=== PATIENT | male | born 1970 | race Caucasian/White ===

== ENCOUNTER 2017-08-09 02:16 | Emergency (ER) | payer OTHER, SELFPAY ==
[2017-08-09 02:18] VITALS: BP 162/112; PULSE 101; RESP 15; TEMP 36.7; O2SAT 98; BMI 26.2
--- NOTE | 2017-08-09 03:06 | CT_ITS ---
STUDY: CT ABDOMEN AND PELVIS WITH CONTRAST REASON FOR EXAM: Male, 47 years old. Lower abdominal pain RADIATION DOSAGE (If Supplied By Facility): CTDIvol = ( 12.83 ) mGy, DLP = ( 914.56 ) mGycm TECHNIQUE: Transaxial images were obtained from the dome of the diaphragm to the symphysis pubis without oral contrast. 100ML ml of Isovue 300 contrast was administered. Sagittal and coronal images were reconstructed. Individualized dose optimization techniques were used for this CT. COMPARISON: None. FINDINGS: The visualized lung bases are unremarkable. The visualized portions of the heart are within normal limits. Normal liver. Normal gallbladder and extrahepatic biliary system. Normal spleen. Normal pancreas. Normal bilateral adrenal glands. There is mild right hydronephrosis due to 8 mm stone in the proximal part of the right ureter. Normal left kidney. Normal visualized stomach. Normal small intestine. Normal colon. The appendix is visualized and appears normal. Normal abdominal aorta. Normal inferior vena cava. Normal retroperitoneum. Normal urinary bladder. Normal abdominal wall. Normal osseous structures. CT/Abdomen/Pelvis W IV Cont ONLY IMPRESSION: There is mild right hydronephrosis due to 8 mm stone in the proximal part of the right ureter. Electronically Signed: Lynsey Macias MD at 4:24 EDT Tel , Service support ,
[2017-08-09] MEDS: Ondansetron 4 MG/2 ML Vial IV (03:19)
[2017-08-09] MEDS: 0.9% Normal Saline 1,000 ML 1000 ML IV (03:20)
[2017-08-09 03:25] LABS: Absolute Lymphocyte Count 2.05 X10^3/ul (0.83-4.51); Absolute Neutrophil Count 4.1 X10^3/uL (2.0-7.7); Basophil# 0.01 X10^3/uL; Basophil% 0.1 % (0-1); Eosinophil# 0.05 X10^3/uL; Eosinophils% 0.7 % (0-5); Hematocrit 47.6 % (40-54); Hemoglobin 16.3 g/dl (13.0-16.5); Lymphocyte # 2.05 X10^3/ul (4.0); Lymphocyte % 29.3 % (19-41); Mean Corp Hgb Conc 34.2 g/gl (32-36); Mean Corpuscular Hgb 30.7 pg (27.0-32.0); Mean Corpuscular Volume 89.6 fL (80-94); Mean Platelet Vol. 9.8 fl (6.2-12.0); Monocyte# 0.78 X10^3/uL; Monocyte% 11.2 % (0-10); Neutrophil # 4.09 X10^3/uL (2.7-7.7); Neutrophil % 58.6 % (47-70); Platelet Count 209 K/mm3 (150-450); RBC Distribution Width CV 12.4 % (11.6-14.6); RBC Distribution Width SD 40.5 fl (35.1-43.9); Red Blood Count 5.31 M/mm3 (4.6-6.2)
[2017-08-09 03:27] LABS: POSITIVE COUNT NO; POSITIVE DIFFERENTIAL NO; POSITIVE MORPHOLOGY NO
[2017-08-09 03:48] LABS: Anion Gap 8 (5-15); BUN 14 mg/dL (7-18); BUN/Creat Ratio 11.9 RATIO (10-20); Calcium,Total 8.5 mg/dL (8.5-10.1); Chloride 104 mmol/L (98-107); Creatinine, Serum 1.18 mg/dL (0.70-1.30); EST Glomerular Filtration Rate 70 mL/min (>60); Est Glom Filt Rate - Afr Amer 84 mL/min (>60); Estimated Creatinine Clearance 78.19 ml/min; Glucose 100 mg/dL (74-106); Potassium 3.9 mmol/L (3.5-5.1); Sodium Level 140 mmol/L (136-145)
[2017-08-09 04:19] VITALS: BP 175/108; PULSE 89; RESP 18; O2SAT 96
--- NOTE | 2017-08-09 05:35 | ED.DCSUM_ITS ---
- ER Visit Summary Date of Service: 08/09/17 Chief Complaint: Lower abdominal pain History of Present Illness: The patient is a 47 M who presents for 1 day of lower abdominal pain. Pain began as very sharp in the left and right lower quadrants. During the day patient had improvement in the pain, however it returned again this past evening worse than before. It is relieved and worsened by nothing. Pain is very sharp. Patient denies fever, nausea, vomiting, diarrhea or urinary symptoms. Last bowel movement was 1 day ago. Patient has history of hypertension and MS. Denies any other medical history. Surgical history remarkable for hernia repairs. Physical Examination: Vital signs: afebrile, hypertensive at 162/112, mild tachycardia at 101, no hypoxia on room air General: well nourished, well developed, in no distress Skin: warm, dry, no rash, no pallor HEENT: normocephalic and atraumatic; PERRL, EOMI, moist mucous membranes Cardiovascular: Tachycardic rate and rhythm without murmurs, no peripheral edema , 2+ pulses all distal extremities Respiratory: No increased work of breathing, lungs are clear to auscultation bilaterally, no rales, rhonchi or wheezing Abdominal: Abdomen is soft, tender in the lower quadrants, with normoactive bowel sounds, no guarding or rebound, no masses MSK: Moves all extremities, no deformities, normal strength Neuro: Awake and alert, oriented ?4. No facial droop, sensation and motor function intact and symmetric Test Results: Abnormal Lab Results 08/09/17 08/09/17 03:15 03:15 WBC 7.0 RBC 5.31 Hgb 16.3 Hct 47.6 MCV 89.6 MCH 30.7 MCHC 34.2 RDW 12.4 RDW Differential 40.5 Plt Count 209 MPV 9.8 Immature Gran % (Auto) 0.100 Neut % (Auto) 58.6 Lymph % (Auto) 29.3 [place] % (Auto) 11.2 H Eos % (Auto) 0.7 Baso % (Auto) 0.1 Absolute Neuts (auto) 4.1 Absolute Lymphs (auto) 2.05 Total Counted Not Reportable Sodium 140 Potassium 3.9 Chloride 104 Carbon Dioxide 28.0 Anion Gap 8 BUN 14 Creatinine 1.18 Estim Creat Clear Calc 78.19 Est GFR (MDRD) Af Amer 84 Est GFR (MDRD) Non-Af 70 BUN/Creatinine Ratio 11.9 Glucose 100 Calcium 8.5 Emergency Department Course and Treatment: Patient was given morphine and Zofran for symptomatic relief. He was also given IV fluids. Given his age, history of hernia repairs, and the lower abdominal pain, CT scan of the abdomen and pelvis was performed to look for acute pathology. Patient had a right 8 mm proximal ureteral stone with mild hydronephrosis. No other pathology noted, including diverticulitis, hernias, masses or obstructive bowel pattern. Urinalysis performed. Patient had no leukocytosis and no renal dysfunction on CBC and BMP. Hematuria on analysis but no infection. He had additional pain and required further morphine good control. She was given a dose of Toradol as well. Given the 8 mm size and the proximal location, patient was discussed with Dr. Arthur, who advised outpatient management would be appropriate given that there is no infection. No Flomax was prescribed given the size of the stone. Patient was given a prescription for Zofran, Percocet and naproxen for symptomatic control. Return precautions given. Patient is to call Dr. Arthur' s office today to set up a follow-up appointment. Treatment Plan: [] Disposition: [] Impression: Right urolithiasis with ureteral colic This note was generated with [employer] dictation software. It may contain incorrect words, spelling, and punctuation that were not noted in review of the chart prior to signing ED Disposition - Plan for ED Patient: Disposition: Home or Assisted Living Chief Complaint: Abd Pain Instructions: ED Stone Renal W Colic Prescriptions: Oxycodone HCl/Acetaminophen [Percocet 5/325] 1 tab PO Q6H PRN PRN 5 Days #15 tab PRN Reason: Pain Ondansetron [Zofran Odt] 4 mg PO Q8H PRN PRN #20 tab PRN Reason: Nausea Naproxen [Naprosyn] 500 mg PO BID PRN PRN #20 tab PRN Reason: Pain Referrals: Ishan Arthur MD [STAFF PHYSICIAN] - As soon as possible NOT,DEFINED [Primary Care Provider] - Additional Instructions: You have a kidney stone on the right side. Please take the pain medication as needed. Please call the urology office today to set up a follow-up appointment. If at any time your pain is not controlled with the medications you were given, you have uncontrolled vomiting, fever, or any other concerns, please come back to the emergency department for another evaluation.
[2017-08-09 05:45] LABS: Mucous, Urine 0 SEEN /hpf (<or=2+); White Blood Cells 0 SEEN /hpf (0-5)
[2017-08-09 06:04] VITALS: BP 149/105; PULSE 85; RESP 94; TEMP 37.1; O2SAT 95
[2017-08-09 06:08] LABS: Color, Urine Yellow (Yellow); Glucose, Dipstick Normal (Normal); Ketone-Dipstick Negative (Negative); Leukocyte Esterase-Dipstick Negative /ul (Negative); Nitrite-Dipstick Negative (Negative); Occult Blood-Urine 250 /ul (Negative); Protein-Dipstick 15 mg/dl (Negative); Specific Gravity, Urine 1.015 (1.002-1.030); Urine Bilirubin Dipstick Negative (Negative); Urine Clarity Clear (Clear); Urine Urobilinogen Normal (Normal)
[2017-08-09 06:13] LABS: Red Blood Cells-Urine 5-10 SEEN /hpf (0-5); Squamous Epithelial Cells - UA 0-5 SEEN /hpf (0-5)
[2017-08-09 06:14] LABS: Bacteria RARE /hpf (None Seen)
--- NOTE | 2017-08-09 06:27 | ED.DEP ---
ED Disposition - Plan for ED Patient: Disposition: Home or Assisted Living Chief Complaint: Abd Pain Instructions: ED Stone Renal W Colic Prescriptions: Oxycodone HCl/Acetaminophen [Percocet 5/325] 1 tab PO Q6H PRN PRN 5 Days #15 tab PRN Reason: Pain Ondansetron [Zofran Odt] 4 mg PO Q8H PRN PRN #20 tab PRN Reason: Nausea Naproxen [Naprosyn] 500 mg PO BID PRN PRN #20 tab PRN Reason: Pain Referrals: NOT,DEFINED [Primary Care Provider] - Ishan Arthur MD [STAFF PHYSICIAN] - As soon as possible Additional Instructions: You have a kidney stone on the right side. Please take the pain medication as needed. Please call the urology office today to set up a follow-up appointment. If at any time your pain is not controlled with the medications you were given, you have uncontrolled vomiting, fever, or any other concerns, please come back to the emergency department for another evaluation.
[2017-08-09] MEDS: Ketorolac 30 MG/ML Syringe IV (06:47)
[2017-08-09 06:53] VITALS: BP 117/86; PULSE 78; RESP 16; O2SAT 98
== END 2017-08-09 06:53 | disposition home or self-care (01) ==
PROVIDERS: Emergency Provider Emergency Medicine
DX: N13.2 Hydronephrosis with renal and ureteral calculous obstruction (principal); I10 Essential (primary) hypertension; G35 Multiple sclerosis
CPT/HCPCS: 74177; 80048; 81001; 85025; 96361; 96374; 96375; 96376; 99283; Q9967; A4216; J2405

== ENCOUNTER 2017-08-18 07:56 | Day surgery (SDC) | payer OTHER, SELFPAY ==
--- NOTE | 2017-08-18 08:08 | RAD_ITS ---
STUDY: X-RAY - ABDOMEN/PELVIS REASON FOR EXAM: Male, 47 years old. Pre ESWL TECHNIQUE: Two AP supine views of the abdomen and pelvis. COMPARISON: None. FINDINGS: There is an unremarkable bowel gas pattern. There is no demonstrated free abdominal air. There is a calcific density in the region of the right renal shadow measuring 8.8 mm. Normal soft tissue structures. Normal visualized osseous structures. RAD/Abdomen Single View IMPRESSION: Right-sided stone as above Electronically Signed: Ravindra Aguirre DO at 8:54 EDT Tel , Service support ,
[2017-08-18 08:31] VITALS: BP 154/111; PULSE 101; RESP 16; TEMP 36.6; O2SAT 98; BMI 26.2
--- NOTE | 2017-08-18 10:45 | PCM.DC.URO ---
Discharge Diet: Light diet - advance as tolerated Discharge Activity: Return to Normal Activity Call your doctor if your incision/area has: Continuous Slow Oozing, Sudden Increased Bleeding, Increased Pain/ Swelling, Increased Redness, Foul Smelling Discharge, Swelling at the incision site Allergies/Adverse Reactions: Allergies Penicillins [PCN] Allergy (Verified 08/16/17 08:59) Rash Medications to take at Discharge Losartan Potassium [Cozaar] 50 mg PO DAILY 07/09/14 Hydrocodone/Acetaminophen [[place] 5-325 Tablet] 1 ea PO Q4H PRN PRN 5 Days #20 tab 08/18/17 The following prescriptions were given: Hydrocodone/Acetaminophen [[place] 5-325 Tablet] 1 ea PO Q4H PRN PRN 5 Days #20 tab PRN Reason: Pain Primary Care Physician: Delma Story [Primary Care Provider] - Please Follow Up With: Ishan Arthur MD When: MondaySeptember 05 at 10:30am, get KUB before appt.
[2017-08-18] MEDS: Cefazolin 2 GM in 0.9% Normal Saline 100 ML IV (10:46)
--- NOTE | 2017-08-18 11:36 | PCM.OPRPT ---
Problem List (1) Right kidney stone Status: Acute Report of Operation Date of Procedure: 08/18/17 Pre-Operative Diagnosis: Right renal calculi Post-Operative Diagnosis: Same Surgery/Procedure Performed:: Right extracorporeal shockwave lithotripsy Description of Surgical Findings:: 47-year-old male taken back to the operating room at the smooth induction of general anesthesia he is placed supine on the lithotripter table we then identified the stone in the proximal right ureter. The lithotripter machine was then brought up underneath the stone and we focus a stone in the F2 focal point and we delivered a total of 3500 shockwaves to the stone at a rate of 90 shocks per minute power up to 7.5. At the end of the treatment cycle the stone had broken up the little tiny pieces though some small fragments could be seen in the proximal ureter but decided not to leave a stent and will see him back in a few weeks with a KUB possibly and more likely will pass a stone on its own, will get the patient appointment to follow-up in a few weeks with a KUB. Type of Anesthesia:: General Drains: none - Admit VTE Documentation VTE Present on Admission: No VTE Mechan Device Prophylaxis: SCD's VTE Pharm Prophylaxis ordered?: No
--- NOTE | 2017-08-18 11:42 | OP.PCM_ITS ---
Problem List (1) Right kidney stone Status: Acute Report of Operation Date of Procedure: 08/18/17 Pre-Operative Diagnosis: Right renal calculi Post-Operative Diagnosis: Same Surgery/Procedure Performed:: Right extracorporeal shockwave lithotripsy Description of Surgical Findings:: 47-year-old male taken back to the operating room at the smooth induction of general anesthesia he is placed supine on the lithotripter table we then identified the stone in the proximal right ureter. The lithotripter machine was then brought up underneath the stone and we focus a stone in the F2 focal point and we delivered a total of 3500 shockwaves to the stone at a rate of 90 shocks per minute power up to 7.5. At the end of the treatment cycle the stone had broken up the little tiny pieces though some small fragments could be seen in the proximal ureter but decided not to leave a stent and will see him back in a few weeks with a KUB possibly and more likely will pass a stone on its own , will get the patient appointment to follow-up in a few weeks with a KUB. Type of Anesthesia:: General Drains: none - Admit VTE Documentation VTE Present on Admission: No VTE Mechan Device Prophylaxis: SCD's VTE Pharm Prophylaxis ordered?: No
[2017-08-18 11:56] VITALS: BP 118/86; BP 154/111; PULSE 87; RESP 18; TEMP 36.3; O2SAT 94
[2017-08-18 12:00] VITALS: BP 125/68; BP 154/111; PULSE 97; RESP 18; O2SAT 100
[2017-08-18 12:15] VITALS: BP 125/99; BP 154/111; PULSE 84; RESP 18; O2SAT 100
[2017-08-18 12:27] VITALS: BP 129/96; BP 154/111; PULSE 79; RESP 18; TEMP 36; O2SAT 99
[2017-08-18 12:45] VITALS: BP 154/111
== END 2017-08-18 12:55 | disposition home or self-care (01) ==
LOC: SDC 07:58 → AC 07:58
PROVIDERS: Family Provider Nurse Practitioner; PCP Nurse Practitioner; Visit Provider Urology
PROC: (CPT 50590; principal; 2017-08-18 10:10)
DX: N20.1 Calculus of ureter (principal); I10 Essential (primary) hypertension
CPT/HCPCS: 00873; 50590; 74018; J7120; J2405

== ENCOUNTER 2019-01-12 15:52 | Emergency (ER) | payer OTHER, SELFPAY ==
[2019-01-12 15:53] VITALS: BP 156/116; PULSE 108; RESP 17; TEMP 36.7; O2SAT 99; BMI 23.7
--- NOTE | 2019-01-12 16:22 | ED.VIS.GEN ---
History of Present Illness Chief Complaint: Flank Pain Informant: Patient Onset: Today Narrative: Patient presents to the ED with left flank pain that began over an hour prior to arrival. He is concerned he may have a kidney stone. He is a history of kidney stones with his last being in May of this year. The stone did require lithotripsy. He states that he feels it is difficult to urinate. He denies any other associated urinary symptoms, fever, chills, nausea, vomiting, or changes in bowel movements. Past Medical History - Allergies and Home Meds Allergies/Adverse Reactions: Allergies Penicillins [PCN] Allergy (Verified 01/12/19 15:53) Rash Primary Care Physician: Delma Story NP-C [Primary Care Provider] - Smoking Status: Light Smoker (<10/day) Review of Systems General: Denies: Chills, Fever, Sweats Eyes: Denies: Visual changes - bilaterally, Diplopia ENT: Denies: Rhinorrhea, Sore throat Cardiovascular: Denies: Chest pain, Palpitations Respiratory: Denies: Dyspnea, Cough, Dyspnea on exertion Gastrointestinal: Reports: - - L flank pain. Denies: Abdominal pain, Nausea, Vomiting, Diarrhea, Melena, Hematochezia Genitourinary: Reports: - - Difficulty urinating. Denies: Dysuria, Hematuria, Frequency Musculoskeletal: Denies: Back pain, Extremity Pain Skin: Denies: Rash, Wounds Neurological: Denies: Headache, Weakness, Numbness Physical Exam Vital Signs/Narrative: Vital Signs Temp Pulse Resp BP Pulse Ox 01/12/19 15:53 98.1 F 108 H 17 156/116 H 99 Inital Vital Signs reviewed: Yes General: Well nourished, Well developed, - - Appears uncomfortable Head: Normocephalic, Atraumatic Eyes: Perrl, EOMI ENT: Moist mucous membranes, No rhinorrhea Neck: Supple, Nontender Cardiovascular: Regular rate, Regular rhythm, No murmurs Respiratory: No distress, CTA bilaterally, Chest nontender Abdomen: Soft, Nontender, Nondistended, Normal bowel sounds Back: Nontender, Normal Inspection. Negative for: CVA tenderness Extremities: Nontender, No edema Skin: Normal color, No rash Neurological: Alert, Oriented x3, Cranial nerves II-XII grossly intact, Normal Strength, Normal Sensation Psychological: Normal affect, Normal Mood Diagnostic/Tx/Re-eval CBC unremarkable. BMP indicates a mildly elevated creatinine of 1.48. CT abdomen/pelvis without contrast indicates 3 mm distal ureteral stone with hydronephrosis. - Medical Decision Making Patient presents to the ED with concern for renal calculus. He has a history of renal stones with his last being in May of this year. Patient does appear uncomfortable. He was given IV fluids, morphine, Toradol, and Zofran for symptomatic relief. CT abdomen/pelvis does indicate 3 mm distal ureteral stone with some hydronephrosis. Patient's symptoms are improved with treatment here. I was awaiting urinalysis results. Urinalysis results will be followed by Dr. Larios and disposition will be made for patient by Dr. Larios. Patient will most likely be discharged home with analgesics, antiemetics, and Flomax. Depending on urinalysis results, patient will be started on an oral antibiotic if he does have an infected stone. Patient was advised to follow-up with his urologist. He was educated on signs/symptoms to return to the ED. He is provided discharge instructions. He is agreeable to plan Impression: Left distal ureteral stone with mild hydronephrosis Disposition: Home stable ED Disposition - Plan for ED Patient: Referrals: Delma Story, [employer] [Primary Care Provider] -
[2019-01-12] MEDS: Ketorolac 15 MG/ML Vial IV (16:35)
[2019-01-12] MEDS: Morphine 4 MG/ML Syringe IV (16:35)
[2019-01-12] MEDS: Ondansetron 4 MG/2 ML Vial IV (16:35)
[2019-01-12] MEDS: 0.9% Normal Saline 1,000 ML 999 ML IV (16:35)
--- NOTE | 2019-01-12 16:40 | CT_ITS ---
STUDY: CT ABDOMEN AND PELVIS WITHOUT CONTRAST REASON FOR EXAM: Male, 48 years old. Left flank pain. RADIATION DOSAGE (If Supplied By Facility): CTDIvol = ( 7.18 ) mGy, DLP = ( 385.73 ) mGycm TECHNIQUE: Transaxial images were obtained from the dome of the diaphragm to the symphysis pubis without oral contrast, and without intravenous contrast. Sagittal and coronal images were reconstructed. Individualized dose optimization techniques were used for this CT. COMPARISON: August 09, 2017 FINDINGS: The visualized lung bases are unremarkable. The visualized portions of the heart are within normal limits. The lack of intravenous contrast limits evaluation of solid visceral organs. Normal liver. Normal gallbladder and extrahepatic biliary system. Normal spleen. Normal pancreas. Normal bilateral adrenal glands. There is a nonobstructing 1.8 mm calculus within the right kidney. There is mild left hydroureteronephrosis secondary to a 3 mm calculus within the distal ureter. Normal visualized stomach. Normal small intestine. There are scattered diverticula throughout the colon. The appendix is visualized and appears normal. Normal abdominal aorta. Normal inferior vena cava. Normal retroperitoneum. Normal urinary bladder. Normal abdominal wall. Normal osseous structures. CT/Abdomen/Pelvis without Cont IMPRESSION: Left hydroureteronephrosis secondary to a 3.0 mm calculus within the distal ureter. Nonobstructing 1.8 mm right renal calculus. Colonic diverticulosis. Electronically Signed: Beatrice Cao MD at 17:00 EDT Tel , Service support ,
[2019-01-12 16:47] LABS: Absolute Lymphocyte Count 1.59 X10^3/uL (0.83-4.51); Absolute Neutrophil Count 5.2 X10^3/uL (2.0-7.7); Basophil# 0.02 X10^3/uL; Basophil% 0.3 % (0-1); Eosinophil# 0.01 X10^3/uL; Eosinophils% 0.1 % (0-5); Hematocrit 50.5 % (40-54); Hemoglobin 17.4 g/dL (13.0-16.5); Lymphocyte # 1.59 X10^3/ul (4.0); Lymphocyte % 19.9 % (19-41); Mean Corp Hgb Conc 34.5 g/dL (32-36); Mean Corpuscular Hgb 31.2 pg (27.0-32.0); Mean Corpuscular Volume 90.7 fL (80-94); Mean Platelet Vol. 9.6 fl (6.2-12.0); Monocyte# 1.18 X10^3/uL; Monocyte% 14.8 % (0-10); NRBC Flagged by Analyzer 0 % (0-5); Neutrophil # 5.16 X10^3/uL (2.7-7.7); Neutrophil % 64.5 % (47-70); Platelet Count 223 K/mm3 (150-450); RBC Distribution Width CV 12.4 % (11.6-14.6); RBC Distribution Width SD 40.9 fl (35.1-43.9); Red Blood Count 5.57 M/mm3 (4.6-6.2)
[2019-01-12 16:56] LABS: Anion Gap 5 (5-15); BUN 14 mg/dL (7-18); BUN/Creat Ratio 9.5 RATIO (10-20); Chloride 103 mmol/L (98-107); Creatinine, Serum 1.48 mg/dL (0.70-1.30); EST Glomerular Filtration Rate 53 mL/min (>60); Est Glom Filt Rate - Afr Amer 65 mL/min (>60); Estimated Creatinine Clearance 61.66 ml/min; Glucose 138 mg/dL (74-106); Potassium 3.6 mmol/L (3.5-5.1); Sodium Level 138 mmol/L (136-145)
--- NOTE | 2019-01-12 18:17 | ED.RN ---
PT UNABLE TO GIVE UA AT THIS TIME, MD AWARE. NO NEW ORDERS GIVEN.
[2019-01-12] MEDS: morphine 8 MG/ML Syringe 6 MG IV (18:29)
--- NOTE | 2019-01-12 18:33 | ED.DEP ---
ED Disposition - Plan for ED Patient: Disposition: Home or Assisted Living Instructions: KIDNEY STONE w/ Colic Prescriptions: Tamsulosin HCl [Flomax] 0.4 mg PO DAILY #4 cap Prescription Printed Hydrocodone/Acetaminophen [[place] 5-325 Tablet] 1 ea PO Q4H PRN PRN 7 Days #20 tab PRN Reason: Pain Prescription Printed Referrals: Ishan Arthur MD [STAFF PHYSICIAN] - 3-5 Days if not improving Additional Instructions: Plenty of fluids and rest. [place] and Motrin for pain. Flomax daily until the stone passes. Strain your urine for the passed stone. Follow-up with not improving return if feeling worse.
[2019-01-12 18:34] VITALS: BP 149/99; PULSE 91; RESP 14; O2SAT 97
== END 2019-01-12 18:46 | disposition home or self-care (01) ==
PROVIDERS: Emergency Provider Physician Assistant; Family Provider Nurse Practitioner; PCP Nurse Practitioner
DX: N13.2 Hydronephrosis with renal and ureteral calculous obstruction (principal); Z87.442 Personal history of urinary calculi; F17.200 Nicotine dependence, unspecified, uncomplicated
CPT/HCPCS: 74176; 80048; 85025; 99283; J7030; A4216; J2405

== ENCOUNTER → 2019-06-03 12:44 | Outpatient (CLI) | payer OTHER, SELFPAY ==
[2019-06-03 13:06] LABS: Hematocrit 54.5 % (40-54); Mean Corp Hgb Conc 33.8 g/dL (32-36); Mean Corpuscular Hgb 30.6 pg (27.0-32.0); Mean Corpuscular Volume 90.7 fL (80-94); Mean Platelet Vol. 9.9 fl (6.2-12.0); Platelet Count 248 K/mm3 (150-450); RBC Distribution Width CV 12.1 % (11.6-14.6); RBC Distribution Width SD 40.2 fl (35.1-43.9); Red Blood Count 6.01 M/mm3 (4.6-6.2); White Blood Count 6.8 K/mm3 (4.4-11.0)
[2019-06-03 13:09] LABS: Erythrocyte Sedimentation Rate 3 mm/hr (0-20)
[2019-06-03 13:19] LABS: Hemoglobin 18.4 g/dL (13.0-16.5)
[2019-06-03 13:27] LABS: Hemoglobin A1c 5.5 % (4.2-6.3)
[2019-06-03 13:30] LABS: AST(SGOT) 16 U/L (15-37); Alanine Aminotransfer ALT/SGPT 27 U/L (16-61); Albumin, Serum 4.4 g/dL (3.2-5.0); Alkaline Phosphatase 89 U/L (45-117); Anion Gap 5 (5-15); BUN 13 mg/dL (7-18); BUN/Creat Ratio 10.4 RATIO (10-20); CPK Total, Creatine Kinase 178 U/L (39-308); CRP < 2.90 mg/L (0.0-3.0); Calcium,Total 8.9 mg/dL (8.5-10.1); Chloride 102 mmol/L (98-107); Creatinine, Serum 1.25 mg/dL (0.70-1.30); EST Glomerular Filtration Rate 65 mL/min (>60); Est Glom Filt Rate - Afr Amer 78 mL/min (>60); Globulin 4.2 g/dL (2.2-4.2); Glucose 96 mg/dL (74-106); Potassium 4.2 mmol/L (3.5-5.1); Protein, Total 8.6 g/dL (6.4-8.2); Sodium Level 136 mmol/L (136-145); Thyroid Stim Hormone (TSH) 1.45 uIU/mL (0.358-3.74)
[2019-06-03 14:40] LABS: HIV - WCH Non-Reactive (Nonreactive); Hepatitis C Antibody Non-Reactive (Nonreactive)
[2019-06-03 15:08] LABS: Pathologist Review Reviewed
[2019-06-04 16:08] LABS: ANTINUCLEAR ANTIBODIES DIRECT Negative (Negative); Creatine Kinase BB 0 % (0); Creatine Kinase MB 0 % (0-3); Creatine Kinase MM 100 % (97-100); Creatine Kinase,Total,Serum 174 U/L (24-204); Macro I 0 % (Not Observed); Macro II 0 % (Not Observed)
[2019-06-04 18:34] LABS: Vitamin B12 298 pg/mL (232-1245)
[2019-06-07 03:06] LABS: PROEL- Albumin 4.3 g/dL (2.9-4.4); PROEL- Alpha-1 Globulin 0.3 g/dL (0.0-0.4); PROEL- Beta Globulin 1.5 g/dL (0.7-1.3); PROEL- Gamma Globulin 1.7 g/dL (0.4-1.8); PROEL- Globulin, Total 4.4 g/dL (2.2-3.9); PROEL- TOTAL PROTEIN 8.7 g/dL (6.0-8.5)
[2019-06-07 15:07] LABS: Arsenic 7245 6 ug/L (2-23)
== END ==
PROVIDERS: Family Provider Nurse Practitioner; PCP Nurse Practitioner; Referring Provider Nurse Practitioner Gerontology; Visit Provider Nurse Practitioner Gerontology
DX: R20.2 Paresthesia of skin (principal); R07.89 Other chest pain
CPT/HCPCS: 80053; 82175; 82550; 82552; 82607; 83036; 83655; 83825; 84165; 84443; 84484; 85027; 85652; 86038; 86140; 86703; 86803

== ENCOUNTER 2020-01-31 17:27 | Emergency (ER) | payer OTHER, SELFPAY ==
[2020-01-31 17:28] VITALS: BP 153/125; PULSE 107; RESP 17; TEMP 36.7; O2SAT 97; BMI 26.3
--- NOTE | 2020-01-31 17:48 | EKG12_ITS ---
Test Reason : PALP Blood Pressure : / mmHG Vent. Rate : 103 BPM Atrial Rate : 103 BPM P-R Int : 146 ms QRS Dur : 090 ms QT Int : 322 ms P-R-T Axes : 025 -29 042 degrees QTc Int : 421 ms Sinus tachycardia Leftward [place] Low voltage QRS (Limb Leads) Poor R-wave progression Inferior infarct , age undetermined , cannot be excluded Abnormal ECG Confirmed by ANGEL COLLINS, EDMAR ([id number]), editorial clerk APARNA FERNÁNDEZ ([id number]) on 02/05/2020 10:10:16 AM Referred By: Confirmed By:EDMAR ORTIZ MD
--- NOTE | 2020-01-31 17:49 | ED.VIS.GEN ---
History of Present Illness Chief Complaint: Hypertension Detail of Chief Complaint: Palpitations Informant: Patient Narrative: Patient presents secondary to palpitations and high blood pressure. Patient was diagnosed with MS 9 years ago. With the recent Covid pandemic he lost his job and was unable to pay for his MS medications. He is currently going through work-up to be started on a new experimental medication through [facility] in [place]. He states when he was at the office yesterday they noted his blood pressure to be high, 169/115. His family checked his blood pressure at home tonight and noted it to be elevated so he came in for evaluation. He does report feel like his heart rate is faster than normal. He states he had some chest pressure earlier but that is resolved currently. He does admit to increased stress and anxiety recently. - Past Medical History (1) Multiple sclerosis Status: Chronic (2) Hypertension Status: Chronic Past Medical History - Allergies and Home Meds Allergies/Adverse Reactions: Allergies Penicillins [PCN] Allergy (Verified 01/31/20 17:27) Rash Primary Care Physician: Delma Story [employer], [employer] [Primary Care Provider] - Prior records reviewed: Yes Smoking Status: Former smoker Review of Systems General: Denies: Chills, Fever Eyes: Denies: Visual changes - bilaterally ENT: Denies: Bilateral ear pain Cardiovascular: Reports: Chest pain, Heart racing Respiratory: Denies: Dyspnea, Cough Gastrointestinal: Denies: Abdominal pain, Nausea, Vomiting, Diarrhea Musculoskeletal: Denies: Swelling, Extremity Pain Skin: Denies: Rash Neurological: Denies: Headache Hematologic: Denies: Easy bruising, Easy bleeding Allergy: Denies: Uticaria Physical Exam Vital Signs/Narrative: Vital Signs Temp Pulse Resp BP Pulse Ox 01/31/20 17:28 98.0 F 107 H 17 153/125 H 97 Inital Vital Signs reviewed: Yes General: Well nourished, Well developed Head: Normocephalic ENT: Moist mucous membranes Neck: Supple Cardiovascular: Tachycardia Respiratory: No distress, CTA bilaterally Abdomen: Soft, Nontender Rectal: Deferred Back: Nontender Extremities: Nontender Skin: Normal color, No rash Neurological: Alert, Oriented x3, Normal Strength, Normal Sensation Psychological: Normal affect Diagnostic/Tx/Re-eval Impressions Chest X-Ray 01/31/20 18:00 IMPRESSION: Normal x-ray examination of the chest. Electronically Signed: Marcos Nayak MD at 18:25 EDT Tel , Service support , 01/31/20 18:00 Chest 1 View (Portable) [RAD] Stat Laboratory Results 01/31/20 01/31/20 17:40 17:40 WBC 8.4 RBC 5.34 Hgb 16.7 H Hct 48.9 MCV 91.6 MCH 31.3 MCHC 34.2 RDW Std Deviation 42.3 RDW Coeff of Ericka 12.6 Plt Count 291 MPV 9.7 Immature Gran % (Auto) 0.400 Neut % (Auto) 61.2 Lymph % (Auto) 26.5 [place] % (Auto) 11.1 H Eos % (Auto) 0.6 Baso % (Auto) 0.2 Absolute Neuts (auto) 5.1 Absolute Lymphs (auto) 2.22 Nucleated RBC % 0 Sodium 137 Potassium 4.0 Chloride 102 Carbon Dioxide 31.0 Anion Gap 4 L BUN 16 Creatinine 1.36 H Estim Creat Clear Calc 66.35 Est GFR (MDRD) Af Amer 71 Est GFR (MDRD) Non-Af 59 L BUN/Creatinine Ratio 11.8 Glucose 109 H Calcium 8.7 Troponin I < 0.015 TSH 1.76 - EKG Initial EKG Interpretation: Sinus Tachycardia - Sinus tach at 103. No acute ischemia. - Medical Decision Making Patient was given 10 mg of IV labetalol. Blood pressure went from 153/125 down to 134/102. On repeat evaluation he is resting comfortably. I did discuss with him that his test results are unremarkable at this time. He may have anxiety contributing to his blood pressure as well. I attempted to contact his PCP but have not received a return phone call. Patient does have access to a blood pressure cuff and will keep a journal of his blood pressures. I will write him for low-dose metoprolol. If the patient systolic blood pressures over 150 he will take a dose. He is to follow-up with Delma Story in 1 week. ED Disposition - Plan for ED Patient: Disposition: Home or Assisted Living Diagnosis: Hypertension Instructions: ED Hypertension Established Prescriptions: Metoprolol Succinate 1 tab PO DAILY #30 tab.er.24h Referrals: Delma Story NP, [employer] [Primary Care Provider] - Additional Instructions: As discussed, check your blood pressure daily. If your systolic blood pressure (top number) is over 150, take a dose of Metoprolol. Keep a journal and take this to your next doctor's appointment.
[2020-01-31] MEDS: Labetalol (Prefilled) 20 MG/4 ML 10 MG IV (17:58)
--- NOTE | 2020-01-31 18:00 | RAD_ITS ---
STUDY: X-RAY CHEST REASON FOR EXAM: Male, 49 years old. chest pain, HTN, palpitations TECHNIQUE: Single frontal view of the chest. COMPARISON: None. FINDINGS: The lungs are clear and expanded. There is no demonstrated pleural abnormality. Normal size heart. Normal mediastinum and tyler. Normal visualized pulmonary arteries. Normal visualized aortic arch and descending thoracic aorta. Normal visualized thoracic spine. Normal visualized ribs, clavicles, and shoulders. There is no demonstrated abnormality of the visualized soft tissue structures of the upper abdomen. RAD/Chest 1 View (Portable) IMPRESSION: Normal x-ray examination of the chest. Electronically Signed: Marcos Nayak MD at 18:25 EDT Tel , Service support ,
[2020-01-31 18:01] LABS: Absolute Lymphocyte Count 2.22 X10^3/uL (0.83-4.51); Absolute Neutrophil Count 5.1 X10^3/uL (2.0-7.7); Basophil# 0.02 X10^3/uL; Basophil% 0.2 % (0-1); Eosinophil# 0.05 X10^3/uL; Eosinophils% 0.6 % (0-5); Hematocrit 48.9 % (40-54); Hemoglobin 16.7 g/dL (13.0-16.5); Lymphocyte # 2.22 X10^3/ul (4.0); Lymphocyte % 26.5 % (19-41); Mean Corp Hgb Conc 34.2 g/dL (32-36); Mean Corpuscular Hgb 31.3 pg (27.0-32.0); Mean Corpuscular Volume 91.6 fL (80-94); Mean Platelet Vol. 9.7 fl (6.2-12.0); Monocyte# 0.93 X10^3/uL; Monocyte% 11.1 % (0-10); NRBC Flagged by Analyzer 0 % (0-5); Neutrophil # 5.14 X10^3/uL (2.7-7.7); Neutrophil % 61.2 % (47-70); Platelet Count 291 K/mm3 (150-450); RBC Distribution Width CV 12.6 % (11.6-14.6); RBC Distribution Width SD 42.3 fl (35.1-43.9); Red Blood Count 5.34 M/mm3 (4.6-6.2); White Blood Count 8.4 K/mm3 (4.4-11.0)
[2020-01-31 18:30] LABS: Anion Gap 4 (5-15); BUN 16 mg/dL (7-18); BUN/Creat Ratio 11.8 RATIO (10-20); Calcium,Total 8.7 mg/dL (8.5-10.1); Chloride 102 mmol/L (98-107); Creatinine, Serum 1.36 mg/dL (0.70-1.30); EST Glomerular Filtration Rate 59 mL/min (>60); Est Glom Filt Rate - Afr Amer 71 mL/min (>60); Estimated Creatinine Clearance 66.35 ml/min; Glucose 109 mg/dL (74-106); Sodium Level 137 mmol/L (136-145); Thyroid Stim Hormone (TSH) 1.76 uIU/mL (0.358-3.74)
[2020-01-31 19:01] VITALS: BP 136/100; PULSE 93; RESP 18; O2SAT 94
[2020-01-31 19:35] VITALS: BP 146/100; PULSE 86; RESP 21; O2SAT 95
== END 2020-01-31 19:36 | disposition home or self-care (01) ==
PROVIDERS: Emergency Provider Emergency Medicine; PCP Nurse Practitioner
DX: I10 Essential (primary) hypertension (principal); G35 Multiple sclerosis; Z87.891 Personal history of nicotine dependence
CPT/HCPCS: 71045; 80048; 84443; 84484; 85025; 93005; 96374; 99284; A4216

== ENCOUNTER 2021-05-19 16:40 | Emergency (ER) | payer OTHER, SELFPAY ==
[2021-05-19 16:41] VITALS: BP 141/90; PULSE 106; RESP 15; TEMP 36.3; O2SAT 99; BMI 27.8
--- NOTE | 2021-05-19 16:56 | CT_ITS ---
EXAM: CT ABDOMEN AND PELVIS WITHOUT INTRAVENOUS CONTRAST : 1970 CLINICAL INDICATION: Kidney Stone TECHNIQUE: Helically acquired images were obtained of the abdomen and pelvis without intravenous contrast. This CT exam was performed using one or more of the following dose reduction techniques: automated exposure control, adjustment of the mA and/or kV according to patient size, and/or use of iterative reconstruction technique. This report was created using [employer] report generation technology. COMPARISON: 01/12/2019 FINDINGS: LOWER THORAX: Unremarkable. Lung bases are clear. No cardiomegaly. No significant pericardial effusion. ABDOMEN: LIVER: Unremarkable. Homogeneous. GALLBLADDER AND BILE DUCTS: Unremarkable. No calcified gallstones. No gallbladder distention or wall edema. No intra- or extrahepatic biliary ductal dilation. PANCREAS: Unremarkable. No focal cystic mass. SPLEEN: Unremarkable. Normal size without focal cystic or solid mass. ADRENALS: Unremarkable. No nodules. KIDNEYS AND URETERS: There is a 6 mm stone within the bladder at the level of the right ureteral orifice. There is no evidence of hydronephrosis. Normal renal size and position. STOMACH AND BOWEL: Unremarkable. No stomach or bowel distention. No focal inflammatory change. PELVIS: APPENDIX: No evidence of acute appendicitis. BLADDER: Unremarkable. REPRODUCTIVE: Unremarkable as visualized. No mass. ABDOMEN and PELVIS: INTRAPERITONEAL SPACE: Unremarkable. No ascites or other fluid collection. No free air. BONES/JOINTS: Unremarkable. No suspicious lytic or blastic abnormality. SOFT TISSUES: Unremarkable. No discrete abdominal or pelvic wall hernia. VASCULATURE: Unremarkable. Abdominal aorta is non-dilated. LYMPH NODES: Unremarkable. No enlarged lymph nodes. CT/Abdomen/Pelvis without Cont IMPRESSION: 6 mm calcification within the bladder at the level of the right ureteral orifice. No hydronephrosis is identified. Individualized dose optimization techniques were used for this CT. at 1744 Reported and signed by: Michael Mathias MD Electronically Signed: Michael Mathias MD at 17:43 EST Tel , Service support ,
--- NOTE | 2021-05-19 17:00 | EDS_ITS ---
HPI History of Present Illness Chief Complaint: Flank Pain Informant: patient Onset/Context/Timing Onset: Today Context: Sudden Onset Timing: Continuous Quality: Sharp Location: Right flank Worsened by: Nothing Relieved by: Nothing Narrative Narrative: Patient presents with right flank pain that became worse today. Patient states he has been having some dull pain over the last couple days but today it became severe. Patient states pain is sharp. Patient states pain is localized to the right flank area. Patient states nothing makes it better nothing makes it worse. Patient states this feels similar to prior kidney stones. Patient denies any nausea or vomiting. Patient denies any dysuria or hematuria. Patient denies any fevers or chills. [facility] Medical History (Updated 05/19/21 @ 18:[address] Edilson Bailey DO) Essential (primary) hypertension Multiple sclerosis Obstructive sleep apnea Polycythemia Right kidney stone Sciatic nerve pain Home Medications multivitamin 1 tab PO DAILY 02/24/20 [History Last Taken Unknown] amlodipine 10 mg tablet 10 mg PO DAILY #90 tab 07/13/20 [Rx Last Taken Unknown] hydrochlorothiazide 25 mg tablet 25 mg PO DAILY #90 tab 07/13/20 [Rx Last Taken Unknown] losartan 100 mg tablet 100 mg PO DAILY #90 tab 07/13/20 [Rx Last Taken Unknown] gabapentin 05/19/21 [History Last Taken Unknown] hydrocodone-acetaminophen 1 tab PO Q6H PRN PRN 3 Days #10 tablet 05/19/21 [Rx Last Taken Unknown] Allergy/AdvReac Type Severity Reaction Status Date / Time Penicillins [PCN] Allergy Rash Verified 05/19/21 16:41 Family History Father Myocardial infarction, Onset Age: 60 Heart disease CAD (coronary artery disease) coronary stents Mother Breast cancer Hyperlipidemia Surgical History History of left inguinal hernia repair (2014) History of lithotripsy (2017) Social History Smoking Status: Current some day smoker tobacco type: cigarettes alcohol intake: current alcohol intake frequency: holidays/special occasions only caffeine: Yes ROS ROS ED Constitutional Constitutional ED: Denies chills or fever(s) Eyes Eyes: Denies blurry vision or change in vision ENT ENT ED: Denies rhinorrhea or sore throat Cardiovascular Cardiovascular: Denies chest pain or palpitations Respiratory/Chest Respiratory/Chest: Denies cough or dyspnea Gastrointestinal Gastrointestinal: Denies nausea or vomiting Genitourinary Genitourinary ED: Denies dysuria or hematuria Musculoskeletal Musculoskeletal: Denies back pain or neck pain Integumentary Denies abscess or rash Neurologic Neurologic: Denies headache(s) or weakness Allergic/Immunologic Allergic/Immunologic ED: Denies mouth swelling or urticaria EXAM Physical Exam Const Vital Signs: 05/19/21 16:41 Temperature 97.3 F L Temperature Source Temporal Pulse Rate 106 H Respiratory Rate 15 Blood Pressure 141/90 H Blood Pressure Mean 107 Pulse Ox 99 Oxygen Delivery Method Room Air Positive well nourished and well developed General Appearance ED: well developed HEENT Reports moist mucous membranes Neck supple and no JVD Resp normal respiratory effort and clear to auscultation bilaterally Cardio regular rate, regular rhythm and no murmurs GI normal to inspection, nondistended, normoactive bowel sounds Palpation: soft and tender RLQ and RUQ; Negative for guarding or rebound tenderness present Back/Spine General Back: CVA tenderness right Extremity normal to inspection General Extremety ED: Negative for edema or tenderness General Extremity: Negative for edema Neuro oriented x3, CN's II-XII intact bilaterally and no sensory deficits noted Sensorium / Orientation: alert Motor Exam: strength 5/5 throughout Psych mental status grossly normal Skin no rashes or lesions noted MDM MDM MDM Narrative Medical decision making narrative: Patient was given IV fluids, Zofran, morphine, and Toradol. CBC was within normal limits. Basic metabolic profile was essentially within normal limits. Urinalysis does not show any evidence of hematuria or urinary tract infection. CT scan of the abdomen pelvis was obtained. There is a 6 mm stone in the bladder at the level of the right ureteral orifice. This was interpreted by the radiologist and reviewed by myself. On reevaluation, patient stated that his pain got much better just prior to receiving the morphine. Currently, patient denies any pain. Patient was advised of his findings. Patient was given a prescription for a short course of [place]. Patient was instructed to use his urine strainers to try and catch the stone. Patient was instructed to follow-up with his primary care physician in 5 to 7 days. Patient understood and was agreeable with the plan. All questions were answered. Lab Data Attestation: I reviewed the patient's lab results. Labs: Laboratory Results - last 24 hr 05/19/21 05/19/21 05/19/21 16:50 17:10 17:10 WBC 6.9 RBC 4.95 Hgb 15.3 Hct 43.2 MCV 87.3 MCH 30.9 MCHC 35.4 RDW Std Deviation 40.0 RDW Coeff of Ericka 12.6 Plt Count 259 MPV 9.7 Immature Gran % (Auto) 0.300 Neut % (Auto) 68.2 Lymph % (Auto) 19.3 [place] % (Auto) 11.2 H Eos % (Auto) 0.6 Baso % (Auto) 0.4 Absolute Neuts (auto) 4.7 Absolute Lymphs (auto) 1.34 Nucleated RBC % 0 Sodium 136 Potassium 3.4 L Chloride 101 Carbon Dioxide 28.0 Anion Gap 7 BUN 21 H Creatinine 1.22 Estim Creat Clear Calc 72.30 Est GFR (MDRD) Af Amer 80 Est GFR (MDRD) Non-Af 66 BUN/Creatinine Ratio 17.2 Glucose 146 H Calcium 8.6 Urine Color Yellow Urine Clarity Clear Urine pH 6.0 Ur Specific [place] 1.020 Urine Protein Negative Urine Glucose (UA) Normal Urine Ketones Negative Urine Occult Blood 10 H Urine Nitrite Negative Urine Bilirubin Negative Urine Urobilinogen Normal Ur Leukocyte Esterase Negative Urine RBC 0 SEEN Urine WBC 0 SEEN Ur Squamous Epith Cells 0 SEEN Urine Bacteria 0 SEEN Urine Mucus 0 SEEN Radiography Diagnostic Testing: Clinical Impression(s) from Imaging Studies Abdomen/Pelvis CT 05/19/21 16:56 IMPRESSION: 6 mm calcification within the bladder at the level of the right ureteral orifice. No hydronephrosis is identified. Individualized dose optimization techniques were used for this CT. at 1744 Reported and signed by: Michael Mathias MD Electronically Signed: Michael Mathias MD at 17:43 EST Tel , Service support , Discharge Plan Triage Chief Complaint: Flank Pain ED Provider: Edilson Bailey Dx/Rx/DC Orders Clinical Impression: Calculus of distal right ureter Instructions: ED Kidney Stone, Passed Prescriptions: New hydrocodone-acetaminophen [hydrocodone-acetaminophen] 1 TABLET tablet 1 tab PO Q6H PRN PRN (Reason: Pain) 3 Days Qty: 10 RF: 0 No Action multivitamin Tablet 1 tab PO DAILY RF: 0 gabapentin 300 mg capsule RF: 0 amlodipine 10 mg tablet 10 mg PO DAILY Qty: 90 RF: 3 hydrochlorothiazide 25 mg tablet 25 mg PO DAILY Qty: 90 RF: 3 losartan 100 mg tablet 100 mg PO DAILY Qty: 90 RF: 3 Primary Care Provider: Delma Story NP Referrals: Ishan Arthur MD [STAFF PHYSICIAN] - 5-7 Days Delma Story NP, [facility] [Primary Care Provider] - 5-7 Days Disposition Disposition: Home, Self Care
[2021-05-19] MEDS: Morphine 4 MG/ML Syringe IV (17:08)
[2021-05-19] MEDS: Ketorolac 15 MG/ML Vial IV (17:08)
[2021-05-19] MEDS: Ondansetron 4 MG/2 ML Vial IV (17:08)
[2021-05-19] MEDS: 0.9% Normal Saline 1,000 ML 250 ML IV (17:09)
[2021-05-19 17:19] LABS: Bacteria 0 SEEN /hpf (None Seen); Mucous, Urine 0 SEEN /hpf (<or=2+); Red Blood Cells-Urine 0 SEEN /hpf (0-5); Squamous Epithelial Cells - UA 0 SEEN /hpf (0-5); White Blood Cells 0 SEEN /hpf (0-5)
[2021-05-19 17:23] LABS: Absolute Lymphocyte Count 1.34 X10^3/uL (0.83-4.51); Absolute Neutrophil Count 4.7 X10^3/uL (2.0-7.7); Basophil# 0.03 X10^3/uL; Basophil% 0.4 % (0-1); Eosinophil# 0.04 X10^3/uL; Eosinophils% 0.6 % (0-5); Hematocrit 43.2 % (40-54); Hemoglobin 15.3 g/dL (13.0-16.5); Lymphocyte # 1.34 X10^3/ul (0.83-4.51); Lymphocyte % 19.3 % (19-41); Mean Corp Hgb Conc 35.4 g/dL (32-36); Mean Corpuscular Hgb 30.9 pg (27.0-32.0); Mean Corpuscular Volume 87.3 fL (80-94); Mean Platelet Vol. 9.7 fl (6.2-12.0); Monocyte# 0.78 X10^3/uL; Monocyte% 11.2 % (0-10); NRBC Flagged by Analyzer 0 % (0-5); Neutrophil # 4.73 X10^3/uL (2.7-7.7); Neutrophil % 68.2 % (47-70); Platelet Count 259 K/mm3 (150-450); RBC Distribution Width CV 12.6 % (11.6-14.6); Red Blood Count 4.95 M/mm3 (4.6-6.2); White Blood Count 6.9 K/mm3 (4.4-11.0)
[2021-05-19 17:27] LABS: Glucose, Dipstick Normal (Normal); Ketone-Dipstick Negative (Negative); Leukocyte Esterase-Dipstick Negative /ul (Negative); Nitrite-Dipstick Negative (Negative); Occult Blood-Urine 10 /ul (Negative); Protein-Dipstick Negative (Negative); Urine Bilirubin Dipstick Negative (Negative); Urine Urobilinogen Normal (Normal)
[2021-05-19 17:29] LABS: Color, Urine Yellow (Yellow); Urine Clarity Clear (Clear)
[2021-05-19 17:39] LABS: Anion Gap 7 (5-15); BUN 21 mg/dL (7-18); BUN/Creat Ratio 17.2 RATIO (10-20); Calcium,Total 8.6 mg/dL (8.5-10.1); Chloride 101 mmol/L (98-107); Creatinine, Serum 1.22 mg/dL (0.70-1.30); EST Glomerular Filtration Rate 66 mL/min (>60); Est Glom Filt Rate - Afr Amer 80 mL/min (>60); Glucose 146 mg/dL (74-106); Potassium 3.4 mmol/L (3.5-5.1); Sodium Level 136 mmol/L (136-145)
[2021-05-19 18:18] VITALS: BP 108/76; PULSE 94
== END 2021-05-19 18:23 | disposition home or self-care (01) ==
PROVIDERS: Emergency Provider Emergency Medicine; PCP Nurse Practitioner
DX: N20.1 Calculus of ureter (principal); I10 Essential (primary) hypertension; G35 Multiple sclerosis; F17.210 Nicotine dependence, cigarettes, uncomplicated; Z79.899 Other long term (current) drug therapy; Z87.442 Personal history of urinary calculi
CPT/HCPCS: 74176; 80048; 81001; 85025; 96361; 96374; 96375; 99283; J7030; A4216; J2405

== ENCOUNTER → 2022-10-19 | Outpatient (CLI) | payer OTHER, SELFPAY ==
--- NOTE | 2022-10-19 06:40 | MRI_ITS ---
INDICATION: MS STAGING, NEW MED CHANGE EXAMINATION: MRI - MR Spine Cervical WO/W Contrast TECHNIQUE: Multiplanar and multisequence MR images of the cervical spine were performed. IV Contrast Dosage and Agent: None. COMPARISON: None. FINDINGS: VERTEBRAE: Normal vertebral bodies and posterior elements. VERTEBRAL ALIGNMENT: Normal, including the craniocervical junction and cervicothoracic junction. No spondylolisthesis. There is preservation of the normal cervical lordosis. CERVICAL SPINAL CORD: There is a mild increased T2 signal with focal atrophy suggesting a demyelinating lesion in the posterolateral aspect of the cervical spinal cord on the left at C4-5 extending over approximately 19 mm in cc dimension. C2/C3: Normal disc height and morphology. Normal spinal canal and neuroforamina. C3/C4: There is a small right paracentral disc herniation impinging on the right C4 nerve root. C4/C5: There is a small broad-based disc bulge. Normal spinal canal and neuroforamina. C5/C6: Central and paracentral disc bulge. Degenerative changes of the bilateral facet joints and uncovertebral joints. Mild narrowing of the central canal and the bilateral intervertebral neural foramina. C6/C7: Normal disc height and morphology. Normal spinal canal and neuroforamina. C7/T1: Normal disc height and morphology. Normal spinal canal and neuroforamina. NECK SOFT TISSUES: No prevertebral soft tissue swelling. There is no cervical adenopathy. MRI/Spine Cervical W/WO Contrast IMPRESSION: Small right paracentral disc herniation at C3-4. Mild degenerative changes at C4-5 and C5-6 as described above. There is a demyelinating lesion in the posterolateral aspect of the cervical spinal cord on the left at C4-5 extending over approximately 19 mm in cc dimension. Electronically Signed: Lynsey Macias MD at 5:02 EDT ,
--- NOTE | 2022-10-19 06:40 | MRI_ITS ---
INDICATION: MS STAGING, NEW MED CHANGE EXAMINATION: MRI - MR Brain WO/W Contrast TECHNIQUE: Multiplanar and multisequence MR images of the brain were obtained without and with gadolinium. IV Contrast Dosage and Agent: 13 cc Clariscan COMPARISON: Report from 05/19/2011 brain MRI FINDINGS: BRAIN PARENCHYMA: Small area of FLAIR hyperintensity in the white matter adjacent to the right thalamus. A few white matter FLAIR hyperintensities radiate outward from the right lateral ventricle. There are a few white matter FLAIR hyperintensities along the left lateral ventricle. No MRI evidence of hemorrhage. No evidence of acute infarct. No intracranial mass or mass effect. There is preservation of the colon/white matter interface. Normal sella turcica, pituitary gland, infundibular stalk, optic chiasm and hypothalamus. Posterior fossa structures are unremarkable. INTERNAL AUDITORY CANALS: Appearing normal. CSF SPACES: Appropriate for age. No hydrocephalus. Basal cisterns are patent. VASCULAR SYSTEM: Normal flow voids in the major intracranial circulation. CALVARIUM, SKULL BASE, PARANASAL SINUSES AND MASTOID AIR CELLS: Clear. No expansile changes. ORBITS: Both globes, extraocular muscles, optic nerves and retrobulbar fat appear unremarkable. MRI/Brain W/WO Contrast IMPRESSION: Predominantly periventricular white matter FLAIR hyperintense lesions are compatible with clinical diagnosis of multiple sclerosis. FLAIR sequences complicated by motion. There is no enhancement to suggest acute demyelination. Electronically Signed: Abisai Horan MD at 21:23 EDT ,
[2022-10-20 06:33] LABS: EGFR FINGERSTICK > 60 mL/min (>60)
== END | disposition home or self-care (01) ==
DX: G35 Multiple sclerosis (principal)
CPT/HCPCS: 70553; 72156; A9575

== ENCOUNTER → 2023-02-28 | Outpatient (CLI) | payer OTHER, SELFPAY ==
[2023-02-28 17:48] LABS: Absolute Lymphocyte Count 1.38 X10^3/uL (0.83-4.51); Absolute Neutrophil Count 4.6 X10^3/uL (2.0-7.7); Basophil# 0.02 X10^3/uL; Basophil% 0.3 % (0-1); Eosinophil# 0.05 X10^3/uL; Eosinophils% 0.7 % (0-5); Hematocrit 47.2 % (40-54); Lymphocyte # 1.38 X10^3/ul (0.83-4.51); Lymphocyte % 19.4 % (19-41); Mean Corp Hgb Conc 33.9 g/dL (32-36); Mean Corpuscular Hgb 30.2 pg (27.0-32.0); Mean Corpuscular Volume 89.1 fL (80-94); Mean Platelet Vol. 9.6 fl (6.2-12.0); Monocyte# 1.04 X10^3/uL; Monocyte% 14.6 % (0-10); NRBC Flagged by Analyzer 0 % (0-5); Neutrophil # 4.62 X10^3/uL (2.7-7.7); Neutrophil % 64.9 % (47-70); Platelet Count 316 K/mm3 (150-450); RBC Distribution Width CV 12.4 % (11.6-14.6); RBC Distribution Width SD 40.3 fl (35.1-43.9); White Blood Count 7.1 K/mm3 (4.4-11.0)
[2023-02-28 18:19] LABS: ALB/GLOB Ratio 1.1 RATIO (0.9-2.4); AST(SGOT) 18 U/L (15-37); Alanine Aminotransfer ALT/SGPT 29 U/L (16-61); Albumin, Serum 4.2 g/dL (3.2-5.0); Alkaline Phosphatase 100 U/L (45-117); Anion Gap 6 (5-15); BUN 11 mg/dL (7-18); BUN/Creat Ratio 8.6 RATIO (10-20); Calcium,Total 8.6 mg/dL (8.5-10.1); Chloride 104 mmol/L (98-107); Creatinine, Serum 1.28 mg/dL (0.70-1.30); EST Glomerular Filtration Rate 62 mL/min (>60); Est Glom Filt Rate - Afr Amer 75 mL/min (>60); Globulin 3.8 g/dL (2.2-4.2); Glucose 100 mg/dL (74-106); Potassium 3.5 mmol/L (3.5-5.1); Sodium Level 136 mmol/L (136-145)
[2023-03-04 01:06] LABS: Immunoglobulin A 164 mg/dL (90-386); Immunoglobulin E 31 IU/mL (6-495); Immunoglobulin G 1338 mg/dL (603-1613); Immunoglobulin M 118 mg/dL (20-172)
== END | disposition home or self-care (01) ==
LOC: MTLAB 16:01
DX: Z79.899 Other long term (current) drug therapy (principal)
CPT/HCPCS: 36415; 80053; 82784; 82785; 85025

== ENCOUNTER → 2023-08-31 | Outpatient (CLI) | payer OTHER, SELFPAY | END | disposition home or self-care (01) | PROVIDERS: Referring Provider Internal Medicine; Visit Provider Internal Medicine | DX: G47.30 Sleep apnea, unspecified (principal) | CPT/HCPCS: 95811 ==

== ENCOUNTER → 2023-09-11 | Outpatient (CLI) | payer OTHER, SELFPAY | END | disposition home or self-care (01) | LOC: SL 14:16 | DX: Z46.89 Encounter for fitting and adjustment of other specified devices (principal) ==

== ENCOUNTER → 2023-11-15 | Outpatient (CLI) | payer OTHER, SELFPAY ==
[2023-11-15 08:54] LABS: Absolute Neutrophil Count 4.6 X10^3/uL (2.0-7.7); Basophil# 0.02 X10^3/uL; Basophil% 0.3 % (0-1); Eosinophil# 0.02 X10^3/uL; Eosinophils% 0.3 % (0-5); Hematocrit 48.5 % (40-54); Hemoglobin 16.2 g/dL (13.0-16.5); Lymphocyte % 18.1 % (19-41); Mean Corp Hgb Conc 33.4 g/dL (32-36); Mean Corpuscular Hgb 30.1 pg (27.0-32.0); Mean Corpuscular Volume 90.1 fL (80-94); Mean Platelet Vol. 9.4 fl (6.2-12.0); Monocyte# 0.78 X10^3/uL; Monocyte% 11.7 % (0-10); NRBC Flagged by Analyzer 0 % (0-5); Neutrophil # 4.61 X10^3/uL (2.7-7.7); Neutrophil % 69.4 % (47-70); Platelet Count 260 K/mm3 (150-450); RBC Distribution Width CV 12.5 % (11.6-14.6); RBC Distribution Width SD 41.1 fl (35.1-43.9); Red Blood Count 5.38 M/mm3 (4.6-6.2); White Blood Count 6.6 K/mm3 (4.4-11.0)
[2023-11-15 09:37] LABS: ALB/GLOB Ratio 1.1 RATIO (0.9-2.4); AST(SGOT) 21 U/L (15-37); Alanine Aminotransfer ALT/SGPT 35 U/L (16-61); Albumin, Serum 4.2 g/dL (3.2-5.0); Alkaline Phosphatase 115 U/L (45-117); Anion Gap 3 (5-15); BUN 13 mg/dL (7-18); BUN/Creat Ratio 11.1 RATIO (10-20); Calcium,Total 9.2 mg/dL (8.5-10.1); Chloride 106 mmol/L (98-107); Creatinine, Serum 1.17 mg/dL (0.70-1.30); EST Glomerular Filtration Rate 69 mL/min (>60); Est Glom Filt Rate - Afr Amer 83 mL/min (>60); Globulin 3.8 g/dL (2.2-4.2); Glucose 98 mg/dL (74-106); Potassium 3.9 mmol/L (3.5-5.1); Sodium Level 135 mmol/L (136-145)
[2023-11-18 17:07] LABS: Immunoglobulin A 149 mg/dL (90-386); Immunoglobulin E 32 IU/mL (6-495); Immunoglobulin G 1240 mg/dL (603-1613); Immunoglobulin M 100 mg/dL (20-172)
== END | disposition home or self-care (01) ==
LOC: LAB 08:18
DX: Z79.899 Other long term (current) drug therapy (principal)
CPT/HCPCS: 36415; 80053; 82784; 82785; 85025

== ENCOUNTER → 2024-02-28 | Outpatient (CLI) | payer OTHER, SELFPAY ==
[2024-02-28 16:23] LABS: Absolute Lymphocyte Count 1.76 X10^3/uL (0.83-4.51); Absolute Neutrophil Count 4.9 X10^3/uL (2.0-7.7); Basophil# 0.03 X10^3/uL; Basophil% 0.4 % (0-1); Eosinophil# 0.05 X10^3/uL; Eosinophils% 0.6 % (0-5); Hematocrit 49.2 % (40-54); Hemoglobin 16.4 g/dL (13.0-16.5); Lymphocyte # 1.76 X10^3/ul (0.83-4.51); Lymphocyte % 22.7 % (19-41); Mean Corp Hgb Conc 33.3 g/dL (32-36); Mean Corpuscular Hgb 29.5 pg (27.0-32.0); Mean Corpuscular Volume 88.5 fL (80-94); Mean Platelet Vol. 9.6 fl (6.2-12.0); Monocyte# 0.99 X10^3/uL; Monocyte% 12.7 % (0-10); NRBC Flagged by Analyzer 0 % (0-5); Neutrophil # 4.91 X10^3/uL (2.7-7.7); Neutrophil % 63.2 % (47-70); Platelet Count 302 K/mm3 (150-450); RBC Distribution Width CV 13.1 % (11.6-14.6); RBC Distribution Width SD 42.9 fl (35.1-43.9); Red Blood Count 5.56 M/mm3 (4.6-6.2); White Blood Count 7.8 K/mm3 (4.4-11.0)
[2024-02-28 16:47] LABS: ALB/GLOB Ratio 1.1 RATIO (0.9-2.4); AST(SGOT) 24 U/L (15-37); Alanine Aminotransfer ALT/SGPT 39 U/L (16-61); Albumin, Serum 4.4 g/dL (3.2-5.0); Alkaline Phosphatase 125 U/L (45-117); Anion Gap 6 (5-15); BUN 10 mg/dL (7-18); BUN/Creat Ratio 8.2 RATIO (10-20); Calcium,Total 9.5 mg/dL (8.5-10.1); Chloride 101 mmol/L (98-107); Creatinine, Serum 1.22 mg/dL (0.70-1.30); EST Glomerular Filtration Rate 65 mL/min (>60); Est Glom Filt Rate - Afr Amer 79 mL/min (>60); Globulin 4.1 g/dL (2.2-4.2); Glucose 105 mg/dL (74-106); Potassium 3.8 mmol/L (3.5-5.1); Protein, Total 8.5 g/dL (6.4-8.2); Sodium Level 135 mmol/L (136-145)
[2024-03-01 04:08] LABS: Immunoglobulin G 1277 mg/dL (603-1613)
== END | disposition home or self-care (01) ==
LOC: LAB 15:46
PROVIDERS: Referring Provider Nurse Practitioner Gerontology; Visit Provider Nurse Practitioner Gerontology
DX: Z79.899 Other long term (current) drug therapy (principal)
CPT/HCPCS: 36415; 80053; 82784; 85025

== ENCOUNTER → 2024-08-22 | Outpatient (CLI) | payer OTHER, SELFPAY ==
--- NOTE | 2024-08-22 15:39 | MRI_ITS ---
PROCEDURE: MRI of the brain without and with intravenous contrast. 08/22/2024 REASON FOR EXAM: Multiple sclerosis TECHNIQUE: Multi planar, multisequence MRI images of the brain were obtained without and with intravenous contrast. 19 cc Clariscan IV contrast was administered. COMPARISON: 10/19/2022 FINDINGS: Bones of the calvarium are intact. Included upper cervical spinal cord shows no specific abnormality. 8 mm faint area of increased T2/FLAIR signal at the cervical medullary junction near the inferior margin of the cerebellum image 14 of the sagittal FLAIR sequence is probably not significantly changed. The orbits, sella, and parasellar structures are unremarkable. Paranasal sinuses and mastoid air cells are clear. Major basilar intracranial flow voids are present. Extracranial soft tissues show no specific abnormality. No extra-axial fluid collection or midline shift. No areas of restricted diffusion. Patchy areas of abnormal increased T2/FLAIR signal involving the deep and periventricular white matter structures of the cerebral hemispheres are not significantly changed. A 1 cm ovoid area of abnormal increased T2/FLAIR signal involving the left cerebellar peduncle image 8 of the axial FLAIR sequence is similar. A few patchy areas of abnormal increased T2/FLAIR signal involving the lateral left cerebellar hemisphere, measuring up to 12 mm, also similar to the previous study. On postcontrast images, no areas of abnormal brain parenchymal enhancement. The major dural venous sinuses appear patent. MRI/Brain W/WO Contrast IMPRESSION: No acute intracranial abnormality. . Areas of abnormal increased T2/FLAIR signal involving the deep/periventricular white matter structures of the cerebral hemispheres, left cerebellar peduncle, and lateral left cerebellar hemisphere, similar to the 10/19/2022 study. The findings may relate to stated history of multiple sclerosis. No areas of abnormal brain parenchymal enhancement to suggest active MS plaques . Reading Location: [facility]
--- NOTE | 2024-08-22 15:39 | MRI_ITS ---
PROCEDURE: MRI of the cervical spine without and with intravenous contrast. 08/22/2024 REASON FOR EXAM: Multiple sclerosis TECHNIQUE: Multiplanar, multisequence MRI images of the cervical spine were obtained without and with intravenous contrast. 19 cc of Clariscan IV contrast was administered. COMPARISON: 10/19/2022 FINDINGS: Included portions of the skull base and craniocervical junction are intact. There is slight reversal of the normal cervical lordosis. The cervical vertebral bodies are otherwise normal in height, alignment, and marrow signal. No evidence of acute cervical vertebral body fracture or focal subluxation. The included upper thoracic vertebral bodies and intervertebral disc spaces are unremarkable. A few mild patchy areas of increased T2 signal involving the mid to lower right side of the cervical spinal cord, not significantly changed compared to the 2022 study. On postcontrast images, no areas of abnormal intrathecal or paraspinal enhancement. The included cervical soft tissues are unremarkable. C2-3: No focal disc herniation, significant central spinal canal, or neural foraminal narrowing. C3-4: Mild asymmetric right disc bulge or posterior disc osteophyte complex, causing mild right central spinal canal narrowing. No focal disc herniation. Mild left and severe right neural foraminal narrowing. C4-5: Mild diffuse disc bulge slightly indents the ventral thecal sac. No focal disc herniation or significant central spinal canal/neural foraminal narrowing. C5-6: Mild posterior disc osteophyte complex, slightly asymmetric to the left. This causes mild indentation of the ventral thecal sac, without focal disc herniation or significant central spinal canal narrowing. Mild bilateral neural foraminal narrowing, greatest on the left. C6-7: Minimal asymmetric right disc bulge without focal disc herniation or significant central spinal canal narrowing. Mild left neural foraminal narrowing. No significant right neural foraminal narrowing. C7-T1: No focal disc herniation, significant central spinal canal, or right neural foraminal narrowing. Mild left neural foraminal narrowing. MRI/Spine Cervical W/WO Contrast IMPRESSION: No acute bony abnormality of the cervical spine. A few minimal patchy areas of increased T2 signal involving the right side of t he mid to inferior cervical spinal cord, not significantly changed from 10/19/2022. No areas of abnormal cervical spinal co rd enhancement on postcontrast images. Multilevel degenerative disc and facet disease in the cervical spine as describ ed level by level above. Mild right central spinal canal narrowing at C3-4. No large focal disc herniation or significant central spinal canal narrowing. Multilevel neural foraminal narrowing as described level by level above, to a s evere degree on the right at C3-4. Reading Location: [facility]
== END | disposition home or self-care (01) ==
LOC: MRI 15:16
PROVIDERS: Referring Provider Nurse Practitioner Gerontology; Visit Provider Nurse Practitioner Gerontology
DX: G35 Multiple sclerosis (principal)
CPT/HCPCS: 70553; 72156; A9575

== ENCOUNTER → 2024-08-27 | Outpatient (CLI) | payer OTHER, SELFPAY ==
[2024-08-27 17:04] LABS: Absolute Lymphocyte Count 1.28 X10^3/uL (0.83-4.51); Absolute Neutrophil Count 4.7 X10^3/uL (2.0-7.7); Basophil# 0.03 X10^3/uL; Basophil% 0.4 % (0-1); Eosinophil# 0.05 X10^3/uL; Eosinophils% 0.7 % (0-5); Hematocrit 45.4 % (40-54); Hemoglobin 15.5 g/dL (13.0-16.5); Lymphocyte # 1.28 X10^3/ul (0.83-4.51); Lymphocyte % 18.2 % (19-41); Mean Corp Hgb Conc 34.1 g/dL (32-36); Mean Corpuscular Hgb 30.3 pg (27.0-32.0); Mean Corpuscular Volume 88.7 fL (80-94); Mean Platelet Vol. 10.1 fl (6.2-12.0); Monocyte# 0.93 X10^3/uL; Monocyte% 13.2 % (0-10); NRBC Flagged by Analyzer 0 % (0-5); Neutrophil # 4.71 X10^3/uL (2.7-7.7); Neutrophil % 67.1 % (47-70); Platelet Count 291 K/mm3 (150-450); RBC Distribution Width CV 12.6 % (11.6-14.6); RBC Distribution Width SD 41.2 fl (35.1-43.9); Red Blood Count 5.12 M/mm3 (4.6-6.2)
[2024-08-27 17:56] LABS: ALB/GLOB Ratio 1.5 RATIO (0.9-2.4); AST(SGOT) 22 U/L (<=37); Alanine Aminotransfer ALT/SGPT 19 U/L (<=46); Albumin, Serum 4.7 g/dL (3.5-5.0); Alkaline Phosphatase 113 U/L (40-129); Anion Gap 13 (5-15); BUN 12 mg/dL (4-19); BUN/Creat Ratio 11.5 RATIO (10-20); Calcium,Total 9.4 mg/dL (7.6-11.0); Carbon Dioxide 24.8 mmol/L (21.0-32.0); Chloride 102 mmol/L (98-108); Creatinine, Serum 1.08 mg/dL (0.70-1.20); EST Glomerular Filtration Rate 81 (>60); Globulin 3.1 g/dL (2.2-4.2); Glucose 88 mg/dL (70-99); Potassium 3.8 mmol/L (3.3-5.1); Protein, Total 7.8 g/dL (5.9-8.4); Sodium Level 139 mmol/L (133-145); Total Bilirubin 0.37 mg/dL (0.00-1.30)
[2024-08-29 05:07] LABS: Immunoglobulin G 1226 mg/dL (603-1613)
== END | disposition home or self-care (01) ==
LOC: LAB 15:50
PROVIDERS: Referring Provider Nurse Practitioner Gerontology; Visit Provider Nurse Practitioner Gerontology
DX: G35 Multiple sclerosis (principal); Z79.899 Other long term (current) drug therapy
CPT/HCPCS: 36415; 80053; 82784; 85025

== ENCOUNTER 2024-12-24 22:12 | Emergency (ER) | payer OTHER, SELFPAY ==
[2024-12-24 22:16] VITALS: BP 117/84; PULSE 110; RESP 18; TEMP 36.4; O2SAT 98; BMI 26.3
--- NOTE | 2024-12-24 23:12 | ED.VIS.GI ---
HPI HPI - GI History of Present Illness Chief Complaint: Constipation Informant: patient Narrative Narrative: 54-year-old male with multiple sclerosis has not had a bowel movement in 3 to 4 days which is very unusual for him. He is having some lower abdominal discomfort today and cramping. No nausea or vomiting. He had a remote right inguinal herniorrhaphy but no other abdominal surgeries. Never had a bowel obstruction before. His neurologist told him that MS can do this although its never happened to him before. He drank magnesium citrate about 5 hours ago, but out of concern he presents here for evaluation, he has not had a bowel movement yet since he did the magnesium citrate and he has not had a lot of fluid to drink. He denies any other acute issues. [facility] Medical History Muscle spasticity Difficulty walking Polycythemia Obstructive sleep apnea Sciatic nerve pain Essential (primary) hypertension Multiple sclerosis Right kidney stone Home Medications ?Medication ?Instructions ?Recorded ?Last Taken ?Type baclofen 10 mg tablet 30 mg PO TID 10/09/24 12/24/24 History gabapentin 300 mg capsule 600 mg PO BID 10/09/24 12/24/24 History amlodipine 10 mg tablet 10 mg PO DAILY #90 tabs 11/04/24 12/24/24 Rx losartan 100 mg tablet 100 mg PO DAILY #90 tabs 11/04/24 12/24/24 Rx ciprofloxacin HCl 500 mg tablet 500 mg PO BID #20 TABLETS 12/25/24 Unknown Rx metronidazole 500 mg tablet 500 mg PO BID #20 tabs 12/25/24 Unknown Rx Allergy/AdvReac Type Severity Reaction Status Date / Time Penicillins (PCN) Allergy Rash Verified 12/24/24 22:14 Family History Father Myocardial infarction, Onset Age: 60 Heart disease CAD (coronary artery disease) coronary stents Mother Breast cancer Hyperlipidemia Grandmother CVA (cerebral vascular accident) Grandfather Myocardial infarction Surgical History History of lithotripsy (2018) History of left inguinal hernia repair (2014) Social History Smoking Status: Current some day smoker tobacco type: cigars alcohol intake: current alcohol intake frequency: holidays/special occasions only substance use type: does not use caffeine: Yes ROS ROS ED Constitutional Constitutional ED: Denies chills or fever(s) Eyes Eyes: Denies change in vision or diplopia ENT ENT ED: Denies rhinorrhea or sore throat Cardiovascular Cardiovascular: Denies chest pain or palpitations Respiratory/Chest Respiratory/Chest: Denies cough or dyspnea Gastrointestinal Gastrointestinal: Reports abdominal pain and constipation; Denies diarrhea, hematochezia, melena, nausea or vomiting Genitourinary Genitourinary ED: Denies dysuria or hematuria Musculoskeletal Musculoskeletal: Denies back pain or neck pain Integumentary Denies abscess or rash Neurologic Neurologic: Denies headache(s) Psychiatric Psychiatric: Denies anxiety or suicidal thoughts EXAM Physical Exam Const Vital Signs: 12/24/24 22:16 12/25/24 00:13 12/25/24 01:48 Temperature 97.5 F L 97.5 F L Temperature Source Temporal Oral Pulse Rate 110 H 110 H Respiratory Rate 18 16 Blood Pressure 117/84 H 111/71 111/71 Blood Pressure Mean 95 84 84 Pulse Ox 98 98 Oxygen Delivery Method Room Air Room Air 12/25/24 02:00 Temperature Temperature Source Pulse Rate 84 Respiratory Rate 16 Blood Pressure 116/80 Blood Pressure Mean 92 Pulse Ox 98 Oxygen Delivery Method Room Air Positive well nourished and well developed General Appearance ED: well developed and NAD HEENT Reports moist mucous membranes normocephalic and atraumatic Eyes PERRL and EOMs intact bilaterally Neck full ROM and supple Resp normal respiratory effort and clear to auscultation bilaterally Cardio regular rate, regular rhythm and no murmurs GI non-tender and non-distended GI Narrative: On rectal there is no tenderness, no hemorrhoids, no mass, and no palpable hard stool. Trace amount of stool in the rectal vault is without blood and not melanotic. Auscultation: hyperactive bowel sounds Palpation: soft Back/Spine no CVA tenderness General Back: other FROM Extremity normal to inspection General Extremety ED: Negative for edema, pulses abnormal or tenderness General Extremity: Negative for edema or pulses abnormal Neuro oriented x3, CN's II-XII intact bilaterally and no sensory deficits noted Sensorium / Orientation: awake and alert Motor Exam: strength 5/5 throughout Skin no rashes or lesions noted and no wounds MDM MDM MDM Narrative Medical decision making narrative: Initially did rectal and asked patient to try to see if we could disimpact him but there is no palpable hard stool so we then did a soapsuds enema which he was amenable to, however it really made his pain severely worse so he was not able to hold the fluid in and it did not result in any provision of significant stool. For this reason, we then obtained labs, CT scan and gave him some pain medication. Will get a bit of a leukocytosis of 14.1, his labs are unremarkable. No bandemia. He did well with pain medications and is comfortable, normal vital signs. I reviewed the CT images and the report which I agree with, it shows that he has sigmoid diverticulitis without abscess/perforation and no other acute abnormalities or bowel obstruction. This explains his discomfort. He is comfortable treating as an outpatient. His pain is well-controlled. He declines a prescription for analgesics. He is allergic to penicillin so we started him on Cipro and Flagyl here and wrote him prescriptions for 10-day supply and advised outpatient follow-up after he is better return if worse he is comfortable with that plan. Lab Data Attestation: I reviewed the patient's lab results. Labs: Laboratory Results - last 24 hr 12/25/24 01:10 WBC 14.1 H RBC 5.00 Hgb 15.3 Hct 44.4 MCV 88.8 MCH 30.6 MCHC 34.5 RDW Std Deviation 41.8 RDW Coeff of Ericka 12.8 Plt Count 231 MPV 9.1 Immature Gran % (Auto) 0.500 Neut % (Auto) 77.6 H Lymph % (Auto) 8.9 L [place] % (Auto) 12.5 H Eos % (Auto) 0.3 Baso % (Auto) 0.2 Absolute Neuts (auto) 10.9 H Absolute Lymphs (auto) 1.26 Nucleated RBC % 0 Differential Comment SCANNED Platelet Estimate ADEQUATE RBC Morphology NORM C+C Sodium 137 Potassium 4.1 Chloride 102 Carbon Dioxide 22.7 Anion Gap 12 BUN 12 Creatinine 1.07 Estim Creat Clear Calc 79.60 Est GFR (MDRD) Non-Af 81 BUN/Creatinine Ratio 11.4 Glucose 115 H Calcium 8.9 Radiography Diagnostic Testing: Clinical Impression(s) from Imaging Studies Abdomen/Pelvis CT 12/25/24 00:57 IMPRESSION: Sigmoid diverticulitis without abscess. Reading Location: [place] [address] Discharge Plan Triage Chief Complaint: Constipation ED Provider: Burke Ferraro Dx/Rx/DC Orders Clinical Impression: Sigmoid diverticulitis Instructions: Diverticulitis Dc Prescriptions: New metronidazole 500 mg tablet 500 mg PO BID Qty: 20 0RF ciprofloxacin HCl 500 mg tablet 500 mg PO BID Qty: 20 0RF Continued baclofen 10 mg tablet 30 mg PO TID gabapentin 300 mg capsule 600 mg PO BID losartan 100 mg tablet 100 mg PO DAILY Qty: 90 3RF amlodipine 10 mg tablet 10 mg PO DAILY Qty: 90 3RF Primary Care Provider: Care Physician,No Primary Referrals: Doctor,Your [Non-Staff] - 1-2 Weeks Print Language: Swazi Disposition Disposition: Home, Self Care
--- OUTSIDE RECORDS SUMMARY | 2024-12-24 23:14 | XMS RPT_ITS | CCD ---
Author Organization [facility] ion [facility] Care Team Providers Care Steelscope Operator Name Role Phone Delma Story Unavailable Evelyn Lomax Unavailable Slademar Priti Unavailable Unavailable Unavailable Unavailable Janae Garza Unavailable Unavailable Wayne Cormier Unavailable Unavailable Cooper Jj Unavailable Aston Anderson Unavailable Mark Perez Unavailable Wayne Cormier Unavailable Unavailable Wayne Don Unavailable Unavailable Delma Story CNP Unavailable Evelyn Lomax MD Unavailable Cooper Jj MD Unavailable Aston Anderson Unavailable Mark Perez Unavailable Wayne Don LPN Unavailable Unavailable Priti Ramirez LPN Unavailable Unavailable Unavailable Unavailable Unavailable Primary Care Provider Unavailabl e Care Physician, No Primary Primary Care Provider Unavailable KENY GARRISON Attending Provider [facility] [employer] COORD[employer]AT[employer]ENY Paulino Referring Provider Care Physician, No Primary Referring Provider Un available Bill COLLINS, Dr. Cee Attending Provider KENY DOMINGUEZ Attending Unavailable KENY DOMINGUEZ Referring Unavailable Care Physician, No Primary Primary Care Unava ilable Milka Kang Attending Unavaila ble Care Physician, No Primary Primary Care Unava ilable KENY DOMINGUEZ Attending Unavailable KENY DOMINGUEZ Referring Unavailable Care Physician, No Primary Primary Care Unava ilable Coleman Khan Attending Unavailable Care Physician, No Primary Primary Care Unava ilable Care Physician, No Primary Referring Unava ilable KENY DOMINGUEZ Attending Unavailable KENY DOMINGUEZ Referring Unavailable Care Physician, No Primary Primary Care Unava ilable Allergies Allergy Classification Reported Allergen(s) Allergy Type Date of Onset Reaction(s) Facility (20 sources) Penicillins; Translations: [Penicillins] allergy to substance [facility] Work Phone: (16 sources) Penicillins; Translations: [Allergy to Penicillins (Renamed from Penicillins)] allergy to substance [facility] Work Phone: Medications Current Medications Medication Drug Class(es) Dates Sig (Normalized) Sig (Original) baclofen 10 mg oral tablet (1 source) gamma-Aminobutyri c Acid-ergic Agonist Start: 10-09-2024 take 3 tablets by mouth three times daily Baclofen 10 mg tablet Active 30 mg PO THREE TIMES A DAY October 09, 2024 12:00am gabapentin 300 mg oral capsule (20 sources) Anti-epileptic Agent Start: 10-09-2024 take 2 capsules by mouth twice daily Gabapentin 300 mg capsule Active 600 mg PO TWICE A DAY October 09, 2024 9:31am Start: 05-19-2021 End: 10-09-2024 Gabapentin 300 mg capsule Discontinued May 19, 2021 1:00am October 09, 2024 9:40am Start: 05-19-2021 Gabapentin Act rashad May 19, 2021 1:00am Start: 02-24-2020 End: 02-24-2020 Gabapentin 300 mg capsule Discontinued NMA PO February 24, 2020 12:00am February 24, 2020 8:22am Start: 11-20-2019 End: 02-26-2020 take 1 capsule by mouth twice daily Gabapentin 300 mg capsule Discontinued 300 mg PO TWICE A DAY February 24, 2020 8:22am February 26, 2020 9:21am Comment on above: #[id number] 9.2 nerve pain Multivitamin preparation (3 sources) Start: 02-24-20 take 1 tablet by mouth once daily Multivitamin Active 1 TABLET PO DAILY February 24, 2020 12:00am 10 ml ocrelizumab 30 mg/ml injection (1 source) Start: 10-10-19 25 Ocrelizumab (Ocrevus) 30 mg/mL solution Active mg .Route every 6 months October 09, 2024 12:00am solution as directed Completed/Discontinued Medications Medication Drug Class(es) Dates Sig (Normalized) Sig (Original) acetaminophen 325 mg / HYDROcodone bitartrate 5 mg oral tablet (12 sources) Opioid Agonist Start: 05-19-2021 End: 10-16-2024 Hydrocodone-Acetami nophen 1 TABLET tablet Discontinued 1 {tbl} PO EVERY 6 HOURS NEEDED as needed for Pain 10 May 19, 2021 October 16, 2024 3:14pm Start: 05-19-2021 take 1 tablet by maria guadalupe th every six hours as needed Hydrocodone-Acetaminophen Active 1 TABLE T PO EVERY 6 HOURS NEEDED 10 May 19, 2021 Start: 01-12-2019 End: 01-19-2019 Hydrocodone-Acetaminophen 1 EACH tablet Discontinued 1 NMA PO EVERY 4 HOURS NEEDED as needed for Pain 15 12January 12, 2019 January 18, 2019 12:00am January 19, 2019 12:08am Start: 01-12-2019 End: 01-19-2019 Hydrocodone-Acetaminophen Di scontinued 1 EACH PO EVERY 4 HOURS NEEDED 15 12January 12, 2019 January 19, 2019 12:08am [id number] 200 actuat albuterol 0.09 mg/actuat metered dose inhaler (16 sources) beta2-Adrenergic Agonist Start: 08-24-2010 End: 08-29-2010 PROVENTIL HFA, 108 (90 Base)MCG/ACT (Inhalation Aerosol Solution) 2 (two) Aerosol Soln 2puffs tid for 5 days Quantity: 1 {Aerosol_Soln} Refills: 0 Ordered: 24-Aug-2010 Delma Story CNP, CNP, Mary E Start : 24-Aug-2010 End : 29-Aug-2010 Inactive Start: 08-24-2010 End: 08-29-2010 PROVENTIL HFA, 108 (90 Base) MCG/ACT (Inhalation Aerosol Solution) 2 (two) Aerosol Soln 2puffs tid for 5 days Quantity: 1 {Aerosol_Soln} Refills: 0 Ordered: 24-Aug-2010 Delma Story CNP, CNP Delma Richter Start : 24-Aug-2010 End : 29-Aug-2010 Inactive amLODIPine 10 mg oral tablet (20 sources) Dihydropyridine Calcium Channel Aditya Start: 02-26-2020 End: 08-28-2024 take 1 tablet by mouth once daily Amlodipine 10 mg tablet Discontinued 10 mg PO DAILY 90 August 15, 2023 5:41pm August 28, 2024 4:22pm ascorbic acid 60 mg / beta carotene 5000 unt / copper sulfate 40 mg / dl-alpha tocopheryl acetate 30 unt / sodium selenite 0.04 mg / zinc oxide 40 mg oral tablet (10 sources) Vitamin C Multivitamin Adults Oral Tablet Active azithromycin 250 mg oral tablet (16 sources) Macrolide Antimicrobial Start: 07-25-2008 End: 08-24-2010 ZITHROMAX Z-EVELIA, 250MG (Oral Tablet) 1 Tablet uad for 0 days Refills: 0 Ordered: 24-Aug-2010 Amee Schwartz LPN Start : 25-Jul-2008 End : 24-Aug-2010 Inactive celecoxib 100 mg oral capsule (12 sources) Nonsteroidal Anti-inflammatory Drug Start: 11-20-2019 take 1 capsule by mouth twice daily at mealtime CeleBREX 100 MG Oral Capsule 1 (one) Capsule bid for 0 days Quantity: 60 {Capsule} Refills: 0 Ordered: 20-Nov-2019 Pamelashahnaznikki TAN Sammie Cishahnaznikki TAN Delma Richter Start : 20-Nov-2019 Active Comments: with food Comment on above: with food cephalexin 250 mg oral tablet (16 sources) Cephalosporin Antibacterial Start: 07-09-2007 End: 07-24-2008 take 1 tablet by mouth three times daily CEPHALEXIN, 250MG (Oral Tablet) 1 (one) Tablet tid for 14 days Quantity: 42 {Tablet} Refills: 0 Ordered: 09-Jul-2007 Porsha DOMINICK Sammie Porsha DOMINICKDelma Start : 09-Jul-2007 End : 24-Jul-2008 Inactive ciprofloxacin 2 mg/ml / hydrocortisone 10 mg/ml otic suspension (16 sources) Corticosteroid, Quinolone Antimicrobial Start: 07-15-2010 End: 08-24-2010 CIPRO HC, 0.2-1% (Otic Suspension) 1 (one) Suspension bid for 0 days Quantity: 1 {Suspension} Refills: 0 Ordered: 24-Aug-2010 Amee Schwartz LPN Start : 15-Jul-2010 End : 24-Aug-2010 Inactive Comments: dispense one bottle Comment on above: dispense one bottle 24 hr clarithromycin 500 mg extended release oral tablet (16 sources) Macrolide Antimicrobial Start: 08-24-2010 End: 09-03-2010 take 2 tablets by mouth once daily BIAXIN XL PAC, 500MG (Oral Tablet Extended Release 24 Hour) 2 (two) Tablet ER 24HR daily for 10 days Quantity: 20 {Tablet_ER_24HR} Refills: 0 Ordered: 24-Aug-2010 Delma Story CNP, CNP, Mary E Start : 24-Aug-2010 End : 03-Sep-2010 Inactive Start: 08-24-2010 End: 09-03-2010 take 2 tablets by mouth once daily BIAXIN XL PAC, 500MG (Oral Tablet Extended Release 24 Hour) 2 (two) Tablet ER 24HR daily for 10 days Quantity: 20 {Tablet_ER_24HR} Refills: 0 Ordered: 24-Aug-2010 Porsha TAN Delma Richey CNP Start : 24-Aug-2010 End : 03-Sep-2010 Inactive clotrimazole 10 mg oral lozenge (16 sources) Azole Antifungal Start: 06-13-2012 End: 06-23-2012 CLOTRIMAZOLE, 10MG (Mouth/Throat Dianne) 1 Dianne 5 x daily for 10 days Quantity: 50 {Dianne} Refills: 0 Ordered: 13-Jun-2012 Delma Story CNP, CNP, Mary E Start : 13-Jun-2012 End : 23-Jun-2012 Inactive codeine phosphate 2 mg/ml / guaiFENesin 20 mg/ml oral solution (20 sources) Opioid Agonist Start: 08-24-2010 End: 05-17-2011 CHERATUSSIN AC, 100-10MG/5ML (Oral Syrup) 1 Teaspoon(s) qhs prn cough for 0 days Quantity: 6 {Ounce(s)} Refills: 0 Ordered: 17-May-2011 RASHID Simmons LPN Start : 24-Aug-2010 End : 17-May-2011 Inactive Comments: six Start: 06-08-2009 End: 08-24-2010 GUAIATUSSIN AC, 100-10MG/5ML (Oral Syrup) 1 Syrup 1tsp at hs or bid prn for 0 days Quantity: 6 {Ounce(s)} Refills: 0 Ordered: 24-Aug-2010 Amee Schwartz LPN Start : 08-Jun-2009 End : 24-Aug-2010 Discontinued Comments: This order discontinued per [facility]. Comment on above: This order discontin ued per [facility]. six 12 hr fexofenadine hydrochloride 60 mg / pseudoephedrine hydrochloride 120 mg extended release oral tablet (16 sources) alpha-Adrenergic Agonist, Histamine-1 Receptor Antagonist Start : 08-24 End: 05-17 take 60-120 mg by mouth every twelve hours GRAYSON-D 12 HOUR, 60-120MG (Oral Tablet Extended Release 12 Hour) 1 Tablet ER 12HR q12 hrs for 0 days Quantity: 20 {Tablet_ER_12HR} Refills: 0 Ordered: 24-Aug-2010 RASHID Simmons LPN Start : 24-Aug-2010 End : 17-May-2011 Discontinued Comments: This order discontinued per [facility]. Comment on above: This order discontin ued per [facility]. fingolimod 0.5 mg oral capsule (16 sources) Sphingosine 1-phosphate Receptor Modulator Start : 11-21 End: 12-31 take 1 capsule by mouth once daily GILENYA, 0.5MG (Oral Capsule) 1 Capsule qd for 0 days Quantity: 30 {Capsule} Refills: 0 Ordered: 31-Dec-2012 Migdalia Sinha RN Start : 22-Nov-2011 End : 31-Dec-2012 Inactive Comments: Dr. Perez Comment on above: Dr. Perez fluticasone propionate 0.05 mg/actuat metered dose nasal spray (16 sources) Corticosteroid Start : 08-24 End: 05-17 FLONASE, 50MCG/ACT (Nasal Suspension) 2 (two) Puff(s) once daily for 0 days Quantity: 1 {Suspension} Refills: 0 Ordered: 17-May-2011 RASHID Simmons LPN Start : 24-Aug-2010 End : 17-May-2011 Inactive hydroCHLOROthiazide 25 mg oral tablet (12 sources) Thiazide Diuretic Start : 02-25 End: 10-16 take 1 tablet by mouth once daily Hydrochlorothiazide 25 mg tablet Discontinued 25 mg PO DAILY July 13, 2020 3:14pm October 16, 2024 3:14pm hydroCHLOROthiazide 25 mg / losartan potassium 100 mg oral tablet (16 sources) Thiazide Diuretic, Angiotensin 2 Receptor Aditya Start : 02-07 End: 04-30 take 1 tablet by mouth once daily LOSARTAN POTASSIUM-HCTZ, 100-25MG (Oral Tablet) 1 Tablet daily for 0 days Quantity: 90 {Tablet} Refills: 3 Ordered: 30-Apr-2013 Amee Schwartz LPN Start : 07-Feb-2013 End : 30-Apr-2013 Inactive losartan potassium 100 mg oral tablet (20 sources) Angiotensin 2 Receptor Aditya Start : 05-14 take 1 tablet by mouth once daily Losartan Potassium 50 MG Oral Tablet 1 Tablet daily for 0 days Quantity: 90 {Tablet} Refills: 0 Ordered: 14-May-2020 Delma Story CNP, CNP, Delma Richter Start : 14-May-2020 Active Start: 02-26-2020 End: 08-28-2024 take 1 tablet by mouth once daily Losartan 100 mg tablet Discontinued 100 mg PO DAILY August 15, 2023 5:41pm August 28, 2024 4:22pm Start: 07-09-2014 End: 02-26-2020 take 1 tablet by mouth once daily Losartan 50 MG tablet Discontinued 50 mg PO DAILY July 09, 2014 1:00am February 26, 2020 9:54am meloxicam 15 mg oral tablet (12 sources) Nonsteroidal Anti-inflammatory Drug Start: 12-13-2019 take 1 tablet by mouth once daily at mealtime for pain Meloxicam 15 MG Oral Tablet 1 (one) Tablet daily as directed for pain for 0 days Quantity: 30 {Tablet} Refills: 0 Ordered: 13-Dec-2019 Wayne Don LPN Start : 13-Dec-2019 Active Comments: with food Comment on above: with food 24 hr metoprolol succinate 25 mg extended release oral tablet (12 sources) beta-Adrenergic Aditya Start: 02-24-2020 End: 02-26-2020 take 1 tablet by mouth once daily Metoprolol Succinate 25 mg tablet extended release 24 hr Discontinued 25 mg PO DAILY February 24, 2020 12:00am February 26, 2020 9:52am Start: 01-31-2020 End: 02-24-2020 Metoprolol Succinate 25 MG Tab.Er.24h Discontinued 1 {tbl} PO DAILY January 31, 2020 12:00am February 24, 2020 8:21am Start: 01-31-2020 End: 02-24-2020 take 1 tablet by mouth once daily Metoprolol Succinate Discontinued 1 TABLET PO DAILY January 31, 2020 12:00am February 24, 2020 8:21am Multivitamin Adults Oral Tab let (6 sources) Multivitamin Avelino lts Oral Tablet Active Multivitamin tablet (3 sources) Start: 02-24-2020 End: 10-16-2024 Multivitamin tablet Discontinued 1 {tbl} PO DAILY February 24, 2020 12:00am October 16, 2024 3:14pm Start: 02-24-2020 Multivitamin t ablet Active 1 {tbl} PO DAILY February 24, 2020 12:00am predniSONE 10 mg oral tablet (12 sources) Start: 06-19-2019 End: 06-28-2019 predniSONE 10 MG Oral Tablet 1 (one) Tablet 3 daily x 3days, 2 daily x 3 days 1 dailyx 3 days for 0 days Quantity: 18 {Tablet} Refills: 0 Ordered: 28-Jun-2019 Wayne Don LPN Start : 19-Jun-2019 End : 28-Jun-2019 Inactive Comments: with food Comment on above: with food sulfacetamide sodium 100 mg/ml ophthalmic solution (16 sources) Sulfonamide Antibacterial Start: 06-13-2012 End: 06-20-2012 BLEPH-10, 10% (Ophthalmic Solution) 1 Solution 1-2 drops q2-3 hrs for 7 days Quantity: 1 {Solution} Refills: 0 Ordered: 13-Jun-2012 Delma Story CNP, CNP, Mary E Start : 13-Jun-2012 End : 20-Jun-2012 Inactive vitamin b12 2.5 mg oral tablet (20 sources) Vitamin B12 Start: 02-24-2020 End: 02-26-2020 take 1 tablet by mouth once daily Cyanocobalamin (Vitamin B-12) 2,500 mcg tablet Discontinued 2500 ug PO DAILY February 24, 2020 8:22am February 26, 2020 9:21am Start: 02-24-2020 End: 02-24-2020 Cyanocobalamin (Vitamin B-12 ) 2,500 mcg tablet Discontinued ug PO February 24, 2020 12:00am February 24, 2020 8:22am Start: 02-24-2020 End: 02-24-2020 Cyanocobalamin (Vitamin B-12 ) Discontinued MCG PO February 24, 2020 12:00am February 24, 2020 8:22am Start: 06-19-2019 take 1 tablet under the tongue once daily Cyanocobalamin 2500 MCG Sublingual Tablet Sublingual 1 (one) Tablet daily for 0 days Quantity: 90 {Tablet} Refills: 3 Ordered: 19-Jun-2019 Arian HALEYWayne Start : 19-Jun-2019 Active Problems Active Problems Problem Classification Problem Date Documented Date Episodic/Chronic Calculus of urinary tract (20 sources) Kidney stone; Translations: [Kidney stones] 01-14-2019 Episodic Cardiac dysrhythmias (7 sources) Tachycardia; Translations: [Tachycardia, unspecified] Onset: 5 02-24-2020 Episodic Chronic obstructive pulmonary disease and bronchiectasis (14 sources) Chronic obstructive pulmonary disease and bronchiectasis Conditions associated with dizziness or vertigo (16 sources) Dizziness; Translations: [Dizzy] 06-09-2017 Episodic Comment on above: new issue sporatic. ekg good neruo exam good otrtho done. hand on vertigo exrecises given and told must increase water intake. if not better in 2 weekor owrsen or any other signs and symptoms to follow up Coronary atherosclerosis and other heart disease (20 sources) Coronary atherosclerosis and other heart disease Deficiency and other anemia (2 sources) Increased hemoglobin; Translations: [Elevated hemoglobin] 08-09-2019 Chronic Disorders of lipid metabolism (16 sources) Hypertriglyceridemia; Translations: [Hyperglyceridemia] 06-09-2017 Chronic Essential hypertension (20 sources) Hypertensive disorder; Translations: [Hypertension] 06-09-2017 Chronic Comment on above: improved improved on losartan Headache; including migraine (20 sources) Headache; Translations: [Headache] Resolved: 0 07-25-2014 Episodic Comment on above: better Inflammation; infection of eye (except that caused by tuberculosis or sexually transmitteddisease) (20 sources) Conjunctivitis; Translations: [Conjunctivitis] Resolved: 3 02-07-2013 Episodic Multiple sclerosis (20 sources) Multiple sclerosis; Translations: [H/O: 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 Perez, will do [place] research program but liver went up. right now no signs and symptoms. meds made it worse. last MRI 1-13 was in clinical study. Is on vitamins from sister to make him better.was diagnosed with numbness in face awhile ago Dr. Perez, will do [place] research program but liver went up. right now no signs and symptoms. meds made it worse. last MRI 1-13 was in clinical study. Is on vitamins from sister to make him better. Takes isogenics. Got off of it. Had old lesions in that study 2013 neuro care in [place].was diagnosed with numbness in face awhile ago doubt symptoms are f lare think sciatica and treating as if but pt would like new neurologist Nonspecific chest pain (20 sources) Tight chest; Translations: [Chest tightness] Resolved: 0 07-16-2019 Episodic Nutritional deficiencies (20 sources) Vitamin B12 deficiency (non anemic); Translations: [Cobalamin deficiency] 08-09-2019 Episodic Comment on above: weekly B12 last one is Jul 12 with blood draw after that take oral under the tongue Other circulatory disease (20 sources) Elevated blood pressure; Translations: [Elevated blood pressure reading] Resolved: 8 08-06-2018 Episodic Comment on above: Started Losarten 05/30 Other connective tissue disease (12 sources) Neuralgia; Translations: [Nerve pain] 11-20-2019 Episodic Comment on above: giving gabapentin se e how this works Other connective tissue disease (1 source) Spasticity; Translations: [Other muscle spasm] 10-09-2024 Episodic Other hematologic conditions (12 sources) Erythrocytosis; Translations: [Polycythemia] 08-09-2019 Episodic Comment on above: hemoglobin 18.4/54.5 has not been drinking, dehydration but has elevated protein of 8.6 and increased beta globulin, Will get 24hr urine electrophoresis , with serum immunoglobulin, has elevated total protien, elevated globulin elevated beta globulin and total globulin, upep neg. Will repeat SPep in 2 weeks and CBC. Sed rate neg, MARCELINO neg, Rheum, Crp, ESR neg? dehydration, mugus, xplemyloma Other hematologic conditions (10 sources) Increased hemoglobin; Translations: [Elevated hemoglobin] 08-09-2019 Episodic Other lower respiratory disease (20 sources) Wheezing; Translations: [Wheezing] Resolved: 3 06-04-2012 Episodic Other lower respiratory disease (20 sources) Cough; Translations: [Cough] Resolved: 3 06-04-2012 Episodic Other lower respiratory disease (12 sources) Apnea; Translations: [Witnessed episode of apnea] 08-09-2019 Episodic Comment on above: Seeing Justin in , was to call insurance to see if it is covered Other nervous system disorders (1 source) Difficulty walking; Translations: [Difficulty in walking, not elsewhere classified] 10-09-2024 Chronic Other nervous system disorders (20 sources) Paresthesia; Translations: [Bilateral numbness and tingling of arms and legs] 08-09-2019 Episodic Comment on above: left leg, positive l eft leg raise, has been overworking and dehydrated, gabapentin helping Other nervous system disorders (10 sources) H/O: SEARCH ADVERTISING STRATEGIST disorder; Translations: [History of multiple sclerosis] 08-09-2019 Episodic Comment on above: doubt symptoms are f lare think sciatica and treating as if but pt would like new neurologist Other non-traumatic joint disorders (20 sources) Joint pain; Translations: [Joint pain] Resolved: 5 05-08-2015 Episodic Comment on above: ? related to hctz, D C hctz, slight improvement off hctz, just in shoulders Other nutritional; endocrine; and metabolic disorders (20 sources) Body mass index 25-29 - overweight; Translations: [BMI 26.0-26.9,adult] Resolved: 8 06-09-2017 Chronic Other nutritional; endocrine; and metabolic disorders (14 sources) Body mass index 25-29 - overweight; Translations: [BMI 25.0-25.9,adult] Resolved: 8 08-09-2019 Episodic Other screening for suspected conditions (not mental disorders or infectious disease) (20 sources) Blood chemistry abnormal; Translations: [Computed tomography of brain abnormal] Resolved: 8 08-06-2018 Episodic Comment on above: for med on and resea [facility] problem. once off med not sure if b jeromy. use etoh over weekends only MRI abnormal with pe riventricular white matter changes. ? MS no other neuro signs and symptoms will see artificial plastic eye maker tomorrow. called to talk to Dr. kuhn and in surgery will talk to im later. send to neuro. Other upper respiratory disease (16 sources) Allergic rhinitis; Translations: [Allergic rhinitis due to other allergen] 06-09-2017 Chronic Other upper respiratory disease (20 sources) Allergic rhinitis due to other allergen Chronic Other upper respiratory infections (20 sources) Streptococcal pharyngitis; Translations: [Acute pharyngitis] Resolved: 3 07-09-2015 Episodic Comment on above: told try claritin no t better follow up had uri first Residual codes; unclassified (20 sources) Obstructive sleep apnea syndrome; Translations: [Obstructive sleep apnea] 08-09-2019 Chronic Comment on above: per Gurvinderilia on exam recommended sleep study, to call insurance Residual codes; unclassified (1 source) Sleep apnea; Translations: [Sleep apnea, unspecified] 08-19-2022 Chronic Residual codes; unclassified (2 sources) Non-smoker; Translations: [Nonsmoker] 08-09-2019 Episodic Spondylosis; intervertebral disc disorders; other back problems (20 sources) Stiff neck; Translations: [Sciatica] Resolved: 0 07-16-2019 Episodic Comment on above: per over work,liftin g and strain has improved with pr ednisone and different bed, but still present Unclassified (16 sources) Well Male Exam (V70.0) Unclassified (20 sources) Unclassified (20 sources) Screening status; Translations: [Encounter for screening for malignant neoplasm of prostate (Renamed from Screening for prostate cancer)] Resolved: 5 06-09-2017 Unclassified (20 sources) Non-smoker; Translations: [Nonsmoker] 06-09-2017 Unclassified (20 sources) Hypertriglycerides (272.1) Unclassified (20 sources) Abnormal CT of Brain(794.09) Unclassified (20 sources) SCLEROSIS, MULTIPLE (340.) Unclassified (20 sources) Elevated LFT (794.8) Unclassified (20 sources) Snores (786.09) Unclassified (20 sources) BMI 26.0-26.9,adult Unclassified (16 sources) Hyperglyceridemia Unclassified (20 sources) Dizzy Unclassified (20 sources) Abdominal Pain,Unspecified Site (789.00) Unclassified (20 sources) Sciatica, left side Unclassified (20 sources) BMI 25.0-25.9,adult Unclassified (20 sources) Polycythemia Unclassified (12 sources) Neck stiffness Unclassified (12 sources) History of multiple sclerosis Unclassified (2 sources) BRONCHITIS, NOT SPECIFIED ACUTE OR CHRONIC (490.) Past or Other Problems Problem Classification Problem Date Documented Date Episodic/Chronic Abdominal pain (16 sources) Abdominal pain, unspecified site; Translations: [Abdominal pain] Resolved: 06-09-2017 08-06-2018 Episodic Comment on above: rt lower quad now re solved ? hernia vs othercomes and goes for a month Bacterial infection; unspecified site (13 sources) Streptococcal sore throat with scarlatina; Translations: [Strep throat/scarlet fever] Resolved: 11-04-2008 07-09-2015 Episodic Chronic obstructive pulmonary disease and bronchiectasis (16 sources) Bronchitis; Translations: [Bronchitis] Resolved: 06-04-2012 03-03-2015 Episodic Headache; including migraine (14 sources) Headache; including migraine Mycoses (16 sources) Candidiasis of mouth; Translations: [Carol infection of mouth] Resolved: 12-31-2012 12-31-2012 Episodic Other aftercare (1 source) Other oil heaterman (current) drug therapy; Translations: [Other mcfp (current) drug therapy] Onset: 03-20-2024 Episodic Other ear and sense organ disorders (16 sources) Disorder of external ear; Translations: [Irritation of external ear canal] Resolved: 06-04-2012 05-08-2015 Episodic Other eye disorders (16 sources) Eye / vision finding; Translations: [Visual changes] Resolved: 06-04-2012 04-20-2015 Episodic Comment on above: has needed glasses s william , talk to Dr. long. thinks could be needs glasses. they want to see back. at time of visit no change in eye from trauma. Other injuries and conditions due to external causes (16 sources) Foreign body in ear; Translations: [FOREIGN BODY, EAR (931.)] Resolved: 06-04-2012 06-04-2012 Episodic Other lower respiratory disease (16 sources) Other respiratory abnormalities; Translations: [Snores] Resolved: 07-25-2014 07-25-2014 Episodic Unclassified (16 sources) Strep throat (034.0) Unclassified (16 sources) FOREIGN BODY, EAR (931.) Unclassified (16 sources) External Ear Irritation (698.9) Unclassified (16 sources) Allergy to Penicillins (Renamed from Penicillins); Translations: [Allergy to Penicillins (Renamed from Penicillins)] Resolved: 06-04-2012 06-04-2012 Unclassified (14 sources) Patient encounter status; Translations: [Encounter for routine history and physical exam for male] Resolved: 07-25-2014 03-03-2015 Unclassified (16 sources) Carol infection of mouth (112.0) Unclassified (20 sources) Elevated blood pressure reading Unclassified (15 sources) Kidney stones Unclassified (20 sources) Elevated hemoglobin Unclassified (20 sources) Unspecified Diagnosis 08-09-2019 Unclassified (20 sources) Nerve pain Unclassified (20 sources) Witnessed episode of apnea Unclassified (12 sources) Bilateral numbness and tingling of arms and legs Unclassified (2 sources) Visual Change (443.9) Results Test Name Value Interpretation Reference Range Facility 12 Lead EKG performed by [facility] on 10-16-2024 12 Lead EKG performed by [facility] [address] [place] [address] 12 Lead EKG performed by [facility] 10/16/24 1703 MR#: [id number] Acct: [id number] Name: CLARK QUICK Rep #: [id number] : 1970 54 From: Coleman Khan MD Attending Dr: Dr. Coleman Khan MD Status: DE P AMB Ordering Dr: Coleman Khan MD Date: 10/16/24 Location: [facility] Sex: M C Admitted: [facility]/12 Lead EKG performed by [facility] ECG Report Interpretation -Sinus Rhythm Low voltage in limb leads. BORDERLINEElectronically signed on 10/16/2024 at 16:[address] Coleman Farfanwood Software Version [id number] 10/16/24 1613 Date Coleman Khan MD CC: No Primary Care Physician Date Dictated: 10/16/241702 Date Transcribed: 10/16/241702 Assistant Floor Covering Printer: Signed Normal [facility] Cardiology Visit Reporton Cardiology Visit Report [facility] [address] [place] [address] OFFICE VISIT Date of Service: 10/16/24 MR#: [id number] Acct: [id number] Name: CLARK QUICK Rep #: [id number] : 1970 Provider: Dr. Coleman christie MD Age/Sex: 54/M Location: [facility] Status: Signed with Addenda ADDENDUM by Dr. Coleman Khan MD on 10/16/24 at 1550 HPI History of Present Illness Details: ECG in the office today was done with the patient sitting in the chair. He has a normal sinus rhythm at 78 bpm there is low voltage in the limb leads otherwise is unremarkable and borderline. Assessment and Plan Assessment and Plan (1) Hypertension: Status: Chronic Qualifiers: Hypertension type: primary hypertension Qualified Code(s): I10 - Essential (primary) hypertension (2) Multiple sclerosis: Status: Acute (3) Obstructive sleep apnea: Status: Suspected Orders: Orders 12 Lead EKG performed by [facility] Today R00.0 - Tachycardia, unspecified Plan Details Follow Up: 3 Years (With Dr. Khan and as needed) 10/16/24 1550 Date Coleman Khan MD cc: * Signed HPI HPI History of Present Illness Details: Patient is a 54-year-old white male that comes in today for monitoring of his cardiovascular issues which is hypertension. The patient is here to reestablish. He carries a history of obstructive sleep apnea treated with CPAP which he wears religiously and said it is made him feel much better. He also has a 15-year history of multiple sclerosis managed through the [facility] in [place]. He sees Dr. Lorenzo Schilling. He is treated with infusions twice a year. The patient denies any palpitations he denies any syncope or near syncope he reports he is doing fairly well he has developed a limp with his left lower extremity being more involved with EMS than his right. He is getting around walking without assistance. He is no longer cutting his grass or working in his yard due to his MS restrictions. Patient's blood pressure in office today is 116/79 with a heart rate of 84. He is on combination of amlodipine and losartan. He had failed hydrochlorothiazide in the past from an unknown reason. Intake Vital Signs 05/19/21 16:41 10/16/24 15:16 10/16/24 15:19 Height 5 ft 10 in 5 ft 11 in 5 ft 10 in Weight: 179 lb BMI 25.0 BP 116/79 Blood Pressure Location Lt brachial Position Sitting Respiration 18 Pulse 84 Pulse Source Monitor Pulse Oximetry (%) 95 Oxygen Delivery Method room air Intake Visit Reasons: Re-est (Self) Assistant Manager Trainee Required: No Accompanied by: Self Is patient in pain?: No Allergies Penicillins (PCN) Allergy (Verified 10/16/24 15:12) Rash Medications ???Medication ???Instructions ???Recorded ???Confirmed ???Type amlodipine 10 mg tablet 10 mg PO DAILY #90 tabs 08/28/24 0 10/16/24 Rx losartan 100 mg tablet 100 mg PO DAILY #90 tabs 08/28/24 10/16/24 Rx baclofen 10 mg tablet 30 mg PO TID 10/09/24 10/16/24 His tory gabapentin 300 mg capsule 600 mg PO BID 10/09/24 10/16/24 Hi story ocrelizumab 30 mg/mL intravenous mg .Route [id number] 10/09/24 History solution (Ocrevus) Have you fallen in the past year?: Yes [facility] Medical History Muscle spasticity Difficulty walking Polycythemia Obstructive sleep apnea Sciatic nerve pain Essential (primary) hypertension Multiple sclerosis Right kidney stone Surgical History History of lithotripsy (2018) History of left inguinal hernia repair (2014) Family History Father Myocardial infarction, Onset Age: 60 Heart disease CAD (coronary artery disease) coronary stents Mother Breast cancer Hyperlipidemia Grandmother CVA (cerebral vascular accident) Grandfather Myocardial infarction Social History Smoking Status: Current some day smoker tobacco type: cigars alcohol intake: current alcohol intake frequency: holidays/special occasions only substance use type: does not use caffeine: Yes ROS Const Const: Positive for fatigue and weakness ENT ENT: Negative for dizziness or balance problems Cardio Chest Pain: No Palpitations: No Edema: Left Muscle aches with walking: None Resp Respiratory: Negative for SOB with activity, SOB at rest or SOB orthopnea SOB lying down GI GI: Negative nausea, vomiting or heartburn Musc Musc: Negative for muscle weakness or balance problems Neuro Neuro: Positive for weakness; Negative for dizziness, lightheadedness, near syncope or syncope Endo Endo: Positive for fatigu (more content not included)... Normal [facility] Immunoglobulin Mikel 5 IMMUNOGLOB G QN 1226 mg/dL Normal 603-1613 [facility] Comment on above: Result Comment: Perf ormed at: CB - [facility] [place] [id number] Legal Services Professional: Berny Greenwood PhD, Phone: [phone] Performed By: #### L 100.1864, L596.9039, L3674.6117 #### [facility] [address] [place], [address] Absolute lymphocyte countOrd ered By: KENY DOMINGUEZ on 08-27-2024 Lymphocytes Auto (Unsp spec) [#/Vol] 1.28 10*3/uL 0.83-4.51 [facility] Absolute neutrophil countOrd ered By: KENY DOMINGUEZ on 08-27-2024 Neutrophils (Bld) [#/Vol] 4.7 10*3/uL 2.0-7.7 [facility] Anion gap in Serum or Plasma Ordered By: KENY DOMINGUEZ on 08-27-2024 Anion gap [Moles/Vol] 13 mmol/L 5-15 [facility] Automated lymphocyte count a s percentage of total leukocytesOrdered By: KENY DOMINGUEZ on 08-27-2024 Lymphocytes/100 WBC Auto (Unsp spec) 18.2 % Low 19-41 [facility] BUN/creatinine ratioOrdered By: KENY DOMINGUEZ on 08-27-2024 Urea nitrogen/Creatinine [Mass ratio] 11.5 mg/mg 10-20 [facility] Basophil percentageOrdered B y: KENY DOMINGUEZ on 08-27-2024 Basophils/100 WBC (Bld) 0.4 % 0-1 [facility] Bilirubin, totalOrdered By: KENY DOMINGUEZ on 08-27-2024 Bilirubin [Mass/Vol] 0.37 mg/dL 0.00-1.30 [facility] CBC W/Diff, Automatedon 04-0 -2024 Absolute Lymph 1.28 X10 3/uL Normal 0.83-4.51 [facility] Comment on above: Performed By: #### L 100.0100, L500.4050, L3200.1300 #### [facility] [address] [place], [address] Absolute Neut 4.7 X10 3/uL Normal 2.0-7.7 [facility] Comment on above: Performed By: #### L 100.0100, L500.4050, L3200.1300 #### [facility] [address] [place], [address] Basophils/100 WBC (Bld) 0.4 % Normal 0-1 [facility] Comment on above: Performed By: #### L 100.0100, L500.4050, L3200.1300 #### [facility] [address] [place], [address] Eosinophils/100 WBC (Bld) 0.7 % Normal 0-5 [facility] Comment on above: Performed By: #### L 100.0100, L500.4050, L3200.1300 #### [facility] [address] [place], [address] Erythrocyte distribution width (RBC) [Ratio] 12.6 % Normal 11.6-14.6 [facility] Comment on above: Performed By: #### L 100.0100, L500.4050, L3200.1300 #### [facility] [address] [place], [address] Hematocrit (Bld) [Volume fraction] 45.4 % Normal 40-54 [facility] Comment on above: Performed By: #### L 100.0100, L500.4050, L3200.1300 #### [facility] [address] [place], [address] Hemoglobin (Bld) [Mass/Vol] 15.5 g/dL Normal 13.0-16.5 [facility] Comment on above: Performed By: #### L 100.0100, L500.4050, L3200.1300 #### [facility] [address] [place], [address] IG% 0.400 Normal 0.0-0.9 [facility] Comment on above: Result Comment: IG% - Immature Granulocytes (promyelocytes, myelocytes and metamyelocytes) > 1% indicates that a LEFT SHIFT is Present. Performed By: #### L 100.0100, L500.4050, L3200.1300 #### [facility] [address] [place], [address] Lymphocytes/100 WBC (Bld) 18.2 % Low 19-41 [facility] Comment on above: Performed By: #### L 100.0100, L500.4050, L3200.1300 #### [facility] [address] [place], [address] MCH (RBC) [Entitic mass] 30.3 pg Normal 27.0-32.0 [facility] Comment on above: Performed By: #### L 100.0100, L500.4050, L3200.1300 #### [facility] [address] [place], [address] MCHC (RBC) [Mass/Vol] 34.1 g/dL Normal 32-36 [facility] Comment on above: Performed By: #### L 100.0100, L500.4050, L3200.1300 #### [facility] [address] [place], [address] MCV (RBC) [Entitic vol] 88.7 fL Normal 80-94 [facility] Comment on above: Performed By: #### L 100.0100, L500.4050, L3200.1300 #### [facility] [address] [place], [address] Monocytes/100 WBC (Bld) 13.2 % High 0-10 [facility] Comment on above: Performed By: #### L 100.0100, L500.4050, L3200.1300 #### [facility] [address] [place], [address] Neutrophils/100 WBC (Bld) 67.1 % Normal 47-70 [facility] Comment on above: Performed By: #### L 100.0100, L500.4050, L3200.1300 #### [facility] [address] [place], [address] Nucleated RBC (Bld) [#/Vol] 0 10*3/uL Normal 0-5 [facility] Comment on above: Performed By: #### L 100.0100, L500.4050, L3200.1300 #### [facility] [address] [place], [address] Platelet mean volume (Bld) [Entitic vol] 10.1 fL Normal 6.2-12.0 [facility] Comment on above: Performed By: #### L 100.0100, L500.4050, L3200.1300 #### [facility] [address] [place], [address] Platelets (Bld) [#/Vol] 291 10*3/uL Normal 150-450 [facility] Comment on above: Performed By: #### L 100.0100, L500.4050, L3200.1300 #### [facility] [address] [place], [address] RBC (Bld) [#/Vol] 5.12 10*6/uL Normal 4.6-6.2 [facility] Comment on above: Performed By: #### L 100.0100, L500.4050, L3200.1300 #### [facility] [address] [place], [address] RDW SD 41.2 fl Normal 35.1-43.9 [facility] Comment on above: Performed By: #### L 100.0100, L500.4050, L3200.1300 #### [facility] [address] [place], [address] WBC (Bld) [#/Vol] 7.0 10*3/uL Normal 4.4-11.0 [facility] Comment on above: Performed By: #### L 100.0100, L500.4050, L3200.1300 #### [facility] [address] [place], [address] Carbon dioxide, total [Moles /volume] in Central venous bloodOrdered By: KENY DOMINGUEZ on 08-27-2024 CO2 [Moles/Vol] 24.8 mmol/L 21.0-32.0 [facility] Chloride assayOrdered By: CADE DOMINGUEZ on 08-27-2024 Chloride [Moles/Vol] 102 mmol/L 98-108 [facility] Comprehensive Metabolic Prof ilon 08-27-2024 Albumin [Mass/Vol] 4.7 g/dL Normal 3.5-5.0 [facility] Comment on above: Performed By: #### L 100.0100, L500.4050, L3200.1300 #### [facility] [address] [place], [address] Albumin/Globulin [Mass ratio] 1.5 {ratio} Normal 0.9-2.4 [facility] Comment on above: Performed By: #### L 100.0100, L500.4050, L3200.1300 #### [facility] [address] [place], [address] ALK PHOS 113 U/L Normal 40-129 [facility] Comment on above: Performed By: #### L 100.0100, L500.4050, L3200.1300 #### [facility] [address] [place], [address] ALT [Catalytic activity/Vol] 19 U/L Normal <=46 [facility] Comment on above: Performed By: #### L 100.0100, L500.4050, L3200.1300 #### [facility] [address] [place], [address] AST [Catalytic activity/Vol] 22 U/L Normal <=37 [facility] Comment on above: Performed By: #### L 100.0100, L500.4050, L3200.1300 #### [facility] [address] [place], [address] Bilirubin [Mass/Vol] 0.37 mg/dL Normal 0.00-1.30 [facility] Comment on above: Performed By: #### L 100.0100, L500.4050, L3200.1300 #### [facility] [address] [place], [address] BUN/CRE 11.5 RATIO Normal 10-20 [facility] Comment on above: Performed By: #### L 100.0100, L500.4050, L3200.1300 #### [facility] [address] [place], [address] Calcium [Mass/Vol] 9.4 mg/dL Normal 7.6-11.0 [facility] Comment on above: Performed By: #### L 100.0100, L500.4050, L3200.1300 #### [facility] [address] [place], [address] Chloride [Moles/Vol] 102 mmol/L Normal 98-108 [facility] Comment on above: Performed By: #### L 100.0100, L500.4050, L3200.1300 #### [facility] [address] [place], [address] CO2 [Moles/Vol] 24.8 mmol/L Normal 21.0-32.0 [facility] Comment on above: Performed By: #### L 100.0100, L500.4050, L3200.1300 #### [facility] [address] [place], [address] Creatinine [Mass/Vol] 1.08 mg/dL Normal 0.70-1.20 [facility] Comment on above: Performed By: #### L 100.0100, L500.4050, L3200.1300 #### [facility] [address] [place], [address] GAP 13 Normal 5-15 [facility] Comment on above: Performed By: #### L 100.0100, L500.4050, L3200.1300 #### [facility] [address] [place], [address] GFR/1.73 sq M.predicted among non-blacks MDRD (S/P/Bld) [Vol rate/Area] 81 mL/min/{1.73_m2} Normal >60 [facility] Comment on above: Result Comment: mL/m in/1.73m2 CKD-EPI Creatinine Equation (2020) Performed By: #### L 100.0100, L500.4050, L3200.1300 #### [facility] [address] [place], [address] Globulin (S) [Mass/Vol] 3.1 g/dL Normal 2.2-4.2 [facility] Comment on above: Performed By: #### L 100.0100, L500.4050, L3200.1300 #### [facility] [address] [place], [address] Glucose [Mass/Vol] 88 mg/dL Normal 70-99 [facility] Comment on above: Performed By: #### L 100.0100, L500.4050, L3200.1300 #### [facility] [address] [place], [address] Potassium [Moles/Vol] 3.8 mmol/L Normal 3.3-5.1 [facility] Comment on above: Performed By: #### L 100.0100, L500.4050, L3200.1300 #### [facility] [address] [place], [address] Sodium [Moles/Vol] 139 mmol/L Normal 133-145 [facility] Comment on above: Performed By: #### L 100.0100, L500.4050, L3200.1300 #### [facility] [address] [place], [address] T PROT 7.8 g/dL Normal 5.9-8.4 [facility] Comment on above: Performed By: #### L 100.0100, L500.4050, L3200.1300 #### [facility] [address] [place], [address] Urea nitrogen [Mass/Vol] 12 mg/dL Normal 4-19 [facility] Comment on above: Performed By: #### L 100.0100, L500.4050, L3200.1300 #### [facility] [address] [place], [address] Eosinophil percentageOrdered By: KENY DOMINGUEZ on 08-27-2024 Eosinophils/100 WBC (Bld) 0.7 % 0-5 [facility] Erythrocyte distribution wid th (RBC) [Ratio]Ordered By: KENY DOMINGUEZ on 08-27-2024 Erythrocyte distribution width (RBC) [Entitic vol] 41.2 fL 35.1-43.9 [facility] Erythrocyte distribution wid th ratioOrdered By: KENY DOMINGUEZ on 08-27-2024 Erythrocyte distribution width (RBC) [Ratio] 12.6 % 11.6-14.6 [facility] Erythrocyte distribution wid th standard deviationOrdered By: KENY DOMINGUEZ on 08-27-2024 Erythrocyte distribution width (RBC) [Ratio] 41.2 fl 35.1-43.9 [facility] GFR/1.73 sq M.predicted harriet g non-blacks MDRD (S/P/Bld) [Vol rate/Area]Ordered By: KENY DOMINGUEZ on 08-27-2024 Estimated GFR (MDRD) Non-Af Amer 81 >60 [facility] Comment on above: mL/min/1.73m2 CKD-EP I Creatinine Equation (2020) Glomerular filtration rate ( GFR) estimation/1.73 sq m using serum, plasma, or whole bOrdered By: KENY DOMINGUEZ on 08-27-2024 GFR/1.73 sq M.predicted among non-blacks MDRD (S/P/Bld) [Vol rate/Area] 81 mL/min/{1.73_m2} >60 [facility] Comment on above: mL/min/1.73m2 CKD-EP I Creatinine Equation (2020) Hematocrit Auto (Bld) [Volum e fraction]Ordered By: KENY DOMINGUEZ on 08-27-2024 Hematocrit (Bld) [Volume fraction] 45.4 % 40-54 [facility] Hemoglobin measurementOrdere d By: KENY DOMINGUEZ on 08-27-2024 Hemoglobin (Bld) [Mass/Vol] 15.5 g/dL 13.0-16.5 [facility] IgG [Mass/Vol]Ordered By: CADE DOMINGUEZ on 08-27-2024 Immunoglobulin G 1226 mg/dL 603-1613 [facility] Comment on above: Performed at: [address] [id number] Director: Berny Greenwood PhD, Phone: [phone] Immature granulocytes/100 WB C Auto (Bld)Ordered By: KENY DOMINGUEZ on 08-27-2024 Immature granulocytes/100 WBC (Bld) 0.400 % 0.0-0.9 [facility] Comment on above: IG% - Immature Granu locytes (promyelocytes, myelocytes and metamyelocytes) > 1% indicates that a LEFT SHIFT is Present. Laboratory - Chemistry and C hemistry - challengeOrdered By: KENY DOMINGUEZ on 08-27-2024 AST [Catalytic activity/Vol] 22 U/L <38 [facility] Lymphocytes Auto (Unsp spec) [#/Vol]Ordered By: KENY DOMINGUEZ on 08-27-2024 Lymphocytes (Bld) [#/Vol] 1.28 10*3/uL 0.83-4.51 [facility] Lymphocytes/100 WBC Auto (Un sp spec)Ordered By: KENY DOMINGUEZ on 08-27-2024 Lymphocytes/100 WBC (Bld) 18.2 % Low 19-41 [facility] MCV (mean corpuscular volume ) determinationOrdered By: KENY DOMINGUEZ on 08-27-2024 MCV (RBC) [Entitic vol] 88.7 fL 80-94 [facility] Mean corpuscular hemoglobin (MCH) determinationOrdered By: KENY DOMINGUEZ on 08-27-2024 MCH (RBC) [Entitic mass] 30.3 pg 27.0-32.0 [facility] Mean corpuscular hemoglobin concentration (MCHC) determinationOrdered By: KENY DOMINGUEZ on 08-27-2024 MCHC (RBC) [Mass/Vol] 34.1 g/dL 32-36 [facility] Mean platelet volume determi nationOrdered By: KENY DOMINGUEZ on 08-27-2024 Platelet mean volume (Bld) [Entitic vol] 10.1 fL 6.2-12.0 [facility] Monocyte percentageOrdered B y: KENY DOMINGUEZ on 08-27-2024 Monocytes/100 WBC (Bld) 13.2 % High 0-10 [facility] Neutrophil percentageOrdered By: KENY DOMINGUEZ on 08-27-2024 Neutrophils/100 WBC (Bld) 67.1 % 47-70 [facility] Nucleated red blood cell per centageOrdered By: KENY DOMINGUEZ on 08-27-2024 Nucleated RBC/100 WBC (Bld) [Ratio] 0 % 0-5 [facility] Platelet countOrdered By: CADE DOMINGUEZ on 08-27-2024 Platelets (Bld) [#/Vol] 291 10*3/uL 150-450 [facility] Potassium (Unsp spec) [Mass/ Vol]Ordered By: KENY DOMINGUEZ on 08-27-2024 Potassium [Moles/Vol] 3.8 mmol/L 3.3-5.1 [facility] Potassium measurement (mass/ volume)Ordered By: KENY DOMINGUEZ on 08-27-2024 Potassium (Unsp spec) [Mass/Vol] 3.8 mmol/L 3.3-5.1 [facility] RBC Auto (Bld) [#/Vol]Ordere d By: KENY DOMINGUEZ on 08-27-2024 RBC (Bld) [#/Vol] 5.12 10*6/uL 4.6-6.2 [facility] Serum creatinine measurement (mass/volume)Ordered By: KENY DOMINGUEZ on 08-27-2024 Creatinine [Mass/Vol] 1.08 mg/dL 0.70-1.20 [facility] Serum globulin measurementOr dered By: KENY DOMINGUEZ on 08-27-2024 Globulin (S) [Mass/Vol] 3.1 g/dL 2.2-4.2 [facility] Serum glucose measurement (m ass/volume)Ordered By: KENY DOMINGUEZ on 08-27-2024 Glucose [Mass/Vol] 88 mg/dL 70-99 [facility] Serum or plasma IgG measurem ent (mass/volume)Ordered By: KENY DOMINGUEZ on 08-27-2024 IgG [Mass/Vol] 1226 mg/dL 603-1613 [facility] Comment on above: Performed at: [address] [id number] Director: Berny Greenwood PhD, Phone: [phone] Serum or plasma alanine saxena otransferase (ALT) measurementOrdered By: KENY DOMINGUEZ on 08-27-2024 ALT [Catalytic activity/Vol] 19 U/L <47 [facility] Serum or plasma albumin mary beth urement (mass/volume)Ordered By: KENY DOMINGUEZ on 08-27-2024 Albumin [Mass/Vol] 4.7 g/dL 3.5-5.0 [facility] Serum or plasma albumin/glob ulin mass ratioOrdered By: KENY DOMINGUEZ on 08-27-2024 Albumin/Globulin [Mass ratio] 1.5 {ratio} 0.9-2.4 [facility] Serum or plasma alkaline fior sphatase measurementOrdered By: KENY DOMINGUEZ on 08-27-2024 ALP [Catalytic activity/Vol] 113 U/L 40-129 [facility] Serum or plasma calcium mary beth urement (mass/volume)Ordered By: KENY DOMINGUEZ on 08-27-2024 Calcium [Mass/Vol] 9.4 mg/dL 7.6-11.0 [facility] Serum or plasma urea nitroge n measurement (mass/volume)Ordered By: KENY DOMINGUEZ on 08-27-2024 Urea nitrogen [Mass/Vol] 12 mg/dL 4-19 [facility] Sodium levelOrdered By: EZEKIEL DOMINGUEZ on 08-27-2024 Sodium [Moles/Vol] 139 mmol/L 133-145 [facility] Total proteinOrdered By: EVANGELISTA DOMINGUEZ on 08-27-2024 Protein [Mass/Vol] 7.8 g/dL 5.9-8.4 [facility] White blood cell (WBC) count Ordered By: KENY DOMINGUEZ on 08-27-2024 WBC (Bld) [#/Vol] 7.0 10*3/uL 4.4-11.0 [facility] Brain W/WO Contraston 2024 Brain W/WO Contrast [facility] Services [address] [place], [place] [id number] Brain W/WO Contrast MR#: [id number] Acct: [id number] Name: CLARK QUICK Rep #: [id number] : 1970 M 54 From: Devendra Dash i, DO PCP: Care Physician,No Primary Status: REG CLI Study: Brain W/WO Contrast Date of Exam: 08/22/24 Exam# [id number] Ordering Dr: KENY DOMINGUEZ PROCEDURE: MRI of the brain without and with intravenous contrast. 08/22/2024 REASON FOR EXAM: Multiple sclerosis TECHNIQUE: Multi planar, multisequence MRI images of the brain were obtained without and with intravenous contrast. 19 cc Clariscan IV contrast was administered. COMPARISON: 10/19/2022 FINDINGS: Bones of the calvarium are intact. Included upper cervical spinal cord shows no specific abnormality. 8 mm faint area of increased T2/FLAIR signal at the cervical medullary junction near the inferior margin of the cerebellum image 14 of the sagittal FLAIR sequence is probably not significantly changed. The orbits, sella, and parasellar structures are unremarkable. Paranasal sinuses and mastoid air cells are clear. Major basilar intracranial flow voids are present. Extracranial soft tissues show no specific abnormality. No extra-axial fluid collection or midline shift. No areas of restricted diffusion. Patchy areas of abnormal increased T2/FLAIR signal involving the deep and periventricular white matter structures of the cerebral hemispheres are not significantly changed. A 1 cm ovoid area of abnormal increased T2/FLAIR signal involving the left cerebellar peduncle image 8 of the axial FLAIR sequence is similar. A few patchy areas of abnormal increased T2/FLAIR signal involving the lateral left cerebellar hemisphere, measuring up to 12 mm, also similar to the previous study. On postcontrast images, no areas of abnormal brain parenchymal enhancement. The major dural venous sinuses appear patent. MRI/Brain W/WO Contrast IMPRESSION: No acute intracranial abnormality. . Areas of abnormal increased T2/FLAIR signal involving the deep/periventricular white matter structures of the cerebral hemispheres, left cerebellar peduncle, and lateral left cerebellar hemisphere, similar to the 10/19/2022 study. The findings may relate to stated history of multiple sclerosis. No areas of abnormal brain parenchymal enhancement to suggest active MS plaques. Reading Location: [facility] CC: KENY DOMINGUEZ; No Primary Care Physician Assistant Floor Covering Printer: Signed Normal [facility] Magnetic resonance imaging r eportOrdered By: Devendra Sanders on 08-22-2024 Study report [facility] Imaging Services [address] [place], [place] [address] Spine Cervical W/WO Contrast MR#: [id number] Acct: [id number] Name: CLARK QUICK Rep #: [id number] : 1970 M 54 From: And mildred Sanders DO PCP: Care Physician,No Primary Status: REG CLI Study:Spine Cervical W/WO Contrast Date of E xam: 08/22/24 Exam# [id number] Ordering Dr: EVANGELISTA DOMINGUEZ MEDICAID SERVICE COORDINATOR-C PROCEDURE: MRI of the cervical spine without and with intravenous contrast. 08/22/2024 REASON FOR EXAM: Multiple sclerosis TECHNIQUE: Multiplanar, multisequence MRI images of the cervical spine were obtained without and with intravenous contrast. 19 cc of Clariscan IV contrast was administered. COMPARISON: 10/19/2022 FINDINGS: Included portions of the skull base and craniocervical junction are intact. There is slight reversal of the normal cervical lordosis. The cervical vertebral bodies are otherwise normal in height, alignment, and marrow signal. No evidence of acute cervical vertebral body fracture or focal subluxation. The included upper thoracic vertebral bodies and intervertebral disc spaces are unremarkable. A few mild patchy areas of increased T2 signal involving the mid to lower right side of the cervical spinal cord, not significantly changed compared to the 2022 study. On postcontrast images, no areas of abnormal intrathecal or paraspinal enhancement. The included cervical soft tissues are unremarkable. C2-3: No focal disc herniation, significant central spinal canal, or neural foraminal narrowing. C3-4: Mild asymmetric right disc bulge or posterior disc osteophyte complex, causing mild right central spinal canal narrowing. No focal disc herniation. Mild left and severe right neural foraminal narrowing. C4-5: Mild diffuse disc bulge slightly indents the ventral thecal sac. No focaldisc herniation or significant central spinal canal/neural foraminal narrowing. C5-6: Mild posterior disc osteophyte complex, slightly asymmetric to the left. This causes mild indentation of the ventral thecal sac, without focal disc herniation or significant central spinal canal narrowing. Mild bilateral neural foraminal narrowing, greatest on the left. C6-7: Minimal asymmetric right disc bulge without focal disc herniation or significant central spinal canal narrowing. Mild left neural foraminal narrowing. No significant right neural foraminal narrowing. C7-T1: No focal disc herniation, significant central spinal canal, or right neural foraminal narrowing. Mild left neural foraminal narrowing. MRI/Spine Cervical W/WO Contrast IMPRESSION: No acute bony abnormality of the cervical spine. A few minimal patchy areas of increased T2 signal involving the right side of the mid to inferior cervical spinal cord, not significantly changed from 10/19/2022. No areas of abnormal cervical spinal cord enhancement on postcontrast images. Multilevel degenerative disc and facet disease in the cervical spine as described level by level above. Mild right central spinal canal narrowing at C3-4. No large focal disc herniation or significant central spinal canal narrowing. Multilevel neural foraminal narrowing as described level by level above, to a severe degree on the right at C3-4. Reading Location: [facility] CC: KENY DOMINGUEZ; No Primary Care Physician ~ Assistant Floor Covering Printer: Signed [facility] Study report [facility] Imaging Services [address] [place] [address] Brain W/WO Contrast MR#: [id number] Acct: [id number] Name: CLARK QUICK Rep #: [id number] : 1970 M 54 From: And mildred Sanders DO PCP: Care Physician,No Primary Status: REG CLI Study:Brain W/WO Contrast Date of Exam: 08/22/24 Exam# [id number] Ordering Dr: EVANGELISTA DOMINGUEZ PROCEDURE: MRI of the brain without and with intravenous contrast. 08/22/2024 REASON FOR EXAM: Multiple sclerosis TECHNIQUE: Multi planar, multisequence MRI images of the brain were obtained without and with intravenous contrast. 19 cc Clariscan IV contrast was administered. COMPARISON: 10/19/2022 FINDINGS: Bones of the calvarium are intact. Included upper cervical spinal cord shows nospecific abnormality. 8 mm faint area of increased T2/FLAIR signal at the cervical medullary junction near the inferior margin of the cerebellum image 14 of the sagittal FLAIR sequence is probably not significantly changed. The orbits, sella, and parasellar structures are unremarkable. Paranasal sinuses and mastoid air cells are clear. Major basilar intracranial flow voids are present. Extracranial soft tissues show no specific abnormality. No extra-axial fluid collection or midline shift. No areas of restricted diffusion. Patchy areas of abnormal increased T2/FLAIR signal involving the deep and periventricular white matter structures of the cerebral hemispheres are not significantly changed. A 1 cm ovoid area of abnormal increased T2/FLAIR signal involving the left cerebellar peduncle image 8 of the axial FLAIR sequence is similar. A few patchy areas of abnormal increased T2/FLAIR signal involving the lateral left cerebellar hemisphere, measuring up to 12 mm, also similar to the previous study. On postcontrast images, no areas of abnormal brain parenchymal enhancement. Themajor dural venous sinuses appear patent. MRI/Brain W/WO Contrast IMPRESSION: No acute intracranial abnormality. . Areas of abnormal increased T2/FLAIR signal involving the deep/periventricular white matter structures of the cerebral hemispheres, left cerebellar peduncle, and lateral left cerebellar hemisphere, similar to the 10/19/2022 study. The findings may relate to stated history of multiple sclerosis. No areas of abnormal brain parenchymal enhancement to suggest active MS plaques. Reading Location: [facility] CC: KENY DOMINGUEZ; No Primary Care Physician ~ Assistant Floor Covering Printer: Signed [facility] Spine Cervical W/WO Contrast on 08-22-2024 Spine Cervical W/WO Contrast [facility] Imaging Services [address] [place] [address] Spine Cervical W/WO Contrast MR#: [id number] Acct: [id number] Name: CLARK QUICK Rep #: [id number] : 1970 M 54 From: Devendra Dash i DO PCP: Care Physician,No Primary Status: REG CLI Study: Spine Cervical W/WO Contrast Date of Exam: Exam# [id number] Ordering Dr: KENY DOMINGUEZ PROCEDURE: MRI of the cervical spine without and with intravenous contrast. 08/22/2024 REASON FOR EXAM: Multiple sclerosis TECHNIQUE: Multiplanar, multisequence MRI images of the cervical spine were obtained without and with intravenous contrast. 19 cc of Clariscan IV contrast was administered. COMPARISON: 10/19/2022 FINDINGS: Included portions of the skull base and craniocervical junction are intact. There is slight reversal of the normal cervical lordosis. The cervical vertebral bodies are otherwise normal in height, alignment, and marrow signal. No evidence of acute cervical vertebral body fracture or focal subluxation. The included upper thoracic vertebral bodies and intervertebral disc spaces are unremarkable. A few mild patchy areas of increased T2 signal involving the mid to lower right side of the cervical spinal cord, not significantly changed compared to the 2022 study. On postcontrast images, no areas of abnormal intrathecal or paraspinal enhancement. The included cervical soft tissues are unremarkable. C2-3: No focal disc herniation, significant central spinal canal, or neural foraminal narrowing. C3-4: Mild asymmetric right disc bulge or posterior disc osteophyte complex, causing mild right central spinal canal narrowing. No focal disc herniation. Mild left and severe right neural foraminal narrowing. C4-5: Mild diffuse disc bulge slightly indents the ventral thecal sac. No focal disc herniation or significant central spinal canal/neural foraminal narrowing. C5-6: Mild posterior disc osteophyte complex, slightly asymmetric to the left. This causes mild indentation of the ventral thecal sac, without focal disc herniation or significant central spinal canal narrowing. Mild bilateral neural foraminal narrowing, greatest on the left. C6-7: Minimal asymmetric right disc bulge without focal disc herniation or significant central spinal canal narrowing. Mild left neural foraminal narrowing. No significant right neural foraminal narrowing. C7-T1: No focal disc herniation, significant central spinal canal, or right neural foraminal narrowing. Mild left neural foraminal narrowing. MRI/Spine Cervical W/WO Contrast IMPRESSION: No acute bony abnormality of the cervical spine. A few minimal patchy areas of increased T2 signal involving the right side of the mid to inferior cervical spinal cord, not significantly changed from 10/19/2022. No areas of abnormal cervical spinal cord enhancement on postcontrast images. Multilevel degenerative disc and facet disease in the cervical spine as described level by level above. Mild right central spinal canal narrowing at C3-4. No large focal disc herniation or significant central spinal canal narrowing. Multilevel neural foraminal narrowing as described level by level above, to a severe degree on the right at C3-4. Reading Location: [facility] CC: KENY DOMINGUEZ; No Primary Care Physician Assistant Floor Covering Printer: Signed [facility] Immunoglobulin Mikel 4 IMMUNOGLOB G QN 1277 mg/dL Normal 603-1613 [facility] Comment on above: Result Comment: Perf ormed at: [facility] [address] [phone] Legal Services Professional: Berny Greenwood PhD, Phone: [phone] Performed By: #### L 3200.1300, L100.0100, L500.4050 #### [facility] [address] [place], [address] CBC W/Diff, Automatedon 10 Absolute Lymph 1.76 X10 3/uL Normal 0.83-4.51 [facility] Comment on above: Performed By: #### L 3200.1300, L100.0100, L500.4050 #### [facility] [address] [place], [address] Absolute Neut 4.9 X10 3/uL Normal 2.0-7.7 [facility] Comment on above: Performed By: #### L 3200.1300, L100.0100, L500.4050 #### [facility] [address] [place], [address] Basophils/100 WBC (Bld) 0.4 % Normal 0-1 [facility] Comment on above: Performed By: #### L 3200.1300, L100.0100, L500.4050 #### [facility] [address] [place], [address] Eosinophils/100 WBC (Bld) 0.6 % Normal 0-5 [facility] Comment on above: Performed By: #### L 3200.1300, L100.0100, L500.4050 #### [facility] [address] [place], [address] Erythrocyte distribution width (RBC) [Ratio] 13.1 % Normal 11.6-14.6 [facility] Comment on above: Performed By: #### L 3200.1300, L100.0100, L500.4050 #### [facility] [address] [place], [address] Hematocrit (Bld) [Volume fraction] 49.2 % Normal 40-54 [facility] Comment on above: Performed By: #### L 3200.1300, L100.0100, L500.4050 #### [facility] [address] [place], [address] Hemoglobin (Bld) [Mass/Vol] 16.4 g/dL Normal 13.0-16.5 [facility] Comment on above: Performed By: #### L 3200.1300, L100.0100, L500.4050 #### [facility] [address] [place], [address] IG% 0.400 Normal 0.0-0.9 [facility] Comment on above: Result Comment: IG% - Immature Granulocytes (promyelocytes, myelocytes and metamyelocytes) > 1% indicates that a LEFT SHIFT is Present. Performed By: #### L 3200.1300, L100.0100, L500.4050 #### [facility] [address] [place], [address] Lymphocytes/100 WBC (Bld) 22.7 % Normal 19-41 [facility] Comment on above: Performed By: #### L 3200.1300, L100.0100, L500.4050 #### [facility] [address] [place], [address] MCH (RBC) [Entitic mass] 29.5 pg Normal 27.0-32.0 [facility] Comment on above: Performed By: #### L 3200.1300, L100.0100, L500.4050 #### [facility] [address] [place], [address] MCHC (RBC) [Mass/Vol] 33.3 g/dL Normal 32-36 [facility] Comment on above: Performed By: #### L 3200.1300, L100.0100, L500.4050 #### [facility] [address] [place], [address] MCV (RBC) [Entitic vol] 88.5 fL Normal 80-94 [facility] Comment on above: Performed By: #### L 3200.1300, L100.0100, L500.4050 #### [facility] [address] [place], [address] Monocytes/100 WBC (Bld) 12.7 % High 0-10 [facility] Comment on above: Performed By: #### L 3200.1300, L100.0100, L500.4050 #### [facility] [address] [place], [address] Neutrophils/100 WBC (Bld) 63.2 % Normal 47-70 [facility] Comment on above: Performed By: #### L 3200.1300, L100.0100, L500.4050 #### [facility] [address] [place], [address] Nucleated RBC (Bld) [#/Vol] 0 10*3/uL Normal 0-5 [facility] Comment on above: Performed By: #### L 3200.1300, L100.0100, L500.4050 #### [facility] [address] [place], [address] Platelet mean volume (Bld) [Entitic vol] 9.6 fL Normal 6.2-12.0 [facility] Comment on above: Performed By: #### L 3200.1300, L100.0100, L500.4050 #### [facility] [address] [place], [address] Platelets (Bld) [#/Vol] 302 10*3/uL Normal 150-450 [facility] Comment on above: Performed By: #### L 3200.1300, L100.0100, L500.4050 #### [facility] [address] [place], [address] RBC (Bld) [#/Vol] 5.56 10*6/uL Normal 4.6-6.2 [facility] Comment on above: Performed By: #### L 3200.1300, L100.0100, L500.4050 #### [facility] [address] [place], [address] RDW SD 42.9 fl Normal 35.1-43.9 [facility] Comment on above: Performed By: #### L 3200.1300, L100.0100, L500.4050 #### [facility] [address] [place], [address] WBC (Bld) [#/Vol] 7.8 10*3/uL Normal 4.4-11.0 [facility] Comment on above: Performed By: #### L 3200.1300, L100.0100, L500.4050 #### [facility] [address] [place], [address] Comprehensive Metabolic Prof [facility] 02-28-2024 Albumin [Mass/Vol] 4.4 g/dL Normal 3.2-5.0 [facility] Comment on above: Performed By: #### L 3200.1300, L100.0100, L500.4050 #### [facility] [address] [place], [address] Albumin/Globulin [Mass ratio] 1.1 {ratio} Normal 0.9-2.4 [facility] Comment on above: Performed By: #### L 3200.1300, L100.0100, L500.4050 #### [facility] [address] [place], [address] ALK P 125 U/L High 45-117 [facility] Comment on above: Performed By: #### L 3200.1300, L100.0100, L500.4050 #### [facility] [address] [place], [address] ALT [Catalytic activity/Vol] 39 U/L Normal 16-61 [facility] Comment on above: Performed By: #### L 3200.1300, L100.0100, L500.4050 #### [facility] [address] [place], [address] AST [Catalytic activity/Vol] 24 U/L Normal 15-37 [facility] Comment on above: Performed By: #### L 3200.1300, L100.0100, L500.4050 #### [facility] [address] [place], [address] Bilirubin [Mass/Vol] 0.80 mg/dL Normal 0.20-1.00 [facility] Comment on above: Result Comment: For patients on eltrombopag therapy, use of Dimension [place] TBIL is not recommended. Performed By: #### L 3200.1300, L100.0100, L500.4050 #### [facility] [address] [place], [address] BUN/CRE 8.2 RATIO Low 10-20 [facility] Comment on above: Performed By: #### L 3200.1300, L100.0100, L500.4050 #### [facility] [address] [place], [address] CA,Total 9.5 mg/dL Normal 8.5-10.1 [facility] Comment on above: Performed By: #### L 3200.1300, L100.0100, L500.4050 #### [facility] [address] [place], [address] Chloride [Moles/Vol] 101 mmol/L Normal 98-107 [facility] Comment on above: Performed By: #### L 3200.1300, L100.0100, L500.4050 #### [facility] [address] [place], [address] CO2 [Moles/Vol] 27.0 mmol/L Normal 21.0-32.0 [facility] Comment on above: Performed By: #### L 3200.1300, L100.0100, L500.4050 #### [facility] [address] [place], [address] Creatinine [Mass/Vol] 1.22 mg/dL Normal 0.70-1.30 [facility] Comment on above: Result Comment: The validity of the calculated GFR GFRAA in patients over 70 years has not been determined. Clinical correlation is essential. Performed By: #### L 3200.1300, L100.0100, L500.4050 #### [facility] [address] [place], [address] EST GFR - AA 79 mL/min Normal >60 [facility] Comment on above: Result Comment: Afri can [place] GFR Calc Performed By: #### L 3200.1300, L100.0100, L500.4050 #### [facility] [address] [place], [address] GAP 6 Normal 5-15 [facility] Comment on above: Performed By: #### L 3200.1300, L100.0100, L500.4050 #### [facility] [address] [place], [address] GFR/1.73 sq M.predicted among non-blacks MDRD (S/P/Bld) [Vol rate/Area] 65 mL/min/{1.73_m2} Normal >60 [facility] Comment on above: Result Comment: Non- GFR Calc Performed By: #### L 3200.1300, L100.0100, L500.4050 #### [facility] [address] [place], [address] Globulin (S) [Mass/Vol] 4.1 g/dL Normal 2.2-4.2 [facility] Comment on above: Performed By: #### L 3200.1300, L100.0100, L500.4050 #### [facility] [address] [place], [address] Glucose [Mass/Vol] 105 mg/dL Normal 74-106 [facility] Comment on above: Result Comment: Fast ing Glucose result from 100 to 125 mg/dL suggests IMPAIRED HOMEOSTASIS per A.D.A. criteria. Performed By: #### L 3200.1300, L100.0100, L500.4050 #### [facility] [address] [place], [address] Potassium [Moles/Vol] 3.8 mmol/L Normal 3.5-5.1 [facility] Comment on above: Performed By: #### L 3200.1300, L100.0100, L500.4050 #### [facility] [address] [place], [address] Sodium [Moles/Vol] 135 mmol/L Low 136-145 [facility] Comment on above: Performed By: #### L 3200.1300, L100.0100, L500.4050 #### [facility] [address] [place], [address] T PROT 8.5 g/dL High 6.4-8.2 [facility] Comment on above: Performed By: #### L 3200.1300, L100.0100, L500.4050 #### [facility] [address] [place], [address] Urea nitrogen [Mass/Vol] 10 mg/dL Normal 7-18 [facility] Comment on above: Performed By: #### L 3200.1300, L100.0100, L500.4050 #### [facility] [address] [place], [address] Immunoglobulins G/A/M/Josh IMMUNOGLOB A QN 149 mg/dL Normal 90-386 [facility] Comment on above: Order Comment: Y Performed By: #### L 3200.1300, L100.0100, L500.4050 #### [facility] [address] [place], [address] IMMUNOGLOB E QN 32 IU/mL Normal 6-495 [facility] Comment on above: Order Comment: Y Result Comment: Perf ormed at: [facility] [address] [id number] Legal Services Professional: Berny Greenwood PhD, Phone: [phone] Performed at: [facility] [id number] Legal Services Professional: Donovan Galindo MD, Phone: [phone] Performed By: #### L 3200.1300, L100.0100, L500.4050 #### [facility] [address] [place], [address] IMMUNOGLOB G QN 1240 mg/dL Normal 603-1613 [facility] Comment on above: Order Comment: Y Performed By: #### L 3200.1300, L100.0100, L500.4050 #### [facility] [address] [place], [address] IMMUNOGLOB M QN 100 mg/dL Normal 20-172 [facility] Comment on above: Order Comment: Y Performed By: #### L 3200.1300, L100.0100, L500.4050 #### [facility] [address] [place], [address] CBC W/Diff, Automatedon 06- Absolute Lymph 1.20 X10 3/uL Normal 0.83-4.51 [facility] Comment on above: Performed By: #### L 3200.1300, L100.0100, L500.4050 #### [facility] [address] [place], [address] Absolute Neut 4.6 X10 3/uL Normal 2.0-7.7 [facility] Comment on above: Performed By: #### L 3200.1300, L100.0100, L500.4050 #### [facility] [address] [place], [address] Basophils/100 WBC (Bld) 0.3 % Normal 0-1 [facility] Comment on above: Performed By: #### L 3200.1300, L100.0100, L500.4050 #### [facility] [address] [place], [address] Eosinophils/100 WBC (Bld) 0.3 % Normal 0-5 [facility] Comment on above: Performed By: #### L 3200.1300, L100.0100, L500.4050 #### [facility] [address] [place], [address] Erythrocyte distribution width (RBC) [Ratio] 12.5 % Normal 11.6-14.6 [facility] Comment on above: Performed By: #### L 3200.1300, L100.0100, L500.4050 #### [facility] [address] [place], [address] Hematocrit (Bld) [Volume fraction] 48.5 % Normal 40-54 [facility] Comment on above: Performed By: #### L 3200.1300, L100.0100, L500.4050 #### [facility] [address] [place], [address] Hemoglobin (Bld) [Mass/Vol] 16.2 g/dL Normal 13.0-16.5 [facility] Comment on above: Performed By: #### L 3200.1300, L100.0100, L500.4050 #### [facility] [address] [place], [address] IG% 0.200 Normal 0.0-0.9 [facility] Comment on above: Result Comment: IG% - Immature Granulocytes (promyelocytes, myelocytes and metamyelocytes) > 1% indicates that a LEFT SHIFT is Present. Performed By: #### L 3200.1300, L100.0100, L500.4050 #### [facility] [address] [place], [address] Lymphocytes/100 WBC (Bld) 18.1 % Low 19-41 [facility] Comment on above: Performed By: #### L 3200.1300, L100.0100, L500.4050 #### [facility] [address] [place], [address] MCH (RBC) [Entitic mass] 30.1 pg Normal 27.0-32.0 [facility] Comment on above: Performed By: #### L 3200.1300, L100.0100, L500.4050 #### [facility] [address] [place], [address] MCHC (RBC) [Mass/Vol] 33.4 g/dL Normal 32-36 [facility] Comment on above: Performed By: #### L 3200.1300, L100.0100, L500.4050 #### [facility] [address] [place], [address] MCV (RBC) [Entitic vol] 90.1 fL Normal 80-94 [facility] Comment on above: Performed By: #### L 3200.1300, L100.0100, L500.4050 #### [facility] [address] [place], [address] Monocytes/100 WBC (Bld) 11.7 % High 0-10 [facility] Comment on above: Performed By: #### L 3200.1300, L100.0100, L500.4050 #### [facility] [address] [place], [address] Neutrophils/100 WBC (Bld) 69.4 % Normal 47-70 [facility] Comment on above: Performed By: #### L 3200.1300, L100.0100, L500.4050 #### [facility] [address] [place], [address] Nucleated RBC (Bld) [#/Vol] 0 10*3/uL Normal 0-5 [facility] Comment on above: Performed By: #### L 3200.1300, L100.0100, L500.4050 #### [facility] [address] [place], [address] Platelet mean volume (Bld) [Entitic vol] 9.4 fL Normal 6.2-12.0 [facility] Comment on above: Performed By: #### L 3200.1300, L100.0100, L500.4050 #### [facility] [address] [place], [address] Platelets (Bld) [#/Vol] 260 10*3/uL Normal 150-450 [facility] Comment on above: Performed By: #### L 3200.1300, L100.0100, L500.4050 #### [facility] [address] [place], [address] RBC (Bld) [#/Vol] 5.38 10*6/uL Normal 4.6-6.2 [facility] Comment on above: Performed By: #### L 3200.1300, L100.0100, L500.4050 #### [facility] [address] [place], [address] RDW SD 41.1 fl Normal 35.1-43.9 [facility] Comment on above: Performed By: #### L 3200.1300, L100.0100, L500.4050 #### [facility] [address] [place], [address] WBC (Bld) [#/Vol] 6.6 10*3/uL Normal 4.4-11.0 [facility] Comment on above: Performed By: #### L 3200.1300, L100.0100, L500.4050 #### [facility] [address] [place], [address] Comprehensive Met[facility] Prof nvon 11-15-2023 Albumin [Mass/Vol] 4.2 g/dL Normal 3.2-5.0 [facility] Comment on above: Performed By: #### L 3200.1300, L100.0100, L500.4050 #### [facility] [address] [place], [address] Albumin/Globulin [Mass ratio] 1.1 {ratio} Normal 0.9-2.4 [facility] Comment on above: Performed By: #### L 3200.1300, L100.0100, L500.4050 #### [facility] [address] [place], [address] ALK P 115 U/L Normal 45-117 [facility] Comment on above: Performed By: #### L 3200.1300, L100.0100, L500.4050 #### [facility] [address] [place], [address] ALT [Catalytic activity/Vol] 35 U/L Normal 16-61 [facility] Comment on above: Performed By: #### L 3200.1300, L100.0100, L500.4050 #### [facility] [address] [place], [address] AST [Catalytic activity/Vol] 21 U/L Normal 15-37 [facility] Comment on above: Performed By: #### L 3200.1300, L100.0100, L500.4050 #### [facility] [address] [place], [address] Bilirubin [Mass/Vol] 0.60 mg/dL Normal 0.20-1.00 [facility] Comment on above: Result Comment: For patients on eltrombopag therapy, use of Dimension [place] TBIL is not recommended. Performed By: #### L 3200.1300, L100.0100, L500.4050 #### [facility] [address] [place], [address] BUN/CRE 11.1 RATIO Normal 10-20 [facility] Comment on above: Performed By: #### L 3200.1300, L100.0100, L500.4050 #### [facility] [address] [place], [address] CA,Total 9.2 mg/dL Normal 8.5-10.1 [facility] Comment on above: Performed By: #### L 3200.1300, L100.0100, L500.4050 #### [facility] [address] [place], [address] Chloride [Moles/Vol] 106 mmol/L Normal 98-107 [facility] Comment on above: Performed By: #### L 3200.1300, L100.0100, L500.4050 #### [facility] [address] [place], [address] CO2 [Moles/Vol] 26.0 mmol/L Normal 21.0-32.0 [facility] Comment on above: Performed By: #### L 3200.1300, L100.0100, L500.4050 #### [facility] [address] [place], [address] Creatinine [Mass/Vol] 1.17 mg/dL Normal 0.70-1.30 [facility] Comment on above: Result Comment: The validity of the calculated GFR GFRAA in patients over 70 years has not been determined. Clinical correlation is essential. Performed By: #### L 3200.1300, L100.0100, L500.4050 #### [facility] [address] [place], [address] EST GFR - AA 83 mL/min Normal >60 [facility] Comment on above: Result Comment: Afri can [place]rit[place]an GFR Calc Performed By: #### L 3200.1300, L100.0100, L500.4050 #### [facility] [address] [place], [address] GAP 3 Low 5-15 [facility] Comment on above: Performed By: #### L 3200.1300, L100.0100, L500.4050 #### [facility] [address] [place], [address] GFR/1.73 sq M.predicted among non-blacks MDRD (S/P/Bld) [Vol rate/Area] 69 mL/min/{1.73_m2} Normal >60 [facility] Comment on above: Result Comment: Non- GFR Calc Performed By: #### L 3200.1300, L100.0100, L500.4050 #### [facility] [address] [place], [address] Globulin (S) [Mass/Vol] 3.8 g/dL Normal 2.2-4.2 [facility] Comment on above: Performed By: #### L 3200.1300, L100.0100, L500.4050 #### [facility] [address] [place], [address] Glucose [Mass/Vol] 98 mg/dL Normal 74-106 [facility] Comment on above: Performed By: #### L 3200.1300, L100.0100, L500.4050 #### [facility] [address] [place], [address] Potassium [Moles/Vol] 3.9 mmol/L Normal 3.5-5.1 [facility] Comment on above: Performed By: #### L 3200.1300, L100.0100, L500.4050 #### [facility] [address] [place], [address] Sodium [Moles/Vol] 135 mmol/L Low 136-145 [facility] Comment on above: Performed By: #### L 3200.1300, L100.0100, L500.4050 #### [facility] [address] [place], [address] T PROT 8.0 g/dL Normal 6.4-8.2 [facility] Comment on above: Performed By: #### L 3200.1300, L100.0100, L500.4050 #### [facility] [address] [place], [address] Urea nitrogen [Mass/Vol] 13 mg/dL Normal 7-18 [facility] Comment on above: Performed By: #### L 3200.1300, L100.0100, L500.4050 #### [facility] [address] [place], [address] Basophil percentageon 2022 Creatinine [Mass/Vol] 1.20 mg/dL 0.70-1.30 [facility] No Panel Informationon 10-19 Bedside Estimated GFR (eGFR) > 60 mL/min >60 [facility] CBC, PLATELETS & MANUAL DIFF (08660)Ordered By: Well Puller Head on 05-19-2020 Basophils (Bld) [#/Vol] 0.0 {x10E3/uL} Normal 0.0-0.2 [facility]; [facility] Work Phone: Comment on above: Send copy of results to Dr. Roman; PATIENT NOT FASTINGPERFORMED BY: CB [facility] Oosuiv2202 [address] [facility] [place] [id number] Basophils (Bld) [#/Vol] 0.0 10*3/uL Normal 0.0-0.2 [facility]; [facility] Work Phone: Comment on above: Send copy of results to Dr. Roman; PATIENT NOT FASTINGPERFORMED BY: CB [facility] Bvvtym9447 [address] [facility] [id number] Basophils/100 WBC (Bld) 1 % Normal [facility]; [facility] Work Phone: Comment on above: Send copy of results to Dr. Roman; PATIENT NOT FASTINGPERFORMED BY: CB [facility] Yawlcn2953 [facility] [id number] Eosinophils (Bld) [#/Vol] 0.1 {x10E3/uL} Normal 0.0-0.4 [facility]; [facility] Work Phone: Comment on above: Send copy of results to Dr. Roman; PATIENT NOT FASTINGPERFORMED BY: CB [facility] Qxkydl7860 [facility] [id number] Eosinophils (Bld) [#/Vol] 0.1 10*3/uL Normal 0.0-0.4 [facility]; [facility] Work Phone: Comment on above: Send copy of results to Dr. Roman; PATIENT NOT FASTINGPERFORMED BY: CB [facility] Oinbqs2957 [facility] [id number] Eosinophils/100 WBC (Bld) 2 % Normal [facility]; [facility] Work Phone: Comment on above: Send copy of results to Dr. Roman; PATIENT NOT FASTINGPERFORMED BY: CB [facility] Smblyt8843 [facility] [id number] Erythrocyte distribution width (RBC) [Ratio] 13.0 % Normal 11.6-15.4 [facility]; [facility] Work Phone: Comment on above: Send copy of results to Dr. Roman; PATIENT NOT FASTINGPERFORMED BY: CB [facility] Ivtxuq6595 [address] [facility] [place] [id number] Hematocrit (Bld) [Volume fraction] 45.1 % Normal 37.5-51.0 [facility]; [facility] Work Phone: Comment on above: Send copy of results to Dr. Roman; PATIENT NOT FASTINGPERFORMED BY: CB [facility] Cleagp0820 [facility] [id number] Hemoglobin (Bld) [Mass/Vol] 15.8 g/dL Normal 13.0-17.7 [facility]; [facility] Work Phone: Comment on above: Send copy of results to Dr. Roman; PATIENT NOT FASTINGPERFORMED BY: CB [facility] Uvxztc2482 [address] [facility] [id number] Immature granulocytes (Bld) [#/Vol] 0.0 {x10E3/uL} Normal 0.0-0.1 [facility]; [facility] Work Phone: Comment on above: Send copy of results to Dr. Roman; PATIENT NOT FASTINGPERFORMED BY: CB [facility] Pidbrx3598 [address] [facility] [place] [id number] Immature granulocytes (Bld) [#/Vol] 0.0 10*3/uL Normal 0.0-0.1 [facility]; [facility] Work Phone: Comment on above: Send copy of results to Dr. Roman; PATIENT NOT FASTINGPERFORMED BY: CB [facility] Qtpiwh8165 [facility] [place] [id number] Immature granulocytes/100 WBC (Bld) 0 % Normal [facility]; [facility] Work Phone: Comment on above: Send copy of results to Dr. Roman; PATIENT NOT FASTINGPERFORMED BY: CB [facility] Vxchlo9165 [address] [facility] [place] [id number] Lymphocytes (Bld) [#/Vol] 1.9 {x10E3/uL} Normal 0.7-3.1 [facility]; [facility] Work Phone: Comment on above: Send copy of results to Dr. Roman; PATIENT NOT FASTINGPERFORMED BY: CB [facility] Jwybtk9178 [facility]in [place] [id number] Lymphocytes (Bld) [#/Vol] 1.9 10*3/uL Normal 0.7-3.1 [facility]; [facility] Work Phone: Comment on above: Send copy of results to Dr. Roman; PATIENT NOT FASTINGPERFORMED BY: CB [facility] Ycapoc5413 [address] [facility] [id number] Lymphocytes/100 WBC (Bld) 26 % Normal [facility]; [facility] Work Phone: Comment on above: Send copy of results to Dr. Roman; PATIENT NOT FASTINGPERFORMED BY: CB [facility] Todwfg7356 [facility] [id number] MCH (RBC) [Entitic mass] 31.4 pg Normal 26.6-33.0 [facility]; [facility] Work Phone: Comment on above: Send copy of results to Dr. Roman; PATIENT NOT FASTINGPERFORMED BY: CB [facility] Iudqpa6633 [facility]in [place] [id number] MCHC (RBC) [Mass/Vol] 35.0 g/dL Normal 31.5-35.7 [facility] prehensive Internal Medicine; [facility] Work Phone: Comment on above: Send copy of results to Dr. Roman; PATIENT NOT FASTINGPERFORMED BY: CB [facility] Iyegbl2951 [facility] [place] [id number] MCV (RBC) [Entitic vol] 90 fL Normal 79-97 [facility]; [facility] Work Phone: Comment on above: Send copy of results to Dr. Roman; PATIENT NOT FASTINGPERFORMED BY: CB [facility] Quyayp5920 [address] [facility] [place] [id number] Monocytes (Bld) [#/Vol] 0.9 {x10E3/uL} Normal 0.1-0.9 [facility]; [facility] Work Phone: Comment on above: Send copy of results to Dr. Roman; PATIENT NOT FASTINGPERFORMED BY: CB [facility] Zvdekc0000 [address] RoadDublin [place] [id number] Monocytes (Bld) [#/Vol] 0.9 10*3/uL Normal 0.1-0.9 [facility]; [facility] Work Phone: Comment on above: Send copy of results to Dr. Roman; PATIENT NOT FASTINGPERFORMED BY: CB [facility] Esdkje9243 [address] RoadDublin [place] [id number] Monocytes/100 WBC (Bld) 12 % Normal [facility]; [facility] Work Phone: Comment on above: Send copy of results to Dr. Roman; PATIENT NOT FASTINGPERFORMED BY: CB [facility] Agmxcz9316 [address] RoadDublin [place] [id number] Neutrophils (Bld) [#/Vol] 4.2 {x10E3/uL} Normal 1.4-7.0 [facility]; [facility] Work Phone: Comment on above: Send copy of results to Dr. Roman; PATIENT NOT FASTINGPERFORMED BY: CB [facility] Phdywg5851 [address] RoadDublin [place] [id number] Neutrophils (Bld) [#/Vol] 4.2 10*3/uL Normal 1.4-7.0 [facility]; [facility] Work Phone: Comment on above: Send copy of results to Dr. Roman; PATIENT NOT FASTINGPERFORMED BY: CB [facility] Wzikay7521 [address] RoadDublin [place] [id number] Neutrophils/100 WBC (Bld) 59 % Normal [facility]; [facility] Work Phone: Comment on above: Send copy of results to Dr. Roman; PATIENT NOT FASTINGPERFORMED BY: CB [facility] Nleopn3242 [address] RoadDublin [place] [id number] Platelets (Bld) [#/Vol] 283 {x10E3/uL} Normal 150-450 [facility]; [facility] Work Phone: Comment on above: Send copy of results to Dr. Roman; PATIENT NOT FASTINGPERFORMED BY: CB [facility] Bmopsx8659 [address] RoadDublin [place] [id number] Platelets (Bld) [#/Vol] 283 10*3/uL Normal 150-450 [facility]; [facility] Work Phone: Comment on above: Send copy of results to Dr. Roman; PATIENT NOT FASTINGPERFORMED BY: CB [facility] Xgijye7991 [address] RoadDublin [place] [id number] RBC (Bld) [#/Vol] 5.03 {x10E6/uL} Normal 4.14-5.80 [facility]; [facility] Work Phone: Comment on above: Send copy of results to Dr. Roman; PATIENT NOT FASTINGPERFORMED BY: CB [facility] Qxdycl3785 [address] RoadDublin [place] [id number] RBC (Bld) [#/Vol] 5.03 10*6/uL Normal 4.14-5.80 [facility]; [facility] Work Phone: Comment on above: Send copy of results to Dr. Roman; PATIENT NOT FASTINGPERFORMED BY: CB [facility] Lezajr4909 [address] RoadDublin [place] [id number] WBC (Bld) [#/Vol] 7.2 {x10E3/uL} Normal 3.4-10.8 [facility]; [facility] Work Phone: Comment on above: Send copy of results to Dr. Roman; PATIENT NOT FASTINGPERFORMED BY: CB [facility] Uiyche4322 [address] RoadDublin [place] [id number] WBC (Bld) [#/Vol] 7.2 10*3/uL Normal 3.4-10.8 [facility]; [facility] Work Phone: Comment on above: Send copy of results to Dr. Roman; PATIENT NOT FASTINGPERFORMED BY: CB [facility] Diqvgd7968 [address] RoadDublin [place] [id number] METABOLIC PANEL, COMPREHENSI VE (48913)Ordered By: Well Puller Head on 05-19-2020 Albumin [Mass/Vol] 5.0 g/dL Abnormal 3.8-4.9 [facility]; [facility] Work Phone: Comment on above: Send copy of results to Dr. Roman; PATIENT NOT FASTINGPERFORMED BY: CB [facility] Ckevpl1870 [address] RoadDublin [place] [id number] Albumin/Globulin [Mass ratio] 2.0 {ratio} Normal 1.2-2.2 [facility]; [facility] Work Phone: Comment on above: Send copy of results to Dr. Roman; PATIENT NOT FASTINGPERFORMED BY: CB [facility] Papqgr0977 [address] RoadDublin [place] [id number] ALP [Catalytic activity/Vol] 62 [iU]/L Normal 39-117 [facility]; [facility] Work Phone: Comment on above: Send copy of results to Dr. Roman; PATIENT NOT FASTINGPERFORMED BY: CB [facility] Trzhrr8049 [address] RoadDublin [place] [id number] ALP [Catalytic activity/Vol] 62 U/L Normal 39-117 [facility]; [facility] Work Phone: Comment on above: Send copy of results to Dr. Roman; PATIENT NOT FASTINGPERFORMED BY: CB [facility] Rbbbjf0102 [address] RoadDublin [place] [id number] ALT [Catalytic activity/Vol] 25 [iU]/L Normal 0-44 [facility]; [facility] Work Phone: Comment on above: Send copy of results to Dr. Roman; PATIENT NOT FASTINGPERFORMED BY: CB [facility] Eljrzy7025 [address] RoadDublin [place] [id number] ALT [Catalytic activity/Vol] 25 U/L Normal 0-44 [facility]; [facility] Work Phone: Comment on above: Send copy of results to Dr. Roman; PATIENT NOT FASTINGPERFORMED BY: CB [facility] Xtuqfw7979 [address] RoadDublin [place] [id number] AST [Catalytic activity/Vol] 19 [iU]/L Normal 0-40 [facility]; [facility] Work Phone: Comment on above: Send copy of results to Dr. Roman; PATIENT NOT FASTINGPERFORMED BY: CB [facility] Ocntwr2605 [address] RoadDublin [place] [id number] AST [Catalytic activity/Vol] 19 U/L Normal 0-40 [facility]; [facility] Work Phone: Comment on above: Send copy of results to Dr. Roman; PATIENT NOT FASTINGPERFORMED BY: CB [facility] Klegrh2354 [address] RoadDublin [place] [id number] Bilirubin [Mass/Vol] 0.4 mg/dL Normal 0.0-1.2 [facility]; [facility] Work Phone: Comment on above: Send copy of results to Dr. Roman; PATIENT NOT FASTINGPERFORMED BY: CB [facility] Oqyere5709 [address] RoadDublin [place] [id number] Calcium [Mass/Vol] 9.8 mg/dL Normal 8.7-10.2 [facility]; [facility] Work Phone: Comment on above: Send copy of results to Dr. Roman; PATIENT NOT FASTINGPERFORMED BY: CB [facility] Lmdwdr4036 [address] RoadDublin [place] [id number] Chloride [Moles/Vol] 97 mmol/L Normal 96-106 [facility]; [facility] Work Phone: Comment on above: Send copy of results to Dr. Roman; PATIENT NOT FASTINGPERFORMED BY: CB [facility] Zgujct6371 [address] RoadDublin [place] [id number] CO2 [Moles/Vol] 26 mmol/L Normal 20-29 [facility]; [facility] Work Phone: Comment on above: Send copy of results to Dr. Roman; PATIENT NOT FASTINGPERFORMED BY: CB [facility] Ucfxfw4415 [address] RoadDublin [place] [id number] Creatinine [Mass/Vol] 1.26 mg/dL Normal 0.76-1.27 [facility]; [facility] Work Phone: Comment on above: Send copy of results to Dr. Roman; PATIENT NOT FASTINGPERFORMED BY: CB [facility] Trivhx9433 [address] RoadDublin [place] [id number] GFR/1.73 sq M predicted among blacks CKD-EPI (S/P/Bld) [Vol rate/Area] 75 mL/min/1.73 Normal [facility]; [facility] Work Phone: Comment on above: Send copy of results to Dr. Roman; PATIENT NOT FASTINGPERFORMED BY: CB [facility] Dbiybk0534 [address] RoadDuin [place] [id number] GFR/1.73 sq M predicted among non-blacks CKD-EPI (S/P/Bld) [Vol rate/Area] 65 mL/min/1.73 Normal [facility]; [facility] Work Phone: Comment on above: Send copy of results to Dr. Roman; PATIENT NOT FASTINGPERFORMED BY: CB [facility] Ndpjyv8062 [address] [facility] [id number] Globulin (S) [Mass/Vol] 2.5 g/dL Normal 1.5-4.5 [facility]; [facility] Work Phone: Comment on above: Send copy of results to Dr. Roman; PATIENT NOT FASTINGPERFORMED BY: CB [facility] Qgwsop3961 [address] RoadDuin [place] [id number] Glucose [Mass/Vol] 107 mg/dL Abnormal 65-99 [facility]; [facility] Work Phone: Comment on above: Send copy of results to Dr. Roman; PATIENT NOT FASTINGPERFORMED BY: CB [facility] Gksltu9673 [address] [facility] [place] [id number] Potassium [Moles/Vol] 4.1 mmol/L Normal 3.5-5.2 [facility]; [facility] Work Phone: Comment on above: Send copy of results to Dr. Rmoan; PATIENT NOT FASTINGPERFORMED BY: CB [facility] Memwzj2658 [facility] [id number] Protein [Mass/Vol] 7.5 g/dL Normal 6.0-8.5 [facility]; [facility] Work Phone: Comment on above: Send copy of results to Dr. Roman; PATIENT NOT FASTINGPERFORMED BY: CB [facility] Jhoohh5064 [facility] [id number] Sodium [Moles/Vol] 138 mmol/L Normal 134-144 [facility]; [facility] Work Phone: Comment on above: Send copy of results to Dr. Roman; PATIENT NOT FASTINGPERFORMED BY: CB [facility] Grnbcg5658 [facility] [id number] Urea nitrogen [Mass/Vol] 15 mg/dL Normal 6-24 [facility]; [facility] Work Phone: Comment on above: Send copy of results to Dr. Roman; PATIENT NOT FASTINGPERFORMED BY: CB [facility] Giwlyq5298 [facility] [id number] Urea nitrogen/Creatinine [Mass ratio] 12 mg/mg Normal 9-20 [facility]; [facility] Work Phone: Comment on above: Send copy of results to Dr. Roman; PATIENT NOT FASTINGPERFORMED BY: [facility] Sgdygl6156 [facility] [id number] CBC, Platelets & Auto Diff ( [id number])Ordered By: Well Puller Head on 07-16-2019 Basophils (Bld) [#/Vol] 0.0 {x10E3/uL} Normal 0.0-0.2 [facility] Work Phone: Comment on above: PATIENT NOT FASTINGP ERFORMED BY: CB [facility] Wwmgwa4574 [facility] [id number] Basophils (Bld) [#/Vol] 0.0 10*3/uL Normal 0.0-0.2 [facility]; [facility] Work Phone: Comment on above: PATIENT NOT FASTINGP ERFORMED BY: CB [facility] Lhdviu5811 [facility] [id number] Basophils/100 WBC (Bld) 0 % Normal [facility] Work Phone: Comment on above: PATIENT NOT FASTINGP ERFORMED BY: CB [facility] Ruqgsl7793 [address]Dublin [place] [id number] Eosinophils (Bld) [#/Vol] 0.1 {x10E3/uL} Normal 0.0-0.4 [facility] Work Phone: Comment on above: PATIENT NOT FASTINGP ERFORMED BY: CB [facility] Eexdop5530 [address]Dublin [place] [id number] Eosinophils (Bld) [#/Vol] 0.1 10*3/uL Normal 0.0-0.4 [facility]; [facility] Work Phone: Comment on above: PATIENT NOT FASTINGP ERFORMED BY: [facility] Crthld0288 [address] RoadHigh[facility] Hospitalin [place] [id number] Eosinophils/100 WBC (Bld) 2 % Normal [facility] Work Phone: Comment on above: PATIENT NOT FASTINGP ERFORMED BY: [facility] Unusdt7737 [address] RoadHighsmith-Rainey [facility] Hospitalin [place] [id number] Erythrocyte distribution width (RBC) [Ratio] 13.2 % Normal 11.6-15.4 [facility] Work Phone: Comment on above: PATIENT NOT FASTINGP ERFORMED BY: CB [facility] Iyfgfc2638 [address] RoadHighsmith-Rain[facility] Hospitalin [place] [id number] Hematocrit (Bld) [Volume fraction] 50.5 % Normal 37.5-51.0 [facility] Work Phone: Comment on above: PATIENT NOT FASTINGP ERFORMED BY: CB [facility] Ctnblm4238 [address] RoadDublin [place] [id number] Hemoglobin (Bld) [Mass/Vol] 16.6 g/dL Normal 13.0-17.7 [facility] Work Phone: Comment on above: PATIENT NOT FASTINGP ERFORMED BY: CB [facility] Ydslbe1532 [address] RoadDublin [place] [id number] Immature granulocytes (Bld) [#/Vol] 0.0 {x10E3/uL} Normal 0.0-0.1 [facility] Work Phone: Comment on above: PATIENT NOT FASTINGP ERFORMED BY: ZOE [facility] Iqalcm3280 [address] RoadDublin [place] [id number] Immature granulocytes (Bld) [#/Vol] 0.0 10*3/uL Normal 0.0-0.1 [facility]; [facility] Work Phone: Comment on above: PATIENT NOT FASTINGP ERFORMED BY: ZOE [facility] Ecdkos2979 [address] RoadDublin [place] [id number] Immature granulocytes/100 WBC (Bld) 1 % Normal [facility] Work Phone: Comment on above: PATIENT NOT FASTINGP ERFORMED BY: ZOE LabCopreston ThakurPxuovi8636 [address] RoadDublin [place] [id number] Lymphocytes (Bld) [#/Vol] 1.7 {x10E3/uL} Normal 0.7-3.1 [facility] Work Phone: Comment on above: PATIENT NOT FASTINGP ERFORMED BY: ZOE LabCopreston ThakurYxdirt8354 [address] RoadDublin [place] [id number] Lymphocytes (Bld) [#/Vol] 1.7 10*3/uL Normal 0.7-3.1 [facility]; [facility] Work Phone: Comment on above: PATIENT NOT FASTINGP ERFORMED BY: ZOE [facility] Vcnwak2284 [address] RoadDublin [place] [id number] Lymphocytes/100 WBC (Bld) 26 % Normal [facility] Work Phone: Comment on above: PATIENT NOT FASTINGP ERFORMED BY: ZOE [facility] Cawsiv0012 [address] RoadDublin [place] [id number] MCH (RBC) [Entitic mass] 30.2 pg Normal 26.6-33.0 [facility] Work Phone: Comment on above: PATIENT NOT FASTINGP ERFORMED BY: ZOE [facility] Nmyaqp7806 [address] RoadDublin [place] [id number] MCHC (RBC) [Mass/Vol] 32.9 g/dL Normal 31.5-35.7 [facility] prehensive Internal Medicine Work Phone: Comment on above: PATIENT NOT FASTINGP ERFORMED BY: ZOE Wendi Hernandez6370 [address] Roadblin [place] [id number] MCV (RBC) [Entitic vol] 92 fL Normal 79-97 [facility] Work Phone: Comment on above: PATIENT NOT FASTINGP ERFORMED BY: ZOE AdelaCopreston HernandezVgzaim9874 [address] Roadblin [place] [id number] Monocytes (Bld) [#/Vol] 0.7 {x10E3/uL} Normal 0.1-0.9 [facility] Work Phone: Comment on above: PATIENT NOT FASTINGP ERFORMED BY: ZOE Rakeshpreston ThakurPkcllw6245 Eck[address] RoadM[facility] [id number] Monocytes (Bld) [#/Vol] 0.7 10*3/uL Normal 0.1-0.9 [facility]; [facility] Work Phone: Comment on above: PATIENT NOT FASTINGP ERFORMED BY: ZOE Rakeshpreston Hctitp7215 [address] Roadblin [place] [id number] Monocytes/100 WBC (Bld) 11 % Normal [facility] Work Phone: Comment on above: PATIENT NOT FASTINGP ERFORMED BY: ZOE AdelaCoprestno ThakurMmlifn4424 [address] Roadblin [place] [id number] Neutrophils (Bld) [#/Vol] 4.0 {x10E3/uL} Normal 1.4-7.0 [facility] Work Phone: Comment on above: PATIENT NOT FASTINGP ERFORMED BY: CB [facility] Tsrxdg4813 [address] RoadDublin [place] [id number] Neutrophils (Bld) [#/Vol] 4.0 10*3/uL Normal 1.4-7.0 [facility]; [facility] Work Phone: Comment on above: PATIENT NOT FASTINGP ERFORMED BY: ZOE Hernandez6370 [address] RoadDublin [place] [id number] Neutrophils/100 WBC (Bld) 60 % Normal [facility] Work Phone: Comment on above: PATIENT NOT FASTINGP ERFORMED BY: ZOE Hernandez6370 [address]Dublin [place] [id number] Platelets (Bld) [#/Vol] 226 {x10E3/uL} Normal 150-450 [facility] Work Phone: Comment on above: PATIENT NOT FASTINGP ERFORMED BY: ZOE Hernandez6370 [address] RoadDublin [place] [id number] Platelets (Bld) [#/Vol] 226 10*3/uL Normal 150-450 [facility]; [facility] Work Phone: Comment on above: PATIENT NOT FASTINGP ERFORMED BY: ZOE Hernandez6370 [address] RoadHumarock [place] [id number] RBC (Bld) [#/Vol] 5.50 {x10E6/uL} Normal 4.14-5.80 [facility] Internal Medicine Work Phone: Comment on above: PATIENT NOT FASTINGP ERFORMED BY: ZOE Hernandez6370 [address]Dublin [place] [id number] RBC (Bld) [#/Vol] 5.50 10*6/uL Normal 4.14-5.80 [facility]; [facility] Work Phone: Comment on above: PATIENT NOT FASTINGP ERFORMED BY: ZOE Hernandez6370 [address]Dublin [place] [id number] WBC (Bld) [#/Vol] 6.6 {x10E3/uL} Normal 3.4-10.8 [facility] Internal Medicine Work Phone: Comment on above: PATIENT NOT FASTINGP ERFORMED BY: ZOE Hernandez6370 [address]Dublin [place] [id number] WBC (Bld) [#/Vol] 6.6 10*3/uL Normal 3.4-10.8 [facility] Internal Medicine; [facility] Work Phone: Comment on above: PATIENT NOT FASTINGP ERFORMED BY: CB [facility] Odphcc1608 [address] RoadDublin [place] [id number] SPEP ([id number])Ordered By: Syst em Building Attendant on 07-16-2019 Albumin [Mass/Vol] 3.7 g/dL Normal 2.9-4.4 [facility] Internal Medicine Work Phone: Comment on above: PATIENT NOT FASTINGP ERFORMED BY: CB [facility] Bfydfo9593 [address] RoadDublin [place] [id number] Albumin/Globulin [Mass ratio] 1.2 {ratio} Normal 0.7-1.7 [facility] Work Phone: Comment on above: PATIENT NOT FASTINGP ERFORMED BY: CB [facility] Fndfkm6381 [address] RoadHumarock [place] [id number] Alpha 1 globulin Elph [Mass/Vol] 0.2 g/dL Normal 0.0-0.4 [facility] Work Phone: Comment on above: PATIENT NOT FASTINGP ERFORMED BY: CB [facility] Norxat7728 [address] RoadDuin [place] [id number] Alpha 2 globulin Elph [Mass/Vol] 1.0 g/dL Normal 0.4-1.0 [facility] Work Phone: Comment on above: PATIENT NOT FASTINGP ERFORMED BY: CB [facility] Qbultv6182 [address] RoadDuin [place] [id number] Beta globulin Elph [Mass/Vol] 0.9 g/dL Normal 0.7-1.3 [facility] Work Phone: Comment on above: PATIENT NOT FASTINGP ERFORMED BY: CB [facility] Fzrzoj1201 [address] RoadDublin [place] [id number] Gamma globulin Elph [Mass/Vol] 1.1 g/dL Normal 0.4-1.8 [facility] Work Phone: Comment on above: PATIENT NOT FASTINGP ERFORMED BY: CB [facility] Trlcar1990 [address] RoadDublin [place] [id number] Globulin (S) [Mass/Vol] 3.2 g/dL Normal 2.2-3.9 [facility] Work Phone: Comment on above: PATIENT NOT FASTINGP ERFORMED BY: CB [facility] Pxswzy4459 [address] RoadDublin [place] [id number] Laboratory comment Christ (Report) SPRCS Normal [facility] Work Phone: Comment on above: Protein electrophore sis scan will follow via computer, mail, orcourier delivery. PATIENT NOT FASTINGP ERFORMED BY: CB [facility] Xuujcx8505 [address] RoadDublin [place] [id number] Laboratory report . Normal Compreh ensive Internal Medicine Work Phone: Comment on above: PATIENT NOT FASTINGP ERFORMED BY: CB [facility] Egseao9142 [address] RoadDublin [place] [id number] Protein [Mass/Vol] 6.9 g/dL Normal 6.0-8.5 Compre hensive Internal Medicine Work Phone: Comment on above: PATIENT NOT FASTINGP ERFORMED BY: CB [facility] Uyhzwh6860 [address] RoadDublin [place] [id number] Protein.monoclonal Elph [Mass/Vol] Not Observed Normal [facility] Work Phone: Comment on above: PATIENT NOT FASTINGP ERFORMED BY: CB [facility] Epwrwr9223 [address] RoadDublin [place] [id number] HEMOGLOB ELECTROPHORESIS (83 020)Ordered By: Well Puller Head on 06-12-2019 Hemoglobin A (Bld) [Mass fraction] 97.9 % Normal 96.4-98.8 [facility] Work Phone: Comment on above: PATIENT NOT FASTINGP ERFORMED BY: CB [facility] Tviqtn2753 [address] RoadDublin [place] [id number] Hemoglobin A2 Chromatography column (Bld) [Mass fraction] 2.1 % Normal 1.8-3.2 Comprehens [facility] Internal Medicine Work Phone: Comment on above: PATIENT NOT FASTINGP ERFORMED BY: CB [facility] Rpsxbt3243 [address] RoadDublin [place] [id number] Hemoglobin C (Bld) [Mass fraction] 0.0 % Normal [facility] Work Phone: Comment on above: PATIENT NOT FASTINGP ERFORMED BY: ZOE Hernandez[address] [facility]bl[facility] [place] [id number] Hemoglobin F (Bld) [Mass fraction] 0.0 % Normal 0.0-2.0 [facility] Work Phone: Comment on above: PATIENT NOT FASTINGP ERFORMED BY: ZOE Thakurlin[address] [facility] Hospitalblin [place] [id number] Hemoglobin pattern (Bld) [Interp] HGAA Normal [facility] Work Phone: Comment on above: Normal adult hemoglo bin present. PATIENT NOT FASTINGP ERFORMED BY: ZOE Thakurlin[address] [facility] Hospitalblin [place] [id number] Hemoglobin S (Bld) [Mass fraction] 0.0 % Normal [facility] Work Phone: Comment on above: PATIENT NOT FASTINGP ERFORMED BY: ZOE Thakurlin[address] [facility] [place] [id number] Hemoglobin S Ql (Bld) Negative Normal Com prehensive Internal Medicine Work Phone: Comment on above: PATIENT NOT FASTINGP ERFORMED BY: ZOE Thakurlin[address] [facility] Hospitalbl[facility] [place] [id number] Hemoglobin S Ql (Bld) Negative Normal Com prehensive Internal Medicine; [facility] Work Phone: Comment on above: PATIENT NOT FASTINGP ERFORMED BY: ZOE Thakurlin[address] [facility]in [place] [id number] IMMUNOFIXATION ELECTROPHORES IS ([id number])Ordered By: Well Puller Head on 06-12-2019 IgA [Mass/Vol] 159 mg/dL Normal 90-386 Comprehens [facility] Work Phone: Comment on above: PATIENT NOT FASTINGP ERFORMED BY: ZOE Adame Esasss[address] [facility] Hospitalblin [place] [id number] IgG [Mass/Vol] 1244 mg/dL Normal 700-1600 Comprehens [facility] Work Phone: Comment on above: PATIENT NOT FASTINGP ERFORMED BY: CB [facility] Ebeyek1668 [address] RoadDublin [place] [id number] IgM [Mass/Vol] 153 mg/dL Normal 20-172 Comprehens rashad [facility] Work Phone: Comment on above: PATIENT NOT FASTINGP ERFORMED BY: CB [facility] Axpmtl4965 [address] RoadDublin [place] [id number] Protein Fractions [Interp] UPEIP Normal [facility] Work Phone: Comment on above: No monoclonality det ected. PATIENT NOT FASTINGP ERFORMED BY: CB [facility] Ohyhvj0503 [address] RoadDublin [place] [id number] CBC with auto diff ([id number])Or dered By: Well Puller Head on 05-30-2019 Basophils (Bld) [#/Vol] 0.0 {x10E3/uL} Normal 0.0-0.2 [facility] Work Phone: Comment on above: PATIENT NOT FASTINGP ERFORMED BY: [facility] Wnkkft6081 [address] RoadDublin [place] [id number] Basophils (Bld) [#/Vol] 0.0 10*3/uL Normal 0.0-0.2 [facility]; [facility] Work Phone: Comment on above: PATIENT NOT FASTINGP ERFORMED BY: [facility] Aoqdjt4471 [address] RoadDublin [place] [id number] Basophils/100 WBC (Bld) 0 % Normal [facility] Work Phone: Comment on above: PATIENT NOT FASTINGP ERFORMED BY: CB [facility] Lctgvf4988 [address] RoadDublin [place] [id number] Eosinophils (Bld) [#/Vol] 0.0 {x10E3/uL} Normal 0.0-0.4 [facility] Work Phone: Comment on above: PATIENT NOT FASTINGP ERFORMED BY: CB [facility] Wwduso8092 [address] RoadDublin [place] [id number] Eosinophils (Bld) [#/Vol] 0.0 10*3/uL Normal 0.0-0.4 [facility]; [facility] Work Phone: Comment on above: PATIENT NOT FASTINGP ERFORMED BY: ZOE Hernandez6370 [facility] [id number] Eosinophils/100 WBC (Bld) 1 % Normal [facility] Work Phone: Comment on above: PATIENT NOT FASTINGP ERFORMED BY: ZOE Cameron Vxhcha8768 [facility] [id number] Erythrocyte distribution width (RBC) [Ratio] 13.4 % Normal 12.3-15.4 [facility] Work Phone: Comment on above: Effective June 03, 2019, the RD pediatric reference interval will be removed and the adult reference interval will be changing to: Female 11.7 - 15.4 Male 11.6 - 15.4 PATIENT NOT FASTINGP ERFORMED BY: ZOE Cameron Kbcvgs7640 [facility] [id number] Hematocrit (Bld) [Volume fraction] 51.4 % Abnormal 37.5-51.0 [facility] Work Phone: Comment on above: PATIENT NOT FASTINGP ERFORMED BY: ZOE Cameron Ldtbjo2810 [facility] [id number] Hemoglobin (Bld) [Mass/Vol] 17.5 g/dL Normal 13.0-17.7 [facility] Work Phone: Comment on above: PATIENT NOT FASTINGP ERFORMED BY: ZOE LabCharanjit Dlmhdz7983 [facility] [id number] Immature granulocytes (Bld) [#/Vol] 0.0 {x10E3/uL} Normal 0.0-0.1 [facility] Work Phone: Comment on above: PATIENT NOT FASTINGP ERFORMED BY: ZOE LabUniversity [facility]6370 [facility] [id number] Immature granulocytes (Bld) [#/Vol] 0.0 10*3/uL Normal 0.0-0.1 [facility]; [facility] Work Phone: Comment on above: PATIENT NOT FASTINGP ERFORMED BY: ZOE LabCo Awffmi[address] [facility]in [place] [id number] Immature granulocytes/100 WBC (Bld) 0 % Normal [facility] Work Phone: Comment on above: PATIENT NOT FASTINGP ERFORMED BY: LabCo Lzosrj[address] [facility]in [place] [id number] Lymphocytes (Bld) [#/Vol] 1.9 {x10E3/uL} Normal 0.7-3.1 [facility] Work Phone: Comment on above: PATIENT NOT FASTINGP ERFORMED BY: LabCo Hqjnxi[address] [facility]in [place] [id number] Lymphocytes (Bld) [#/Vol] 1.9 10*3/uL Normal 0.7-3.1 [facility]; [facility] Work Phone: Comment on above: PATIENT NOT FASTINGP ERFORMED BY: [facility] Cfqqcf42[address] [facility] [id number] Lymphocytes/100 WBC (Bld) 31 % Normal [facility] Work Phone: Comment on above: PATIENT NOT FASTINGP ERFORMED BY: LabCharanjit Avpkqn7001 [facility] [id number] MCH (RBC) [Entitic mass] 30.9 pg Normal 26.6-33.0 [facility] Internal Medicine Work Phone: Comment on above: PATIENT NOT FASTINGP ERFORMED BY: LabUniversity [facility] [facility] [id number] MCHC (RBC) [Mass/Vol] 34.0 g/dL Normal 31.5-35.7 [facility] Internal Medicine Work Phone: Comment on above: PATIENT NOT FASTINGP ERFORMED BY: LabUniversity [facility] [facility]in [place] [id number] MCV (RBC) [Entitic vol] 91 fL Normal 79-97 [facility] Work Phone: Comment on above: PATIENT NOT FASTINGP ERFORMED BY: ZOE [facility] Qgklmc4917 [address] RoadDublin [place] [id number] Monocytes (Bld) [#/Vol] 0.7 {x10E3/uL} Normal 0.1-0.9 [facility] Work Phone: Comment on above: PATIENT NOT FASTINGP ERFORMED BY: CB [facility] Lkjmmw9926 [address] RoadDublin [place] [id number] Monocytes (Bld) [#/Vol] 0.7 10*3/uL Normal 0.1-0.9 [facility]; [facility] Work Phone: Comment on above: PATIENT NOT FASTINGP ERFORMED BY: ZOE LabCopreston ThakurQbbxjv1880 [address] RoadDublin [place] [id number] Monocytes/100 WBC (Bld) 11 % Normal [facility] Work Phone: Comment on above: PATIENT NOT FASTINGP ERFORMED BY: ZOE LabPhilomena ThakurKchjrv6246 [address] RoadDublin [place] [id number] Neutrophils (Bld) [#/Vol] 3.6 {x10E3/uL} Normal 1.4-7.0 [facility] Work Phone: Comment on above: PATIENT NOT FASTINGP ERFORMED BY: ZOE LabPhilomena ThakurKgssos1272 [address] RoadDublin [place] [id number] Neutrophils (Bld) [#/Vol] 3.6 10*3/uL Normal 1.4-7.0 [facility]; [facility] Work Phone: Comment on above: PATIENT NOT FASTINGP ERFORMED BY: CB [facility] Ugzshr0555 [address] RoadDublin [place] [id number] Neutrophils/100 WBC (Bld) 57 % Normal [facility] Work Phone: Comment on above: PATIENT NOT FASTINGP ERFORMED BY: CB [facility] Xnparn1820 [address] RoadDublin [place] [id number] Platelets (Bld) [#/Vol] 227 {x10E3/uL} Normal 150-450 [facility] Work Phone: Comment on above: PATIENT NOT FASTINGP ERFORMED BY: ZOE [facility] Molkmi0409 [address] RoadDublin [place] [id number] Platelets (Bld) [#/Vol] 227 10*3/uL Normal 150-450 [facility] Internal Medicine; [facility] Work Phone: Comment on above: PATIENT NOT FASTINGP ERFORMED BY: CB [facility] Mpvyzw0783 [address] RoadDublin [place] [id number] RBC (Bld) [#/Vol] 5.67 {x10E6/uL} Normal 4.14-5.80 [facility] Internal Medicine Work Phone: Comment on above: PATIENT NOT FASTINGP ERFORMED BY: CB [facility] Nvimbi7641 [address] RoadDublin [place] [id number] RBC (Bld) [#/Vol] 5.67 10*6/uL Normal 4.14-5.80 [facility] Internal Medicine; [facility] Work Phone: Comment on above: PATIENT NOT FASTINGP ERFORMED BY: CB [facility] Tzymgr9629 [address] RoadDublin [place] [id number] WBC (Bld) [#/Vol] 6.2 {x10E3/uL} Normal 3.4-10.8 [facility] Internal Medicine Work Phone: Comment on above: PATIENT NOT FASTINGP ERFORMED BY: CB [facility] Gxpawk4993 [address] RoadDublin [place] [id number] WBC (Bld) [#/Vol] 6.2 10*3/uL Normal 3.4-10.8 [facility] Internal Medicine; [facility] Work Phone: Comment on above: PATIENT NOT FASTINGP ERFORMED BY: CB [facility] Hdwzcf8181 [address] RoadDublin [place] [id number] METABOLIC PANEL, COMPREHENSI VE ([id number])Ordered By: Well Puller Head on 05-30-2019 Albumin [Mass/Vol] 4.9 g/dL Normal 3.5-5.5 [facility] Internal Medicine Work Phone: Comment on above: PATIENT NOT FASTINGP ERFORMED BY: CB [facility] Pjpwak4410 [address] RoadDublin [place] [id number] Albumin/Globulin [Mass ratio] 1.9 {ratio} Normal 1.2-2.2 [facility] Work Phone: Comment on above: PATIENT NOT FASTINGP ERFORMED BY: CB [facility] Jogsob7400 [address] RoadDublin [place] [id number] ALP [Catalytic activity/Vol] 87 [iU]/L Normal 39-117 [facility] Work Phone: Comment on above: PATIENT NOT FASTINGP ERFORMED BY: CB [facility] Kzegky6173 [address] RoadDublin [place] [id number] ALP [Catalytic activity/Vol] 87 U/L Normal 39-117 [facility]; [facility] Work Phone: Comment on above: PATIENT NOT FASTINGP ERFORMED BY: ZOE [facility] Afvdpu9030 [address] RoadDublin [place] [id number] ALT [Catalytic activity/Vol] 20 [iU]/L Normal 0-44 [facility] Work Phone: Comment on above: PATIENT NOT FASTINGP ERFORMED BY: CB [facility] Habovf9650 [address] RoadDublin [place] [id number] ALT [Catalytic activity/Vol] 20 U/L Normal 0-44 [facility]; [facility] Work Phone: Comment on above: PATIENT NOT FASTINGP ERFORMED BY: [facility] Hqitfs0670 [address] RoadDublin [place] [id number] AST [Catalytic activity/Vol] 18 [iU]/L Normal 0-40 [facility] Work Phone: Comment on above: PATIENT NOT FASTINGP ERFORMED BY: CB [facility] Ypbwnw3978 [address] RoadDublin [place] [id number] AST [Catalytic activity/Vol] 18 U/L Normal 0-40 [facility]; [facility] Work Phone: Comment on above: PATIENT NOT FASTINGP ERFORMED BY: CB [facility] Dpvwpj1388 [address] RoadDublin [place] [id number] Bilirubin [Mass/Vol] 0.4 mg/dL Normal 0.0-1.2 Comp rehensive Internal Medicine Work Phone: Comment on above: PATIENT NOT FASTINGP ERFORMED BY: CB [facility] Sadhlk5112 [address] RoadDublin [place] [id number] Calcium [Mass/Vol] 9.4 mg/dL Normal 8.7-10.2 [facility] Internal Medicine Work Phone: Comment on above: PATIENT NOT FASTINGP ERFORMED BY: CB [facility] Csljrd8021 [address] RoadDublin [place] [id number] Chloride [Moles/Vol] 101 mmol/L Normal 96-[address] [facility] [address] Jose[facility] Internal [facility] Work Phone: Comment on above: PATIENT NOT FASTINGP ERFORMED BY: CB [facility] Vbnnyk7134 [address] RoadDublin [place] [id number] CO2 [Moles/Vol] 24 mmol/L Normal 20-29 [facility] Internal Medicine Work Phone: Comment on above: PATIENT NOT FASTINGP ERFORMED BY: CB [facility] Vcwwxe8370 [address] RoadDublin [place] [id number] Creatinine [Mass/Vol] 1.30 mg/dL Abnormal 0.76-1.27 [facility] Internal Medicine Work Phone: Comment on above: PATIENT NOT FASTINGP ERFORMED BY: CB [facility] Rllsjb5512 [address] RoadDublin [place] [id number] GFR/1.73 sq M predicted among blacks CKD-EPI (S/P/Bld) [Vol rate/Area] 73 mL/min/1.73 Normal [facility] Work Phone: Comment on above: PATIENT NOT FASTINGP ERFORMED BY: CB [facility] Plxiqq6544 [address] RoadDublin [place] [id number] GFR/1.73 sq M predicted among non-blacks CKD-EPI (S/P/Bld) [Vol rate/Area] 63 mL/min/1.73 Normal [facility] Work Phone: Comment on above: PATIENT NOT FASTINGP ERFORMED BY: CB [facility] Gzsbdj4340 [address] RoadDublin [place] [id number] Globulin (S) [Mass/Vol] 2.6 g/dL Normal 1.5-4.5 [facility] Internal Medicine Work Phone: Comment on above: PATIENT NOT FASTINGP ERFORMED BY: CB [facility] Clpekn5272 [address] RoadDublin [place] [id number] Glucose [Mass/Vol] 87 mg/dL Normal 65-99 [facility] Internal Medicine Work Phone: Comment on above: PATIENT NOT FASTINGP ERFORMED BY: CB [facility] Rlaqev6967 [address] RoadDublin [place] [id number] Potassium [Moles/Vol] 4.5 mmol/L Normal 3.5-5.2 [facility] Internal Medicine Work Phone: Comment on above: PATIENT NOT FASTINGP ERFORMED BY: CB [facility] Ckjtbg0101 [address] RoadDublin [place] [id number] Protein [Mass/Vol] 7.5 g/dL Normal 6.0-8.5 [facility] Internal Medicine Work Phone: Comment on above: PATIENT NOT FASTINGP ERFORMED BY: CB [facility] Vylcof9002 [address] RoadDublin [place] [id number] Sodium [Moles/Vol] 141 mmol/L Normal 134-144 [facility] Internal Medicine Work Phone: Comment on above: PATIENT NOT FASTINGP ERFORMED BY: CB [facility] Cwfnni0024 [address] RoadDublin [place] [id number] Urea nitrogen [Mass/Vol] 15 mg/dL Normal 6-24 [facility] Internal Medicine Work Phone: Comment on above: PATIENT NOT FASTINGP ERFORMED BY: CB [facility] Mppwnr9606 [address] RoadDublin [place] [id number] Urea nitrogen/Creatinine [Mass ratio] 12 mg/mg Normal 9-20 [facility] Internal Medicine Work Phone: Comment on above: PATIENT NOT FASTINGP ERFORMED BY: CB [facility] Kjuuzi2144 [address] RoadDublin [place] [id number] HerniaOrdered By: System Man ager on 07-16-2014 Hernia See Note Normal [facility] Work Phone: Comment on above: Patient: SHERI QUICK : 1970 (44/M) Acct Num: [id number] Phys: Mandie COLLINS,Félix Unit Num: [id number] [place] [facility] [place]: [id number] Received: 07/17/14725 Spec Type: Hernia TISSUES TISSUES: GROSS DESCRIPTION Received in a container labeled with the patient name and designated hernia sacand cord lipoma is a piece of fibromembranous tissue measuring 8 x 4 x 0.2 cm. Also received is a piece of yellow adipose tissue measuring 7 x 3.5 x 1.5 cm. Sections reveal yellow adipose cut surface without area of hemorrhage, necrosis,or cystic degeneration. Facility Maintenance Supervisor sections are submitted in three cassettes as follows: 1 - fibromembranous tissue, 2 - yellow adipose tissue. / SJ:javier 07/18/14 TC:5 CPT:43063, 16076 HEADER OPERATION: Hernia, inguinal, mesh, left PRE-OPERATIVE DIAGNOSIS: Left inguinal hernia TISSUE SUBMITTED: Hernia sac and cord lipoma MICROSCOPIC DIAGNOSIS Hernia sac and cord lipoma: Mesothelial-lined fibroadipose and fibroconnective tissue consistent with hernia sac and with reactive changes. Mature adipose tissue, consistent with lipoma. SJ:javier 07/18/14 Signed Chandrakant Oreilly 07/18/14 Test performed at:[facility] [address] [place], [place] [id number] Basic Metabolic Profile (BMP )Ordered By: Well Puller Head on 07-10-2014 Calcium mass conc 9.1 mg/dL Normal 8.5-10.1 Compreh ensive Internal Medicine Work Phone: Comment on above: Test performed at:[facility] Drprucxevo[address] [place] [address] Chloride molar conc 103 mmol/L Normal 98-107 Compr ehensive Internal Medicine Work Phone: Comment on above: Test performed at:[facility] [address] [place] [address] CO2 molar conc 27.0 mmol/L Normal 21.0-32.0 Comprehen sive Internal Medicine Work Phone: Comment on above: Test performed at:[facility] [address] [place] [address] Creatinine mass conc 1.2 mg/dL Normal 0.8-1.3 Comp rehensive Internal Medicine Work Phone: Comment on above: Test performed at:[facility] [address] [place] [address] GFR/1.73 sq M predicted among non-blacks MDRD vol rate/area (S/P/Bld) 69 mL/min/{1.73_m2} Normal Comprehe nsive Internal Medicine Work Phone: Comment on above: Test performed at:[facility] [address] [place] [address] Glucose mass conc 93 mg/dL Normal 70-110 Compreh ensive Internal Medicine Work Phone: Comment on above: Test performed at:[facility] [address] [place] [address] Potassium molar conc 3.9 mmol/L Normal 3.5-5.1 Comp rehensive Internal Medicine Work Phone: Comment on above: Test performed at:[facility] [address] [place] [address] Sodium molar conc 137 mmol/L Normal 136-145 Compreh ensive Internal Medicine Work Phone: Comment on above: Test performed at:[facility] [address] [place] [address] Urea nitrogen mass conc 11 mg/dL Normal 7-18 [facility] Work Phone: Comment on above: Test performed at:[facility] [address] [place] [address] Basic Metabolic Profile (BMP) 84 mL/min Normal [facility] Work Phone: Comment on above: Test performed at:[facility] [address] [place] [address] Basic Metabolic Profile (BMP) 9.2 {RATIO} Abnormal 10-20 [facility] Work Phone: Comment on above: Test performed at:[facility] [address] [place] [address] Basic Metabolic Profile (BMP) 7 1 Normal 5-15 [facility] Work Phone: Comment on above: Test performed at:[facility] [address] [place] [address] CBC W/Diff, AutomatedOrdered By: Well Puller Head on 07-10-2014 Absolute Neut 4.1 {X10_3/uL} Normal 2.0-7.7 Compreh ensive Internal Medicine Work Phone: Comment on above: Test performed at:[facility] [address] [place] [address] Basophils/100 WBC (Bld) 0.1 % Normal 0-1 [facility] Work Phone: Comment on above: Test performed at:[facility] [address] [place] [address] Eosinophils/100 WBC (Bld) 0.6 % Normal 0-5 [facility] Work Phone: Comment on above: Test performed at:[facility] [address] [place] [address] Erythrocyte distribution width Ratio (RBC) 12.8 % Normal 11.6-14.6 [facility] Work Phone: Comment on above: Test performed at:[facility] [address] [place] [address] Hematocrit Volume Fraction (Bld) 46.6 % Normal 40-54 [facility] Work Phone: Comment on above: Test performed at:[facility] [address] [place] [address] Hemoglobin mass conc (Bld) 16.1 g/dL Normal 13.0-16.5 [facility] Work Phone: Comment on above: Test performed at:[facility] [address] [place] [address] IM GRAN % 0.300 % Normal 0.0-0.9 [facility] Work Phone: Comment on above: IG% - Immature Granu locytes (promyelocytes, myelocytes andmetamyelocytes) > 1% indicates that a LEFT SHIFT is Present. Test performed at:[facility] [address] [place] [address] Lymphocytes #/vol (Bld) 2.46 {X10_3/ul} Normal 0.83-4.51 [facility] Work Phone: Comment on above: Test performed at:[facility] [address] [place] [address] Lymphocytes/100 WBC (Bld) 33.8 % Normal 19-41 [facility] Work Phone: Comment on above: Test performed at:[facility] [address] [place] [address] MCH Entitic mass (RBC) 30.8 pg Normal 27.0-32.0 [facility] Work Phone: Comment on above: Test performed at:[facility] [address] [place] [address] MCHC mass conc (RBC) 34.5 {g/gl} Normal 32-36 [facility] prehensive Internal Medicine Work Phone: Comment on above: Test performed at:[facility] [address] [place] [address] MCV Entitic volume (RBC) 89.1 fL Normal 80-94 [facility] Work Phone: Comment on above: Test performed at:[facility] [address] [place] [address] Monocytes/100 WBC (Bld) 9.2 % Normal 0-10 [facility] Work Phone: Comment on above: Test performed at:[facility] [address] [place] [address] Neutrophils/100 WBC (Bld) 56.0 % Normal 47-70 [facility] Work Phone: Comment on above: Test performed at:[facility] [address] [place] [address] Platelet mean volume Entitic volume (Bld) 10.2 fL Normal 6.2-12.0 Comprehensi ve Internal Medicine Work Phone: Comment on above: Test performed at:[facility] [address] [place] [address] Platelets #/vol (Bld) 266 10*3/uL Normal 150-450 Co mprehensive Internal Medicine Work Phone: Comment on above: Test performed at:[facility] [address] [place] [address] RBC #/vol (Bld) 5.23 {M/mm3} Normal 4.6-6.2 Compreh ensive Internal Medicine Work Phone: Comment on above: Test performed at:[facility] [address] [place] [address] RDW SD 41.3 fL Normal 35.1-43.9 [facility] Work Phone: Comment on above: Test performed at:[facility] [address] [place] [address] WBC #/vol (Bld) 7.3 10*3/uL Normal 4.4-11.0 Comprehe nsive Internal Medicine Work Phone: Comment on above: Test performed at:[facility] [address] [place] [address] CBC W/AUTO DIFF WBC ([id number])O rdered By: Well Puller Head on 04-04-2014 Basophils #/vol (Bld) 0.0 {x10E3/uL} Normal 0.0-0.2 [facility] Work Phone: Comment on above: PATIENT WAS FASTINGP ERFORMED BY: [address] [id number] Information: [id number] Basophils (Bld) [#/Vol] 0.0 10*3/uL Normal 0.0-0.2 [facility]; [facility] Work Phone: Comment on above: PATIENT WAS FASTINGP ERFORMED BY: [address] [id number] Information: [id number] Basophils/100 WBC (Bld) 0 % Normal [facility] Work Phone: Comment on above: PATIENT WAS FASTINGP ERFORMED BY: Lab[address] [id number] Information: [id number] Eosinophils #/vol (Bld) 0.1 {x10E3/uL} Normal 0.0-0.4 [facility] Work Phone: Comment on above: PATIENT WAS FASTINGP ERFORMED BY: [facility] [place] [address] [id number] Information: [id number] Eosinophils (Bld) [#/Vol] 0.1 10*3/uL Normal 0.0-0.4 [facility]; [facility] Work Phone: Comment on above: PATIENT WAS FASTINGP ERFORMED BY: [address] [id number] Information: [id number] Eosinophils/100 WBC (Bld) 1 % Normal [facility] Work Phone: Comment on above: PATIENT WAS FASTINGP ERFORMED BY: [address] [id number] Information: [id number] Erythrocyte distribution width Ratio (RBC) 13.8 % Normal 12.3-15.4 [facility] Work Phone: Comment on above: PATIENT WAS FASTINGP ERFORMED BY: [address] [id number] Information: [id number] Hematocrit Volume Fraction (Bld) 48.0 % Normal 37.5-51.0 [facility] Work Phone: Comment on above: PATIENT WAS FASTINGP ERFORMED BY: [address] [id number] Information: [id number] Hemoglobin mass conc (Bld) 16.3 g/dL Normal 12.6-17.7 [facility] Work Phone: Comment on above: PATIENT WAS FASTINGP ERFORMED BY: [address] [id number] Information: [id number] Immature granulocytes #/vol (Bld) 0.0 {x10E3/uL} Normal 0.0-0.1 [facility] Work Phone: Comment on above: PATIENT WAS FASTINGP ERFORMED BY: [address] [id number] Information: [id number] Immature granulocytes (Bld) [#/Vol] 0.0 10*3/uL Normal 0.0-0.1 [facility]; [facility] Work Phone: Comment on above: PATIENT WAS FASTINGP ERFORMED BY: [address] [id number] Information: [id number] Immature granulocytes/100 WBC (Bld) 0 % Normal [facility] Work Phone: Comment on above: PATIENT WAS FASTINGP ERFORMED BY: [place] [address]99[address] [facility] [id number] Information: [id number] Lymphocytes #/vol (Bld) 1.9 {x10E3/uL} Normal 0.7-3.1 [facility] Work Phone: Comment on above: PATIENT WAS FASTINGP ERFORMED BY: [address] [id number] Information: [id number] Lymphocytes (Bld) [#/Vol] 1.9 10*3/uL Normal 0.7-3.1 [facility]; [facility] Work Phone: Comment on above: PATIENT WAS FASTINGP ERFORMED BY: [address] [id number] Information: [id number] Lymphocytes/100 WBC (Bld) 28 % Normal [facility] Work Phone: Comment on above: PATIENT WAS FASTINGP ERFORMED BY: [address] [id number] Information: [id number] MCH Entitic mass (RBC) 30.3 pg Normal 26.6-33.0 [facility] Work Phone: Comment on above: PATIENT WAS FASTINGP ERFORMED BY: [address] [id number] Information: [id number] MCHC mass conc (RBC) 34.0 g/dL Normal 31.5-35.7 [facility] Internal Medicine Work Phone: Comment on above: PATIENT WAS FASTINGP ERFORMED BY: [address] [id number] Information: [id number] MCV Entitic volume (RBC) 89 fL Normal 79-97 [facility] Work Phone: Comment on above: PATIENT WAS FASTINGP ERFORMED BY: [facility] Rnsdtw2515 [facility] [id number] Information: [id number] Monocytes #/vol (Bld) 0.7 {x10E3/uL} Normal 0.1-0.9 [facility] Work Phone: Comment on above: PATIENT WAS FASTINGP ERFORMED BY: [place] [address]9970 [facility] [id number] Information: [id number] Monocytes (Bld) [#/Vol] 0.7 10*3/uL Normal 0.1-0.9 [facility]; [facility] Work Phone: Comment on above: PATIENT WAS FASTINGP ERFORMED BY: [address] [id number] Information: [id number] Monocytes/100 WBC (Bld) 10 % Normal [facility] Work Phone: Comment on above: PATIENT WAS FASTINGP ERFORMED BY: [place] [address]9970 [facility] [id number] Information: [id number] Neutrophils #/vol (Bld) 4.1 {x10E3/uL} Normal 1.4-7.0 [facility] Work Phone: Comment on above: PATIENT WAS FASTINGP ERFORMED BY: [place] [address]99[address] [facility] [id number] Information: [id number] Neutrophils (Bld) [#/Vol] 4.1 10*3/uL Normal 1.4-7.0 [facility]; [facility] Work Phone: Comment on above: PATIENT WAS FASTINGP ERFORMED BY: [facility]6370 [facility] [id number] Information: [id number] Neutrophils/100 WBC (Bld) 61 % Normal [facility] Work Phone: Comment on above: PATIENT WAS FASTINGP ERFORMED BY: ZOE Cameron Rxgsmp6599 [facility] [id number] Information: [id number] Platelets #/vol (Bld) 245 {x10E3/uL} Normal 150-379 [facility] Internal Medicine Work Phone: Comment on above: PATIENT WAS FASTINGP ERFORMED BY: [facility] Vjrtrw3660 [facility] [id number] Information: [id number] Platelets (Bld) [#/Vol] 245 10*3/uL Normal 150-379 [facility] Internal Medicine; [facility] Internal Medicine Work Phone: Comment on above: PATIENT WAS FASTINGP ERFORMED BY: [facility] Ffijxm6205 [facility] [id number] Information: [id number] RBC #/vol (Bld) 5.38 {x10E6/uL} Normal 4.14-5.80 [facility] Internal Medicine Work Phone: Comment on above: PATIENT WAS FASTINGP ERFORMED BY: [facility] Qirtya8311 [facility] [id number] Information: [id number] RBC (Bld) [#/Vol] 5.38 10*6/uL Normal 4.14-5.80 [facility] Internal Medicine; [facility] Internal Medicine Work Phone: Comment on above: PATIENT WAS FASTINGP ERFORMED BY: [facility]6370 [facility] [id number] Information: [id number] WBC #/vol (Bld) 6.8 {x10E3/uL} Normal 3.4-10.8 [facility] Internal Medicine Work Phone: Comment on above: PATIENT WAS FASTINGP ERFORMED BY: [facility] Uazhlu3519 [facility] [id number] Information: [id number] WBC (Bld) [#/Vol] 6.8 10*3/uL Normal 3.4-10.8 [facility] Internal Medicine; [facility] Work Phone: Comment on above: PATIENT WAS FASTINGP ERFORMED BY: ZOE Hernandez6370 [facility] [id number] Information: [id number] LIPID PANEL ([id number])Ordered B y: Well Puller Head on 04-04-2014 Cholesterol in HDL mass conc 33 mg/dL Abnormal [facility] Work Phone: Comment on above: According to ATP-III Guidelines, HDL-C >59 mg/dL is considered anegative risk factor for CHD. PATIENT WAS FASTINGP ERFORMED BY: ZOE Hernandez6370 [facility] [id number] Cholesterol in LDL mass conc 109 mg/dL Abnormal 0-99 [facility] Work Phone: Comment on above: PATIENT WAS FASTINGP ERFORMED BY: ZOE Hernandez6370 [facility] [id number] Cholesterol in LDL/Cholesterol in HDL mass ratio 3.3 {ratio_units} Normal 0.0-3.6 [facility] Work Phone: Comment on above: LDL/HDL Ratio Men Wo men 1/2 Avg.Risk 1.0 1.5 Avg.Risk 3.6 3.2 2X Avg.Risk 6.2 5.0 3X Avg.Risk 8.0 6.1 PATIENT WAS FASTINGP ERFORMED BY: ZOE Hernandez6370 [facility] [id number] Cholesterol in VLDL mass conc 78 mg/dL Abnormal 5-40 [facility] Work Phone: Comment on above: PATIENT WAS FASTINGP ERFORMED BY: ZOE Hernandez6370 [facility] [id number] Cholesterol mass conc 220 mg/dL Abnormal 100-199 Com prehensive Internal Medicine Work Phone: Comment on above: PATIENT WAS FASTINGP ERFORMED BY: ZOE Hernandez6370 [facility] [id number] Triglyceride mass conc 391 mg/dL Abnormal 0-149 [facility] Work Phone: Comment on above: PATIENT WAS FASTINGP ERFORMED BY: ZOE [facility] Ztoufx4536 [address] RoadDublin [place] [id number] METABOLIC PANEL, COMPREHENSI VE ([id number])Ordered By: Well Puller Head on 04-04-2014 Albumin mass conc 4.7 g/dL Normal 3.5-5.5 Compreh [facility] Internal Medicine Work Phone: Comment on above: PATIENT WAS FASTINGP ERFORMED BY: CB [facility] Iclqcu6641 [address]Dublin [place] [id number] Albumin/Globulin mass ratio 1.5 {ratio} Normal 1.1-2.5 [facility] Work Phone: Comment on above: PATIENT WAS FASTINGP ERFORMED BY: OZE [facility] Yjxoux9587 [address] RoadDublin [place] [id number] ALP [Catalytic activity/Vol] 89 U/L Normal 39-117 [facility]; [facility] Internal Medicine Work Phone: Comment on above: PATIENT WAS FASTINGP ERFORMED BY: CB [facility] Jcpzrn4540 [address]Dublin [place] [id number] ALP enzyme act/vol 89 [iU]/L Normal 39-117 [facility] Internal Medicine Work Phone: Comment on above: PATIENT WAS FASTINGP ERFORMED BY: CB [facility] Lclwuq3871 [address] RoadDublin [place] [id number] ALT [Catalytic activity/Vol] 25 U/L Normal 0-44 [facility]; [facility] Internal Medicine Work Phone: Comment on above: PATIENT WAS FASTINGP ERFORMED BY: CB [facility] Nztmtw0898 [address] RoadDublin [place] [id number] ALT enzyme act/vol 25 [iU]/L Normal 0-44 [facility] Internal Medicine Work Phone: Comment on above: PATIENT WAS FASTINGP ERFORMED BY: CB [facility] Hzfqel9273 [address]Dublin [place] [id number] AST [Catalytic activity/Vol] 19 U/L Normal 0-40 [facility]; [facility] Work Phone: Comment on above: PATIENT WAS FASTINGP ERFORMED BY: ZOE LabPhilomena Hernandez[address] [facility] [id number] AST enzyme act/vol 19 [iU]/L Normal 0-40 Compre hensive Internal Medicine Work Phone: Comment on above: PATIENT WAS FASTINGP ERFORMED BY: ZOE Wendi Hernandez6370 [facility] [id number] Bilirubin mass conc 0.3 mg/dL Normal 0.0-1.2 Compr ehensive Internal Medicine Work Phone: Comment on above: PATIENT WAS FASTINGP ERFORMED BY: ZOE Wendi Hernandez6370 [facility] [id number] Calcium mass conc 9.5 mg/dL Normal 8.7-10.2 Compreh ensive Internal Medicine Work Phone: Comment on above: PATIENT WAS FASTINGP ERFORMED BY: ZOE Rakeshpreston ThakurVbbqji2043 [facility] [id number] Chloride molar conc 100 mmol/L Normal 97-108 Compr ensive Internal Medicine Work Phone: Comment on above: PATIENT WAS FASTINGP ERFORMED BY: ZOE Wendi Hernandez6370 [facility] [id number] CO2 molar conc 22 mmol/L Normal 18-29 Comprehens rashad Internal Medicine Work Phone: Comment on above: PATIENT WAS FASTINGP ERFORMED BY: ZOE Wendi Thakurlin6370 [facility] [id number] Creatinine mass conc 1.05 mg/dL Normal 0.76-1.[address] [facility] Internal [facility] Work Phone: Comment on above: PATIENT WAS FASTINGP ERFORMED BY: ZOE Rakeshpreston Llfshu7197 [facility] [id number] GFR/1.73 sq M predicted among blacks CKD-EPI vol rate/area (S/P/Bld) 98 mL/min/1.73 Normal Comprehensiv e Internal Medicine Work Phone: Comment on above: PATIENT WAS FASTINGP ERFORMED BY: ZOE Wendi Thakurlin6370 [facility] [id number] GFR/1.73 sq M predicted among non-blacks CKD-EPI vol rate/area (S/P/Bld) 85 mL/min/1.73 Normal [facility] Work Phone: Comment on above: PATIENT WAS FASTINGP ERFORMED BY: ZOE Wendi Thakurlin6370 [facility] [id number] Globulin mass conc (S) 3.1 g/dL Normal 1.5-4.5 [facility] Work Phone: Comment on above: PATIENT WAS FASTINGP ERFORMED BY: ZOE Rakeshpreston Ctzarc7404 [facility] [id number] Glucose mass conc 94 mg/dL Normal 65-99 Compreh ensive Internal Medicine Work Phone: Comment on above: PATIENT WAS FASTINGP ERFORMED BY: ZOE Rakeshpreston ThakurCvckih5143 [facility] [id number] Potassium molar conc 4.2 mmol/L Normal 3.5-5.2 Comp rehensive Internal Medicine Work Phone: Comment on above: PATIENT WAS FASTINGP ERFORMED BY: ZOE Wendi Thakurlin6370 [facility] [id number] Protein mass conc 7.8 g/dL Normal 6.0-8.5 Compreh ensive Internal Medicine Work Phone: Comment on above: PATIENT WAS FASTINGP ERFORMED BY: ZOE Rakesh Pbqshd5846 [facility] [id number] Sodium molar conc 138 mmol/L Normal 134-144 Compreh ensive Internal Medicine Work Phone: Comment on above: PATIENT WAS FASTINGP ERFORMED BY: ZOE Rakeshpreston Ivqxli3977 [facility] [id number] Urea nitrogen mass conc 14 mg/dL Normal 6-24 [facility] Work Phone: Comment on above: PATIENT WAS FASTINGP ERFORMED BY: ZOE [facility]Ex[facility] Yhkoko0769 [facility] [id number] Urea nitrogen/Creatinine mass ratio 13 mg/mg Normal 9-20 [facility] Work Phone: Comment on above: PATIENT WAS FASTINGP ERFORMED BY: ZOE Cameron Kfvbsp9778 [facility] [id number] MICROALBUMINOrdered By: Syst em Building Attendant on 04-04-2014 Albumin DL <= 20 mg/L mass conc (U) 7.0 ug/mL Normal 0.0-17.0 [facility] Work Phone: Comment on above: PATIENT WAS FASTINGP ERFORMED BY: [facility] EnergyUniversity Of Michigan Health6370 [facility] [id number] Albumin/Creatinine mass ratio (U) 3.6 {mg/g_creat} Normal 0.0-30.0 [facility] Work Phone: Comment on above: PATIENT WAS FASTINGP ERFORMED BY: [facility]elaEx[facility] Gytjgq4123 [facility] [id number] Creatinine mass conc (U) 194.9 mg/dL Normal 22.0-328.0 [facility] Work Phone: Comment on above: PATIENT WAS FASTINGP ERFORMED BY: [facility] EnergyExcels[facility] Center Zjcdqg1499 [facility] [id number] PSA (PROSTATE SPECIFIC ANTIG EN) (V76.44)Ordered By: Well Puller Head on 04-04-2014 Prostate specific Ag mass conc 0.4 ng/mL Normal 0.0-4.0 [facility] Work Phone: Comment on above: [employer] ECLIA methodol ogy. .According to the [place] [employer], Serum PSA shoulddecrease and remain at undetectable levels after radicalprostatectomy. The AUA defines biochemical recurrence as an initialPSA value 0.2 ng/mL or greater followed by a subsequent confirmatoryPSA value 0.2 ng/mL or greater.Values obtained with different assay methods or kits cannot be usedinterchangeably. Results cannot be interpreted as absolute evidenceof the presence or absence of malignant disease. PATIENT WAS FASTINGP ERFORMED BY: [facility]ibr[facility] EnergyUniversity Of Michigan Health6370 [facility] [id number] TSH ([id number])Ordered By: Syste m Building Attendant on 04-04-2014 Thyrotropin Qn 1.320 {uIU/mL} Normal 0.450-4.50 0 [facility] Work Phone: Comment on above: PATIENT WAS FASTINGP ERFORMED BY: [address] [id number] CBC, Platelets & Auto Diff ( [id number])Ordered By: Well Puller Head on 04-23-2013 Basophils #/vol (Bld) 0.0 {x10E3/uL} Normal 0.0-0.2 [facility] Work Phone: Comment on above: PATIENT NOT FASTINGP ERFORMED BY: [address] [id number] Information: [id number] Basophils (Bld) [#/Vol] 0.0 10*3/uL Normal 0.0-0.2 [facility]; [facility] Work Phone: Comment on above: PATIENT NOT FASTINGP ERFORMED BY: [address] [id number] Information: [id number] Basophils/100 WBC (Bld) 0 % Normal 0-3 [facility] Work Phone: Comment on above: PATIENT NOT FASTINGP ERFORMED BY: [facility] [place] [address] [id number] Information: [id number] Eosinophils #/vol (Bld) 0.0 {x10E3/uL} Normal 0.0-0.4 [facility] Work Phone: Comment on above: PATIENT NOT FASTINGP ERFORMED BY: [place] 9959970 [facility] [id number] Information: [id number] Eosinophils (Bld) [#/Vol] 0.0 10*3/uL Normal 0.0-0.4 [facility]; [facility] Work Phone: Comment on above: PATIENT NOT FASTINGP ERFORMED BY: ZOE LabCoCap[facility])Whyzhn8256 [facility] [id number] Information: [id number] Eosinophils/100 WBC (Bld) 1 % Normal 0-5 [facility] Work Phone: Comment on above: PATIENT NOT FASTINGP ERFORMED BY: [facility] ShawCoJonathan Ville 1804370 [facility] [id number] Information: [id number] Erythrocyte distribution width Ratio (RBC) 14.0 % Normal 12.3-15.4 [facility] Work Phone: Comment on above: PATIENT NOT FASTINGP ERFORMED BY: ZOE LabMegan Ville 2377670 [facility] [id number] Information: [id number] Hematocrit Volume Fraction (Bld) 48.6 % Normal 37.5-51.0 [facility] Work Phone: Comment on above: PATIENT NOT FASTINGP ERFORMED BY: [address] [id number] Information: [id number] Hemoglobin mass conc (Bld) 16.4 g/dL Normal 12.6-17.7 [facility] Work Phone: Comment on above: PATIENT NOT FASTINGP ERFORMED BY: Lab[address] [id number] Information: [id number] Immature granulocytes #/vol (Bld) 0.0 {x10E3/uL} Normal 0.0-0.1 [facility] Work Phone: Comment on above: PATIENT NOT FASTINGP ERFORMED BY: ZOE LabCoJonathan Ville 1804370 [facility] [id number] Information: [id number] Immature granulocytes (Bld) [#/Vol] 0.0 10*3/uL Normal 0.0-0.1 [facility]; [facility] Work Phone: Comment on above: PATIENT NOT FASTINGP ERFORMED BY: ZOE Thakurlin6370 [facility] [id number] Information: [id number] Immature granulocytes/100 WBC (Bld) 0 % Normal 0-2 [facility] Work Phone: Comment on above: PATIENT NOT FASTINGP ERFORMED BY: ZOE Cameron Jvpuj[address] [id number] Information: [id number] Lymphocytes #/vol (Bld) 1.9 {x10E3/uL} Normal 0.7-3.1 [facility] Work Phone: Comment on above: PATIENT NOT FASTINGP ERFORMED BY: ZOE Thakur[address] [id number] Information: [id number] Lymphocytes (Bld) [#/Vol] 1.9 10*3/uL Normal 0.7-3.1 [facility]; [facility] Work Phone: Comment on above: PATIENT NOT FASTINGP ERFORMED BY: ZOE Cameron Ktyqjn119[address] [id number] Information: [id number] Lymphocytes/100 WBC (Bld) 28 % Normal 14-46 [facility] Work Phone: Comment on above: PATIENT NOT FASTINGP ERFORMED BY: ZOE Cameron Zicfxq7[address] [id number] Information: [id number] MCH Entitic mass (RBC) 30.7 pg Normal 26.6-33.0 [facility] Work Phone: Comment on above: PATIENT NOT FASTINGP ERFORMED BY: ZOE [facility]Ex[facility] Fwthyp4683 [facility] [id number] Information: 594352,[id number] MCHC mass conc (RBC) 33.7 g/dL Normal 31.5-35.7 [facility] Internal Medicine Work Phone: Comment on above: PATIENT NOT FASTINGP ERFORMED BY: ZOE [facility]Co[facility]Lfipqp5935 [facility] [id number] Information: [id number] MCV Entitic volume (RBC) 91 fL Normal 79-97 [facility] Work Phone: Comment on above: PATIENT NOT FASTINGP ERFORMED BY: LabCoCap[facility])Pvlvdo0459 [facility] [id number] Information: [id number] Monocytes #/vol (Bld) 0.7 {x10E3/uL} Normal 0.1-0.9 [facility] Work Phone: Comment on above: PATIENT NOT FASTINGP ERFORMED BY: [facility]6370 [facility] [id number] Information: [id number] Monocytes (Bld) [#/Vol] 0.7 10*3/uL Normal 0.1-0.9 [facility]; [facility] Work Phone: Comment on above: PATIENT NOT FASTINGP ERFORMED BY: AdelaUniversity Of [facility] Health6370 [facility] [id number] Information: [id number] Monocytes/100 WBC (Bld) 10 % Normal 4-12 [facility] Work Phone: Comment on above: PATIENT NOT FASTINGP ERFORMED BY: [place] 9959970 [facility] [id number] Information: [id number] Neutrophils #/vol (Bld) 4.2 {x10E3/uL} Normal 1.4-7.0 [facility] Work Phone: Comment on above: PATIENT NOT FASTINGP ERFORMED BY: LabUniversity [facility]6370 [facility] [id number] Information: [id number] Neutrophils (Bld) [#/Vol] 4.2 10*3/uL Normal 1.4-7.0 [facility]; [facility] Work Phone: Comment on above: PATIENT NOT FASTINGP ERFORMED BY: ZOE Hernandez6370 [facility] [id number] Information: [id number] Neutrophils/100 WBC (Bld) 61 % Normal 40-74 [facility] Work Phone: Comment on above: PATIENT NOT FASTINGP ERFORMED BY: ZEO Hernandez6370 [facility] [id number] Information: [id number] Platelets #/vol (Bld) 249 {x10E3/uL} Normal 155-379 [facility] Work Phone: Comment on above: PATIENT NOT FASTINGP ERFORMED BY: ZOE Hernandez6370 [facility] [id number] Information: [id number] Platelets (Bld) [#/Vol] 249 10*3/uL Normal 155-379 [facility]; [facility] Work Phone: Comment on above: PATIENT NOT FASTINGP ERFORMED BY: ZOE Hernandez6370 [facility] [id number] Information: [id number] RBC #/vol (Bld) 5.35 {x10E6/uL} Normal 4.14-5.[address] [facility] Work Phone: Comment on above: PATIENT NOT FASTINGP ERFORMED BY: ZOE Thakurlin6370 [facility] [id number] Information: [id number] RBC (Bld) [#/Vol] 5.35 10*6/uL Normal 4.14-5.80 Compr ensive Internal Medicine; [facility] Work Phone: Comment on above: PATIENT NOT FASTINGP ERFORMED BY: ZOE Thakurlin6370 [facility] [id number] Information: [id number] WBC #/vol (Bld) 6.9 {x10E3/uL} Normal 3.4-10.8 Compr ensive Internal Medicine Work Phone: Comment on above: PATIENT NOT FASTINGP ERFORMED BY: ZOE Hernandez[address] [facility] [id number] Information: [id number] WBC (Bld) [#/Vol] 6.9 10*3/uL Normal 3.4-10.8 Compre [facility] Internal Medicine; [facility] Work Phone: Comment on above: PATIENT NOT FASTINGP ERFORMED BY: ZOE Hernandez6370 [facility] [id number] Information: [id number] Metabolic Panel, Comprehensi ve (09251)Ordered By: Well Puller Head on 04-23-2013 Albumin mass conc 4.8 g/dL Normal 3.5-5.5 Compreh [facility] Internal Medicine Work Phone: Comment on above: PATIENT NOT FASTINGP ERFORMED BY: ZOE Hernandez6370 [facility] [id number] Albumin/Globulin mass ratio 1.5 {ratio} Normal 1.1-2.5 [facility] Work Phone: Comment on above: PATIENT NOT FASTINGP ERFORMED BY: ZOE Hernandez6370 [facility] [id number] ALP [Catalytic activity/Vol] 71 U/L Normal 39-117 [facility]; [facility] Work Phone: Comment on above: PATIENT NOT FASTINGP ERFORMED BY: ZOE Hernandez6370 [facility] [id number] ALP enzyme act/vol 71 [iU]/L Normal 39-117 Compre [facility] Internal Medicine Work Phone: Comment on above: PATIENT NOT FASTINGP ERFORMED BY: ZOE LabPhilomena Hernandez6370 [facility] [id number] ALT [Catalytic activity/Vol] 29 U/L Normal 0-44 [facility]; [facility] Work Phone: Comment on above: PATIENT NOT FASTINGP ERFORMED BY: ZOE [facility] Zhtkjf6397 [address] RoadDublin [place] [id number] ALT enzyme act/vol 29 [iU]/L Normal 0-44 [facility] Work Phone: Comment on above: PATIENT NOT FASTINGP ERFORMED BY: CB [facility] Xoynme0957 [address] RoadDublin [place] [id number] AST [Catalytic activity/Vol] 23 U/L Normal 0-40 [facility]; [facility] Work Phone: Comment on above: PATIENT NOT FASTINGP ERFORMED BY: CB [facility] Rataxn3566 [address] RoadDublin [place] [id number] AST enzyme act/vol 23 [iU]/L Normal 0-40 [facility] Internal Medicine Work Phone: Comment on above: PATIENT NOT FASTINGP ERFORMED BY: CB [facility] Tvsouy2761 [address] RoadDublin [place] [id number] Bilirubin mass conc 0.4 mg/dL Normal 0.0-1.2 Compr ensive Internal Medicine Work Phone: Comment on above: PATIENT NOT FASTINGP ERFORMED BY: CB [facility] Lyhswi9406 [address] RoadDublin [place] [id number] Calcium mass conc 9.7 mg/dL Normal 8.7-10.2 Compreh [facility] Work Phone: Comment on above: PATIENT NOT FASTINGP ERFORMED BY: CB [facility] Bsxadq7966 [address] RoadDublin [place] [id number] Chloride molar conc 100 mmol/L Normal 97-108 Compr ensive Internal Medicine Work Phone: Comment on above: PATIENT NOT FASTINGP ERFORMED BY: CB [facility] Pqijem9930 [address] RoadDublin [place] [id number] CO2 molar conc 23 mmol/L Normal 19-28 Comprehens rashad Internal Medicine Work Phone: Comment on above: PATIENT NOT FASTINGP ERFORMED BY: CB [facility] Hnsytk1325 [address] RoadDublin [place] [id number] Creatinine mass conc 1.06 mg/dL Normal 0.76-1.27 Comp rehensive Internal Medicine Work Phone: Comment on above: PATIENT NOT FASTINGP ERFORMED BY: CB [facility] Kspmdu3118 [address] RoadDublin [place] [id number] GFR/1.73 sq M predicted among blacks CKD-EPI vol rate/area (S/P/Bld) 97 mL/min/1.73 Normal Comprehensiv e Internal Medicine Work Phone: Comment on above: PATIENT NOT FASTINGP ERFORMED BY: CB [facility] Puzrtx9068 [address] RoadDublin [place] [id number] GFR/1.73 sq M predicted among non-blacks CKD-EPI vol rate/area (S/P/Bld) 84 mL/min/1.73 Normal [facility] Work Phone: Comment on above: PATIENT NOT FASTINGP ERFORMED BY: CB [facility] Khihai[address] [facility] [place] [id number] Globulin mass conc (S) 3.1 g/dL Normal 1.5-4.5 [facility] Work Phone: Comment on above: PATIENT NOT FASTINGP ERFORMED BY: CB [facility] Duarqb[address] [facility] [place] [id number] Glucose mass conc 83 mg/dL Normal 65-99 Compreh ensive Internal Medicine Work Phone: Comment on above: PATIENT NOT FASTINGP ERFORMED BY: CB [facility] Yncltb[address] [facility] [place] [id number] Potassium molar conc 4.0 mmol/L Normal 3.5-5.2 Comp rehensive Internal Medicine Work Phone: Comment on above: PATIENT NOT FASTINGP ERFORMED BY: CB [facility] Jonikv[address] [facility]blin [place] [id number] Protein mass conc 7.9 g/dL Normal 6.0-8.5 Compreh ensive Internal Medicine Work Phone: Comment on above: PATIENT NOT FASTINGP ERFORMED BY: CB [facility] Ybxfpp[address] [facility] [place] [id number] Sodium molar conc 138 mmol/L Normal 134-144 Compreh ensive Internal Medicine Work Phone: Comment on above: PATIENT NOT FASTINGP ERFORMED BY: eWise Ijqfbo9584 [facility] [id number] Urea nitrogen mass conc 13 mg/dL Normal 6-24 [facility] Work Phone: Comment on above: PATIENT NOT FASTINGP ERFORMED BY: eWise Lyuwgg6478 [facility] [id number] Urea nitrogen/Creatinine mass ratio 12 mg/mg Normal 9-20 [facility] Work Phone: Comment on above: PATIENT NOT FASTINGP ERFORMED BY: eWise Qjlsya5172 [facility] [id number] PSA (PROSTATE SPECIFIC ANTIG EN) (72478)Ordered By: Well Puller Head on 04-23-2013 Prostate specific Ag mass conc 0.4 ng/mL Normal 0.0-4.0 [facility] Work Phone: Comment on above: [employer] ECLIA methodol ogy. .According to the [place] [employer], Serum PSA shoulddecrease and remain at undetectable levels after radicalprostatectomy. The AUA defines biochemical recurrence as an initialPSA value 0.2 ng/mL or greater followed by a subsequent confirmatoryPSA value 0.2 ng/mL or greater.Values obtained with different assay methods or kits cannot be usedinterchangeably. Results cannot be interpreted as absolute evidenceof the presence or absence of malignant disease. PATIENT NOT FASTINGP ERFORMED BY: eWiseCapital Health System [facility])Mjpbpv8811 [facility] [id number] Urinalysis, Office (94803)Or dered By: Eleonora Vernon on 04-23-2013 Bilirubin Ql (U) Negative Normal Comprehe nsive Internal Medicine Work Phone: Glucose Test strip mass conc (U) Negative Normal [facility] Work Phone: Hemoglobin Ql (U) Negative Normal Compreh ensive Internal Medicine Work Phone: Ketones Ql (U) Negative Normal Comprehens rashad [facility] Work Phone: Leukocyte esterase Test strip Ql (U) Negative Normal [facility] Work Phone: Nitrite Ql (U) Negative Normal Comprehens rashad [facility] Work Phone: pH (U) 7.0 [pH] Normal [facility] Work Phone: Protein Ql (U) Negative Normal Comprehens rashad [facility] Work Phone: Specific gravity Relative Density (U) 1.025 1 Normal Comprehensi ve Internal Medicine Work Phone: Urobilinogen mass/time (24H U) Normal Normal [facility] Work Phone: Urinalysis, Office ([phone])on 04-23-2013 Bilirubin Ql (U) Negative Normal Comprehe nsive Internal Medicine; [facility] Work Phone: Glucose Test strip (U) [Mass/Vol] Negative Normal [facility]; [facility] Work Phone: Hemoglobin Ql (U) Negative Normal Compreh ensive [facility] Medicine; [facility] Work Phone: Ketones Ql (U) Negative Normal Comprehens rashad [facility]; [facility] Work Phone: Leukocyte esterase Test strip Ql (U) Negative Normal [facility]; [facility] Work Phone: Nitrite Ql (U) Negative Normal Comprehens rashad [facility]; [facility] Work Phone: Protein Ql (U) Negative Normal Comprehens rashad [facility]; [facility] Work Phone: Lipid Panel (57659)Ordered B y: Well Puller Head on 01-17-2013 Cholesterol in HDL mass conc 42 mg/dL Normal [facility] Work Phone: Comment on above: According to ATP-III Guidelines, HDL-C >59 mg/dL is considered anegative risk factor for CHD. PATIENT WAS FASTINGP ERFORMED BY: ZOE [place] [facility] [id number] Cholesterol in LDL mass conc 123 mg/dL Abnormal 0-99 [facility] Work Phone: Comment on above: PATIENT WAS FASTINGP ERFORMED BY: ZOE DealflicksDublin [place] [id number] Cholesterol in LDL/Cholesterol in HDL mass ratio 2.9 {ratio_units} Normal 0.0-3.6 [facility] Work Phone: Comment on above: PATIENT WAS FASTINGP ERFORMED BY: ZOE [facility] Judmni[address] [facility] [place] [id number] Cholesterol in VLDL mass conc 65 mg/dL Abnormal 5-40 [facility] Work Phone: Comment on above: PATIENT WAS FASTINGP ERFORMED BY: ZOE LabCo Rgdwbn8080 [facility] [id number] Cholesterol mass conc 230 mg/dL Abnormal 100-199 [facility] prehensive Internal Medicine Work Phone: Comment on above: PATIENT WAS FASTINGP ERFORMED BY: ZOE LabCopreston ThakurBkeael3282 [facility] [id number] Triglyceride mass conc 327 mg/dL Abnormal 0-149 [facility] Work Phone: Comment on above: PATIENT WAS FASTINGP ERFORMED BY: ZOE LabCo Rtgfrz6640 [facility] [id number] Metabolic Panel, Comprehensi ve (98973)Ordered By: Well Puller Head on 01-17-2013 Albumin mass conc 4.5 g/dL Normal 3.5-5.5 Compreh ensive Internal Medicine Work Phone: Comment on above: PATIENT WAS FASTINGP ERFORMED BY: ZOE LabCo Xuuenk6355 [facility] [id number] Information: [id number] Albumin/Globulin mass ratio 1.6 {ratio} Normal 1.1-2.5 [facility] Work Phone: Comment on above: PATIENT WAS FASTINGP ERFORMED BY: ZOE LabCo Gnbthi5952 [facility] [id number] Information: [id number] ALP [Catalytic activity/Vol] 63 U/L Normal 44-102 [facility]; [facility] Work Phone: Comment on above: PATIENT WAS FASTINGP ERFORMED BY: CB [facility] Ohqjie5134 [address] RoadDublin [place] [id number] Information: [id number] ALP enzyme act/vol 63 [iU]/L Normal 44-102 [facility] Internal Medicine Work Phone: Comment on above: PATIENT WAS FASTINGP ERFORMED BY: [facility] Hcwjhy9104 [address] RoadDublin [place] [id number] Information: [id number] ALT [Catalytic activity/Vol] 25 U/L Normal 0-44 [facility] Internal Medicine; [facility] Internal Medicine Work Phone: Comment on above: PATIENT WAS FASTINGP ERFORMED BY: LabCo Bqlhnf2344 [address] RoadDublin [place] [id number] Information: [id number] ALT enzyme act/vol 25 [iU]/L Normal 0-44 [facility] Internal Medicine Work Phone: Comment on above: PATIENT WAS FASTINGP ERFORMED BY: LabCo Oltlrc8293 [address] Roadblin [place] [id number] Information: [id number] AST [Catalytic activity/Vol] 18 U/L Normal 0-40 [facility] Internal Medicine; [facility] Internal Medicine Work Phone: Comment on above: PATIENT WAS FASTINGP ERFORMED BY: [facility] Aksnnb3958 [address] RoadHighsmith-Rainey Specialty Hospitalin [place] [id number] Information: [id number] AST enzyme act/vol 18 [iU]/L Normal 0-40 [facility] Internal Medicine Work Phone: Comment on above: PATIENT WAS FASTINGP ERFORMED BY: [facility] Yuwkfv9573 [address] RoadDublin [place] [id number] Information: [id number] Bilirubin mass conc 0.4 mg/dL Normal 0.0-1.2 [facility] Internal Medicine Work Phone: Comment on above: PATIENT WAS FASTINGP ERFORMED BY: [facility] Rmlvuh8694 [address] RoadDublin [place] [id number] Information: [id number] Calcium mass conc 9.2 mg/dL Normal 8.7-10.2 Compreh ensive Internal Medicine Work Phone: Comment on above: PATIENT WAS FASTINGP ERFORMED BY: ZOE LabCopreston ThakurQrtrfp7394 [address] Roadblin [place] [id number] Information: 373921,G64870 Chloride molar conc 101 mmol/L Normal 97-108 Compr ehensive Internal Medicine Work Phone: Comment on above: PATIENT WAS FASTINGP ERFORMED BY: ZOE [facility] Zlymog7695 [address] Roadblin [place] [id number] Information: [id number] CO2 molar conc 21 mmol/L Normal 19-28 Comprehens rashad Internal Medicine Work Phone: Comment on above: PATIENT WAS FASTINGP ERFORMED BY: ZOE LabCo Nbtpzy2954 [address] RoadHighsmith-Rainey Specialty Hospitalin [place] [id number] Information: [id number],[id number] Creatinine mass conc 1.09 mg/dL Normal 0.76-1.27 Comp rehensive Internal Medicine Work Phone: Comment on above: PATIENT WAS FASTINGP ERFORMED BY: ZOE LabCo Oakhry[address] RoadHighsmith-Rainey Specialty Hospitalin [place] [id number] Information: 458054,[id number] GFR/1.73 sq M predicted among blacks CKD-EPI vol rate/area (S/P/Bld) 95 mL/min/1.73 Normal Comprehensiv e Internal Medicine Work Phone: Comment on above: PATIENT WAS FASTINGP ERFORMED BY: ZOE [facility] Nevnnl6439 [address] RoadHighsmith-Rainey Specialty Hospitalin [place] [id number] Information: 737328,A48887 GFR/1.73 sq M predicted among non-blacks CKD-EPI vol rate/area (S/P/Bld) 82 mL/min/1.73 Normal [facility] Work Phone: Comment on above: PATIENT WAS FASTINGP ERFORMED BY: ZOE [facility] Plusze4405 [address] RoadAffinity Health Partners [id number] Information: [id number],[id number] Globulin mass conc (S) 2.8 g/dL Normal 1.5-4.5 [facility] Work Phone: Comment on above: PATIENT WAS FASTINGP ERFORMED BY: [facility]6370 [facility] [id number] Information: [id number] Glucose mass conc 94 mg/dL Normal 65-99 Compreh ensive Internal Medicine Work Phone: Comment on above: PATIENT WAS FASTINGP ERFORMED BY: [address] [id number] Information: 807914,[id number] Potassium molar conc 4.1 mmol/L Normal 3.5-5.2 Comp rehensive Internal Medicine Work Phone: Comment on above: PATIENT WAS FASTINGP ERFORMED BY: [address] [id number] Information: [id number],Q87012 Protein mass conc 7.3 g/dL Normal 6.0-8.5 Compreh ensive Internal Medicine Work Phone: Comment on above: PATIENT WAS FASTINGP ERFORMED BY: [place] 9959970 [facility] [id number] Information: [id number] Sodium molar conc 139 mmol/L Normal 134-144 Compreh ensive Internal Medicine Work Phone: Comment on above: PATIENT WAS FASTINGP ERFORMED BY: [place] 9959970 [facility] [id number] Information: 040101,[id number] Urea nitrogen mass conc 14 mg/dL Normal 6-24 [facility] Work Phone: Comment on above: PATIENT WAS FASTINGP ERFORMED BY: [place] 9959970 [facility] [id number] Information: [id number] Urea nitrogen/Creatinine mass ratio 13 mg/mg Normal 9-20 [facility] Work Phone: Comment on above: PATIENT WAS FASTINGP ERFORMED BY: CB [facility] Mfcwnm[address] [facility] [id number] Information: [id number] HILARY CULTURE-OTHER (65091)Ord ered By: Well Puller Head on 06-04-2012 Bacteria identified Respiratory culture Nom (Unsp spec) Final report Normal [facility] Work Phone: Comment on above: PATIENT NOT FASTINGP ERFORMED BY: CB [facility] Fferqd[address] [facility] [place] [id number] Information: SRC:THRT [id number] Bacteria identified Respiratory culture Nom (Unsp spec) RRF Normal [facility] Work Phone: Comment on above: Routine respiratory stacey PATIENT NOT FASTINGP ERFORMED BY: ZOE [facility] Syrxtg7777 [facility] [id number] Information: SRC:THRT [id number] Rapid Strep Test, Office ([phone])on 06-04-2012 S. pyogenes Ag EIA Ql (Throat) Negative Normal [facility]; [facility] Work Phone: Rapid Strep Test, Office ([phone])Ordered By: Miya Hampton on 06-04-2012 S. pyogenes Ag IA Ql (Unsp spec) Negative Normal [facility] Work Phone: BRAIN W/WO CONTRASTOrdered B y: Well Puller Head on 05-19-2011 BRAIN W/WO CONTRAST See Note Normal Compr ehensive Internal Medicine Work Phone: Comment on above: PROCEDURE: MRI BRAIN WITH AND WITHOUT CONTRAST REASON FOR EXAM: Male, 41 years old, headaches, visual changes, lefteye. TECHNIQUE: Standardized multiplanar fat and water weighted pulsesequences were obtained. 10 ml of Gadavist contrast material wasadministered intravenously for the contrast portion of the examination. COMPARISON: None. FINDINGS:Normal size of the ventricles and extra-axial spaces for the patient'miranda.There are multiple round to ovoid white matter lesions in the subcortical,periventricular and deep white matter lesion. There are greater than 9lesions some are at the juxtacortical distribution. At least 3 lesionsareat the level of the splenium and body of the corpus callosum. Postcontrast images demonstrates a 6-mm enhancing lesion adjacent to thefrontal horn of left lateral ventricle. The size and distribution oflesions are consistent with a demyelinating process, such as multiplesclerosis There is no extra-axial fluid accumulation. Normal flow voids within the major intracranial circulation suggestingpatency by spin echo criteria. Normal venous enhancement. There is noenhancing intra-axial or extra-axial abnormality. Normal sella turcica, pituitary gland, infundibular stalk, optic chiasmandhypothalamus. Normal tectal plate and pineal gland. Normal midbrain, maria del rosario and medulla. Normal cerebellum. Normal basalcisterns. Normal bilateral temporal bones. Normal bilateral internal auditorycanals. Normal bilateral orbital contents. Normal visualized paranasal sinuses.Normal calvarium and skull base. Normal visualized soft tissuestructures.Normal visualized upper cervical spine. IMPRESSION:Multiple white matter lesions scattered through there are periventricular,subcortical, and deep white matter distribution some of which are at thelevel of the splenium of body of the corpus callosum there is a a 6-mmenhancing lesion adjacent to the frontal horn of left lateral ventricle.The size and distribution of lesions are consistent with a demyelinatingprocess, such as multiple sclerosis To consult with a radiologist regarding this report, please call our [id number] line @ Dictated on 05/19/11 1028 by IVY NIELSEN MDTranscribed on 05/19/112112 by ITS IMPORTSign by IVY NIELSEN MD on 05/19/112113 Sign by: IVY NIELSEN MD CBC WITH MANUAL DIFF ([id number]) Ordered By: Well Puller Head on 05-17-2011 Basophils #/vol (Bld) 0.0 {x10E3/uL} Normal 0.0-0.2 [facility] Work Phone: Comment on above: PATIENT WAS FASTINGP ERFORMED BY: [facility]Mubqjp6695 [facility] [id number] Information: [id number] Basophils (Bld) [#/Vol] 0.0 10*3/uL Normal 0.0-0.2 [facility]; [facility] Work Phone: Comment on above: PATIENT WAS FASTINGP ERFORMED BY: ZOE CameronJonathan V[place] [id number] [facility] [id number] Information: [id number] Basophils/100 WBC (Bld) 0 % Normal 0-3 [facility] Work Phone: Comment on above: PATIENT WAS FASTINGP ERFORMED BY: [address] [id number] Information: [id number] Eosinophils #/vol (Bld) 0.0 {x10E3/uL} Normal 0.0-0.4 [facility] Work Phone: Comment on above: PATIENT WAS FASTINGP ERFORMED BY: [address] [id number] Information: [id number] Eosinophils (Bld) [#/Vol] 0.0 10*3/uL Normal 0.0-0.4 [facility]; [facility] Work Phone: Comment on above: PATIENT WAS FASTINGP ERFORMED BY: [address] [id number] Information: [id number] Eosinophils/100 WBC (Bld) 1 % Normal 0-7 [facility] Work Phone: Comment on above: PATIENT WAS FASTINGP ERFORMED BY: [address] [id number] Information: [id number] Erythrocyte distribution width Ratio (RBC) 14.0 % Normal 11.7-15.0 [facility] Work Phone: Comment on above: PATIENT WAS FASTINGP ERFORMED BY: [address] [id number] Information: [id number] Hematocrit Volume Fraction (Bld) 50.7 % Abnormal 36.0-50.0 [facility] Work Phone: Comment on above: PATIENT WAS FASTINGP ERFORMED BY: AdelaMegan [place] [id number] [facility] [id number] Information: [id number] Hemoglobin mass conc (Bld) 17.0 g/dL Normal 12.5-17.0 [facility] Work Phone: Comment on above: PATIENT WAS FASTINGP ERFORMED BY: [address] [id number] Information: [id number] Immature granulocytes #/vol (Bld) 0.0 {x10E3/uL} Normal 0.0-0.1 [facility] Work Phone: Comment on above: PATIENT WAS FASTINGP ERFORMED BY: [address] [id number] Information: [id number] Immature granulocytes (Bld) [#/Vol] 0.0 10*3/uL Normal 0.0-0.1 [facility]; [facility] Work Phone: Comment on above: PATIENT WAS FASTINGP ERFORMED BY: [place] [id number] [facility] [id number] Information: [id number] Immature granulocytes/100 WBC (Bld) 0 % Normal 0-2 [facility] Work Phone: Comment on above: PATIENT WAS FASTINGP ERFORMED BY: [place] [id number] [facility] [id number] Information: [id number] Lymphocytes #/vol (Bld) 2.2 {x10E3/uL} Normal 0.7-4.5 [facility] Work Phone: Comment on above: PATIENT WAS FASTINGP ERFORMED BY: [place] [id number] [facility] [id number] Information: [id number] Lymphocytes (Bld) [#/Vol] 2.2 10*3/uL Normal 0.7-4.5 [facility]; [facility] Work Phone: Comment on above: PATIENT WAS FASTINGP ERFORMED BY: [place] [id number] [facility] [id number] Information: [id number] Lymphocytes/100 WBC (Bld) 30 % Normal 14-46 [facility] Work Phone: Comment on above: PATIENT WAS FASTINGP ERFORMED BY: [address] [id number] Information: [id number] MCH Entitic mass (RBC) 30.7 pg Normal 27.0-34.0 [facility] Internal Medicine Work Phone: Comment on above: PATIENT WAS FASTINGP ERFORMED BY: [address] [id number] Information: [id number] MCHC mass conc (RBC) 33.5 g/dL Normal 32.0-36.0 [facility] Internal Medicine Work Phone: Comment on above: PATIENT WAS FASTINGP ERFORMED BY: [address] [id number] Information: [id number] MCV Entitic volume (RBC) 92 fL Normal 80-98 [facility] Work Phone: Comment on above: PATIENT WAS FASTINGP ERFORMED BY: [address] [id number] Information: [id number] Monocytes #/vol (Bld) 0.9 {x10E3/uL} Normal 0.1-1.0 [facility] Work Phone: Comment on above: PATIENT WAS FASTINGP ERFORMED BY: [address] [id number] Information: [id number] Monocytes (Bld) [#/Vol] 0.9 10*3/uL Normal 0.1-1.0 [facility]; [facility] Work Phone: Comment on above: PATIENT WAS FASTINGP ERFORMED BY: [facility]OE [facility] [id number] Information: [id number] Monocytes/100 WBC (Bld) 13 % Normal 4-13 [facility] Work Phone: Comment on above: PATIENT WAS FASTINGP ERFORMED BY: ZOE Rosado [facility] [id number] Information: [id number] Neutrophils #/vol (Bld) 4.2 {x10E3/uL} Normal 1.8-7.8 [facility] Work Phone: Comment on above: PATIENT WAS FASTINGP ERFORMED BY: ZOE Hernandez6370 [facility] [id number] Information: [id number] Neutrophils (Bld) [#/Vol] 4.2 10*3/uL Normal 1.8-7.8 [facility]; [facility] Work Phone: Comment on above: PATIENT WAS FASTINGP ERFORMED BY: ZOE Rosado [facility] [id number] Information: [id number] Neutrophils/100 WBC (Bld) 56 % Normal 40-74 [facility] Work Phone: Comment on above: PATIENT WAS FASTINGP ERFORMED BY: ZOE Thakurlin6370 [facility] [id number] Information: [id number] Platelets #/vol (Bld) 270 {x10E3/uL} Normal 140-415 [facility] Work Phone: Comment on above: PATIENT WAS FASTINGP ERFORMED BY: ZOE Thakurlin6370 [facility] [id number] Information: [id number] Platelets (Bld) [#/Vol] 270 10*3/uL Normal 140-415 [facility]; [facility] Work Phone: Comment on above: PATIENT WAS FASTINGP ERFORMED BY: ZOE [facility]Ex[facility] Tmdfop4247 [facility] [id number] Information: [id number] RBC #/vol (Bld) 5.53 {x10E6/uL} Normal 4.10-5.60 [facility] Internal Medicine Work Phone: Comment on above: PATIENT WAS FASTINGP ERFORMED BY: LabMegan Ville [id number] [facility] [id number] Information: [id number] RBC (Bld) [#/Vol] 5.53 10*6/uL Normal 4.10-5.60 [facility] Internal Medicine; [facility] Internal Medicine Work Phone: Comment on above: PATIENT WAS FASTINGP ERFORMED BY: [place] 9959970 [facility] [id number] Information: [id number] WBC #/vol (Bld) 7.4 {x10E3/uL} Normal 4.0-10.5 [facility] Internal Medicine Work Phone: Comment on above: PATIENT WAS FASTINGP ERFORMED BY: Rakesh Tpmcsy2701 [facility] [id number] Information: [id number] WBC (Bld) [#/Vol] 7.4 10*3/uL Normal 4.0-10.5 [facility]; [facility] Medicine Work Phone: Comment on above: PATIENT WAS FASTINGP ERFORMED BY: [facility]6370 [facility] [id number] Information: [id number] LIPID PANEL ([id number])Ordered B y: Well Puller Head on 05-17-2011 Cholesterol in HDL mass conc 41 mg/dL Normal [facility] Internal Medicine Work Phone: Comment on above: According to ATP-III Guidelines, HDL-C >59 mg/dL is considered anegative risk factor for CHD. PATIENT WAS FASTINGP ERFORMED BY: ZOE [facility] Snxxgz3567 [address] RoadDublin [place] [id number] Cholesterol in LDL mass conc 132 mg/dL Abnormal 0-99 [facility] Work Phone: Comment on above: PATIENT WAS FASTINGP ERFORMED BY: ZOE LabCopreston ThakurGkvpwu8387 Eck[address] RoadDublin [place] [id number] Cholesterol in LDL/Cholesterol in HDL mass ratio 3.2 {ratio_units} Normal 0.0-3.6 [facility] Work Phone: Comment on above: PATIENT WAS FASTINGP ERFORMED BY: ZOE [facility] Gzzycv6453 Eckert RoadDuin [place] [id number] Cholesterol in VLDL mass conc 75 mg/dL Abnormal 5-40 [facility] Work Phone: Comment on above: PATIENT WAS FASTINGP ERFORMED BY: ZOE LabCopreston ThakurDapbqp7780 [address] RoadDuin [place] [id number] Cholesterol mass conc 248 mg/dL Abnormal 100-199 [facility] prehensive Internal Medicine Work Phone: Comment on above: PATIENT WAS FASTINGP ERFORMED BY: ZOE LabCopreston ThakurBzonjm5328 Eckert RoadHighsmith-Rainey Specialty Hospitalin [place] [id number] Triglyceride mass conc 376 mg/dL Abnormal 0-149 [facility] Work Phone: Comment on above: PATIENT WAS FASTINGP ERFORMED BY: ZOE LabCopreston ThakurMjftyw[address] [facility] [place] [id number] METABOLIC PANEL, COMPREHENSI VE ([id number])Ordered By: Well Puller Head on 05-17-2011 Albumin mass conc 4.9 g/dL Normal 3.5-5.5 Compreh ensive Internal Medicine Work Phone: Comment on above: PATIENT WAS FASTINGP ERFORMED BY: ZOE [facility] Aamjwl[address] [facility] [place] [id number] Albumin/Globulin mass ratio 1.5 {ratio} Normal 1.1-2.5 [facility] Work Phone: Comment on above: PATIENT WAS FASTINGP ERFORMED BY: ZOE [facility] Vdnhdl[address] [facility] [id number] ALP [Catalytic activity/Vol] 81 U/L Normal 25-150 [facility]; [facility] Internal Medicine Work Phone: Comment on above: PATIENT WAS FASTINGP ERFORMED BY: ZOE [facility] Licyyi6425 [address] RoadDublin [place] [id number] ALP enzyme act/vol 81 [iU]/L Normal 25-150 [facility] Internal Medicine Work Phone: Comment on above: PATIENT WAS FASTINGP ERFORMED BY: [facility] Mjwwva2918 [address] RoadDublin [place] [id number] ALT [Catalytic activity/Vol] 37 U/L Normal 0-55 [facility] Internal Medicine; [facility] Internal Medicine Work Phone: Comment on above: PATIENT WAS FASTINGP ERFORMED BY: ZOE [facility] Erhtuj5589 [address] RoadDublin [place] [id number] ALT enzyme act/vol 37 [iU]/L Normal 0-55 [facility] Internal Medicine Work Phone: Comment on above: PATIENT WAS FASTINGP ERFORMED BY: [facility] Wfckkl7059 [address] RoadDublin [place] [id number] AST [Catalytic activity/Vol] 25 U/L Normal 0-40 [facility] Internal Medicine; [facility] Internal Medicine Work Phone: Comment on above: PATIENT WAS FASTINGP ERFORMED BY: [facility] Fdhjku5907 [address] RoadDublin [place] [id number] AST enzyme act/vol 25 [iU]/L Normal 0-40 [facility] Internal Medicine Work Phone: Comment on above: PATIENT WAS FASTINGP ERFORMED BY: [facility] Pggfny1419 [address] RoadDublin [place] [id number] Bilirubin mass conc 0.4 mg/dL Normal 0.0-1.2 [facility] Internal Medicine Work Phone: Comment on above: PATIENT WAS FASTINGP ERFORMED BY: [facility] Nlmuoe8322 [address] RoadDublin [place] [id number] Calcium mass conc 9.6 mg/dL Normal 8.7-10.2 Compreh ensive Internal Medicine Work Phone: Comment on above: PATIENT WAS FASTINGP ERFORMED BY: CB [facility] Lusxhu[address] [facility] [place] [id number] Chloride molar conc 101 mmol/L Normal 97-108 Compr ehensive Internal Medicine Work Phone: Comment on above: PATIENT WAS FASTINGP ERFORMED BY: CB [facility] Fkgzxq5785 [address] Roadblin [place] [id number] CO2 molar conc 24 mmol/L Normal 20-32 Comprehens rashad Internal Medicine Work Phone: Comment on above: PATIENT WAS FASTINGP ERFORMED BY: CB [facility] Vtnyrt[address] [facility] [id number] Creatinine mass conc 1.18 mg/dL Normal 0.76-1.[address] [facility] campusensive Internal [facility] Work Phone: Comment on above: PATIENT WAS FASTINGP ERFORMED BY: CB [facility] Mrgaeg[address] [facility] [id number] GFR/1.73 sq M predicted among blacks MDRD vol rate/area (S/P/Bld) 87 mL/min/{1.73_m2} Normal Comprehe nsive Internal Medicine Work Phone: Comment on above: Note: A persistent e GFR <60 mL/min/1.73 m2 (3 months or more) mayindicate chronic kidney disease. An eGFR >59 mL/min/1.73 m2 with anelevated urine protein also may indicate chronic kidney disease.Calculated using CKD-EPI formula. PATIENT WAS FASTINGP ERFORMED BY: CB [facility] Yuipng[address] [facility] [id number] GFR/1.73 sq M predicted among non-blacks CKD-EPI vol rate/area (S/P/Bld) 75 mL/min/1.73 Normal [facility] Work Phone: Comment on above: PATIENT WAS FASTINGP ERFORMED BY: CB [facility] Xifyhx[address] [facility] [id number] Globulin mass conc (S) 3.2 g/dL Normal 1.5-4.5 [facility] Work Phone: Comment on above: PATIENT WAS FASTINGP ERFORMED BY: ZOE [facility] Zslmoo3557 [facility] [id number] Glucose mass conc 99 mg/dL Normal 65-99 Compreh ensive Internal Medicine Work Phone: Comment on above: PATIENT WAS FASTINGP ERFORMED BY: ZOE [facility] Ptipwm7197 [facility] [id number] Potassium molar conc 4.3 mmol/L Normal 3.5-5.2 Comp rehensive Internal Medicine Work Phone: Comment on above: PATIENT WAS FASTINGP ERFORMED BY: ZOE [facility] Hmrnlv6476 [facility] [id number] Protein mass conc 8.1 g/dL Normal 6.0-8.5 Compreh ensive Internal Medicine Work Phone: Comment on above: PATIENT WAS FASTINGP ERFORMED BY: ZOE [facility] Qxxlpe7609 [facility] [id number] Sodium molar conc 139 mmol/L Normal 134-144 Compreh ensive [facility] Medicine Work Phone: Comment on above: Please note refere nce interval change PATIENT WAS FASTINGP ERFORMED BY: ZOE [facility] Nmnlhm8304 [facility] [id number] Urea nitrogen mass conc 13 mg/dL Normal 6-24 [facility] Work Phone: Comment on above: PATIENT WAS FASTINGP ERFORMED BY: ZOE [facility] Jlvgzl2900 [facility] [id number] Urea nitrogen/Creatinine mass ratio 11 mg/mg Normal 9-20 [facility] Work Phone: Comment on above: PATIENT WAS FASTINGP ERFORMED BY: ZOE [facility] Fsxsmq7453 [facility] [id number] Rapid Strep Test, Office ([phone])on 07-25-2008 S. pyogenes Ag EIA Ql (Throat) Negative Normal [facility]; [facility] Work Phone: Rapid Strep Test, Office ([phone])Ordered By: Salena Orr on 07-25-2008 S. pyogenes Ag IA Ql (Unsp spec) Negative Normal [facility] Work Phone: Rapid Strep Test, Office ([phone])on 07-09-2007 S. pyogenes Ag EIA Ql (Throat) Positive Normal [facility]; [facility] Work Phone: Comment on above: aw Positive Rapid Strep Test, Office ([phone])Ordered By: Melodie Holden on 07-09-2007 S. pyogenes Ag IA Ql (Unsp spec) Positive Normal [facility] Work Phone: Comment on above: aw Positive Vital Signs Date Time Vital Sign Value Performing Clinician Facility 10-16-2024 15:19-0400 Body height 177.8 cm No Primary Care Physician [facility] 10-16-2024 15:16-0400 Body mass index (BMI) [Ratio] 25 kg/m2 No Primary Care Physician [facility] 10-16-2024 15:16-0400 Body weight 81.19 kg No Primary Care Physician [facility] 10-16-2024 15:16-0400 Diastolic blood pressure 79 mm[Hg] No Primary Care Physician [facility] 10-16-2024 15:16-0400 Heart rate 84 /min No Primary Care Physician [facility] 10-16-2024 15:16-0400 Respiratory rate 18 /min No Primary Care Physician [facility] 10-16-2024 15:16-0400 SaO2% (BldA) [Mass fraction] 95 % No Primary Care Physician [facility] 10-16-2024 15:16-0400 Systolic blood pressure 116 mm[Hg] No Primary Care Physician [facility] 08-09-2019 07:13-0400 BMI (Body Mass Index) 26.54 kg/m2 Wayne Don LPN [facility] Internal Medicine Work Phone: 08-09-2019 07:13-0400 Body Temperature 97.2 [degF] Wayne Don LPN [facility] Work Phone: Comment on above: Method: Temporal 08-09-2019 07:13-0400 Body weight 83.92 kg Wayne Don LPN [facility] Work Phone: 08-09-2019 07:13-0400 BP Diastolic 78 mm[Hg] Wayne Don LPN [facility] Work Phone: Comment on above: Patient Position: Sitting; Cuff Location : Left Arm; Cuff Size: Standard 08-09-2019 07:13-0400 BP Systolic 130 mm[Hg] Wayne Don LPN [facility] Work Phone: Comment on above: Patient Position: Sitting; Cuff Location : Left Arm; Cuff Size: Standard 08-09-2019 07:13-0400 BSA (Body Surface Area) 2.02 m2 Wayne Don LPN [facility] Internal Medicine Work Phone: 08-09-2019 07:13-0400 Height 177.8 cm Wayne Don LPN [facility] Internal Medicine Work Phone: 08-09-2019 07:13-0400 Pulse (Heart Rate) 94 /min Wayne Don LPN Comprehensiv e Internal Medicine Work Phone: Comment on above: Pattern: Regular 08-09-2019 07:13-0400 Pulse Oximetry 97 % Delma Story [facility] Internal Medicine Work Phone: Comment on above: Room air 08-09-2019 07:13-0400 Respiratory Rate 16 /min Wayne Don LPN [facility] Internal Medicine Work Phone: Comment on above: Pattern: Unlabored 08-09-2019 07:13-0400 SaO2% (BldA) [Mass fraction] 97 % Wayne Don LPN [facility]; [facility] Work Phone: Comment on above: Room air 07-16-2019 08:10-0500 BMI (Body Mass Index) 25.69 kg/m2 Wayne Don LPN Comprehen sive Internal Medicine Work Phone: 07-16-2019 08:10-0500 Body Temperature 97.2 [degF] Wayne Don LPN [facility] Work Phone: Comment on above: Method: Temporal 07-16-2019 08:10-0500 Body weight 81.21 kg Wayne Don LPN [facility] Internal Medicine Work Phone: 07-16-2019 08:10-0500 BP Diastolic 80 mm[Hg] Wayne Don LPN [facility] Work Phone: Comment on above: Patient Position: Sitting; Cuff Location : Left Arm; Cuff Size: Standard 07-16-2019 08:10-0500 BP Systolic 122 mm[Hg] Wayne Don LPN [facility] Work Phone: Comment on above: Patient Position: Sitting; Cuff Location : Left Arm; Cuff Size: Standard 07-16-2019 08:10-0500 BSA (Body Surface Area) 1.99 m2 Wayne Don LPN [facility] Work Phone: 07-16-2019 08:10-0500 Height 177.8 cm Wayne Don LPN [facility] Internal Medicine Work Phone: 07-16-2019 08:10-0500 Pulse (Heart Rate) 110 /min Wayne Don LPN Comprehensiv e Internal Medicine Work Phone: Comment on above: Pattern: Regular 07-16-2019 08:10-0500 Pulse Oximetry 97 % Delma Story [facility] Internal Medicine Work Phone: Comment on above: Room air 07-16-2019 08:10-0500 Respiratory Rate 16 /min Wayne Don LPN [facility] Internal Medicine Work Phone: Comment on above: Pattern: Unlabored 07-16-2019 08:10-0500 SaO2% (BldA) [Mass fraction] 97 % Wayne Don LPN [facility]; [facility] Work Phone: Comment on above: Room air 06-28-2019 07:23-0500 BMI (Body Mass Index) 25.54 kg/m2 Wayne Don LPN Comprehen sive [facility] Medicine Work Phone: 06-28-2019 07:23-0500 Body Temperature 97.1 [degF] Wayne Don LPN [facility] Work Phone: Comment on above: Method: Temporal 06-28-2019 07:23-0500 Body weight 80.74 kg Wayne Don LPN [facility] Work Phone: 06-28-2019 07:23-0500 BP Diastolic 68 mm[Hg] Wayne Don LPN [facility] Work Phone: Comment on above: Patient Position: Sitting; Cuff Location : Left Arm; Cuff Size: Standard 06-28-2019 07:23-0500 BP Systolic 124 mm[Hg] Wayne Don LPN [facility] Work Phone: Comment on above: Patient Position: Sitting; Cuff Location : Left Arm; Cuff Size: Standard 06-28-2019 07:23-0500 BSA (Body Surface Area) 1.99 m2 Wayne Don LPN [facility] Work Phone: 06-28-2019 07:23-0500 Height 177.8 cm Wayne Don LPN [facility] Internal Medicine Work Phone: 06-28-2019 07:23-0500 Pulse (Heart Rate) 64 /min Wayne Don LPN Comprehensiv e [facility] Medicine Work Phone: Comment on above: Pattern: Regular 06-28-2019 07:23-0500 Pulse Oximetry 99 % Delma Story [facility] Internal Medicine Work Phone: Comment on above: Room air 06-28-2019 07:23-0500 Respiratory Rate 16 /min Wayne Don LPN [facility] Work Phone: Comment on above: Pattern: Unlabored 06-28-2019 07:23-0500 SaO2% (BldA) [Mass fraction] 99 % Wayne Don LPN [facility]; [facility] Work Phone: Comment on above: Room air 06-19-2019 08:21-0500 BMI (Body Mass Index) 25.18 kg/m2 Priti Ramirez LPN Comprehen sive [facility] Medicine Work Phone: 06-19-2019 08:21-0500 Body Temperature 97.8 [degF] Priti Ramirez LPN [facility] Work Phone: 06-19-2019 08:21-0500 Body weight 79.61 kg Priti Ramirez LPN [facility] Work Phone: 06-19-2019 08:21-0500 BP Diastolic 80 mm[Hg] Priti Ramirez LPN [facility] Work Phone: Comment on above: Patient Position: Sitting; Cuff Location : Left Arm; Cuff Size: Standard 06-19-2019 08:21-0500 BP Systolic 132 mm[Hg] Priti Ramirez LPN [facility] Work Phone: Comment on above: Patient Position: Sitting; Cuff Location : Left Arm; Cuff Size: Standard 06-19-2019 08:21-0500 BSA (Body Surface Area) 1.97 m2 Priti Ramirez LPN [facility] Work Phone: 06-19-2019 08:21-0500 Height 177.8 cm Priti Ashley [employer] [facility] Work Phone: 06-19-2019 08:21-0500 Pulse (Heart Rate) 98 /min Priti Ramirez LPN Comprehensiv e Internal Medicine Work Phone: Comment on above: Pattern: Regular 06-19-2019 08:21-0500 Pulse Oximetry 98 % Delma Story [facility] Work Phone: Comment on above: Room air 06-19-2019 08:21-0500 Respiratory Rate 17 /min Priti Ramirez LPN [facility] Work Phone: Comment on above: Pattern: Unlabored 06-19-2019 08:21-0500 SaO2% (BldA) [Mass fraction] 98 % Priti Ramirez LPN [facility]; [facility] Work Phone: Comment on above: Room air 06-12-2019 08:03-0500 BMI (Body Mass Index) 25.18 kg/m2 Estela Ga LPN Comprehe nsive Internal Medicine Work Phone: 06-12-2019 08:03-0500 Body Temperature 97.3 [degF] Estela Ga LPN [facility] Work Phone: Comment on above: Method: Temporal 06-12-2019 08:03-0500 Body weight 79.61 kg Estela Ga LPN [facility] Work Phone: 06-12-2019 08:03-0500 BP Diastolic 90 mm[Hg] Estela Ga LPN [facility] Work Phone: Comment on above: Patient Position: Sitting; Cuff Location : Left Arm; Cuff Size: Standard 06-12-2019 08:03-0500 BP Systolic 122 mm[Hg] Estela Ga LPN [facility] Internal Medicine Work Phone: Comment on above: Patient Position: Sitting; Cuff Location : Left Arm; Cuff Size: Standard 06-12-2019 08:03-0500 BSA (Body Surface Area) 1.97 m2 Estela Ga [employer] [facility] Internal Medicine Work Phone: 06-12-2019 08:03-0500 Height 177.8 cm Estela Ga [employer] [facility] Internal Medicine Work Phone: 06-12-2019 08:03-0500 Pulse (Heart Rate) 97 /min Estela Ga LPN Comprehensi ve Internal Medicine Work Phone: Comment on above: Pattern: Regular 06-12-2019 08:03-0500 Pulse Oximetry 98 % Delma Story [facility] [facility] Work Phone: Comment on above: Room air 06-12-2019 08:03-0500 Respiratory Rate 16 /min Estela Ga [employer] [facility] Internal Medicine Work Phone: Comment on above: Pattern: Unlabored 06-12-2019 08:03-0500 SaO2% (BldA) [Mass fraction] 98 % Estelachidi Nolanpacheco HALEY [facility]; [facility] Work Phone: Comment on above: Room air 06-03-2019 10:47-0500 BMI (Body Mass Index) 26.4 kg/m2 Priti Santosdemar [employer] [facility] Work Phone: 06-03-2019 10:47-0500 Body weight 83.46 kg Priti Santosdemar [employer] [facility] Internal Medicine Work Phone: 06-03-2019 10:47-0500 BP Diastolic 86 mm[Hg] Priti Santosdemar [employer] [facility] Internal Medicine Work Phone: Comment on above: Patient Position: Sitting; Cuff Location : Left Arm; Cuff Size: Standard 06-03-2019 10:47-0500 BP Systolic 142 mm[Hg] Priti Ramirez [employer] [facility] Work Phone: Comment on above: Patient Position: Sitting; Cuff Location : Left Arm; Cuff Size: Standard 06-03-2019 10:47-0500 BSA (Body Surface Area) 2.01 m2 Priti Ramirez [employer] [facility] Work Phone: 06-03-2019 10:47-0500 Height 177.8 cm Priti Ramirez [employer] [facility] Work Phone: 06-03-2019 10:47-0500 Pulse (Heart Rate) 105 /min Priti Ramirez [employer] [facility] Work Phone: Comment on above: Pattern: Regular 06-03-2019 10:47-0500 Pulse Oximetry 95 % Delma Story [facility] Work Phone: Comment on above: Room air 06-03-2019 10:47-0500 Respiratory Rate 16 /min Priti Ramirez [employer] [facility] Work Phone: Comment on above: Pattern: Unlabored 06-03-2019 10:47-0500 SaO2% (BldA) [Mass fraction] 95 % Priti Santosrb [employer] [facility]; [facility] Work Phone: Comment on above: Room air 05-30-2019 10:51-0500 BMI (Body Mass Index) 26.4 kg/m2 Migdalia Sinha RN [facility] Work Phone: 05-30-2019 10:51-0500 Body weight 83.46 kg Migdalia Sinha RN [facility] Work Phone: 05-30-2019 10:51-0500 BP Diastolic 110 mm[Hg] Migdalia Sinha RN [facility] Work Phone: Comment on above: Patient Position: Sitting; Cuff Location : Left Arm; Cuff Size: Large 05-30-2019 10:51-0500 BP Systolic 162 mm[Hg] Migdalia Sinha RN [facility] Work Phone: Comment on above: Patient Position: Sitting; Cuff Location : Left Arm; Cuff Size: Large 05-30-2019 10:51-0500 BSA (Body Surface Area) 2.01 m2 Migdalia Sinha RN [facility] Work Phone: 05-30-2019 10:51-0500 Height 177.8 cm Migdalia Sinha RN [facility] Work Phone: 05-30-2019 10:51-0500 Pulse (Heart Rate) 68 /min Migdalia Sinha RN [facility] Work Phone: Comment on above: Pattern: Regular 05-30-2019 10:51-0500 Pulse Oximetry 96 % Delma Story [facility] Work Phone: Comment on above: Room air 05-30-2019 10:51-0500 Respiratory Rate 18 /min Migdalia Sinha RN [facility] Work Phone: Comment on above: Pattern: Unlabored 05-30-2019 10:51-0500 SaO2% (BldA) [Mass fraction] 96 % Migdalia Sinha RN [facility]; [facility] Work Phone: Comment on above: Room air 06-09-2017 08:13-0500 BMI (Body Mass Index) 26.4 kg/m2 Priti Slarb [employer] [facility] Internal Medicine Work Phone: 06-09-2017 08:13-0500 Body Temperature 97.8 [degF] Priti Slarb [employer] [facility] Internal Medicine Work Phone: 06-09-2017 08:13-0500 Body weight 83.46 kg Priti Slarb [employer] [facility] Internal Medicine Work Phone: 06-09-2017 08:13-0500 BP Diastolic 84 mm[Hg] Priti Slarb [employer] [facility] Work Phone: Comment on above: Patient Position: Sitting; Cuff Location : Left Arm; Cuff Size: Standard 06-09-2017 08:13-0500 BP Systolic 132 mm[Hg] Priti Slarb [employer] [facility] Work Phone: Comment on above: Patient Position: Sitting; Cuff Location : Left Arm; Cuff Size: Standard 06-09-2017 08:13-0500 BSA (Body Surface Area) 2.01 m2 Priti Slarb [employer] [facility] Work Phone: 06-09-2017 08:13-0500 Height 177.8 cm Priti Ramirez LPN [facility] Work Phone: 06-09-2017 08:13-0500 Pulse (Heart Rate) 100 /min Priti Ramirez LPN [facility] Work Phone: Comment on above: Pattern: Regular 06-09-2017 08:13-0500 Pulse Oximetry 99 % Delma Story [facility] Internal Medicine Work Phone: Comment on above: Room air 06-09-2017 08:13-0500 Respiratory Rate 17 /min Priti Ramirez LPN [facility] Work Phone: Comment on above: Pattern: Unlabored 06-09-2017 08:13-0500 SaO2% (BldA) [Mass fraction] 99 % Priti Ramirez LPN [facility]; [facility] Work Phone: Comment on above: Room air 06-09-2017 08:13-0500 Weight 83.46 kg Delma Story [facility] Internal Medicine Work Phone: 01-20-2017 09:05-0400 BMI (Body Mass Index) 26.54 kg/m2 Migdalia Sinha RN [facility] Work Phone: Comment on above: 152/90 after catapress 01-20-2017 09:05-0400 Body Temperature 98.6 [degF] Migdalia Sinha RN [facility] Work Phone: Comment on above: Method: Temporal 152/90 after catapre ss 01-20-2017 09:05-0400 Body weight 83.92 kg Migdalia Sinha RN [facility] Work Phone: Comment on above: 152/90 after catapress 01-20-2017 09:05-0400 BP Diastolic 120 mm[Hg] Migdalia Sinha RN [facility] Work Phone: Comment on above: Patient Position: Sitting; Cuff Location : Left Arm; Cuff Size: Standard 152/90 after catapre ss 01-20-2017 09:05-0400 BP Systolic 162 mm[Hg] Migdalia Sinha RN [facility] Work Phone: Comment on above: Patient Position: Sitting; Cuff Location : Left Arm; Cuff Size: Standard 152/90 after catapre ss 01-20-2017 09:05-0400 BSA (Body Surface Area) 2.02 m2 Migdalia Sinha RN [facility] Work Phone: Comment on above: 152/90 after catapress 01-20-2017 09:05-0400 Height 177.8 cm Migdalia Sinha RN [facility] Work Phone: Comment on above: 152/90 after catapress 01-20-2017 09:05-0400 Pulse (Heart Rate) 63 /min Migdalia Sinha RN [facility] Work Phone: Comment on above: Pattern: Regular 152/90 after catapre ss 01-20-2017 09:05-0400 Pulse Oximetry 98 % Delma Cubanikki [facility] Work Phone: Comment on above: Room air 152/90 after catapre ss 01-20-2017 09:05-0400 Respiratory Rate 16 /min Migdalia Sinha RN [facility] Work Phone: Comment on above: Pattern: Unlabored 152/90 after catapre ss 01-20-2017 09:05-0400 SaO2% (BldA) [Mass fraction] 98 % Migdalia Sinha RN [facility]; [facility] Work Phone: Comment on above: Room air 152/90 after catapre ss 01-20-2017 09:05-0400 Weight 83.92 kg Delma Story [facility] Work Phone: Comment on above: 152/90 after catapress 04-04-2014 11:06-0500 BP Diastolic 86 mm[Hg] Priti Ramirez LPN [facility] Work Phone: Comment on above: Patient Position: Sitting; Cuff Location : Left Arm; Cuff Size: Standard 04-04-2014 11:06-0500 BP Systolic 134 mm[Hg] Priti Slarb [employer] [facility] Work Phone: Comment on above: Patient Position: Sitting; Cuff Location : Left Arm; Cuff Size: Standard 04-04-2014 11:06-0500 Pulse (Heart Rate) 93 /min Priti Slarb [employer] [facility] Work Phone: Comment on above: Pattern: Regular 04-04-2014 11:06-0500 BP Diastolic 84 mm[Hg] Priti Slarb [employer] [facility] Work Phone: Comment on above: Patient Position: Sitting; Cuff Location : Right Arm; Cuff Size: Standard 04-04-2014 11:06-0500 BP Systolic 124 mm[Hg] Priti Slarb [employer] [facility] Work Phone: Comment on above: Patient Position: Sitting; Cuff Location : Right Arm; Cuff Size: Standard 04-04-2014 11:06-0500 Pulse (Heart Rate) 85 /min Priti Slarb [employer] [facility] Work Phone: Comment on above: Pattern: Regular 04-04-2014 11:05-0500 BP Diastolic 84 mm[Hg] Priti Slarb [employer] [facility] Work Phone: Comment on above: Patient Position: Supine; Cuff Location: Right Arm; Cuff Size: Standard 04-04-2014 11:05-0500 BP Systolic 124 mm[Hg] Priti Slarb [employer] [facility] Work Phone: Comment on above: Patient Position: Supine; Cuff Location: Right Arm; Cuff Size: Standard 04-04-2014 11:05-0500 Pulse (Heart Rate) 85 /min Priti Slarb [employer] [facility] Work Phone: Comment on above: Pattern: Regular 04-04-2014 10:140500 BMI (Body Mass Index) 26.83 kg/m2 Maryana Bui RN [facility] Work Phone: 04-04-2014 10:14050 Body Temperature 97.4 [degF] Maryana Bui RN [facility] Work Phone: Comment on above: Method: Temporal 04-04-2014 10:050 Body weight 84.82 kg Maryana Bui RN [facility] Work Phone: 04-04-2014 10:14-0500 BP Diastolic 74 mm[Hg] Maryana Bui RN [facility] Work Phone: Comment on above: Patient Position: Sitting; Cuff Location : Left Arm; Cuff Size: Standard 04-04-2014 10:14-0500 BP Systolic 134 mm[Hg] Maryana Bui RN [facility] Work Phone: Comment on above: Patient Position: Sitting; Cuff Location : Left Arm; Cuff Size: Standard 04-04-2014 10:14-0500 BSA (Body Surface Area) 2.03 m2 Maryana Bui RN [facility] Work Phone: 04-04-2014 10:14-0500 Height 177.8 cm Maryana Bui RN [facility] Work Phone: 04-04-2014 10:14-0500 Pulse (Heart Rate) 71 /min Maryana Bui RN [facility] Work Phone: Comment on above: Pattern: Regular 04-04-2014 10:14-0500 Pulse Oximetry 97 % Delma Porsha [facility] Work Phone: Comment on above: Room air 04-04-2014 10:14-0500 Respiratory Rate 15 /min Maryana Bui RN [facility] Work Phone: Comment on above: Pattern: Unlabored 04-04-2014 10:14-0500 SaO2% (BldA) [Mass fraction] 97 % Maryana Bui RN [facility]; [facility] Work Phone: Comment on above: Room air 04-04-2014 10:14-0500 Weight 84.82 kg Delma Pamelashahnaznikki [facility] Work Phone: 04-30-2013 09:00-0500 BMI (Body Mass Index) 25.97 kg/m2 Amee Schwartz LPN [facility] Work Phone: Comment on above: I just had coffee, and I started the n ew med on Mon04-30-2013 09:00-0500 Body Temperature 97.9 [degF] Amee Schwartz LPN [facility] Work Phone: Comment on above: Method: Oral I just had coffee, and I started the new med on Mon04-30-2013 09:00-0500 Body weight 82.1 kg Amee Tyler [facility] Internal Medicine Work Phone: Comment on above: I just had coffee, and I started the n ew med on Mon04-30-2013 09:00-0500 BP Diastolic 88 mm[Hg] Amee Tyler [facility] Internal Medicine Work Phone: Comment on above: Patient Position: Sitting; Cuff Location : Left Arm; Cuff Size: Standard I just had coffee, and I started the new med on Mon04-30-2013 09:00-0500 BP Systolic 138 mm[Hg] Amee [facility] Internal Medicine Work Phone: Comment on above: Patient Position: Sitting; Cuff Location : Left Arm; Cuff Size: Standard I just had coffee, and I started the new med on Mon04-30-2013 09:00-0500 BSA (Body Surface Area) 2 m2 Amee [facility] Internal Medicine Work Phone: Comment on above: I just had coffee, and I started the n ew med on Mon04-30-2013 09:00-0500 Height 177.8 cm Amee [facility] Internal Medicine Work Phone: Comment on above: I just had coffee, and I started the n ew med on Mon04-30-2013 09:00-0500 Pulse (Heart Rate) 100 /min Amee [facility] Internal Medicine Work Phone: Comment on above: Pattern: Regular I just had coffee, and I started the new med on Mon04-30-2013 09:00-0500 Pulse Oximetry 98 % Delma Story [facility] Internal Medicine Work Phone: Comment on above: Room air I just had coffee, and I started the new med on Mon04-30-2013 09:00-0500 Respiratory Rate 18 /min Amee [facility] Internal Medicine Work Phone: Comment on above: I just had coffee, and I started the n ew med on Mon04-30-2013 09:00-0500 SaO2% (BldA) [Mass fraction] 98 % Amee Efren HALEY [facility]; [facility] Work Phone: Comment on above: Room air I just had coffee, and I started the new med on Mon04-30-2013 09:00-0500 Weight 82.1 kg Delma Story [facility] Work Phone: Comment on above: I just had coffee, and I started the n ew med on Mon04-23-2013 11:21-0500 BMI (Body Mass Index) 25.97 kg/m2 Ameeariana Schwartz LPN [facility] Work Phone: 04-23-2013 11:21-0500 Body Temperature 98.6 [degF] Amee Efren HALEY [facility] Work Phone: Comment on above: Method: Oral 04-23-2013 11:21-0500 Body weight 82.1 kg Amee Efren HALEY [facility] Work Phone: 04-23-2013 11:21-0500 BP Diastolic 90 mm[Hg] Amee Efren HALEY [facility] Work Phone: Comment on above: Patient Position: Sitting; Cuff Location : Left Arm; Cuff Size: Standard 04-23-2013 11:21-0500 BP Systolic 148 mm[Hg] Amee Efren HALEY [facility] Work Phone: Comment on above: Patient Position: Sitting; Cuff Location : Left Arm; Cuff Size: Standard 04-23-2013 11:21-0500 BSA (Body Surface Area) 2 m2 Ameeariana Schwartz LPN [facility] Work Phone: 04-23-2013 11:21-0500 Height 177.8 cm Ameeariana Schwartz LPN [facility] Work Phone: 04-23-2013 11:21-0500 Pulse (Heart Rate) 98 /min Amee Efren HALEY [facility] Work Phone: Comment on above: Pattern: Regular 04-23-2013 11:21-0500 Pulse Oximetry 97 % Delma Story [facility] Internal Medicine Work Phone: Comment on above: Room air 04-23-2013 11:21-0500 SaO2% (BldA) [Mass fraction] 97 % Amee Schwartz SUDHA [facility]; [facility] Work Phone: Comment on above: Room air 04-23-2013 11:21-0500 Weight 82.1 kg Delma Story [facility] Internal Medicine Work Phone: 02-07-2013 08:08-0400 BMI (Body Mass Index) 25.97 kg/m2 RASHID Simmons [employer] [facility] Internal Medicine Work Phone: 02-07-2013 08:08-0400 Body Temperature 97.8 [degF] RASHID Simmons [facility] Internal Medicine Work Phone: Comment on above: Method: Oral 02-07-2013 08:08-0400 Body weight 82.1 kg RASHID Simmons [employer] [facility] Internal Medicine Work Phone: 02-07-2013 08:08-0400 BP Diastolic 78 mm[Hg] RASHIDMARTIN Simmons [facility] Internal Medicine Work Phone: Comment on above: Patient Position: Sitting; Cuff Location : Left Arm; Cuff Size: Standard 02-07-2013 08:08-0400 BP Systolic 124 mm[Hg] RASHID Simmons [employer] [facility] Internal Medicine Work Phone: Comment on above: Patient Position: Sitting; Cuff Location : Left Arm; Cuff Size: Standard 02-07-2013 08:08-0400 BSA (Body Surface Area) 2 m2 RASHID Troy HALEY [facility] Internal Medicine Work Phone: 02-07-2013 08:08-0400 Height 177.8 cm RASHID Troy [employer] [facility] Internal Medicine Work Phone: 02-07-2013 08:08-0400 Pulse (Heart Rate) 70 /min RASHIDMARTIN Simmons [facility] Internal Medicine Work Phone: Comment on above: Pattern: Regular 02-07-2013 08:08-0400 Respiratory Rate 20 /min RASHID Troy HALEY [facility] Work Phone: Comment on above: Pattern: Unlabored 02-07-2013 08:08-0400 Weight 82.1 kg Delma Story [facility] Work Phone: 12-31-2012 09:48-0400 BMI (Body Mass Index) 25.99 kg/m2 Migdalia Sinha RN [facility] Work Phone: 12-31-2012 09:48-0400 Body Temperature 98.1 [degF] Migdalia Sinha RN [facility] Work Phone: Comment on above: Method: Oral 12-31-2012 09:48-0400 Body weight 82.16 kg Migdalia Sinha RN [facility] Work Phone: 12-31-2012 09:48-0400 BP Diastolic 82 mm[Hg] Migdalia Sinha RN [facility] Work Phone: Comment on above: Patient Position: Sitting; Cuff Location : Left Arm; Cuff Size: Large 12-31-2012 09:48-0400 BP Systolic 142 mm[Hg] Migdalia Sinha RN [facility] Work Phone: Comment on above: Patient Position: Sitting; Cuff Location : Left Arm; Cuff Size: Large 12-31-2012 09:48-0400 BSA (Body Surface Area) 2 m2 Migdalia Sinha RN [facility] Work Phone: 12-31-2012 09:48-0400 Height 177.8 cm Migdalia Sinha RN [facility] Work Phone: 12-31-2012 09:48-0400 Pulse (Heart Rate) 72 /min Migdalia Sinha RN [facility] Work Phone: Comment on above: Pattern: Regular 12-31-2012 09:48-0400 Respiratory Rate 20 /min Migdalia Sinha RN [facility] Work Phone: Comment on above: Pattern: Unlabored 12-31-2012 09:48-0400 Weight 82.16 kg Delma Story [facility] Work Phone: 06-13-2012 08:33-0500 BMI (Body Mass Index) 26.4 kg/m2 Amee Schwartz LPN [facility] Work Phone: 06-13-2012 08:33-0500 Body Temperature 98.6 [degF] Amee Schwartz LPN [facility] Work Phone: Comment on above: Method: Oral 06-13-2012 08:33-0500 Body weight 83.46 kg Amee Schwartz LPN [facility] Work Phone: 06-13-2012 08:33-0500 BP Diastolic 104 mm[Hg] Amee Schwartz LPN [facility] Work Phone: Comment on above: Patient Position: Sitting; Cuff Location : Left Arm; Cuff Size: Standard 06-13-2012 08:33-0500 BP Systolic 144 mm[Hg] Amee Schwartz LPN [facility] Work Phone: Comment on above: Patient Position: Sitting; Cuff Location : Left Arm; Cuff Size: Standard 06-13-2012 08:33-0500 BSA (Body Surface Area) 2.01 m2 Amee Schwartz LPN [facility] Work Phone: 06-13-2012 08:33-0500 Height 177.8 cm Amee Schwartz LPN [facility] Work Phone: 06-13-2012 08:33-0500 Pulse (Heart Rate) 95 /min Amee Schwartz LPN [facility] Work Phone: Comment on above: Pattern: Regular 06-13-2012 08:33-0500 Pulse Oximetry 98 % Delma Story [facility] Internal Medicine Work Phone: Comment on above: Room air 06-13-2012 08:33-0500 Respiratory Rate 18 /min Amee Schwartz LPN [facility] Work Phone: 06-13-2012 08:33-0500 SaO2% (BldA) [Mass fraction] 98 % Amee Schwartz LPN [facility]; [facility] Work Phone: Comment on above: Room air 06-13-2012 08:33-0500 Weight 83.46 kg Delma Story [facility] Internal Medicine Work Phone: 06-04-2012 14:24-0500 BMI (Body Mass Index) 26.4 kg/m2 RASHID Simmons LPN [facility] Internal Medicine Work Phone: 06-04-2012 14:24-0500 Body Temperature 97.9 [degF] RASHID Simmons LPN [facility] Internal Medicine Work Phone: Comment on above: Method: Oral 06-04-2012 14:24-0500 Body weight 83.46 kg RASHID Simmons LPN [facility] Internal Medicine Work Phone: 06-04-2012 14:24-0500 BP Diastolic 100 mm[Hg] RASHID Simmons LPN [facility] Internal Medicine Work Phone: Comment on above: Patient Position: Sitting; Cuff Location : Left Arm; Cuff Size: Standard 06-04-2012 14:24-0500 BP Systolic 148 mm[Hg] RASHID Simmons LPN [facility] Internal Medicine Work Phone: Comment on above: Patient Position: Sitting; Cuff Location : Left Arm; Cuff Size: Standard 06-04-2012 14:24-0500 BSA (Body Surface Area) 2.01 m2 RASHID Simmons LPN [facility] Internal Medicine Work Phone: 06-04-2012 14:24-0500 Height 177.8 cm RASHID Simmons LPN [facility] Internal Medicine Work Phone: 06-04-2012 14:24-0500 Pulse (Heart Rate) 74 /min RASHID Simmons LPN [facility] Internal Medicine Work Phone: Comment on above: Pattern: Regular 06-04-2012 14:24-0500 Respiratory Rate 20 /min RASHID Simmons LPN [facility] Internal Medicine Work Phone: Comment on above: Pattern: Unlabored 06-04-2012 14:24-0500 Weight 83.46 kg Delma Story [facility] Internal Medicine Work Phone: 11-22-2011 07:53-0400 BMI (Body Mass Index) 25.25 kg/m2 RASHID Simmons LPN [facility] Internal Medicine Work Phone: 11-22-2011 07:53-0400 Body Temperature 97.9 [degF] RASHID Simmons LPN [facility] Internal Medicine Work Phone: Comment on above: Method: Oral 11-22-2011 07:53-0400 Body weight 79.83 kg RASHID Simmons LPN [facility] Internal Medicine Work Phone: 11-22-2011 07:53-0400 BP Diastolic 76 mm[Hg] RASHID Simmons LPN [facility] Internal Medicine Work Phone: Comment on above: Patient Position: Sitting; Cuff Location : Left Arm; Cuff Size: Standard 11-22-2011 07:53-0400 BP Systolic 116 mm[Hg] RASHID Simmons LPN [facility] Internal Medicine Work Phone: Comment on above: Patient Position: Sitting; Cuff Location : Left Arm; Cuff Size: Standard 11-22-2011 07:53-0400 BSA (Body Surface Area) 1.98 m2 RASHID Simmons LPN [facility] Internal Medicine Work Phone: 11-22-2011 07:53-0400 Height 177.8 cm RASHID Simmons LPN [facility] Internal Medicine Work Phone: 11-22-2011 07:53-0400 Pulse (Heart Rate) 68 /min RASHID Simmons LPN [facility] Internal Medicine Work Phone: Comment on above: Pattern: Regular 11-22-2011 07:53-0400 Respiratory Rate 18 /min RASHID Simmons LPN [facility] Internal Medicine Work Phone: Comment on above: Pattern: Unlabored 11-22-2011 07:53-0400 Weight 79.83 kg Delma Story [facility] Internal Medicine Work Phone: 05-31-2011 08:27-0500 BMI (Body Mass Index) 26.83 kg/m2 RASHID Simmons LPN [facility] Internal Medicine Work Phone: 05-31-2011 08:27-0500 Body Temperature 97.9 [degF] RASHID Simmons LPN [facility] Internal Medicine Work Phone: Comment on above: Method: Oral 05-31-2011 08:27-0500 Body weight 84.82 kg RASHID Simmons LPN [facility] Medicine Work Phone: 05-31-2011 08:27-0500 BP Diastolic 76 mm[Hg] RASHID Simmons LPN [facility] Internal Medicine Work Phone: Comment on above: Patient Position: Sitting; Cuff Location : Left Arm; Cuff Size: Standard 05-31-2011 08:27-0500 BP Systolic 118 mm[Hg] RASHID Simmons LPN [facility] Internal Medicine Work Phone: Comment on above: Patient Position: Sitting; Cuff Location : Left Arm; Cuff Size: Standard 05-31-2011 08:27-0500 BSA (Body Surface Area) 2.03 m2 RASHID Simmons LPN [facility] Internal Medicine Work Phone: 05-31-2011 08:27-0500 Height 177.8 cm RASHID Simomns LPN [facility] Internal Medicine Work Phone: 05-31-2011 08:27-0500 Pulse (Heart Rate) 70 /min RASHID Simmons LPN [facility] Medicine Work Phone: Comment on above: Pattern: Regular 05-31-2011 08:27-0500 Respiratory Rate 18 /min RASHID Simmons LPN [facility] Internal Medicine Work Phone: Comment on above: Pattern: Unlabored 05-31-2011 08:27-0500 Weight 84.82 kg Delma Story [facility] Internal Medicine Work Phone: 05-17-2011 07:59-0500 BMI (Body Mass Index) 26.83 kg/m2 RASHID Simmons LPN [facility] Internal Medicine Work Phone: 05-17-2011 07:59-0500 Body Temperature 97.6 [degF] RASHID Simmons LPN [facility] Internal Medicine Work Phone: Comment on above: Method: Oral 05-17-2011 07:59-0500 Body weight 84.82 kg RASHID Simmons LPN [facility] Work Phone: 05-17-2011 07:59-0500 BP Diastolic 78 mm[Hg] RASHID Simmons LPN [facility] Work Phone: Comment on above: Patient Position: Sitting; Cuff Location : Left Arm; Cuff Size: Standard 05-17-2011 07:59-0500 BP Systolic 124 mm[Hg] RASHID Simmons LPN [facility] Work Phone: Comment on above: Patient Position: Sitting; Cuff Location : Left Arm; Cuff Size: Standard 05-17-2011 07:59-0500 BSA (Body Surface Area) 2.03 m2 RASHID Simmons LPN [facility] Work Phone: 05-17-2011 07:59-0500 Height 177.8 cm RASHID Simmons LPN [facility] Work Phone: 05-17-2011 07:59-0500 Pulse (Heart Rate) 70 /min RASHID Simmons LPN [facility] Work Phone: Comment on above: Pattern: Regular 05-17-2011 07:59-0500 Respiratory Rate 18 /min RASHID Simmons LPN [facility] Work Phone: Comment on above: Pattern: Unlabored 05-17-2011 07:59-0500 Weight 84.82 kg Delma Story [facility] Work Phone: 08-24-2010 13:48-0400 BMI (Body Mass Index) 26.76 kg/m2 Amee Schwartz [facility] Internal Medicine Work Phone: 08-24-2010 13:48-0400 Body Temperature 98 [degF] Amee Schwartz LPN [facility] Work Phone: Comment on above: Method: Oral 08-24-2010 13:48-0400 Body weight 84.6 kg Amee Schwartz LPN [facility] Work Phone: 08-24-2010 13:48-0400 BP Diastolic 82 mm[Hg] Amee Schwartz [facility] Internal Medicine Work Phone: Comment on above: Patient Position: Sitting; Cuff Location : Left Arm; Cuff Size: Standard 08-24-2010 13:48-0400 BP Systolic 134 mm[Hg] [facility] Work Phone: Comment on above: Patient Position: Sitting; Cuff Location : Left Arm; Cuff Size: Standard 08-24-2010 13:48-0400 BSA (Body Surface Area) 2.03 m2 Amee Schwartz LPN [facility] Work Phone: 08-24-2010 13:48-0400 Height 177.8 cm Amee Schwartz LPN [facility] Work Phone: 08-24-2010 13:48-0400 Pulse (Heart Rate) 110 /min Amee Schwartz LPN [facility] Work Phone: Comment on above: Pattern: Regular 08-24-2010 13:48-0400 Pulse Oximetry 96 % Delma Story [facility] Work Phone: Comment on above: Room air 08-24-2010 13:48-0400 Respiratory Rate 18 /min Amee Schwartz LPN [facility] Work Phone: Comment on above: Pattern: Unlabored 08-24-2010 13:48-0400 SaO2% (BldA) [Mass fraction] 96 % Amee Schwartz LPN [facility]; [facility] Work Phone: Comment on above: Room air 08-24-2010 13:48-0400 Weight 84.6 kg Delma Story [facility] Work Phone: 07-15-2010 08:53-0500 Body Temperature 98.3 [degF] Francy Kline LPN [facility] Work Phone: Comment on above: Method: Oral 07-15-2010 08:53-0500 Body weight 82.33 kg Francy Kline [employer] [facility] Work Phone: 07-15-2010 08:53-0500 BP Diastolic 78 mm[Hg] Francy Kline [employer] [facility] Work Phone: Comment on above: Patient Position: Sitting; Cuff Location : Left Arm; Cuff Size: Standard 07-15-2010 08:53-0500 BP Systolic 120 mm[Hg] Francy Kline [employer] [facility] Work Phone: Comment on above: Patient Position: Sitting; Cuff Location : Left Arm; Cuff Size: Standard 07-15-2010 08:53-0500 Pulse (Heart Rate) 62 /min Francy Kline [employer] [facility] Work Phone: Comment on above: Pattern: Regular 07-15-2010 08:53-0500 Respiratory Rate 16 /min Francy Klien [employer] [facility] Work Phone: Comment on above: Pattern: Unlabored 07-15-2010 08:53-0500 Weight 82.33 kg Delma Story [facility] Work Phone: 06-08-2009 08:05-0500 Body Temperature 98.6 [degF] Amee Schwartz SUDHA [facility] Work Phone: Comment on above: Method: Oral 06-08-2009 08:05-0500 Body weight 82.33 kg Amee Schwartz SUDHA [facility] Work Phone: 06-08-2009 08:05-0500 BP Diastolic 84 mm[Hg] Amee Schwartz SUDHA [facility] Work Phone: Comment on above: Patient Position: Sitting; Cuff Location : Left Arm; Cuff Size: Standard 06-08-2009 08:05-0500 BP Systolic 132 mm[Hg] Amee Schwartz SUDHA [facility] Work Phone: Comment on above: Patient Position: Sitting; Cuff Location : Left Arm; Cuff Size: Standard 06-08-2009 08:05-0500 Pulse (Heart Rate) 106 /min Amee Schwartz SUDHA [facility] Work Phone: Comment on above: Pattern: Regular 06-08-2009 08:05-0500 Pulse Oximetry 96 % Delma Story [facility] Work Phone: Comment on above: Room air 06-08-2009 08:05-0500 Respiratory Rate 17 /min Amee Schwartz SUDHA [facility] Work Phone: Comment on above: Pattern: Unlabored 06-08-2009 08:05-0500 SaO2% (BldA) [Mass fraction] 96 % Amee Efren HALEY [facility]; [facility] Work Phone: Comment on above: Room air 06-08-2009 08:05-0500 Weight 82.33 kg Delma Story [facility] Work Phone: 07-25-2008 07:25-0500 Body Temperature 98.5 [degF] RASHID Simmons LPN [facility] Work Phone: Comment on above: Method: Oral 07-25-2008 07:25-0500 Body weight 0 kg RASHID Simmons LPN [facility] Work Phone: 07-25-2008 07:25-0500 BP Diastolic 84 mm[Hg] RASHID Simmons LPN [facility] Work Phone: Comment on above: Patient Position: Sitting; Cuff Location : Left Arm; Cuff Size: Standard 07-25-2008 07:25-0500 BP Systolic 126 mm[Hg] RASHID Simmons [employer] [facility] Work Phone: Comment on above: Patient Position: Sitting; Cuff Location : Left Arm; Cuff Size: Standard 07-25-2008 07:25-0500 Head Circumference 0 cm Delma Story [facility] Work Phone: 07-25-2008 07:25-0500 Head Occipital-frontal circumference 0 cm RASHID Simmons LPN [facility]; [facility] Work Phone: 07-25-2008 07:25-0500 Height 0 cm RASHID Simmons [employer] [facility] Work Phone: 07-25-2008 07:25-0500 Pulse (Heart Rate) 70 /min RASHID Simmons LPN [facility] Work Phone: Comment on above: Pattern: Regular 07-25-2008 07:25-0500 Respiratory Rate 16 /min RASHID Simmons LPN [facility] Work Phone: Comment on above: Pattern: Unlabored 07-25-2008 07:25-0500 Weight 0 kg Delma Story [facility] Work Phone: 07-09-2007 08:12-0500 Body Temperature 97.9 [degF] Amee Schwartz LPN [facility] Work Phone: Comment on above: Method: Oral 07-09-2007 08:12-0500 Body weight 82.33 kg Amee Schwartz LPN [facility] Work Phone: 07-09-2007 08:12-0500 BP Diastolic 78 mm[Hg] Amee Schwartz LPN [facility] Work Phone: Comment on above: Patient Position: Sitting; Cuff Location : Left Arm; Cuff Size: Standard 07-09-2007 08:12-0500 BP Systolic 124 mm[Hg] Amee Schwartz LPN [facility] Work Phone: Comment on above: Patient Position: Sitting; Cuff Location : Left Arm; Cuff Size: Standard 07-09-2007 08:12-0500 Head Circumference 0 cm Delma Story [facility] Work Phone: 07-09-2007 08:12-0500 Head Occipital-frontal circumference 0 cm Amee Schwartz LPN [facility]; [facility] Work Phone: 07-09-2007 08:12-0500 Height 0 cm Amee Schwartz LPN [facility] Work Phone: 07-09-2007 08:12-0500 Pulse (Heart Rate) 70 /min Amee Schwartz LPN [facility] Work Phone: Comment on above: Pattern: Regular 07-09-2007 08:12-0500 Respiratory Rate 16 /min Amee Schwartz LPN [facility] Work Phone: Comment on above: Pattern: Unlabored 07-09-2007 08:12-0500 Weight 82.33 kg Delma Story [facility] Work Phone: Encounters Encounter Date Encounter Type Care Provider Facility Start: 10-16-2024 End: 10-16-[address] Coleman Khan MD -[facility] Work Phone: Start: 10-16-2024 End: 10-16-2024 ambulatory No Primary Care Physician [facility] Work Phone: Start: 08-27-2024 End: 08-27-2024 ambulatory No Primary Care Physician [facility] Work Phone: Start: 08-27-2024 End: 08-27-2024 Patient encounter procedure KENY DOMINGUEZ MEDICAID SERVICE COORDINATOR-C -Laboratory Work Phone: Start: 08-27-2024 End: 08-27-2024 [facility] Start: 08-22-2024 End: 08-22-2024 ambulatory No Primary Care Physician [facility] Work Phone: Start: 08-22-2024 End: 08-22-2024 Patient encounter procedure KENY DOMINGUEZ MEDICAID SERVICE COORDINATOR-C -MRI - [facility] Work Phone: Start: 08-22-2024 End: 08-22-2024 [facility] Start: 02-28-2024 End: 02-28-2024 [facility] Start: 11-15-2023 End: 11-15-2023 [facility] Start: 09-11-2023 End: 09-11-2023 ambulatory [facility] Work Phone: Start: 09-11-2023 End: 09-11-2023 Patient encounter procedure [facility] Lab Work Phone: Start: 08-31-2023 End: 08-31-2023 ambulatory [facility] Work Phone: Start: 08-31-2023 End: 08-31-2023 Patient encounter procedure [facility]Sleep [facility] Work Phone: Start: 10-19-2022 End: 10-19-2022 ambulatory [facility] Work Phone: Start: 10-19-2022 End: 10-19-2022 Patient encounter procedure [facility]-MRI - [facility] Start: 08-19-2022 Transcribe Orders Caroline Haddad Work Phone: [facility] Central Scheduling Comment on above: Sleep apnea, unspeci fied (Primary Dx) Start: 05-19-2020 End: 05-19-2020 Lab Order Delma Cubanikki [facility] Start: 11-20-2019 End: 11-20-2019 Annotation/Addendum Delma Cubanikki [facility] Start: 11-20-2019 End: 11-20-2019 Annotation/Addendum Delma Cubanikki [facility] Start: 08-09-2019 End: 08-09-2019 Office outpatient visit 25 minutes Delma Story [facility] Start: 08-05-2019 End: 08-05-2019 Annotation/Addendum Delma Story [facility] Start: 07-16-2019 End: 07-16-2019 Office outpatient visit 15 minutes Delma Dunbar [facility] Start: 06-28-2019 End: 06-28-2019 Office outpatient visit 15 minutes Delma Story [facility] Start: 06-19-2019 End: 06-19-2019 Office outpatient visit 15 minutes Delma Story [facility] Start: 06-12-2019 End: 06-12-2019 Office outpatient visit 25 minutes Delma Story [facility] Start: 06-03-2019 End: 06-03-2019 Lab Order Delma Cubanikki [facility] Start: 06-03-2019 End: 06-03-2019 Office outpatient visit 15 minutes Delma Story [facility] Start: 05-30-2019 End: 05-30-2019 Office outpatient visit 15 minutes Delma Pamelasandee [facility] Start: 01-14-2019 End: 01-14-2019 Lab Order Delma Cubanikki [facility] Start: 06-09-2017 End: 06-09-2017 Office outpatient visit 25 minutes Delma Dunbar [facility] Start: 01-20-2017 End: 01-20-2017 Annotation/Addendum Delma Story [facility] Start: 01-20-2017 End: 01-20-2017 Office outpatient visit 15 minutes Delma Dunbar [facility] Start: 07-25-2014 End: 07-25-2014 Historical Summary Delma Cubanikki [facility] Start: 04-08-2014 End: 04-08-2014 Phone Encounter Delma Santiagoshahnaznikki [facility] Start: 04-04-2014 End: 04-04-2014 Phone Encounter Delma Cubanikki [facility] Start: 04-04-2014 End: 04-04-2014 Office outpatient visit 15 minutes Delma Story [facility] Start: 04-30-2013 End: 04-30-2013 Office outpatient visit 15 minutes Delma Story [facility] Start: 04-23-2013 End: 04-23-2013 Office outpatient visit 25 minutes Delma Story [facility] Start: 02-07-2013 End: 02-07-2013 Patient encounter procedure Delma Cubanikki [facility] Start: 12-31-2012 End: 12-31-2012 Patient encounter procedure Delma Cubanikki [facility] Start: 06-13-2012 End: 06-13-2012 Office outpatient visit 15 minutes Delma Cubanikki [facility] Start: 06-04-2012 End: 06-04-2012 Patient encounter procedure Delma Cubanikki [facility] Start: 11-22-2011 End: 11-22-2011 Patient encounter procedure Delma Cubanikki [facility] Start: 05-31-2011 End: 05-31-2011 Patient encounter procedure Delma Cubanikki [facility] Start: 05-17-2011 End: 05-17-2011 Patient encounter procedure Delma Cubanikki [facility] Start: 08-24-2010 End: 08-24-2010 Office outpatient visit 25 minutes Delma Cubanikki [facility] Start: 07-15-2010 End: 07-15-2010 Patient encounter procedure Delma Cubanikki [facility] Start: 06-08-2009 End: 06-08-2009 Office outpatient visit 15 minutes Delma Cubanikki [facility] Start: 07-25-2008 End: 07-25-2008 Patient encounter procedure Delma Cubanikki [facility] Start: 07-09-2007 End: 07-09-2007 Erroneous Entry Delma Cubanikki [facility] Start: 07-09-2007 End: 07-09-2007 Patient encounter procedure Delma Cubanikki [facility] End: 07-25-2014 Physical examination [facility]; [facility] Work Phone: Procedures Date Procedure Procedure Detail Performing Clinician Start: 08-22-2024 MRI of brain with contrast No Primary Care Physician Start: 08-22-2024 MRI of cervical spine with contrast No Primary Care Physician Start: 10-19-2022 MRI of brain with contrast Start: 10-19-2022 MRI of cervical spine with contrast Start: 05-19-2021 End: 05-19-2021 Emergency Department Summary Comments: See Note; NOTES: [facility] Medical Records Department [address] [place] [address] Emergency Department Summary 05/19/21 MR#: [id number] Acct: [id number] Name: CLARK QUICK Rep #: [id number] : 1970 51 From: Edilson Bailey DO PCP: EYAD McdanielC Status:DEP ER Location: ED HPI History of Present Illness Chief Complaint: Flank Pain Informant: patient Onset/Context/Timing Onset: Today Context: Sudden Onset Timing: Continuous Quality: Sharp Location: Right flank Worsened by: Nothing Relieved by: Nothing Narrative Narrative: Patient presents with right flank pain that became worse today. Patient states he has been having some dull pain over the last couple days but today it became severe. Patient states pain is sharp. Patient states pain is localized to the right flank area. Patient states nothing makes it better nothing makes it worse. Patient states this feels similar to prior kidney stones. Patient denies any nausea or vomiting. Patient denies any dysuria or hematuria. Patient denies any fevers or chills. [facility] Medical History (Updated 05/19/21 @ 18:[address] Edilson Bailey DO) Essential (primary) hypertension Multiple sclerosis Obstructive sleep apnea Polycythemia Right kidney stone Sciatic nerve pain Home Medications multivitamin 1 tab PO DAILY 02/24/20 [History Last Taken Unknown] amlodipine 10 mg tablet 10 mg PO DAILY #90 tab 07/13/20 [Rx Last Taken Unknown] hydrochlorothiazide 25 mg tablet 25 mg PO DAILY #90 tab 07/13/20 [Rx Last Taken Unknown] losartan 100 mg tablet 100 mg PO DAILY #90 tab 07/13/20 [Rx Last Taken Unknown] gabapentin 05/19/21 [History Last Taken Unknown] hydrocodone-acetaminophen 1 tab PO Q6H PRN PRN 3 Days #10 tablet 05/19/21 [Rx Last Taken Unknown] Allergy/AdvReac Type Severity Reaction Status Date / Time Penicillins [PCN] Allergy Rash Verified 05/19/21 16:41 Family History Father Myocardial infarction, Onset Age: 60 Heart disease CAD (coronary artery disease) coronary stents Mother Breast cancer Hyperlipidemia Surgical History History of left inguinal hernia repair (2015) History of lithotripsy (2018) Social History Smoking Status: Current some day smoker tobacco type: cigarettes alcohol intake: current alcohol intake frequency: holidays/special occasions only caffeine: Yes ROS ROS ED Constitutional Constitutional ED: Denies chills or fever(s) Eyes Eyes: Denies blurry vision or change in vision ENT ENT ED: Denies rhinorrhea or sore throat Cardiovascular Cardiovascular: Denies chest pain or palpitations Respiratory/Chest Respiratory/Chest: Denies cough or dyspnea Gastrointestinal Gastrointestinal: Denies nausea or vomiting Genitourinary Genitourinary ED: Denies dysuria or hematuria Musculoskeletal Musculoskeletal: Denies back pain or neck pain Integumentary Denies abscess or rash Neurologic Neurologic: Denies headache(s) or weakness Allergic/Immunologic Allergic/Immunologic ED: Denies mouth swelling or urticaria EXAM Physical Exam Const Vital Signs: 05/19/21 16:41 Temperature 97.3 F L Temperature Source Temporal Pulse Rate 106 H Respiratory Rate 15 Blood Pressure 141/90 H Blood Pressure Mean 107 Pulse Ox 99 Oxygen Delivery Method Room Air Positive well nourished and well developed General Appearance ED: well developed HEENT Reports moist mucous membranes Neck supple and no JVD Resp normal respiratory effort and clear to auscultation bilaterally Cardio regular rate, regular rhythm and no murmurs GI normal to inspection, nondistended, normoactive bowel sounds Palpation: soft and tender RLQ and RUQ; Negative for guarding or rebound tenderness present Back/Spine General Back: CVA tenderness right Extremity normal to inspection General Extremety ED: Negative for edema or tenderness General Extremity: Negative for edema Neuro oriented x3, CN's II-XII intact bilaterally and no sensory deficits noted Sensorium / Orientation: alert Motor Exam: strength 5/5 throughout Psych mental status grossly normal Skin no rashes or lesions noted MDM MDM MDM Narrative Medical decision making narrative: Patient was given IV fluids, Zofran, morphine, and Toradol. CBC was within normal limits. Basic metabolic profile was essentially within normal limits. Urinalysis does not show any evidence of hematuria or urinary tract infection. CT scan of the abdomen pelvis was obtained. There is a 6 mm stone in the bladder at the level of the right ureteral orifice. This was interpreted by the radiologist and reviewed by myself. On reevaluation, patient stated that his pain got much better just prior to receiving the morphine. Currently, patient denies any pain. Patient was advised of his findings. Patient was given a prescription for a short course of [place]. Patient was instructed to use his urine strainers to try and catch the stone. Patient was instructed to follow-up with his primary care physician in 5 to 7 days. Patient understood and was agreeable with the plan. All questions were answered. Lab Data Attestation: I reviewed the patient's lab results. Labs: Laboratory Results - last 24 hr 05/19/21 05/19/21 05/19/21 16:50 17:10 17:10 WBC 6.9 RBC 4.95 Hgb 15.3 Hct 43.2 MCV 87.3 MCH 30.9 MCHC 35.4 RDW Std Deviation 40.0 RDW Coeff of Ericka 12.6 Plt Count 259 MPV 9.7 Immature Gran % (Auto) 0.300 Neut % (Auto) 68.2 Lymph % (Auto) 19.3 Phillips % (Auto) 11.2 H Eos % (Auto) 0.6 Baso % (Auto) 0.4 Absolute Neuts (auto) 4.7 Absolute Lymphs (auto) 1.34 Nucleated RBC % 0 Sodium 136 Potassium 3.4 L Chloride 101 Carbon Dioxide 28.0 Anion Gap 7 BUN 21 H Creatinine 1.22 Estim Creat Clear Calc 72.30 Est GFR (MDRD) Af Amer 80 Est GFR (MDRD) Non-Af 66 BUN/Creatinine Ratio 17.2 Glucose 146 H Calcium 8.6 Urine Color Yellow Urine Clarity Clear Urine pH 6.0 Ur Specific [place] 1.020 Urine Protein Negative Urine Glucose (UA) Normal Urine Ketones Negative Urine Occult Blood 10 H Urine Nitrite Negative Urine Bilirubin Negative Urine Urobilinogen Normal Ur Leukocyte Esterase Negative Urine RBC 0 SEEN Urine WBC 0 SEEN Ur Squamous Epith Cells 0 SEEN Urine Bacteria 0 SEEN Urine Mucus 0 SEEN Radiography Diagnostic Testing: Clinical Impression(s) from Imaging Studies Abdomen/Pelvis CT 05/19/21 16:56 IMPRESSION: 6 mm calcification within the bladder at the level of the right ureteral orifice. No hydronephrosis is identified. Individualized dose optimization techniques were used for this CT. at 1744 Reported and signed by: Michael Mathias MD Electronically Signed: Michael Mathias MD at 17:43 EST Tel , Service support , Discharge Plan Triage Chief Complaint: Flank Pain ED Provider: Edilson Bailey Dx/Rx/DC Orders Clinical Impression: Calculus of distal right ureter Instructions: ED Kidney Stone, Passed Prescriptions: New hydrocodone-acetaminophen [hydrocodone-acetaminophen] 1 TABLET tablet 1 tab PO Q6H PRN PRN (Reason: Pain) 3 Days Qty: 10 RF: 0 No Action multivitamin Tablet 1 tab PO DAILY RF: 0 gabapentin 300 mg capsule RF: 0 amlodipine 10 mg tablet 10 mg PO DAILY Qty: 90 RF: 3 hydrochlorothiazide 25 mg tablet 25 mg PO DAILY Qty: 90 RF: 3 losartan 100 mg tablet 100 mg PO DAILY Qty: 90 RF: 3 Primary Care Provider: Delma Story NP Referrals: Ishan Arthur MD [STAFF PHYSICIAN] - 5-7 Days Delma Story NP, MEDICAID SERVICE COORDINATOR-C [Primary Care Provider] - 5-7 Days Disposition Disposition: Home, Self Care What to do if you have Problems For any increased pain, shortness of breath, bleeding, nausea or vomiting, chest pain, or any unexpected problems, contact your Primary Care Provider. Call [facility] ([phone]) or report to the closest Emergency Room. Call 911 if necessary. 05/19/21 2350 <Electronically signed by Edilson Bailey DO> Cosigner Signature (if applicable): CC: MEDICAID SERVICE COORDINATOR-C Delma Story Signed Delma Story [employer] Work Phone: Start: 05-19-2021 End: 05-19-2021 Abdomen/Pelvis without Cont Comments: See Note; NOTES: [facility] Imaging Services [address] [place] [address] Abdomen/Pelvis without Cont MR#: [id number] Acct: [id number] Name: CLARK QUICK Rep #: [id number] : 1970 M 51 From: Michael Mathias MD PCP: Delma Story NP-C Status: REG ER Study: Abdomen/Pelvis without Cont Date of Exam: 04/29 07/19 Exam# [id number] Ordering Dr: Edilson Bailey DO EXAM: CT ABDOMEN AND PELVIS WITHOUT INTRAVENOUS CONTRAST : 1970 CLINICAL INDICATION: Kidney Stone TECHNIQUE: Helically acquired images were obtained of the abdomen and pelvis without intravenous contrast. This CT exam was performed using one or more of the following dose reduction techniques: automated exposure control, adjustment of the mA and/or kV according to patient size, and/or use of iterative reconstruction technique. This report was created using [employer] report [employer] technology. COMPARISON: 01/12/2019 FINDINGS: LOWER THORAX: Unremarkable. Lung bases are clear. No cardiomegaly. No significant pericardial effusion. ABDOMEN: LIVER: Unremarkable. Homogeneous. GALLBLADDER AND BILE DUCTS: Unremarkable. No calcified gallstones. No gallbladder distention or wall edema. No intra- or extrahepatic biliary ductal dilation. PANCREAS: Unremarkable. No focal cystic mass. SPLEEN: Unremarkable. Normal size without focal cystic or solid mass. ADRENALS: Unremarkable. No nodules. KIDNEYS AND URETERS: There is a 6 mm stone within the bladder at the level of the right ureteral orifice. There is no evidence of hydronephrosis. Normal renal size and position. STOMACH AND BOWEL: Unremarkable. No stomach or bowel distention. No focal inflammatory change. PELVIS: APPENDIX: No evidence of acute appendicitis. BLADDER: Unremarkable. REPRODUCTIVE: Unremarkable as visualized. No mass. ABDOMEN and PELVIS: INTRAPERITONEAL SPACE: Unremarkable. No ascites or other fluid collection. No free air. BONES/JOINTS: Unremarkable. No suspicious lytic or blastic abnormality. SOFT TISSUES: Unremarkable. No discrete abdominal or pelvic wall hernia. VASCULATURE: Unremarkable. Abdominal aorta is non-dilated. LYMPH NODES: Unremarkable. No enlarged lymph nodes. CT/Abdomen/Pelvis without Cont IMPRESSION: 6 mm calcification within the bladder at the level of the right ureteral orifice. No hydronephrosis is identified. Individualized dose optimization techniques were used for this CT. at 1744 Reported and signed by: Michael Mathias MD Electronically Signed: Michael Mathias MD at 17:43 EST Tel , Service support , CC: HALLE Story; Dr. Edilson Bailey DO Assistant Floor Covering Printer: Signed Delma Story [employer] SUR[employer] Work Phone: Start: 02-26-2020 End: 02-26-2020 Cardiology Visit Report Comments: See Note; NOTES: [facility] [address] [place] [address] OFFICE VISIT Date of Service: 02/26/20 MR#: [id number] Acct: [id number] Name: CLARK QUICK Rep #: [id number] : 1970 Provider: Dr. Joshua Gomez MD Age/Sex: 50/M Location: [facility] Status: Signed [facility] HPI History of Present Illness Details: Pleasant 50-year-old man with no previous cardiac history who has been under a fair amount of stress recently. He presented to the emergency room with palpitations and elevated blood pressure earlier this month. He was diagnosed with multiple sclerosis approximately 9 years ago and has been going through a new experimental medication. At the office his blood pressure was noted to be 169/115 and when he presented to the emergency room here his blood pressure was noted to be 153/125. He was given intravenous labetalol with improvement. His EKG demonstrated sinus tachycardia with a rate of 103 bpm. He had been on losartan he was put on a beta-aditya but he has really not been taking that. His chemistry profile was noted to be unremarkable. He has had no neck arm or jaw discomfort to suggest angina no dizziness or diaphoresis no near syncope or syncope. His physical exam today demonstrates clear lung roque regular rate and rhythm and no pedal edema. Intake Vital Signs 02/26/20 Height 5 ft 10 in 02/26/20 Weight: 190 lb 02/26/20 BMI 27.2 02/26/20 BP 154/115 H 02/26/20 Respiration 16 02/26/20 Pulse 110 H 02/26/20 Pulse Oximetry (%) 97 02/26/20 BMI 26.3 Intake Visit Reasons: Ref'd by [facility] ER, irr BP and HR Allergies Penicillins [PCN] Allergy (Verified 02/26/20 08:54) Rash Medications multivitamin 1 tab PO DAILY 02/24/20 [History Confirmed 02/26/20] amlodipine 10 mg tablet 10 mg PO DAILY #90 tab 02/26/20 [Rx Confirmed 02/26/20] hydrochlorothiazide 25 mg tablet 25 mg PO DAILY #90 tab 02/26/20 [Rx Confirmed 02/26/20] losartan 100 mg tablet 100 mg PO DAILY #90 tab 02/26/20 [Rx Confirmed 02/26/20] [facility] Medical History Essential (primary) hypertension (Chronic) Polycythemia (Suspected) Obstructive sleep apnea (Suspected) Sciatic nerve pain (Chronic) Multiple sclerosis (Chronic) Right kidney stone (Chronic) Surgical History History of left inguinal hernia repair (Resolved 2014) History of lithotripsy (Resolved 2017) Family History Father Myocardial infarction, Onset Age: 60 Heart disease CAD (coronary artery disease) coronary stents Mother Breast cancer Hyperlipidemia Social History (Updated 02/26/20 @ 09:[address] Joshua Gomez MD) Smoking Status: Current some day smoker tobacco type: cigarettes alcohol intake: current alcohol intake frequency: holidays/special occasions only caffeine: Yes ROS Const Const: Positive for other (C/O HTN and increase HR); negative for fatigue, weakness, headache(s), frequent falls, difficulty sleeping or excessive sweating Eyes Eyes: Negative for loss of peripheral vision, transient loss of vision, blurry vision, double vision or tunnel vision ENT ENT: Negative for headache(s), dizziness, Nosebleed/epistaxis or balance problems Cardio Chest Pain: No Palpitations: Yes (for the past month has noticed higher HR) feels like its: fast, pounding Edema: None Muscle aches with walking: None Resp Respiratory: Negative for SOB with activity, SOB at rest, SOB orthopnea SOB lying down, Cough or paroxysmal nocturnal dyspnea GI GI: Negative nausea, vomiting, heartburn or black,tarry stools : Negative for hematuria Musc Musc: Negative for muscle aches/ myalgia, muscle weakness, joint pain or balance problems Skin Skin: Negative non-healing lesions, rash or unusual bruising Neuro Neuro: Positive for other (tingling BLE); negative for dizziness, lightheadedness, near syncope, syncope, orthostatic symptoms, frequent falls, headache(s), weakness, blurry vision, double vision or lack of coordination Vargas Hematologic/Lymphatic: Negative for easy bleeding or easy bruising Endo Endo: Negative for fatigue, excessive sweating or increased thirst/drinking Psych Psych: Negative for anxiety or depression Allergy Allergy/Immunology: Negative for hives, Negative for rash Cardiology Exam Const Appearance: cooperative, healthy appearing, no acute distress, well developed and well groomed Nutritional Appearance: average body habitus and well nourished Orientation: alert, awake and oriented x3 Head Head: normal to inspection, normocephalic and atraumatic Ears: hearing grossly normal bilaterally and external ears normal Nose: external nose normal, nares normal, nasal mucous membranes and turbinates normal, septum normal, no nasal discharge Face and Sinus: face symmetric Mouth: oral mucosae normal, tongue normal, oropharynx normal and moist mucous membranes Teeth and gingiva: dentition normal Throat: posterior oropharynx normal, tonsils normal and uvula midline Eyes General: appearance normal, both eyes and all related structures Eyelids: eyelids normal Conjunctivae: conjunctivae normal Pupils: PERRL, normal by confrontation and accommodation normal EOM: EOM intact bilaterally Neck Neck: normal visual inspection, trachea midline and no JVD JVD: +5 Carotids: normal carotid upstroke and bounding pulses Chest Chest inspection: normal inspection of the chest, symmetric chest movement and normal respiratory effort Auscultation: Bilateral: Clear to Auscultation Cardio Palpation: normal PMI Rate: regular rate Rhythm: regular rhythm Heart sounds: S1 normal, S2 normal and normal, physiologic split S2; negative rub, gallop or murmur GI GI: normal to inspection, soft, no hepatosplenomegaly and bowel sounds present Neuro General: alert, awake, oriented x3, gait normal, moves all extremities and no focal sensory deficit Skin Skin: no rashes or lesions noted Extremities Pulses: Normal: Right Femoral Pulse, Left Femoral Pulse, Right Dorsalis Pedis Pulse, Left Dorsalis Pedis Pulse, Right Posterior Tibial Pulse, Left Posterior Tibial Pulse, Right Radial Pulse, Left Radial Pulse Lower Extremity Edema: None: Bilateral Musculoskel Musculoskeletal: No joint tenderness Psych Psychological: normal affect Assessment Plan Problems 1. Essential (primary) hypertension I10 Plan He does have a history of uncontrolled hypertension. My recommendation would be for us to optimize the above by increasing his losartan to 100 mg a day, add hydrochlorothiazide 25 mg a day, and add amlodipine 10 mg a day. I would like us to obtain an echocardiogram to assess his left ventricular function and depending on those findings further recommendations will be made. Thank you for allowing me to participate in the care of your patient. Please don't hesitate to call if any issues arise. Orders Orders: Echo Complete Today I10 Medications New: amlodipine 10 mg PO DAILY 90 tabs 3RF hydrochlorothiazide 25 mg PO DAILY 90 tabs 3RF Changed: From: losartan 50 mg PO DAILY To: losartan 100 mg PO DAILY 90 tabs 3RF Discontinued: metoprolol succinate ER Discontinued Reason: Order Changed 25 mg PO DAILY Plan Detail Follow Up 2 Months (jhr) Coding Level of Care Code Off vis,new,level 4 Diagnoses Essential (primary) hypertension I10 Coding Level of Care Code Off vis,new,level 4 Diagnoses Essential (primary) hypertension I10 Supplemental Info Supplemental Information Diagnostics Electrocardiogram 01/31/20 Abdomen Ultrasound 04/26/13 Chest X-Ray 01/31/20 02/26/20 0957 <Electronically signed by Joshua Gomez MD> Date Joshua Gomez MD Cosigner Signature: Date (if applicable) CC: MEDICAID SERVICE COORDINATORJefferson Delma Story Start: 01-31-2020 End: 01-31-2020 Chest 1 View (Portable) Comments: See Note; NOTES: [facility] Imaging Services [address] [place] [address] Chest 1 View (Portable) MR#: [id number] Acct: [id number] Name: CLARK QUICK Rep #: [id number] : 1970 M 49 From: Marcos cowan MD PCP: Delma Story NP-C Status: REG ER Study: Chest 1 View (Portable) Date of Exam: 01/31/20 Exam# [id number] Ordering Dr: Brianna Craig MD STUDY: X-RAY CHEST REASON FOR EXAM: Male, 49 years old. chest pain, HTN, palpitations TECHNIQUE: Single frontal view of the chest. COMPARISON: None. FINDINGS: The lungs are clear and expanded. There is no demonstrated pleural abnormality. Normal size heart. Normal mediastinum and tyler. Normal visualized pulmonary arteries. Normal visualized aortic arch and descending thoracic aorta. Normal visualized thoracic spine. Normal visualized ribs, clavicles, and shoulders. There is no demonstrated abnormality of the visualized soft tissue structures of the upper abdomen. RAD/Chest 1 View (Portable) IMPRESSION: Normal x-ray examination of the chest. Electronically Signed: Marcos Nayak MD at 18:25 EDT Tel , Service support , CC: MEDICAID SERVICE COORDINATOR-C Delma Story; Dr. Brianna Craig MD Assistant Floor Covering Printer: Signed Delma Story Start: 01-31-2020 End: 01-31-2020 Emergency Department Summary Comments: See Note; NOTES: [facility] Medical Records Department [address] [place] [address] Emergency Department Summary 01/31/20 MR#: [id number] Acct: [id number] Name: CLARK QUICK Rep #: [id number] : 1970 49 From: Brianna Craig MD PCP: HALLE Mcdaniel Status:DEP ER History of Present Illness Chief Complaint: Hypertension Detail of Chief Complaint: Palpitations Informant: Patient Narrative: Patient presents secondary to palpitations and high blood pressure. Patient was diagnosed with MS 9 years ago. With the recent Covid pandemic he lost his job and was unable to pay for his MS medications. He is currently going through work-up to be started on a new experimental medication [facility] in [place]. He states when he was at the office yesterday they noted his blood pressure to be high, 169/115. His family checked his blood pressure at home tonight and noted it to be elevated so he came in for evaluation. He does report feel like his heart rate is faster than normal. He states he had some chest pressure earlier but that is resolved currently. He does admit to increased stress and anxiety recently. - Past Medical History (1) Multiple sclerosis Status: Chronic (2) Hypertension Status: Chronic Past Medical History - Allergies and Home Meds Allergies/Adverse Reactions: Allergies Penicillins [PCN] Allergy (Verified 01/31/20 17:27) Rash Primary Care Physician: Delma Story NP, NP-C [Primary Care Provider] - Prior records reviewed: Yes Smoking Status: Former smoker Review of Systems General: Denies: Chills, Fever Eyes: Denies: Visual changes - bilaterally ENT: Denies: Bilateral ear pain Cardiovascular: Reports: Chest pain, Heart racing Respiratory: Denies: Dyspnea, Cough Gastrointestinal: Denies: Abdominal pain, Nausea, Vomiting, Diarrhea Musculoskeletal: Denies: Swelling, Extremity Pain Skin: Denies: Rash Neurological: Denies: Headache Hematologic: Denies: Easy bruising, Easy bleeding Allergy: Denies: Uticaria Physical Exam Vital Signs/Narrative: Vital Signs Temp Pulse Resp BP Pulse Ox 01/31/20 17:28 98.0 F 107 H 17 153/125 H 97 Inital Vital Signs reviewed: Yes General: Well nourished, Well developed Head: Normocephalic ENT: Moist mucous membranes Neck: Supple Cardiovascular: Tachycardia Respiratory: No distress, CTA bilaterally Abdomen: Soft, Nontender Rectal: Deferred Back: Nontender Extremities: Nontender Skin: Normal color, No rash Neurological: Alert, Oriented x3, Normal Strength, Normal Sensation Psychological: Normal affect Diagnostic/Tx/Re-eval Impressions Chest X-Ray 01/31/20 18:00 IMPRESSION: Normal x-ray examination of the chest. Electronically Signed: Marcos Nayak MD at 18:25 EDT Tel , Service support , 01/31/20 18:00 Chest 1 View (Portable) [RAD] Stat Laboratory Results 01/31/20 01/31/20 17:40 17:40 WBC 8.4 RBC 5.34 Hgb 16.7 H Hct 48.9 MCV 91.6 MCH 31.3 MCHC 34.2 RDW Std Deviation 42.3 RDW Coeff of Ericka 12.6 Plt Count 291 MPV 9.7 Immature Gran % (Auto) 0.400 Neut % (Auto) 61.2 Lymph % (Auto) 26.5 Phillips % (Auto) 11.1 H Eos % (Auto) 0.6 Baso % (Auto) 0.2 Absolute Neuts (auto) 5.1 Absolute Lymphs (auto) 2.22 Nucleated RBC % 0 Sodium 137 Potassium 4.0 Chloride 102 Carbon Dioxide 31.0 Anion Gap 4 L BUN 16 Creatinine 1.36 H Estim Creat Clear Calc 66.35 Est GFR (MDRD) Af Amer 71 Est GFR (MDRD) Non-Af 59 L BUN/Creatinine Ratio 11.8 Glucose 109 H Calcium 8.7 Troponin I < 0.015 TSH 1.76 - EKG Initial EKG Interpretation: Sinus Tachycardia - Sinus tach at 103. No acute ischemia. - Medical Decision Making Patient was given 10 mg of IV labetalol. Blood pressure went from 153/125 down to 134/102. On repeat evaluation he is resting comfortably. I did discuss with him that his test results are unremarkable at this time. He may have anxiety contributing to his blood pressure as well. I attempted to contact his PCP but have not received a return phone call. Patient does have access to a blood pressure cuff and will keep a journal of his blood pressures. I will write him for low- dose metoprolol. If the patient systolic blood pressures over 150 he will take a dose. He is to follow-up with Delma Story in 1 week. ED Disposition - Plan for ED Patient: Disposition: Home or Assisted Living Diagnosis: Hypertension Instructions: ED Hypertension Established Prescriptions: Metoprolol Succinate 1 tab PO DAILY #30 tab.er.24h Referrals: Delma Story NP, MEDICAID SERVICE COORDINATOR-C [Primary Care Provider] - Additional Instructions: As discussed, check your blood pressure daily. If your systolic blood pressure (top number) is over 150, take a dose of Metoprolol. Keep a journal and take this to your next doctor's appointment. What to do if you have Problems For any increased pain, shortness of breath, bleeding, nausea or vomiting, chest pain, or any unexpected problems, contact your Primary Care Provider. Call [facility] ([phone]) or report to the closest Emergency Room. Call 911 if necessary. 01/31/202143 <Electronically signed by Brianna Craig MD> Date Brianna Craig MD Cosigner Signature (If Indicated): Date CC: MEDICAID SERVICE COORDINATOR-C Delma Story Start: 01-31-2020 End: 02-05-2020 12 Lead EKG Comments: See Note; NOTES: [facility] Cardiovascular Services [address] [place] [address] 12 Lead EKG 01/31/20 1735 MR#: [id number] Acct: [id number] Name: CLARK QUICK Rep #: [id number] : 1970 49 From: Abisai Hargrove MD Attending Dr: Status: DEP ER Ordering Dr: Brianna Craig MD Date: 01/31/20 Location: ED Sex: M C Admitted: Test Reason : PALP Blood Pressure : / mmHG Vent. Rate : 103 BPM Atrial Rate : 103 BPM P-R Int : 146 ms QRS Dur : 090 ms QT Int : 322 ms P-R-T Axes : 025 -29 042 degrees QTc Int : 421 ms Sinus tachycardia Leftward Monroe Low voltage QRS (Limb Leads) Poor R-wave progression Inferior infarct , age undetermined , cannot be excluded Abnormal ECG Confirmed by ANGEL COLLINS, ABISAI ([id number]), sound editor APARNA FERNÁNDEZ ([id number]) on 02/05/2020 10:10:16 AM Referred By: Confirmed By:ABISAI HARGROVE MD 02/05/20 1010 Date Abisai Hargrove MD CC: MEDICAID SERVICE COORDINATOR-C Delma Story; Dr. Brianna Craig MD Signed Delma Story Start: 01-13-2019 End: 01-13-2019 Discharge Instruction Comments: See Note; NOTES: [facility] Medical Records Department [address] [place] [address] Discharge Instruction 01/12/19 1833 MR#: [id number] Acct: [id number] Name: QUICKCLARK Jeffy Rep #: [id number] : 1970 48 From: Jason Larios MD PCP: HALLE Mcdaniel Status: DEP ER ED Disposition - Plan for ED Patient: Disposition: Home or Assisted Living Instructions: KIDNEY STONE w/ Colic Prescriptions: Tamsulosin HCl [Flomax] 0.4 mg PO DAILY #4 cap Prescription Printed Hydrocodone/Acetaminophen [Hartwick 5-325 Tablet] 1 ea PO Q4H PRN PRN 7 Days #20 tab PRN Reason: Pain Prescription Printed Referrals: Ishan Arthur MD [STAFF PHYSICIAN] - 3-5 Days if not improving Additional Instructions: Plenty of fluids and rest. Hartwick and Motrin for pain. Flomax daily until the stone passes. Strain your urine for the passed stone. Follow-up with not improving return if feeling worse. What to do if you have Problems For any increased pain, shortness of breath, bleeding, nausea or vomiting, chest pain, or any unexpected problems, contact your Primary Care Provider. Call [facility] ([phone]) or report to the closest Emergency Room. Call 911 if necessary. 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 Sudden onset of left flank pain around 1:00 today. History of prior kidney stones. CAT scan shows a left-sided 3 mm ureteral calculi. Mild hydronephrosis. Impression: Acute left ureteral calculi 3 mm with mild hydronephrosis. Hartwick for pain. Flomax. Motrin. Follow-up with Dr. Arthur 01/12/19 1833 Date Jason Larios MD cc: MEDICAID SERVICE COORDINATOR-C Delma Story * Signed History of Present Illness Chief Complaint: Flank Pain Informant: Patient Onset: Today Narrative: Patient presents to the ED with left flank pain that began over an hour prior to arrival. He is concerned he may have a kidney stone. He is a history of kidney stones with his last being in May of this year. The stone did require lithotripsy. He states that he feels it is difficult to urinate. He denies any other associated urinary symptoms, fever, chills, nausea, vomiting, or changes in bowel movements. Past Medical History - Allergies and Home Meds Allergies/Adverse Reactions: Allergies Penicillins [PCN] Allergy (Verified 01/12/19 15:53) Rash Primary Care Physician: Delma Story NP-C [Primary Care Provider] - Smoking Status: Light Smoker (<10/day) Review of Systems General: Denies: Chills, Fever, Sweats Eyes: Denies: Visual changes - bilaterally, Diplopia ENT: Denies: Rhinorrhea, Sore throat Cardiovascular: Denies: Chest pain, Palpitations Respiratory: Denies: Dyspnea, Cough, Dyspnea on exertion Gastrointestinal: Reports: - - L flank pain. Denies: Abdominal pain, Nausea, Vomiting, Diarrhea, Melena, Hematochezia Genitourinary: Reports: - - Difficulty urinating. Denies: Dysuria, Hematuria, Frequency Musculoskeletal: Denies: Back pain, Extremity Pain Skin: Denies: Rash, Wounds Neurological: Denies: Headache, Weakness, Numbness Physical Exam Vital Signs/Narrative: Vital Signs 01/12/19 15:53 98.1 F 108 H 17 156/116 H 99 Inital Vital Signs reviewed: Yes General: Well nourished, Well developed, - - Appears uncomfortable Head: Normocephalic, Atraumatic Eyes: Perrl, EOMI ENT: Moist mucous membranes, No rhinorrhea Neck: Supple, Nontender Cardiovascular: Regular rate, Regular rhythm, No murmurs Respiratory: No distress, CTA bilaterally, Chest nontender Abdomen: Soft, Nontender, Nondistended, Normal bowel sounds Back: Nontender, Normal Inspection. Negative for: CVA tenderness Extremities: Nontender, No edema Skin: Normal color, No rash Neurological: Alert, Oriented x3, Cranial nerves II-XII grossly intact, Normal Strength, Normal Sensation Psychological: Normal affect, Normal Mood Diagnostic/Tx/Re-eval CBC unremarkable. BMP indicates a mildly elevated creatinine of 1.48. CT abdomen/pelvis without contrast indicates 3 mm distal ureteral stone with hydronephrosis. - Medical Decision Making Patient presents to the ED with concern for renal calculus. He has a history of renal stones with his last being in May of this year. Patient does appear uncomfortable. He was given IV fluids, morphine, Toradol, and Zofran for symptomatic relief. CT abdomen/pelvis does indicate 3 mm distal ureteral stone with some hydronephrosis. Patient's symptoms are improved with treatment here. I was awaiting urinalysis results. Urinalysis results will be followed by Dr. Larios and disposition will be made for patient by Dr. Larios. Patient will most likely be discharged home with analgesics, antiemetics, and Flomax. Depending on urinalysis results, patient will be started on an oral antibiotic if he does have an infected stone. Patient was advised to follow-up with his urologist. He was educated on signs/symptoms to return to the ED. He is provided discharge instructions. He is agreeable to plan Impression: Left distal ureteral stone with mild hydronephrosis Disposition: Home stable ED Disposition - Plan for ED Patient: Referrals: Delma Story NP-C [Primary Care Provider] - What to do if you have Problems For any increased pain, shortness of breath, bleeding, nausea or vomiting, chest pain, or any unexpected problems, contact your Primary Care Provider. Call [facility] ([phone]) or report to the closest Emergency Room. Call 911 if necessary. 01/12/19 3999 <Electronically signed by Sanaz RAHMAN> Date Sanaz RAHMAN Cosigner Signature (If Indicated): Date CC: HALLE Story Start: 01-12-2019 End: 01-12-2019 Abdomen/Pelvis without Cont Comments: See Note; NOTES: [facility] Imaging Services [address] [place] [address] Abdomen/Pelvis without Cont MR#: [id number] Acct: [id number] Name: CLARK QUICK Rep #: [id number] : 1970 M 48 From: Beatrice Cao MD PCP: HALLE Mcdaniel Status: PRE ER Study: Abdomen/Pelvis without Cont Date of Exam: 01/12/19 Exam# [id number] Ordering Dr: Sanaz Guidry STUDY: CT ABDOMEN AND PELVIS WITHOUT CONTRAST REASON FOR EXAM: Male, 48 years old. Left flank pain. RADIATION DOSAGE (If Supplied By Facility): CTDIvol = ( 7.18 ) mGy, DLP = ( 385.73 ) mGycm TECHNIQUE: Transaxial images were obtained from the dome of the diaphragm to the symphysis pubis without oral contrast, and without intravenous contrast. Sagittal and coronal images were reconstructed. Individualized dose optimization techniques were used for this CT. COMPARISON: August 09, 2017 FINDINGS: The visualized lung bases are unremarkable. The visualized portions of the heart are within normal limits. The lack of intravenous contrast limits evaluation of solid visceral organs. Normal liver. Normal gallbladder and extrahepatic biliary system. Normal spleen. Normal pancreas. Normal bilateral adrenal glands. There is a nonobstructing 1.8 mm calculus within the right kidney. There is mild left hydroureteronephrosis secondary to a 3 mm calculus within the distal ureter. Normal visualized stomach. Normal small intestine. There are scattered diverticula throughout the colon. The appendix is visualized and appears normal. Normal abdominal aorta. Normal inferior vena cava. Normal retroperitoneum. Normal urinary bladder. Normal abdominal wall. Normal osseous structures. CT/Abdomen/Pelvis without Cont IMPRESSION: Left hydroureteronephrosis secondary to a 3.0 mm calculus within the distal ureter. Nonobstructing 1.8 mm right renal calculus. Colonic diverticulosis. Electronically Signed: Beatrice Cao MD at 17:00 EDT Tel , Service support , CC: HALLE Story; JOSIAH Guidry Assistant Floor Covering Printer: Signed Delma Story Start: 08-18-2017 End: 08-18-2017 Operative Report Comments: See Note; NOTES: [facility] Medical Records Department [address] [place] [address] Operative Report 08/18/17 1136 MR#: [id number] Acct: [id number] Name: CLARK QUICK Rep #: [id number] : 1970 47 From: Ishan Arthur MD PCP: Delma Story NP Status: [facility] [place] Location: [place] [address] Problem List (1) Right kidney stone Status: Acute Report of Operation Date of Procedure: 08/18/17 Pre-Operative Diagnosis: Right renal calculi Post-Operative Diagnosis: Same Surgery/Procedure Performed:: Right extracorporeal shockwave lithotripsy Description of Surgical Findings:: 47-year-old male taken back to the operating room at the smooth induction of general anesthesia he is placed supine on the lithotripter table we then identified the stone in the proximal right ureter. The lithotripter machine was then brought up underneath the stone and we focus a stone in the F2 focal point and we delivered a total of 3500 shockwaves to the stone at a rate of 90 shocks per minute power up to 7.5. At the end of the treatment cycle the stone had broken up the little tiny pieces though some small fragments could be seen in the proximal ureter but decided not to leave a stent and will see him back in a few weeks with a KUB possibly and more likely will pass a stone on its own, will get the patient appointment to follow-up in a few weeks with a KUB. Type of Anesthesia:: General Drains: none - Admit VTE Documentation VTE Present on Admission: No VTE Mechan Device Prophylaxis: SCD's VTE Pharm Prophylaxis ordered?: No 08/18/17 1142 <Electronically signed by Ishan Arthur MD> Date Ishan Arthur MD CC: Delma Story NP; Ishan Arthur MD Signed Delma Story Start: 08-18-2017 End: 08-18-2017 Discharge Instruction Comments: See Note; NOTES: [facility] Medical Records Department [address] [place] [address] Instructions for Home/Discharge Instructions 08/18/17 1045 MR#: [id number] Acct: [id number] Name: CLARK QUICK Rep #: [id number] : 1970 47 From: Ishan Arthur MD PCP: Delma Story NP Status: [facility] [place] Diet: Light diet - advance as tolerated Discharge Activity: Return to Normal Activity Call your doctor if your incision/area has: Continuous Slow Oozing, Sudden Increased Bleeding, Increased Pain/ Swelling, Increased Redness, Foul Smelling Discharge, Swelling at the incision site Allergies/Adverse Reactions: Allergies Penicillins [PCN] Allergy (Verified 08/16/17 08:59) Rash Medications to take at Discharge Losartan Potassium [Cozaar] 50 mg PO DAILY 07/09/14 Hydrocodone/Acetaminophen [Hartwick 5-325 Tablet] 1 ea PO Q4H PRN PRN 5 Days #20 tab 08/18/17 The following prescriptions were given: Hydrocodone/Acetaminophen [Hartwick 5-325 Tablet] 1 ea PO Q4H PRN PRN 5 Days #20 tab PRN Reason: Pain Primary Care Physician: Delma Story [Primary Care Provider] - Please Follow Up With: Ishan Arthur MD When: MondaySeptember 05 at 10:30am, get KUB before appt. 08/18/17 1047 <Electronically signed by Ishan Arthur MD> Date Ishan Arthur MD CC: Delma Story Start: 08-18-2017 End: 08-18-2017 Abdomen Single View Comments: See Note; NOTES: [facility] Imaging Services [address] [place] [address] Abdomen Single View MR#: [id number] Acct: [id number] Name: CLARK QUICK Rep #: [id number] : 1970 M 47 From: Ravindra Aguirre DO PCP: Delma Story NP Status: [facility] [place]: Abdomen Single View Date of Exam: 08/18/17 Exam# [id number] Ordering Dr: Ishan Arthur MD STUDY: X-RAY - ABDOMEN/PELVIS REASON FOR EXAM: Male, 47 years old. Pre ESWL TECHNIQUE: Two AP supine views of the abdomen and pelvis. COMPARISON: None. FINDINGS: There is an unremarkable bowel gas pattern. There is no demonstrated free abdominal air. There is a calcific density in the region of the right renal shadow measuring 8.8 mm. Normal soft tissue structures. Normal visualized osseous structures. RAD/Abdomen Single View IMPRESSION: Right-sided stone as above Electronically Signed: Ravindra Aguirre DO at 8:54 EDT Tel , Service support , CC: Delma Story MEDICAID SERVICE COORDINATOR; Ishan Arthur MD Assistant Floor Covering Printer: Signed Delma Story Start: 07-17-2014 End: 07-17-2014 Operative Report Comments: See Note; NOTES: [facility] Medical Records Department [address] [place] [address] Operative Report MR#: [id number] Acct: [id number] Name: CLARK QUICK Rep #: [id number] : 1970 44 From: Félix Lockwood MD PCP: Evelyn Lomax MD Status: [facility] DATE OF SERVICE: 07/16/2014 DATE OF SERVICE: July 16, 2014 PREOPERATIVE DIAGNOSIS: Left inguinal hernia. POSTOPERATIVE DIAGNOSIS: Indirect left inguinal hernia. PROCEDURE: Open left inguinal hernia repair using mesh plug with a Bard mesh PerFix plug, reference #[id number], lot #[id number], expires in January 2019. SURGEON: Félix Lockwood M.D. ANESTHESIA: Local MAC. ANESTHESIOLOGIST: Cooper Castro M.D. ASA: 2. IV FLUIDS: 800 mL ESTIMATED BLOOD LOSS: 50 mL URINE OUTPUT: No catheter. FINDINGS: Indirect hernia with a smaller sac with a sliding component and a large cord lipoma. DRAINS: None. COMPLICATIONS: None. DISPOSITION: The patient taken to PACU in stable condition. DESCRIPTION OF PROCEDURE: The patient was marked in the left inguinal area. The patient concurred this was the planned operative site. He was brought back to the operating suite and sign in was performed verifying patient, site, procedure, position, critical nursing information, VT and antibiotic prophylaxis. The patient received 2 g of Ancef ____, but had taken amoxicillin and other cephalosporins. Had sequential compression devices placed. Following IV sedation, the left inguinal region was prepped and draped in the usual fashion. Time-out was performed verifying patient, site, procedure, and position. Local anesthetic was injected for an ilioinguinal regional block along the planned course of skin incision. Incision made ____ subcutaneous fat. Traversing veins ligated with 3-0 Vicryl ties and divided. As dissection continued, dissection was carried down to the external oblique aponeurosis. Fibers were opened in their direction. Local anesthetic infiltrated into the canal and the fibers were opened in their direction. Ilioinguinal nerve was identified. This was adherent to the anterior surface ____ and was protected in the left hip location during the case. There was no true direct defect. ____ pubic tubercle and brought to the operative field. The spermatic cord was dissected. There was significant cord lipoma and hernia sac encountered. These were dissected off of the cord. The cord lipoma was amputated with ____ ligated with 3-0 Vicryl ties. The hernia sac was then opened. There was a small sliding component, which was mobilized, reduced into the abdominal space and then the excess peritoneum amputated and closed with running 0 Prolene suture. This was then used as the lead point of the plug placed in the preperitoneal space, secured with interrupted Prolene sutures. Next, the onlay mesh was secured at the pubic tubercle running ____ inferiorly to the transversus arch superiorly. The mesh was adjusted and the 2 tails closed ____ internal ring. Following this, ____ 0 Prolene sutures securing the tails to the lateral external oblique aponeurosis. The cord and nerve were returned to the anatomic position. External oblique closed with running 3-0 Vicryl sutures. Subcutaneous fat closed with 3-0 Vicryl sutures. Skin was closed with 4-0 Monocryl running subcuticular suture. Steri-Strips dressings were applied. The patient tolerated the procedure well and brought to recovery in stable condition. Félix Lockwood MD T: NTS JOB: [id number] 07/17/14 0834 <Electronically signed by Félix Lockwood MD> Date Félix Lockwood MD CC: Evelyn Lomax MD; Félix Lockwood MD Date Dictated: 07/16/14 1413 Date Transcribed: 07/16/141412 Assistant Floor Covering Printer: Signed Delma Porsha Start: 07-16-2014 End: 07-16-2014 Discharge Instruction Comments: See Note; NOTES: [facility] Medical Records Department [address] [place] [address] Instructions for Home/Discharge Instructions 07/16/14 1414 MR#: [id number] Acct: [id number] Name: CLARK QUICK Jeffy Rep #: [id number] : 1970 44 From: Félix Lockwood MD PCP: Evelyn Lomax MD Status: [facility] [place] Diet: Light diet - advance as tolerated Discharge Activity: Return to Normal Activity, May Drive - when you are no longer taking narcotic pain medications., May Shower - with the bandage in place 1-2 days after surgery. Lifting Restrictions: 20 pounds for 8 weeks. Additional Activity Instructions:: Climbing stairs is fine, walking is encouraged. Sitting in bed may be uncomfortable. Sitting up using your lateral muscles (sitting up sideways) is usually more comfortable. Do not drive, work heavy equipment of sign legal documents for 24 hours. If your hernia repair was an ingunial repair, you may have scrotal swelling, an ice pack and/or athletic support can provide more comfort. Pain medications may cause nausea, you should typically eat light foods as you take your pain medications. Pain medications may also cause constipation. If you have difficulty with this, discuss with your doctor. Call your doctor if your incision/area has: Continuous Slow Oozing, Sudden Increased Bleeding, Increased Pain/ Swelling, Increased Redness, Foul Smelling Discharge Call your doctor if you observe: Fever of 101 or Higher Suture Line Care: Avoid Pulling/Pushing, Avoid Pinching/Bending Additional Dressing/Incision Instructions:: Leave the operative bandage on for 2 -3 days. When you remove the bandage, leave the steri-strips on place until your follow up appointment or they fall off. Allergies/Adverse Reactions: Allergies Penicillins [PCN] Allergy (Verified 07/09/14 09:50) Rash Medications to take at Discharge Losartan Potassium [Cozaar] 50 mg PO DAILY Oxycodone HCl/Acetaminophen [Percocet 5-325] 1 tablet PO Q4H PRN PRN #30 tablet The following prescriptions were given: Oxycodone HCl/Acetaminophen [Percocet 5-325] 1 tablet PO Q4H PRN PRN #30 tablet PRN Reason: Pain Please Follow Up With: Félix Lockwood - [phone] When: Plan to have a follow up appointment in 7 days. Call to schedule. 07/16/14 4356 <Electronically signed by Félix Lockwood MD> Date Félix Lockwood MD CC: Evelyn Story Start: 04-26-2013 End: 04-26-2013 Abdomen Complete Comments: See Note; NOTES: [facility] Imaging Services [address] [place] [address] Ultrasound Report MR#: [id number] Acct: [id number] Name: CLARK QUICK Rep #: [id number] : 1970 M 43 From: Yovani Castro MD PCP: Evelyn Lomax MD Status: REG CLI Study: Abdomen Complete Date of Exam: 04/26/13 Exam# [id number] Ordering Dr: Delma Story STUDY: ABDOMINAL ULTRASOUND REASON FOR EXAM: Male, 43 years old. Abdominal pain TECHNIQUE: Transabdominal ultrasound was performed with real-time and static colon scale imaging. TECHNICAL QUALITY: Adequate. COMPARISON: None. FINDINGS: Liver: The liver measures 14.8 cm. There is normal echogenicity of the liver. The bile ducts are within normal limits. There is hepatic color flow. The direction of portal flow is hepatopetal. There is no demonstrated mass lesion. Gallbladder: Normal distended gallbladder. The gallbladder wall measures 2.0 mm. There is a negative sonographic De Luna's sign. There is no pericholecystic fluid. There are no gallstones. Common Bile Duct (C.B.D.): The common bile duct measures 4 mm. Pancreas: Normal size of the head, body and tail of the pancreas. There is normal echogenicity of the pancreas. There is no demonstrated pancreatic mass or cyst. Spleen: Normal size of the spleen. The spleen measures 11.2 cm. Right Kidney: Normal size of the right kidney. The right kidney measures 10.2 x 5.2 x 6.0 cm. Normal renal cortex. The right cortex measures 2.1 cm. There is no demonstrated renal mass or cyst. There is no right hydronephrosis. Left Kidney: Normal size of the left kidney. The left kidney measures 10.0 x 5.4 x 6.0 cm. Normal renal cortex. The left cortex measures 1.3 cm. There is no demonstrated renal mass or cyst. There is no left hydronephrosis. Aorta: Tapers normally I.V.C.: The IVC is patent. There is no ascites. IMPRESSION: No suspicious sonographic findings Electronically Signed: Fortunato Castro M.D. at 9:30 EST , Service support [phone], CC: Delma Story; Evelyn Lomax MD Assistant Floor Covering Printer: Signed Delma Story Work Phone: Hernia repair Priti Ramirez Comment on above: 2016 Hernia repair Wayne Cormier Comment on above: 2016 Left hernia repair Priti retana Comment on above: 07-16-14 Left hernia repair Wayne Pavon [facility] Comment on above: 07-16-14 Plan of Treatment Date Care Activity Detail Author Start: 10-16-2024 Evaluation of diagnostic study results 12 Lead E[facility] performed by [facility] Start: 01-27-2023 Influenza vaccination Influenza Vaccine (Season Ended) [facility] Start: 05-19-2020 Comprehensive metabolic panel METABOLIC PANEL, COMPREHENSIVE (36784) [facility]; [facility] Work Phone: Comment on above: Send copy of results to Dr. Roman Start: 05-19-2020 CBC, PLATELETS & MANUAL DIFF (22714) CBC, PLATELETS & MANUAL DIFF (84414) [facility]; [facility] Work Phone: Comment on above: Send copy of results to Dr. Roman Start: 08-09-2019 Procedure Education Eprescribed prescriptions (G8553) [facility] Work Phone: Start: 08-09-2019 Provider Instructions for Treatment Follow up in 6 months [facility] Work Phone: Start: 07-16-2019 Procedure Education Eprescribed prescriptions (G8553) [facility] Work Phone: Start: 07-16-2019 Provider Instructions for Treatment Follow up in 3 months [facility] Work Phone: Start: 07-12-2019 Blood count complete auto&auto difrntl wbc CBC, PLATELETS & AUT DIFF (65358) [facility] Work Phone: Start: 07-12-2019 Protein electrophoretic fractj&quantj serum SPEP (07483) [facility] Work Phone: Start: 06-28-2019 Procedure Education Eprescribed prescriptions (G8553) [facility] Work Phone: Start: 06-28-2019 Provider Instructions for Treatment [facility] Work Phone: Start: 06-19-2019 Procedure Education Eprescribed prescriptions (G8553) [facility] Work Phone: Start: 06-19-2019 Provider Instructions for Treatment Follow up in 3 weeks [facility] Work Phone: Start: 06-12-2019 Procedure Education Eprescribed prescriptions (G8553) [facility] Work Phone: Start: 06-12-2019 Provider Instructions for Treatment [facility] Work Phone: Start: 06-10-2019 Blood count complete auto&auto difrntl wbc CBC, PLATELETS & AUT DIFF (21948) [facility] Work Phone: Start: 06-03-2019 Molecule nucleic ampli 2 seq Angel 2 Mutation (90775) [facility] Work Phone: Start: 06-03-2019 Assay of prostate specific antigen total PSA (PROSTATE SPECIFIC ANTIGEN) (V76.44) [facility] Work Phone: Start: 06-03-2019 Lipid panel LIPID PANEL (49381) [facility] Work Phone: Start: 06-03-2019 Blood count complete auto&auto difrntl wbc CBC, PLATELETS & AUT DIFF (69785) [facility] Work Phone: Start: 06-03-2019 Patient Education Multiple Sclerosis *: ms [facility] Work Phone: Start: 06-03-2019 Procedure Education Eprescribed prescriptions (G8553) [facility] Work Phone: Start: 06-03-2019 Provider Instructions for Treatment Follow up if no improvement or if symptoms worsen [facility] Work Phone: Start: 06-03-2019 Antibody hiv-1 HIV-1 ANTIBODY (74911) [facility] Work Phone: Start: 06-03-2019 Antinuclear antibodies marcelino MARCELINO (ANTINUCLEAR ANTIBODY) (45914) [facility]; [facility] Work Phone: Start: 06-03-2019 Assay of thyroid stimulating hormone tsh TSH (THYROID STIMULATING HORMONE) (19182) [facility]; [facility] Work Phone: Start: 06-03-2019 Cobalamin (Vitamin B12) [Mass/Vol] VITAMIN B-12 (CYANOCOBALAMIN) (64994) [facility] Work Phone: Start: 06-03-2019 Cyanocobalamin vitamin b-12 VITAMIN B-12 (CYANOCOBALAMIN) (44771) [facility]; [facility] Work Phone: Start: 06-03-2019 HbA1c (Bld) [Mass fraction] HGB A1C (27212) [facility] Work Phone: Start: 06-03-2019 Heavy metal qualitative any analytes HEAVY METAL SCREEN (10100) [facility] Work Phone: Start: 06-03-2019 Hemoglobin glycosylated a1c HGB A1C (33667) [facility]; [facility] Work Phone: Start: 06-03-2019 Hepatitis c antibody HEPATITIS C ANTIBODY (62171) [facility] Work Phone: Start: 06-03-2019 Nuclear Ab IF (S) [Titer] MARCELINO (ANTINUCLEAR ANTIBODY) (59923) [facility] Work Phone: Start: 06-03-2019 Protein [Mass/Vol] Serum Protein Electrophoresis (SPEP) (20039) [facility] Work Phone: Start: 06-03-2019 Protein electrophoretic fractj&quantj serum Serum Protein Electrophoresis (SPEP) (75662) [facility]; [facility] Work Phone: Start: 06-03-2019 Sedimentation rate rbc non-automated SED RATE ERYTHROCYTE (95918) [facility] Work Phone: Start: 06-03-2019 TSH Qn TSH (THYROID STIMULATING HORMONE) (68967) [facility] Work Phone: Start: 06-03-2019 Blood count complete automated CBC & PLATELETS (AUTO) (76254) [facility] Work Phone: Start: 06-03-2019 Comprehensive metabolic panel METABOLIC PANEL, COMPREHENSIVE (76625) [facility] Work Phone: Start: 06-03-2019 Creatine kinase total CREATINE KINASE TOTAL (80802) [facility] Work Phone: Start: 06-03-2019 Creatine kinase mb fraction only CPK MB FRACTION (63525) [facility] Work Phone: Start: 06-03-2019 Assay of troponin quantitative Troponin I (37769) [facility]; [facility] Work Phone: Start: 06-03-2019 Troponin I.cardiac [Mass/Vol] Troponin I (42773) [facility] Work Phone: Start: 06-03-2019 C-reactive protein C-Reactive Protein (69551) [facility]; [facility] Work Phone: Start: 06-03-2019 CRP [Mass/Vol] C-Reactive Protein (73817) [facility] Work Phone: Start: 05-30-2019 Provider Instructions for Treatment [facility] Work Phone: Start: 01-14-2019 Renal function panel RENAL FUNCTION PANEL (43542) [facility] Work Phone: Start: 02-21-2018 Zoster Vaccines (1 of 2) Zoster Vaccines (1 of 2) [facility] Start: 06-29-2017 Assay of prostate specific antigen total PSA (PROSTATE SPECIFIC ANTIGEN) (V76.44) [facility] Work Phone: Start: 06-29-2017 Protein mass conc PSA (PROSTATE SPECIFIC ANTIGEN) (V76.44) [facility] Work Phone: Start: 06-29-2017 25 hydroxy includes fractions if performed CALCIFEDIOL (14420) [facility] Work Phone: Start: 06-29-2017 Urine albumin quantitative MICROALBUMIN: CREATININE RATIO (10377) AND (51496) [facility] Work Phone: Start: 06-29-2017 Urinalysis qual/semiquant except immunoassays URINALYSIS (38658) [facility] Work Phone: Start: 06-29-2017 Thyrotropin Qn TSH (67639) [facility] Work Phone: Start: 06-29-2017 Blood count manual cell count each CBC WITH MANUAL DIFF (00971) [facility] Work Phone: Start: 06-29-2017 Comprehensive metabolic panel Metabolic Panel, Comprehensive (72998) [facility] Work Phone: Start: 06-29-2017 Lipid panel Lipid Panel (88744) [facility] Work Phone: Start: 06-09-2017 Procedure Education Eprescribed prescriptions (G8553) [facility] Work Phone: Start: 06-09-2017 Provider Instructions for Treatment Follow up in 6 weeks [facility] Work Phone: Start: 01-20-2017 Patient Education [facility] Work Phone: Start: 01-20-2017 Procedure Education Eprescribed prescriptions (G8553) [facility] Work Phone: Start: 01-20-2017 Provider Instructions for Treatment Follow up in 2 weeks [facility] Work Phone: Start: 01-20-2017 Comprehensive metabolic panel METABOLIC PANEL, COMPREHENSIVE (33504) [facility] Work Phone: Start: 01-20-2017 Blood count complete auto&auto difrntl wbc CBC, PLATELETS & AUT DIFF (76380) [facility] Work Phone: Start: 04-08-2014 Lipid panel Lipid Panel (98127) [facility] Work Phone: Start: 04-04-2014 Procedure Education Eprescribed prescriptions (G8553) [facility] Work Phone: Start: 04-30-2013 Provider Instructions for Treatment [facility] Work Phone: Start: 04-23-2013 Provider Instructions for Treatment [facility] Work Phone: Start: 02-07-2013 Patient Education High Blood Pressure (Essential Hypertension) *: cardiovascular health [facility] Work Phone: Start: 02-07-2013 Lipid panel LIPID PANEL (24552) [facility] Work Phone: Start: 12-31-2012 Patient Education High Blood Pressure (Essential Hypertension) *: blood pressure problems [facility] Work Phone: Start: 06-13-2012 Provider Instructions for Treatment Follow up if no improvement or if symptoms worsen [facility] Work Phone: Start: 06-04-2012 Patient Education High Blood Pressure (Essential Hypertension) *: cardiovascular health [facility] Work Phone: Start: 11-22-2011 Lipid panel LIPID PANEL (57407) [facility] Work Phone: Start: 05-31-2011 Lipid panel Lipid Panel (64416) [facility] Work Phone: Start: 08-24-2010 Provider Instructions for Treatment [facility] Work Phone: Start: 06-08-2009 Provider Instructions for Treatment [facility] Work Phone: Start: 07-25-2008 Patient Education Sore throat: diagnosis and treatment [facility] Work Phone: Start: 07-25-2008 Provider Instructions for Treatment *URI Treatment [facility] Work Phone: Start: 07-09-2007 Provider Instructions for Treatment *URI Treatment [facility] Work Phone: Start: 07-09-2007 Cul bact xcpt urine blood/stool aerobic isol HILARY CULTURE-OTHER (52874) [facility] Work Phone: Start: 02-21-1987 DTaP/Tdap/Td Vaccines (1 - Tdap) DTaP/Tdap/Td Vaccines (1 - Tdap) [facility] Start: 02-21-1986 Hepatitis C screening Hepatitis C Screening [facility] Start: 1980 Depression Screening Depression Screening [facility] Start: 02-21-1969 MMR Vaccines (1 of 1 - Standard series) MMR Vaccines (1 of 1 - Standard series) [facility] Start: 1970 COVID-19 Vaccine (#1) COVID-19 Vaccine (#1) [facility] Start: 1968 Hepatitis B Vaccines (1 of 3 - 3-dose series) Hepatitis B Vaccines (1 of 3 - 3-dose series) [facility] Start: 1970 HIV screening HIV Screening [facility] Start: 1968 Lipid panel Lipid Panel [facility] Start: 1968 Screening for malignant neoplasm of colon [facility] Work Phone: [facility] Work Phone: [facility] Medicine Work Phone: [facility] Work Phone: [facility] Work Phone[facility] Work Phone: [facility] Work Phone: [facility] Work Phone: [facility] Work Phone: [facility] Work Phone: [facility] Work Phone: [facility] Work Phone: [facility] Work Phone: [facility] Work Phone: [facility] Work Phone: [facility] Work Phone: [facility] Work Phone: Payers Date Payer Category Payer Self-pay [id number] 2023 Unknown [id number] 2012 Unknown [facility] [id number] Self-pay [id number] Unknown [facility] [place] Unknown [facility] [id number] Unknown [id number] Unknown [id number] Unknown [id number] Social History Date Type Detail Facility Alcohol Use [facility] Work Phone: Comment on above: Occasional alcohol u se 2-4 cups coffee qd 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 Start: 05-19-2021 Tobacco smoking stat us MIIS Unknown if ever smoked [facility] Start: 1970 Sex Assigned At Male [facility] Start: 1970 Sex Assigned At Not on file [facility] Gender identity Not on file [facility] Start: 08-09-2022 End: 08-19-2022 Exposure to SARS-CoV-2 (event) Not sure [facility] Start: 05-19-2021 End: 10-16-2024 Tobacco smoking status NHIS Current some day smoker [facility] Start: 08-27-2024 End: 09-02-2024 Sex Male (finding) [facility] Evaluation note Note Date & Type Note Facility Evaluation note No assessment information availa ble [facility] Work Phone: Evaluation note Note Date & Type Note Facility Evaluation note Diagnosis Sleep apnea, unspecified- Primary documented in this encounter [facility] Instructions Note Date & Type Note Facility Instructions Name How to access health information online Indication:Nonsmoker Start: 0 Instruction Type:Patient Education How to access health information online - Detail Indication:Nonsmoker Start: 0 Instruction Type:Patient Education Patient Instructions Indication:Obstructive sleep apnea Start: 0 Instruction Type:Provider Instructions for Treatment How to access health information online Indication:Nonsmoker Start: 0 Instruction Type:Patient Education How to access health information online - Detail Indication:Nonsmoker Start: 0 Instruction Type:Patient Education Patient Instructions Indication:Nonsmoker Start: 0 Instruction Type:Provider Instructions for Treatment How to access health information online Indication:Nonsmoker Start: 0 Instruction Type:Patient Education How to access health information online - Detail Indication:Nonsmoker Start: 0 Instruction Type:Patient Education Patient Instructions Indication:Nonsmoker Start: 0 Instruction Type:Provider Instructions for Treatment How to access health information online Indication:Witnessed episode of apnea Start: 0 Instruction Type:Patient Education How to access health information online - Detail Indication:Witnessed episode of apnea Start: 0 Instruction Type:Patient Education Patient Instructions Indication:Nonsmoker Start: 0 Instruction Type:Provider Instructions for Treatment How to access health information online Indication:BMI 25.0-25.9,adult Start: 0 Instruction Type:Patient Education How to access health information online - Detail Indication:BMI 25.0-25.9,adult Start: 0 Instruction Type:Patient Education Patient Instructions Indication:Nonsmoker Start: 0 Instruction Type:Provider Instructions for Treatment How to access health information online Indication:BMI 26.0-26.9,adult Start:03-Jun-2019 Instruction Type:Patient Education How to access health information online - Detail Indication:BMI 26.0-26.9,adult Start:03-Jun-2019 Instruction Type:Patient Education Patient Instructions Indication:Chest tightness Start:03-Jun-2019 Instruction Type:Provider Instructions for Treatment How to access health information online Indication:BMI 26.0-26.9,adult Start:30-May-2019 Instruction Type:Patient Education How to access health information online - Detail Indication:BMI 26.0-26.9,adult Start:30-May-2019 Instruction Type:Patient Education Patient Instructions Indication:Headache Start:30-May-2019 Instruction Type:Provider Instructions for Treatment How to access health information online Indication:Multiple sclerosis Start: 8 Instruction Type:Patient Education How to access health information online - Detail Indication:Multiple sclerosis Start: 8 Instruction Type:Patient Education Patient Instructions Indication:Hypertension Start: 8 Instruction Type:Provider Instructions for Treatment How to access health information online Indication:Nonsmoker Start: 7 Instruction Type:Patient Education How to access health information online - Detail Indication:Nonsmoker Start: 7 Instruction Type:Patient Education Patient Instructions Indication:Hypertension Start: 7 Instruction Type:Provider Instructions for Treatment How to access health information online Indication:Hypertension Start:04-Apr-2014 Instruction Type:Patient Education How to access health information online - Detail Indication:Hypertension Start:04-Apr-2014 Instruction Type:Patient Education Patient Instructions Indication:Hypertension Start:04-Apr-2014 Instruction Type:Provider Instructions for Treatment Patient Instructions Indication:Joint pain Start: 3 Instruction Type:Provider Instructions for Treatment Patient Instructions Indication:Hypertension Start: 3 Instruction Type:Provider Instructions for Treatment Patient Instructions Indication:Hypertension Start:31-Dec-2012 Instruction Type:Provider Instructions for Treatment Patient Instructions Indication:Hypertension Start:04-Jun-2012 Instruction Type:Provider Instructions for Treatment Sore throat: diagnosis and treatment Indication:Pharyngitis, acute Start: 8 Instruction Type:Patient Education [facility]; [facility] Work Phone: Reason for referral (narrative) Note Date & Type Note Facility Reason for referral (narrative) No reason for referral information available [facility] Work Phone: Family History No Family History Records FoundUnknown Family Member Name Dates Details Father Comments:HTN started 40's. M I in 60's Status:Active Mother Comments:hypercholesterolemi a, breast cancer Status:Active Unknown Family Member Name Dates Details Father Comments:HTN started 40's. M I in 60's Status:Active Mother Comments:hypercholesterolemi a, breast cancer Status:Active Unknown Family Member Name Dates Details Father Comments:HTN started 40's. M I in 60's Status:Active Mother Comments:hypercholesterolemi a, breast cancer Status:Active Unknown Family Member Name Dates Details Father Comments:HTN started 40's. M I in 60's Status:Active Mother Comments:hypercholesterolemi a, breast cancer Status:Active Unknown Family Member Name Dates Details Father Comments:HTN started 40's. M I in 60's Status:Active Mother Comments:hypercholesterolemi a, breast cancer Status:Active Unknown Family Member Name Dates Details Father Comments:HTN started 40's. M I in 60's Status:Active Mother Comments:hypercholesterolemi a, breast cancer Status:Active Unknown Family Member Name Dates Details Father Comments:HTN started 40's. M I in 60's Status:Active Mother Comments:hypercholesterolemi a, breast cancer Status:Active Unknown Family Member Name Dates Details Father Comments:HTN started 40's. M I in 60's Status:Active Mother Comments:hypercholesterolemi a, breast cancer Status:Active Unknown Family Member Name Dates Details Father Comments:HTN started 40's. M I in 60's Status:Active Mother Comments:hypercholesterolemi a, breast cancer Status:Active Unknown Family Member Name Dates Details Father Comments:HTN started 40's. M I in 60's Status:Active Mother Comments:hypercholesterolemi a, breast cancer Status:Active Unknown Family Member Name Dates Details Father Comments:HTN started 40's. M I in 60's Status:Active Mother Comments:hypercholesterolemi a, breast cancer Status:Active Unknown Family Member Name Dates Details Father Comments:HTN started 40's. M I in 60's Status:Active Mother Comments:hypercholesterolemi a, breast cancer Status:Active Relationship Condition Age at Onset Recorded Date/T jose antonio father Myocardial infarction 60 Cardiac disease Unknown Coronary artery disease Unknown mother Malignant neoplasm of breast Unknown Hyperlipidemia Unknown Relationship Condition Age at Onset Recorded Date/T jose antonio father Myocardial infarction 60 Cardiac disease Unknown Coronary artery disease Unknown mother Malignant neoplasm of breast Unknown Hyperlipidemia Unknown grandmother Cerebrovascular accident (CVA) Unknown grandfather Myocardial infarction Unknown Instructions Name Dates Details Multiple sclerosis : How to access health information online Indication:Multiple sclerosis Multiple sclerosis : How to access health information online - Detail Indication:Multiple sclerosis Hypertension : Patient Instr uctions Indication:Hypertension Nonsmoker : How to access he alth information online Indication:Nonsmoker Nonsmoker : How to access he alth information online - Detail Indication:Nonsmoker Hypertension : How to access health information online Indication:Hypertension Hypertension : How to access health information online - Detail Indication:Hypertension Joint pain : Patient Instruc tions Indication:Joint pain Pharyngitis, acute : Sore th roat: diagnosis and treatment Indication:Pharyngitis, acute Name Dates Details How to access health informa tion online Indication:Multiple sclerosis Start:09-Jun-2017 Instruction Type:Patient Education How to access health informa tion online - Detail Indication:Multiple sclerosis Start:09-Jun-2017 Instruction Type:Patient Education Patient Instructions Indication:Hypertension Start:09-Jun-2017 Instruction Type:Provider Instructions for Treatment How to access health informa tion online Indication:Nonsmoker Start:20-Jan-2017 Instruction Type:Patient Education How to access health informa tion online - Detail Indication:Nonsmoker Start:20-Jan-2017 Instruction Type:Patient Education Patient Instructions Indication:Hypertension Start:20-Jan-2017 Instruction Type:Provider Instructions for Treatment How to access health informa tion online Indication:Hypertension Start:04-Apr-2014 Instruction Type:Patient Education How to access health informa tion online - Detail Indication:Hypertension Start:04-Apr-2014 Instruction Type:Patient Education Patient Instructions Indication:Hypertension Start:04-Apr-2014 Instruction Type:Provider Instructions for Treatment Patient Instructions Indication:Joint pain Start:23-Apr-2013 Instruction Type:Provider Instructions for Treatment Patient Instructions Indication:Hypertension Start:07-Feb-2013 Instruction Type:Provider Instructions for Treatment Patient Instructions Indication:Hypertension Start:31-Dec-2012 Instruction Type:Provider Instructions for Treatment Patient Instructions Indication:Hypertension Start:04-Jun-2012 Instruction Type:Provider Instructions for Treatment Sore throat: diagnosis and treatment Indication:Pharyngitis, acute Start:09-Jul-2007 Instruction Type:Patient Education Name Dates Details How to access health informa tion online Indication:Multiple sclerosis Start:09-Jun-2017 Instruction Type:Patient Education How to access health informa tion online - Detail Indication:Multiple sclerosis Start:09-Jun-2017 Instruction Type:Patient Education Patient Instructions Indication:Hypertension Start:09-Jun-2017 Instruction Type:Provider Instructions for Treatment How to access health informa tion online Indication:Nonsmoker Start:20-Jan-2017 Instruction Type:Patient Education How to access health informa tion online - Detail Indication:Nonsmoker Start:20-Jan-2017 Instruction Type:Patient Education Patient Instructions Indication:Hypertension Start:20-Jan-2017 Instruction Type:Provider Instructions for Treatment How to access health informa tion online Indication:Hypertension Start:04-Apr-2014 Instruction Type:Patient Education How to access health informa tion online - Detail Indication:Hypertension Start:04-Apr-2014 Instruction Type:Patient Education Patient Instructions Indication:Hypertension Start:04-Apr-2014 Instruction Type:Provider Instructions for Treatment Patient Instructions Indication:Joint pain Start:23-Apr-2013 Instruction Type:Provider Instructions for Treatment Patient Instructions Indication:Hypertension Start:07-Feb-2013 Instruction Type:Provider Instructions for Treatment Patient Instructions Indication:Hypertension Start:31-Dec-2012 Instruction Type:Provider Instructions for Treatment Patient Instructions Indication:Hypertension Start:04-Jun-2012 Instruction Type:Provider Instructions for Treatment Sore throat: diagnosis and treatment Indication:Pharyngitis, acute Start:09-Jul-2007 Instruction Type:Patient Education Name Dates Details How to access health informa tion online Indication:Nonsmoker Start:09-Aug-2019 Instruction Type:Patient Education How to access health informa tion online - Detail Indication:Nonsmoker Start:09-Aug-2019 Instruction Type:Patient Education Patient Instructions Indication:Obstructive sleep apnea Start:09-Aug-2019 Instruction Type:Provider Instructions for Treatment How to access health informa tion online Indication:Nonsmoker Start:16-Jul-2019 Instruction Type:Patient Education How to access health informa tion online - Detail Indication:Nonsmoker Start:16-Jul-2019 Instruction Type:Patient Education Patient Instructions Indication:Nonsmoker Start:16-Jul-2019 Instruction Type:Provider Instructions for Treatment How to access health informa tion online Indication:Nonsmoker Start:28-Jun-2019 Instruction Type:Patient Education How to access health informa tion online - Detail Indication:Nonsmoker Start:28-Jun-2019 Instruction Type:Patient Education Patient Instructions Indication:Nonsmoker Start:28-Jun-2019 Instruction Type:Provider Instructions for Treatment How to access health informa tion online Indication:Witnessed episode of apnea Start:19-Jun-2019 Instruction Type:Patient Education How to access health informa tion online - Detail Indication:Witnessed episode of apnea Start:19-Jun-2019 Instruction Type:Patient Education Patient Instructions Indication:Nonsmoker Start:19-Jun-2019 Instruction Type:Provider Instructions for Treatment How to access health informa tion online Indication:BMI 25.0-25.9,adult Start:12-Jun-2019 Instruction Type:Patient Education How to access health informa tion online - Detail Indication:BMI 25.0-25.9,adult Start:12-Jun-2019 Instruction Type:Patient Education Patient Instructions Indication:Nonsmoker Start:12-Jun-2019 Instruction Type:Provider Instructions for Treatment How to access health informa tion online Indication:BMI 26.0-26.9,adult Start:03-Jun-2019 Instruction Type:Patient Education How to access health informa tion online - Detail Indication:BMI 26.0-26.9,adult Start:03-Jun-2019 Instruction Type:Patient Education Patient Instructions Indication:Chest tightness Start:03-Jun-2019 Instruction Type:Provider Instructions for Treatment How to access health informa tion online Indication:BMI 26.0-26.9,adult Start:30-May-2019 Instruction Type:Patient Education How to access health informa tion online - Detail Indication:BMI 26.0-26.9,adult Start:30-May-2019 Instruction Type:Patient Education Patient Instructions Indication:Headache Start:30-May-2019 Instruction Type:Provider Instructions for Treatment How to access health informa tion online Indication:Multiple sclerosis Start:09-Jun-2017 Instruction Type:Patient Education How to access health informa tion online - Detail Indication:Multiple sclerosis Start:09-Jun-2017 Instruction Type:Patient Education Patient Instructions Indication:Hypertension Start:09-Jun-2017 Instruction Type:Provider Instructions for Treatment How to access health informa tion online Indication:Nonsmoker Start:20-Jan-2017 Instruction Type:Patient Education How to access health informa tion online - Detail Indication:Nonsmoker Start:20-Jan-2017 Instruction Type:Patient Education Patient Instructions Indication:Hypertension Start:20-Jan-2017 Instruction Type:Provider Instructions for Treatment How to access health informa tion online Indication:Hypertension Start:04-Apr-2014 Instruction Type:Patient Education How to access health informa tion online - Detail Indication:Hypertension Start:04-Apr-2014 Instruction Type:Patient Education Patient Instructions Indication:Hypertension Start:04-Apr-2014 Instruction Type:Provider Instructions for Treatment Patient Instructions Indication:Joint pain Start:23-Apr-2013 Instruction Type:Provider Instructions for Treatment Patient Instructions Indication:Hypertension Start:07-Feb-2013 Instruction Type:Provider Instructions for Treatment Patient Instructions Indication:Hypertension Start:31-Dec-2012 Instruction Type:Provider Instructions for Treatment Patient Instructions Indication:Hypertension Start:04-Jun-2012 Instruction Type:Provider Instructions for Treatment Sore throat: diagnosis and treatment Indication:Pharyngitis, acute Start:09-Jul-2007 Instruction Type:Patient Education Name Dates Details How to access health informa tion online Indication:Nonsmoker Start:09-Aug-2019 Instruction Type:Patient Education How to access health informa tion online - Detail Indication:Nonsmoker Start:09-Aug-2019 Instruction Type:Patient Education Patient Instructions Indication:Obstructive sleep apnea Start:09-Aug-2019 Instruction Type:Provider Instructions for Treatment How to access health informa tion online Indication:Nonsmoker Start:16-Jul-2019 Instruction Type:Patient Education How to access health informa tion online - Detail Indication:Nonsmoker Start:16-Jul-2019 Instruction Type:Patient Education Patient Instructions Indication:Nonsmoker Start:16-Jul-2019 Instruction Type:Provider Instructions for Treatment How to access health informa tion online Indication:Nonsmoker Start:28-Jun-2019 Instruction Type:Patient Education How to access health informa tion online - Detail Indication:Nonsmoker Start:28-Jun-2019 Instruction Type:Patient Education Patient Instructions Indication:Nonsmoker Start:28-Jun-2019 Instruction Type:Provider Instructions for Treatment How to access health informa tion online Indication:Witnessed episode of apnea Start:19-Jun-2019 Instruction Type:Patient Education How to access health informa tion online - Detail Indication:Witnessed episode of apnea Start:19-Jun-2019 Instruction Type:Patient Education Patient Instructions Indication:Nonsmoker Start:19-Jun-2019 Instruction Type:Provider Instructions for Treatment How to access health informa tion online Indication:BMI 25.0-25.9,adult Start:12-Jun-2019 Instruction Type:Patient Education How to access health informa tion online - Detail Indication:BMI 25.0-25.9,adult Start:12-Jun-2019 Instruction Type:Patient Education Patient Instructions Indication:Nonsmoker Start:12-Jun-2019 Instruction Type:Provider Instructions for Treatment How to access health informa tion online Indication:BMI 26.0-26.9,adult Start:03-Jun-2019 Instruction Type:Patient Education How to access health informa tion online - Detail Indication:BMI 26.0-26.9,adult Start:03-Jun-2019 Instruction Type:Patient Education Patient Instructions Indication:Chest tightness Start:03-Jun-2019 Instruction Type:Provider Instructions for Treatment How to access health informa tion online Indication:BMI 26.0-26.9,adult Start:30-May-2019 Instruction Type:Patient Education How to access health informa tion online - Detail Indication:BMI 26.0-26.9,adult Start:30-May-2019 Instruction Type:Patient Education Patient Instructions Indication:Headache Start:30-May-2019 Instruction Type:Provider Instructions for Treatment How to access health informa tion online Indication:Multiple sclerosis Start:09-Jun-2017 Instruction Type:Patient Education How to access health informa tion online - Detail Indication:Multiple sclerosis Start:09-Jun-2017 Instruction Type:Patient Education Patient Instructions Indication:Hypertension Start:09-Jun-2017 Instruction Type:Provider Instructions for Treatment How to access health informa tion online Indication:Nonsmoker Start:20-Jan-2017 Instruction Type:Patient Education How to access health informa tion online - Detail Indication:Nonsmoker Start:20-Jan-2017 Instruction Type:Patient Education Patient Instructions Indication:Hypertension Start:20-Jan-2017 Instruction Type:Provider Instructions for Treatment How to access health informa tion online Indication:Hypertension Start:04-Apr-2014 Instruction Type:Patient Education How to access health informa tion online - Detail Indication:Hypertension Start:04-Apr-2014 Instruction Type:Patient Education Patient Instructions Indication:Hypertension Start:04-Apr-2014 Instruction Type:Provider Instructions for Treatment Patient Instructions Indication:Joint pain Start:23-Apr-2013 Instruction Type:Provider Instructions for Treatment Patient Instructions Indication:Hypertension Start:07-Feb-2013 Instruction Type:Provider Instructions for Treatment Patient Instructions Indication:Hypertension Start:31-Dec-2012 Instruction Type:Provider Instructions for Treatment Patient Instructions Indication:Hypertension Start:04-Jun-2012 Instruction Type:Provider Instructions for Treatment Sore throat: diagnosis and treatment Indication:Pharyngitis, acute Start:09-Jul-2007 Instruction Type:Patient Education Name Dates Details How to access health informa tion online Indication:Nonsmoker Start:09-Aug-2019 Instruction Type:Patient Education How to access health informa tion online - Detail Indication:Nonsmoker Start:09-Aug-2019 Instruction Type:Patient Education Patient Instructions Indication:Obstructive sleep apnea Start:09-Aug-2019 Instruction Type:Provider Instructions for Treatment How to access health informa tion online Indication:Nonsmoker Start:16-Jul-2019 Instruction Type:Patient Education How to access health informa tion online - Detail Indication:Nonsmoker Start:16-Jul-2019 Instruction Type:Patient Education Patient Instructions Indication:Nonsmoker Start:16-Jul-2019 Instruction Type:Provider Instructions for Treatment How to access health informa tion online Indication:Nonsmoker Start:28-Jun-2019 Instruction Type:Patient Education How to access health informa tion online - Detail Indication:Nonsmoker Start:28-Jun-2019 Instruction Type:Patient Education Patient Instructions Indication:Nonsmoker Start:28-Jun-2019 Instruction Type:Provider Instructions for Treatment How to access health informa tion online Indication:Witnessed episode of apnea Start:19-Jun-2019 Instruction Type:Patient Education How to access health informa tion online - Detail Indication:Witnessed episode of apnea Start:19-Jun-2019 Instruction Type:Patient Education Patient Instructions Indication:Nonsmoker Start:19-Jun-2019 Instruction Type:Provider Instructions for Treatment How to access health informa tion online Indication:BMI 25.0-25.9,adult Start:12-Jun-2019 Instruction Type:Patient Education How to access health informa tion online - Detail Indication:BMI 25.0-25.9,adult Start:12-Jun-2019 Instruction Type:Patient Education Patient Instructions Indication:Nonsmoker Start:12-Jun-2019 Instruction Type:Provider Instructions for Treatment How to access health informa tion online Indication:BMI 26.0-26.9,adult Start:03-Jun-2019 Instruction Type:Patient Education How to access health informa tion online - Detail Indication:BMI 26.0-26.9,adult Start:03-Jun-2019 Instruction Type:Patient Education Patient Instructions Indication:Chest tightness Start:03-Jun-2019 Instruction Type:Provider Instructions for Treatment How to access health informa tion online Indication:BMI 26.0-26.9,adult Start:30-May-2019 Instruction Type:Patient Education How to access health informa tion online - Detail Indication:BMI 26.0-26.9,adult Start:30-May-2019 Instruction Type:Patient Education Patient Instructions Indication:Headache Start:30-May-2019 Instruction Type:Provider Instructions for Treatment How to access health informa tion online Indication:Multiple sclerosis Start:09-Jun-2017 Instruction Type:Patient Education How to access health informa tion online - Detail Indication:Multiple sclerosis Start:09-Jun-2017 Instruction Type:Patient Education Patient Instructions Indication:Hypertension Start:09-Jun-2017 Instruction Type:Provider Instructions for Treatment How to access health informa tion online Indication:Nonsmoker Start:20-Jan-2017 Instruction Type:Patient Education How to access health informa tion online - Detail Indication:Nonsmoker Start:20-Jan-2017 Instruction Type:Patient Education Patient Instructions Indication:Hypertension Start:20-Jan-2017 Instruction Type:Provider Instructions for Treatment How to access health informa tion online Indication:Hypertension Start:04-Apr-2014 Instruction Type:Patient Education How to access health informa tion online - Detail Indication:Hypertension Start:04-Apr-2014 Instruction Type:Patient Education Patient Instructions Indication:Hypertension Start:04-Apr-2014 Instruction Type:Provider Instructions for Treatment Patient Instructions Indication:Joint pain Start:23-Apr-2013 Instruction Type:Provider Instructions for Treatment Patient Instructions Indication:Hypertension Start:07-Feb-2013 Instruction Type:Provider Instructions for Treatment Patient Instructions Indication:Hypertension Start:31-Dec-2012 Instruction Type:Provider Instructions for Treatment Patient Instructions Indication:Hypertension Start:04-Jun-2012 Instruction Type:Provider Instructions for Treatment Sore throat: diagnosis and treatment Indication:Pharyngitis, acute Start:09-Jul-2007 Instruction Type:Patient Education Name Dates Details How to access health informa tion online Indication:Nonsmoker Start:09-Aug-2019 Instruction Type:Patient Education How to access health informa tion online - Detail Indication:Nonsmoker Start:09-Aug-2019 Instruction Type:Patient Education Patient Instructions Indication:Obstructive sleep apnea Start:09-Aug-2019 Instruction Type:Provider Instructions for Treatment How to access health informa tion online Indication:Nonsmoker Start:16-Jul-2019 Instruction Type:Patient Education How to access health informa tion online - Detail Indication:Nonsmoker Start:16-Jul-2019 Instruction Type:Patient Education Patient Instructions Indication:Nonsmoker Start:16-Jul-2019 Instruction Type:Provider Instructions for Treatment How to access health informa tion online Indication:Nonsmoker Start:28-Jun-2019 Instruction Type:Patient Education How to access health informa tion online - Detail Indication:Nonsmoker Start:28-Jun-2019 Instruction Type:Patient Education Patient Instructions Indication:Nonsmoker Start:28-Jun-2019 Instruction Type:Provider Instructions for Treatment How to access health informa tion online Indication:Witnessed episode of apnea Start:19-Jun-2019 Instruction Type:Patient Education How to access health informa tion online - Detail Indication:Witnessed episode of apnea Start:19-Jun-2019 Instruction Type:Patient Education Patient Instructions Indication:Nonsmoker Start:19-Jun-2019 Instruction Type:Provider Instructions for Treatment How to access health informa tion online Indication:BMI 25.0-25.9,adult Start:12-Jun-2019 Instruction Type:Patient Education How to access health informa tion online - Detail Indication:BMI 25.0-25.9,adult Start:12-Jun-2019 Instruction Type:Patient Education Patient Instructions Indication:Nonsmoker Start:12-Jun-2019 Instruction Type:Provider Instructions for Treatment How to access health informa tion online Indication:BMI 26.0-26.9,adult Start:03-Jun-2019 Instruction Type:Patient Education How to access health informa tion online - Detail Indication:BMI 26.0-26.9,adult Start:03-Jun-2019 Instruction Type:Patient Education Patient Instructions Indication:Chest tightness Start:03-Jun-2019 Instruction Type:Provider Instructions for Treatment How to access health informa tion online Indication:BMI 26.0-26.9,adult Start:30-May-2019 Instruction Type:Patient Education How to access health informa tion online - Detail Indication:BMI 26.0-26.9,adult Start:30-May-2019 Instruction Type:Patient Education Patient Instructions Indication:Headache Start:30-May-2019 Instruction Type:Provider Instructions for Treatment How to access health informa tion online Indication:Multiple sclerosis Start:09-Jun-2017 Instruction Type:Patient Education How to access health informa tion online - Detail Indication:Multiple sclerosis Start:09-Jun-2017 Instruction Type:Patient Education Patient Instructions Indication:Hypertension Start:09-Jun-2017 Instruction Type:Provider Instructions for Treatment How to access health informa tion online Indication:Nonsmoker Start:20-Jan-2017 Instruction Type:Patient Education How to access health informa tion online - Detail Indication:Nonsmoker Start:20-Jan-2017 Instruction Type:Patient Education Patient Instructions Indication:Hypertension Start:20-Jan-2017 Instruction Type:Provider Instructions for Treatment How to access health informa tion online Indication:Hypertension Start:04-Apr-2014 Instruction Type:Patient Education How to access health informa tion online - Detail Indication:Hypertension Start:04-Apr-2014 Instruction Type:Patient Education Patient Instructions Indication:Hypertension Start:04-Apr-2014 Instruction Type:Provider Instructions for Treatment Patient Instructions Indication:Joint pain Start:23-Apr-2013 Instruction Type:Provider Instructions for Treatment Patient Instructions Indication:Hypertension Start:07-Feb-2013 Instruction Type:Provider Instructions for Treatment Patient Instructions Indication:Hypertension Start:31-Dec-2012 Instruction Type:Provider Instructions for Treatment Patient Instructions Indication:Hypertension Start:04-Jun-2012 Instruction Type:Provider Instructions for Treatment Sore throat: diagnosis and treatment Indication:Pharyngitis, acute Start:09-Jul-2007 Instruction Type:Patient Education Name Dates Details How to access health informa tion online Indication:Nonsmoker Start:09-Aug-2019 Instruction Type:Patient Education How to access health informa tion online - Detail Indication:Nonsmoker Start:09-Aug-2019 Instruction Type:Patient Education Patient Instructions Indication:Obstructive sleep apnea Start:09-Aug-2019 Instruction Type:Provider Instructions for Treatment How to access health informa tion online Indication:Nonsmoker Start:16-Jul-2019 Instruction Type:Patient Education How to access health informa tion online - Detail Indication:Nonsmoker Start:16-Jul-2019 Instruction Type:Patient Education Patient Instructions Indication:Nonsmoker Start:16-Jul-2019 Instruction Type:Provider Instructions for Treatment How to access health informa tion online Indication:Nonsmoker Start:28-Jun-2019 Instruction Type:Patient Education How to access health informa tion online - Detail Indication:Nonsmoker Start:28-Jun-2019 Instruction Type:Patient Education Patient Instructions Indication:Nonsmoker Start:28-Jun-2019 Instruction Type:Provider Instructions for Treatment How to access health informa tion online Indication:Witnessed episode of apnea Start:19-Jun-2019 Instruction Type:Patient Education How to access health informa tion online - Detail Indication:Witnessed episode of apnea Start:19-Jun-2019 Instruction Type:Patient Education Patient Instructions Indication:Nonsmoker Start:19-Jun-2019 Instruction Type:Provider Instructions for Treatment How to access health informa tion online Indication:BMI 25.0-25.9,adult Start:12-Jun-2019 Instruction Type:Patient Education How to access health informa tion online - Detail Indication:BMI 25.0-25.9,adult Start:12-Jun-2019 Instruction Type:Patient Education Patient Instructions Indication:Nonsmoker Start:12-Jun-2019 Instruction Type:Provider Instructions for Treatment How to access health informa tion online Indication:BMI 26.0-26.9,adult Start:03-Jun-2019 Instruction Type:Patient Education How to access health informa tion online - Detail Indication:BMI 26.0-26.9,adult Start:03-Jun-2019 Instruction Type:Patient Education Patient Instructions Indication:Chest tightness Start:03-Jun-2019 Instruction Type:Provider Instructions for Treatment How to access health informa tion online Indication:BMI 26.0-26.9,adult Start:30-May-2019 Instruction Type:Patient Education How to access health informa tion online - Detail Indication:BMI 26.0-26.9,adult Start:30-May-2019 Instruction Type:Patient Education Patient Instructions Indication:Headache Start:30-May-2019 Instruction Type:Provider Instructions for Treatment How to access health informa tion online Indication:Multiple sclerosis Start:09-Jun-2017 Instruction Type:Patient Education How to access health informa tion online - Detail Indication:Multiple sclerosis Start:09-Jun-2017 Instruction Type:Patient Education Patient Instructions Indication:Hypertension Start:09-Jun-2017 Instruction Type:Provider Instructions for Treatment How to access health informa tion online Indication:Nonsmoker Start:20-Jan-2017 Instruction Type:Patient Education How to access health informa tion online - Detail Indication:Nonsmoker Start:20-Jan-2017 Instruction Type:Patient Education Patient Instructions Indication:Hypertension Start:20-Jan-2017 Instruction Type:Provider Instructions for Treatment How to access health informa tion online Indication:Hypertension Start:04-Apr-2014 Instruction Type:Patient Education How to access health informa tion online - Detail Indication:Hypertension Start:04-Apr-2014 Instruction Type:Patient Education Patient Instructions Indication:Hypertension Start:04-Apr-2014 Instruction Type:Provider Instructions for Treatment Patient Instructions Indication:Joint pain Start:23-Apr-2013 Instruction Type:Provider Instructions for Treatment Patient Instructions Indication:Hypertension Start:07-Feb-2013 Instruction Type:Provider Instructions for Treatment Patient Instructions Indication:Hypertension Start:31-Dec-2012 Instruction Type:Provider Instructions for Treatment Patient Instructions Indication:Hypertension Start:04-Jun-2012 Instruction Type:Provider Instructions for Treatment Sore throat: diagnosis and treatment Indication:Pharyngitis, acute Start:09-Jul-2007 Instruction Type:Patient Education Name Dates Details How to access health informa tion online Indication:Nonsmoker Start:09-Aug-2019 Instruction Type:Patient Education How to access health informa tion online - Detail Indication:Nonsmoker Start:09-Aug-2019 Instruction Type:Patient Education Patient Instructions Indication:Obstructive sleep apnea Start:09-Aug-2019 Instruction Type:Provider Instructions for Treatment How to access health informa tion online Indication:Nonsmoker Start:16-Jul-2019 Instruction Type:Patient Education How to access health informa tion online - Detail Indication:Nonsmoker Start:16-Jul-2019 Instruction Type:Patient Education Patient Instructions Indication:Nonsmoker Start:16-Jul-2019 Instruction Type:Provider Instructions for Treatment How to access health informa tion online Indication:Nonsmoker Start:28-Jun-2019 Instruction Type:Patient Education How to access health informa tion online - Detail Indication:Nonsmoker Start:28-Jun-2019 Instruction Type:Patient Education Patient Instructions Indication:Nonsmoker Start:28-Jun-2019 Instruction Type:Provider Instructions for Treatment How to access health informa tion online Indication:Witnessed episode of apnea Start:19-Jun-2019 Instruction Type:Patient Education How to access health informa tion online - Detail Indication:Witnessed episode of apnea Start:19-Jun-2019 Instruction Type:Patient Education Patient Instructions Indication:Nonsmoker Start:19-Jun-2019 Instruction Type:Provider Instructions for Treatment How to access health informa tion online Indication:BMI 25.0-25.9,adult Start:12-Jun-2019 Instruction Type:Patient Education How to access health informa tion online - Detail Indication:BMI 25.0-25.9,adult Start:12-Jun-2019 Instruction Type:Patient Education Patient Instructions Indication:Nonsmoker Start:12-Jun-2019 Instruction Type:Provider Instructions for Treatment How to access health informa tion online Indication:BMI 26.0-26.9,adult Start:03-Jun-2019 Instruction Type:Patient Education How to access health informa tion online - Detail Indication:BMI 26.0-26.9,adult Start:03-Jun-2019 Instruction Type:Patient Education Patient Instructions Indication:Chest tightness Start:03-Jun-2019 Instruction Type:Provider Instructions for Treatment How to access health informa tion online Indication:BMI 26.0-26.9,adult Start:30-May-2019 Instruction Type:Patient Education How to access health informa tion online - Detail Indication:BMI 26.0-26.9,adult Start:30-May-2019 Instruction Type:Patient Education Patient Instructions Indication:Headache Start:30-May-2019 Instruction Type:Provider Instructions for Treatment How to access health informa tion online Indication:Multiple sclerosis Start:09-Jun-2017 Instruction Type:Patient Education How to access health informa tion online - Detail Indication:Multiple sclerosis Start:09-Jun-2017 Instruction Type:Patient Education Patient Instructions Indication:Hypertension Start:09-Jun-2017 Instruction Type:Provider Instructions for Treatment How to access health informa tion online Indication:Nonsmoker Start:20-Jan-2017 Instruction Type:Patient Education How to access health informa tion online - Detail Indication:Nonsmoker Start:20-Jan-2017 Instruction Type:Patient Education Patient Instructions Indication:Hypertension Start:20-Jan-2017 Instruction Type:Provider Instructions for Treatment How to access health informa tion online Indication:Hypertension Start:04-Apr-2014 Instruction Type:Patient Education How to access health informa tion online - Detail Indication:Hypertension Start:04-Apr-2014 Instruction Type:Patient Education Patient Instructions Indication:Hypertension Start:04-Apr-2014 Instruction Type:Provider Instructions for Treatment Patient Instructions Indication:Joint pain Start:23-Apr-2013 Instruction Type:Provider Instructions for Treatment Patient Instructions Indication:Hypertension Start:07-Feb-2013 Instruction Type:Provider Instructions for Treatment Patient Instructions Indication:Hypertension Start:31-Dec-2012 Instruction Type:Provider Instructions for Treatment Patient Instructions Indication:Hypertension Start:04-Jun-2012 Instruction Type:Provider Instructions for Treatment Sore throat: diagnosis and treatment Indication:Pharyngitis, acute Start:09-Jul-2007 Instruction Type:Patient Education Name Dates Details How to access health informa tion online Indication:Nonsmoker Start:09-Aug-2019 Instruction Type:Patient Education How to access health informa tion online - Detail Indication:Nonsmoker Start:09-Aug-2019 Instruction Type:Patient Education Patient Instructions Indication:Obstructive sleep apnea Start:09-Aug-2019 Instruction Type:Provider Instructions for Treatment How to access health informa tion online Indication:Nonsmoker Start:16-Jul-2019 Instruction Type:Patient Education How to access health informa tion online - Detail Indication:Nonsmoker Start:16-Jul-2019 Instruction Type:Patient Education Patient Instructions Indication:Nonsmoker Start:16-Jul-2019 Instruction Type:Provider Instructions for Treatment How to access health informa tion online Indication:Nonsmoker Start:28-Jun-2019 Instruction Type:Patient Education How to access health informa tion online - Detail Indication:Nonsmoker Start:28-Jun-2019 Instruction Type:Patient Education Patient Instructions Indication:Nonsmoker Start:28-Jun-2019 Instruction Type:Provider Instructions for Treatment How to access health informa tion online Indication:Witnessed episode of apnea Start:19-Jun-2019 Instruction Type:Patient Education How to access health informa tion online - Detail Indication:Witnessed episode of apnea Start:19-Jun-2019 Instruction Type:Patient Education Patient Instructions Indication:Nonsmoker Start:19-Jun-2019 Instruction Type:Provider Instructions for Treatment How to access health informa tion online Indication:BMI 25.0-25.9,adult Start:12-Jun-2019 Instruction Type:Patient Education How to access health informa tion online - Detail Indication:BMI 25.0-25.9,adult Start:12-Jun-2019 Instruction Type:Patient Education Patient Instructions Indication:Nonsmoker Start:12-Jun-2019 Instruction Type:Provider Instructions for Treatment How to access health informa tion online Indication:BMI 26.0-26.9,adult Start:03-Jun-2019 Instruction Type:Patient Education How to access health informa tion online - Detail Indication:BMI 26.0-26.9,adult Start:03-Jun-2019 Instruction Type:Patient Education Patient Instructions Indication:Chest tightness Start:03-Jun-2019 Instruction Type:Provider Instructions for Treatment How to access health informa tion online Indication:BMI 26.0-26.9,adult Start:30-May-2019 Instruction Type:Patient Education How to access health informa tion online - Detail Indication:BMI 26.0-26.9,adult Start:30-May-2019 Instruction Type:Patient Education Patient Instructions Indication:Headache Start:30-May-2019 Instruction Type:Provider Instructions for Treatment How to access health informa tion online Indication:Multiple sclerosis Start:09-Jun-2017 Instruction Type:Patient Education How to access health informa tion online - Detail Indication:Multiple sclerosis Start:09-Jun-2017 Instruction Type:Patient Education Patient Instructions Indication:Hypertension Start:09-Jun-2017 Instruction Type:Provider Instructions for Treatment How to access health informa tion online Indication:Nonsmoker Start:20-Jan-2017 Instruction Type:Patient Education How to access health informa tion online - Detail Indication:Nonsmoker Start:20-Jan-2017 Instruction Type:Patient Education Patient Instructions Indication:Hypertension Start:20-Jan-2017 Instruction Type:Provider Instructions for Treatment How to access health informa tion online Indication:Hypertension Start:04-Apr-2014 Instruction Type:Patient Education How to access health informa tion online - Detail Indication:Hypertension Start:04-Apr-2014 Instruction Type:Patient Education Patient Instructions Indication:Hypertension Start:04-Apr-2014 Instruction Type:Provider Instructions for Treatment Patient Instructions Indication:Joint pain Start:23-Apr-2013 Instruction Type:Provider Instructions for Treatment Patient Instructions Indication:Hypertension Start:07-Feb-2013 Instruction Type:Provider Instructions for Treatment Patient Instructions Indication:Hypertension Start:31-Dec-2012 Instruction Type:Provider Instructions for Treatment Patient Instructions Indication:Hypertension Start:04-Jun-2012 Instruction Type:Provider Instructions for Treatment Sore throat: diagnosis and treatment Indication:Pharyngitis, acute Start:09-Jul-2007 Instruction Type:Patient Education Chief Complaint and Reason for Visit Chief Complaint MS Chief Complaint SLEEP APNEA Chief Complaint SLEEP APNEA DARY Chief Complaint Admit Date Multiple sclerosis August 22, 2024 3:1 6pm Chief Complaint Admit Date Multiple sclerosis August 22, 2024 3:1 6pm Re-est (Self) October 16, 2024 3:07p m Advance Directives No Advanced Directives Records Found Advance Directive Response Recorded Date/ Time Advance Directives No June 10:51am Living Will No May 19 5:50pm Power of Saddle Maker No May 19, 2021 5:50pm Advance Directive Response Recorded Date/ Time Advance Directives No June 10:51am Summary Purpose Additional Source Comments Care Teams (unrecognized sec tion and content) Team Status: Active Member Role Status Dates Delma Story NP, MEDICAID SERVICE COORDINATOR-C Family Provider Active No Primary Care Physician Primary Care Provider Active Team Status: Inactive Member Role Status Dates DANIELE CARVAJAL Attending Provider, Referring Provider A ctive No Primary Care Physician Primary Care Provider Active Team Status: Inactive Member Role Status Dates No Primary Care Physician Primary Care Provider Active Dr. Myke Scott MD Attending Provider, Refer ring Provider Active Team Status: Inactive Member Role Status Dates No Primary Care Physician Primary Care Provider Active Out of [facility] Doctor Attending Provider Active Team Status: Active Member Role Status Dates No Primary Care Physician Primary Care Provider Active Team Status: Inactive Member Role Status Dates No Primary Care Physician Primary Care Provider Active Start: August 22, 2024 End: August 22, 2024 HALLE MAY Attending Provider Active Sta rt: August 22, 2024 End: August 22, 2024 HALLE MAY Referring Provider Active Sta rt: August 22, 2024 End: August 22, 2024 Team Status: Inactive Member Role Status Dates No Primary Care Physician Primary Care Provider Active Start: August 27, 2024 End: August 27, 2024 HALLE MAY Attending Provider Active Sta rt: August 27, 2024 End: August 27, 2024 HALLE MAY Referring Provider Active Sta rt: August 27, 2024 End: August 27, 2024 Team Status: Inactive Member Role Status Dates No Primary Care Physician Primary Care Provider Active Start: October 16, 2024 End: October 16, 2024 No Primary Care Physician Referring Provider Active Start: October 16, 2024 End: October 16, 2024 Dr. Coleman Khan MD Attending Provider Active Start: October 16, 2024 End: October 16, 2024 Goals (unrecognized section and content) Goals may be documented in a n alternate sectionGoals may be documented in an alternate sectionGoals may be documented in an alternate sectionGoals may be documented in an alternate sectionGoals may be documented in an alternate sectionGoals may be documented in an alternate section (unrecognized sect ion and content) No Status Records Found INFORMATION SOURCE (unrecogn ized section and content) DATE CREATED AUTHOR 10/23/2024 [facility] FOR RECORDS PERTAINING TO PATIENTS WHO ARE OR HAVE BEEN ENROLLED IN A CHEMICAL DEPENDENCY/SUBSTANCEABUSE PROGRAM, SOME INFORMATION MAY BE OMITTED. This clinical summary was aggregated from multiple sources. Caution should be exercised in using it in the provision of clinical care. This summary normalizes information from multiple sources, and as a consequence, information in this document may materially change the coding, format and clinical context of patient data. In addition, data may be omitted in some cases. CLINICAL DECISIONS SHOULD BE BASED ON THE PRIMARY CLINICAL RECORDS. [facility] [facility]. provides no warranty or guarantee of the accuracy or completeness of information in this document.
[2024-12-25 00:13] VITALS: BP 111/71
--- NOTE | 2024-12-25 00:57 | CT_ITS ---
PROCEDURE: ABDOMEN/PELVIS W IV CONT ONLY 12/25/2024 REASON FOR EXAM: LOWER ABD PAIN TECHNIQUE: ABDOMEN/PELVIS W IV CONT ONLY Coronal and Sagittal reconstruction series were provided. CONTRAST: Isovue 370 VOLUME: 95 mL One or more dose reduction techniques were used (e.g., Automated exposure control, adjustment of the mA and/or kV according to patient size, use of iterative reconstruction technique. RADIATION DOSE SUMMARY: CTDlvol: 28 mGy DLP: 1004 mGycm COMPARISON: 05/19/2021 FINDINGS: Under aerated lung bases. Normal heart size. Unremarkable liver, gallbladder, spleen, adrenal glands, right kidney. Simple left renal cyst. No hydronephrosis or ureteral stone. Normal bladder. Normal prostate. No retroperitoneal or pelvic adenopathy. No free air. Nondistended bowel. Normal appendix. Diverticulosis. Sigmoid diverticulitis, without abscess. Lumbar spine degeneration. No acute abdominal wall findings. Status post bilateral inguinal hernia repair. CT/Abdomen/Pelvis W IV Cont ONLY IMPRESSION: Sigmoid diverticulitis without abscess. Reading Location: [place] [id number]
[2024-12-25 01:15] LABS: Hematocrit 44.4 % (40-54); Hemoglobin 15.3 g/dL (13.0-16.5); Immature Granulocytes Count 0.070 X10^3/uL (0.0-0.0); Mean Corp Hgb Conc 34.5 g/dL (32-36); Mean Corpuscular Volume 88.8 fL (80-94); Mean Platelet Vol. 9.1 fl (6.2-12.0); NRBC Flagged by Analyzer 0 % (0-5); POSITIVE DIFFERENTIAL YES; Platelet Count 231 K/mm3 (150-450); RBC Distribution Width CV 12.8 % (11.6-14.6); RBC Distribution Width SD 41.8 fl (35.1-43.9); Red Blood Count 5.00 M/mm3 (4.6-6.2); White Blood Count 14.1 K/mm3 (4.4-11.0)
[2024-12-25 01:18] LABS: Differential Indicated SCAN CRITERIA MET
[2024-12-25 01:44] LABS: Differential Comment SCANNED; Red Cell Morphology NORM C+C NORMAL (NORM C&C)
[2024-12-25 01:48] VITALS: BP 111/71; PULSE 110; RESP 16; TEMP 36.4; O2SAT 98
[2024-12-25 02:00] VITALS: BP 116/80; PULSE 84; RESP 16; O2SAT 98
[2024-12-25 02:05] LABS: Anion Gap 12 (5-15); BUN 12 mg/dL (4-19); BUN/Creat Ratio 11.4 RATIO (10-20); Calcium,Total 8.9 mg/dL (7.6-11.0); Carbon Dioxide 22.7 mmol/L (21.0-32.0); Chloride 102 mmol/L (98-108); Estimated Creatinine Clearance 79.60 ml/min (50-250); Glucose 115 mg/dL (70-99); Potassium 4.1 mmol/L (3.3-5.1)
[2024-12-25 02:40] VITALS: BP 118/84; PULSE 98; RESP 18; TEMP 36.4; O2SAT 98
== END 2024-12-25 02:48 | disposition home or self-care (01) ==
PROVIDERS: Emergency Provider Emergency Medicine; Visit Provider Emergency Medicine
DX: K57.32 Diverticulitis of large intestine without perforation or abscess without bleeding (principal); K59.00 Constipation, unspecified; I10 Essential (primary) hypertension; Z79.899 Other long term (current) drug therapy; F17.290 Nicotine dependence, other tobacco product, uncomplicated
CPT/HCPCS: 74177; 80048; 85025; 96374; 99285; Q9967; A4216

== ENCOUNTER 2024-12-29 06:52 | Emergency (ER) | payer OTHER, SELFPAY ==
[2024-12-29 06:53] VITALS: BP 148/89; PULSE 110; RESP 16; TEMP 36.8; O2SAT 99; BMI 25.8
--- NOTE | 2024-12-29 07:13 | CT_ITS ---
PROCEDURE: ABDOMEN/PELVIS W IV CONT ONLY 12/29/2024 REASON FOR EXAM: CONSTIPATION, ABDOMINAL PAIN TECHNIQUE: ABDOMEN/PELVIS W IV CONT ONLY Coronal and Sagittal reconstruction series were provided. CONTRAST: Isovue 370 VOLUME: 100 mL One or more dose reduction techniques were used (e.g., Automated exposure control, adjustment of the mA and/or kV according to patient size, use of iterative reconstruction technique. RADIATION DOSE SUMMARY: DLP: 873 mGycm COMPARISON: CT abdomen pelvis 12/25/2024. FINDINGS: Lung bases: Unremarkable. Liver: The liver is normal in size without suspicious hepatic mass. The major portal veins are patent. No biliary ductal dilation. Gallbladder: No radiopaque stones within the gallbladder. Spleen: Unremarkable. Pancreas: Unremarkable. Adrenals: No adrenal mass. Kidneys: Bilateral renal cysts and additional hypodensities. No hydronephrosis or nephrolithiasis. Bladder: Decompressed. Reproductive Organs: Unremarkable. Bowel: The bowel loops are nondilated. Significant interval improvement in the distal sigmoid diverticulitis, with mild residual fat stranding. Additional moderate diverticulosis throughout the distal colon. No inflammatory mass or abscess. Normal appendix. No ascites or free air. Lymph nodes: No suspicious lymph node enlargement. Vasculature: The abdominal aorta and IVC are normal. Bones: Minimal thoracolumbar spondylosis. Prior bilateral inguinal hernia repair. CT/Abdomen/Pelvis W IV Cont ONLY IMPRESSION: Significant interval improvement in the prior sigmoid diverticulitis. No acute abdominopelvic finding. Reading Location: [id number]
--- NOTE | 2024-12-29 07:29 | EX.ED.DYSGE1 ---
HPI History of Present Illness Chief Complaint: Constipation Narrative Narrative: Chief complaint and HPI: Constipation. 54-year-old male with MS presents for evaluation of constipation. Patient states he has been constipated for approximately 1 week. Associated symptoms include lower abdominal discomfort and cramping. He denies any fever, chills, nausea, vomiting, dysuria. Has never had a bowel obstruction. Has history of abdominal surgery. States he drank magnesium citrate earlier in the week without improvement. Was seen in our emergency department, I reviewed the note on 12/24. He had a CT abdomen pelvis that showed sigmoid diverticulitis without abscess. Patient was started on Flagyl and ciprofloxacin which she has been taking. Patient states his baclofen was recently increased approximately 3 weeks ago. States he became more constipated after that but it is progressively worsened. Review of systems: See HPI Medications: As listed on the chart Allergies: As listed on the chart PFSH: Per chart Vital signs: As listed on the chart. Reviewed. Physical exam: Gen: A&O x3, NAD Head: Normocephalic, atraumatic Eyes: No sclera icterus, conjunctiva clear ENT: Moist mucous membranes Neck: Trachea midline, No JVD CV: RRR, no murmurs, no peripheral edema Resp: Lungs CTA BL, no w/r/c GI: Abd soft, non-distended, mildly tender to palpation of the bilateral lower quadrants, no r/r/g Musc: Full ROM, no deformity Skin: Warm, dry Neuro: Alert, oriented, grossly intact, sensation intact Psych: Cooperative, appropriate mood and affect [facility] History Muscle spasticity Difficulty walking Polycythemia Obstructive sleep apnea Sciatic nerve pain Essential (primary) hypertension Multiple sclerosis Right kidney stone Home Medications ?Medication ?Instructions ?Recorded ?Last Taken ?Type baclofen 10 mg tablet 30 mg PO TID 10/09/24 12/24/24 History gabapentin 300 mg capsule 600 mg PO BID 10/09/24 12/24/24 History amlodipine 10 mg tablet 10 mg PO DAILY #90 tabs 11/04/24 12/24/24 Rx losartan 100 mg tablet 100 mg PO DAILY #90 tabs 11/04/24 12/24/24 Rx ciprofloxacin HCl 500 mg tablet 500 mg PO BID #20 TABLETS 12/25/24 Unknown Rx metronidazole 500 mg tablet 500 mg PO BID #20 tabs 12/25/24 Unknown Rx Allergy/AdvReac Type Severity Reaction Status Date / Time Penicillins (PCN) Allergy Rash Verified 12/29/24 07:33 Family History Father Myocardial infarction, Onset Age: 60 Heart disease CAD (coronary artery disease) coronary stents Mother Breast cancer Hyperlipidemia Grandmother CVA (cerebral vascular accident) Grandfather Myocardial infarction Surgical History History of lithotripsy (2018) History of left inguinal hernia repair (2015) Social History Smoking Status: Current some day smoker tobacco type: cigars alcohol intake: current alcohol intake frequency: holidays/special occasions only substance use type: does not use caffeine: Yes EXAM Physical Exam Const Vital Signs: 12/29/24 06:53 12/29/24 10:07 Temperature 98.3 F Temperature Source Oral Pulse Rate 110 H 83 Respiratory Rate 16 16 Blood Pressure 148/89 H 105/73 Blood Pressure Mean 108 83 Pulse Ox 99 97 Oxygen Delivery Method Room Air Room Air MDM MDM MDM Narrative Medical decision making narrative: 54-year-old male with MS presents for evaluation of constipation. Patient states he has been constipated for approximately 1 week. Associated symptoms include lower abdominal discomfort and cramping. Was seen in our emergency department, I reviewed the note on 12/24. He had a CT abdomen pelvis that showed sigmoid diverticulitis without abscess. Patient was started on Flagyl and ciprofloxacin which she has been taking. Differential diagnosis includes but is not limited to diverticulitis, diverticulitis with abscess, electrolyte abnormality, ileus, obstruction, constipation. NS bolus and Zofran ordered. Laboratory workup ordered including CT abdomen pelvis to assess for worsening diverticulitis. CBC without leukocytosis or anemia. CMP shows mild dehydration with renal insufficiency of 1.26. No transaminitis. Lipase unremarkable. CT abdomen pelvis shows improvement of sigmoid diverticulitis. Otherwise no acute findings. No constipation. On reevaluation, patient states that he has had a bowel movement here in the emergency department prior to imaging which likely explains no constipation seen on imaging. Recommend oral hydration. Follow-up with primary care physician and general surgery for his diverticulitis. He confirmed understanding of plan. Continue taking his antibiotics. Patient stable to discharge home. Recommended daily MiraLAX to keep stools soft. Impression: 1. Improving diverticulitis 2. Constipation Lab Data Labs: Laboratory Results - last 24 hr 12/29/24 07:34 WBC 6.3 RBC 5.36 Hgb 16.4 Hct 47.1 MCV 87.9 MCH 30.6 MCHC 34.8 RDW Std Deviation 41.1 RDW Coeff of Ericka 12.7 Plt Count 278 MPV 9.2 Immature Gran % (Auto) 0.300 Neut % (Auto) 70.7 H Lymph % (Auto) 16.1 L [place] % (Auto) 11.8 H Eos % (Auto) 0.8 Baso % (Auto) 0.3 Absolute Neuts (auto) 4.5 Absolute Lymphs (auto) 1.02 Nucleated RBC % 0 Sodium 136 Potassium 4.1 Chloride 101 Carbon Dioxide 20.9 L Anion Gap 14 BUN 12 Creatinine 1.27 H Estim Creat Clear Calc 67.06 Est GFR (MDRD) Non-Af 66 BUN/Creatinine Ratio 9.1 L Glucose 113 H Calcium 9.4 Total Bilirubin 0.46 AST 26 ALT 24 Alkaline Phosphatase 104 Total Protein 7.7 Albumin 4.4 Globulin 3.2 Albumin/Globulin Ratio 1.4 Lipase 60 Radiography Diagnostic Testing: Clinical Impression(s) from Imaging Studies Abdomen/Pelvis CT 12/29/24 07:13 IMPRESSION: Significant interval improvement in the prior sigmoid diverticulitis. No acute abdominopelvic finding. Reading Location: [id number] Discharge Plan Triage Chief Complaint: Constipation ED Provider: Leonel Menchaca Dx/Rx/DC Orders Prescriptions: No Action baclofen 10 mg tablet 30 mg PO TID gabapentin 300 mg capsule 600 mg PO BID metronidazole 500 mg tablet 500 mg PO BID Qty: 20 0RF ciprofloxacin HCl 500 mg tablet 500 mg PO BID Qty: 20 0RF losartan 100 mg tablet 100 mg PO DAILY Qty: 90 3RF amlodipine 10 mg tablet 10 mg PO DAILY Qty: 90 3RF Primary Care Provider: Care Physician,No Primary Referrals: Care Physician,No Primary [Primary Care Provider] - Print Language: Samoan
--- OUTSIDE RECORDS SUMMARY | 2024-12-29 07:29 | XMS RPT_ITS | CCD ---
Author Organization [facility] CliniSyut Care Team Providers Care Pharmacy Helper Name Role Phone Delma Story Unavailable Evelyn Lomax Unavailable Slarb, Priti Unavailable Unavailable Unavailable Unavailable Janae Garza Unavailable Unavailable Wayne Cormier Unavailable Unavailable Cooper Jj Unavailable Aston Anderson Unavailable Mark Perez Unavailable Wayne Cormier Unavailable Unavailable Wayne Don Unavailable Unavailable Pamelasandee TAN Sammie Unavailable Evelyn Lomax MD Unavailable [phone] Cooper Jj MD Unavailable Aston Anderson Unavailable Mark Perez Unavailable Wayne Don LPN Unavailable Unavailable Priti Ramirez LPN Unavailable Unavailable Unavailable Unavailable Unavailable Primary Care Provider Unavailabl e Care Physician, No Primary Primary Care Provider Unavailable TAMK 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KENY Attending Provider JUNK 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KENY Referring Provider Care Physician, No Primary Referring Provider Un available Bill COLLINS, Dr. Cee Attending Provider Care Physician, No Primary Primary Care Provider Unavailable TAMK 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KENY Attending Provider [phone] JUNK 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, KENY Referring Provider Jasmine COLLINS, Dr. Turk Emergency Provider KENY DOMINGUEZ Attending Unavailable ANGELICA, KENY Referring Unavailable Care Physician, No Primary Primary Care Unava ilable KENY DOMINGUEZ Attending Unavailable KENY DOMINGUEZ Referring Unavailable Care Physician, No Primary Primary Care Unava ilable Burke Ferraro Attending Unavailable Care Physician, No Primary Primary Care Unava ilable Coleman Khan Attending Unavailable Care Physician, No Primary Primary Care Unava ilable Care Physician, No Primary Referring Unava ilable EKNY DOMINGUEZ Attending Unavailable KENY DOMINGUEZ Referring Unavailable Care Physician, No Primary Primary Care Unava ilable Allergies Allergy Classification Reported Allergen(s) Allergy Type Date of Onset Reaction(s) Facility (20 sources) Penicillins; Translations: [Penicillins] allergy to substance [facility] Work Phone: (16 sources) Penicillins; Translations: [Allergy to Penicillins (Renamed from Penicillins)] allergy to substance [facility] Work Phone: Medications Current Medications Medication Drug Class(es) Dates Sig (Normalized) Sig (Original) amLODIPine 10 mg oral tablet (20 sources) Dihydropyridine Calcium Channel Aditya Start: 02-26-2020 End: 11-04-2024 take 1 tablet by mouth once daily Amlodipine 10 mg tablet Active 10 mg PO DAILY 90 3 November 04, 2024 1:17pm baclofen 10 mg oral tablet (2 sources) gamma-Aminobutyric Acid-ergic Agonist Start: 10-09-2024 take 3 tablets by mouth three times daily Baclofen 10 mg tablet Active 30 mg PO THREE TIMES A DAY October 09, 2024 12:00am ciprofloxacin 500 mg oral tablet (1 source) Quinolone Antimicrobial Start: 12-25-2024 take 1 tablet by mouth twice daily Ciprofloxacin Hcl 500 mg tablet Active 500 mg PO TWICE A DAY 20 0 December 25, 2024 12:00am gabapentin 300 mg oral capsule [...] on above: #[id number] 9.2 nerve pain losartan potassium 100 mg oral tablet (20 sources) Angiotensin 2 Receptor Aditya Start: 05-14-2020 take 1 tablet by mouth once daily Losartan Potassium 50 MG Oral Tablet 1 Tablet daily for 0 days Quantity: 90 {Tablet} Refills: 0 Ordered: 14-May-2020 Delma Story CNP, CNP, Mary E Start : 14-May-2020 Active Start: 02-26-2020 End: 11-04-2024 take 1 tablet by mouth once daily Losartan 100 mg tablet Active 100 mg PO DAILY 90 3 November 04, 2024 1:16pm Start: 07-09-2014 End: 02-26-2020 take 1 tablet by mouth once daily Losartan 50 MG tablet Discontinued 50 mg PO DAILY July 09, 2014 1:00am February 26, 2020 9:54am metroNIDAZOLE 500 mg oral tablet (1 source) Nitroimidazole Antimicrobial Start: 12-25-2024 take 1 tablet by mouth twice daily Metronidazole 500 mg tablet Active 500 mg PO TWICE A DAY 20 0 December 25, 2024 12:00am Multivitamin preparation (3 sources) Start: 02-24-2020 take 1 tablet by mouth once daily Multivitamin Active 1 TABLET PO DAILY February 24, 2020 12:00am Completed/Discontinued Medications Medication Drug Class(es) Dates Sig (Normalized) Sig (Original) acetaminophen 325 mg / HYDROcodone bitartrate 5 mg oral tablet (14 sources) Opioid Agonist Start: 05-19-2021 End: 10-16-2024 Hydrocodone-Acetami nophen 1 TABLET tablet Discontinued 1 {tbl} PO EVERY 6 HOURS NEEDED as needed for Pain 10 3 May 19, 2021 October 16, 2024 3:14pm Calculus of distal right ureter Calculus of ureter Start: 05-19-2021 take 1 tablet by maria guadalupe th every six hours as needed Hydrocodone-Acetaminophen Active 1 TABLE T PO EVERY 6 HOURS NEEDED 10 3 May 19, 2021 Start: 01-12-2019 End: 01-19-2019 Hydrocodone-Acetaminophen 1 EACH tablet Discontinued 1 NMA PO EVERY 4 HOURS NEEDED as needed for Pain 20 7 0 January 12, 2019 January 18, 2019 12:00am January 19, 2019 12:08am Calculus of right kidney Calculus of kidney Start: 01-12-2019 End: 01-19-2019 Hydrocodone-Acetaminophen Di scontinued 1 EACH PO EVERY 4 HOURS NEEDED 20 7 January 12, 2019 January 19, 2019 12:08am [id number] 200 actuat albuterol 0.09 mg/actuat metered dose inhaler (16 sources) beta2-Adrenergic Agonist Start: 08-24-2010 End: 08-29-2010 PROVENTIL HFA, 108 (90 Base)MCG/ACT (Inhalation Aerosol Solution) 2 (two) Aerosol Soln 2puffs tid for 5 days Quantity: 1 {Aerosol_Soln} Refills: 0 Ordered: 24-Aug-2010 Delma Story CNP, CNP Sammie Start : 24-Aug-2010 End : 29-Aug-2010 Inactive Start: 08-24-2010 End: 08-29-2010 PROVENTIL HFA, 108 (90 Base) MCG/ACT (Inhalation Aerosol Solution) 2 (two) Aerosol Soln 2puffs tid for 5 days Quantity: 1 {Aerosol_Soln} Refills: 0 Ordered: 24-Aug-2010 Delma Story CNP, CNP Delma Richter Start : 24-Aug-2010 End : 29-Aug-2010 Inactive ascorbic acid 60 mg / beta carotene 5000 unt / copper sulfate 40 mg / dl-alpha tocopheryl acetate 30 unt / sodium selenite 0.04 mg / zinc oxide 40 mg oral tablet (10 sources) Vitamin C Multivitamin Avelino lts Oral Tablet Active azithromycin 250 mg oral tablet (16 sources) Macrolide Antimicrobial Start: 07-25-19 09 End: 08-25-19 11 ZITHROMAX Z-EVELIA, 250MG (Oral Tablet) 1 Tablet uad for 0 days Refills: 0 Ordered: 24-Aug-2010 Amee Schwartz LPN Start : 25-Jul-2008 End : 24-Aug-2010 Inactive celecoxib 100 mg oral capsule (12 sources) Nonsteroidal Anti-inflammatory Drug Start: 11-20-19 20 take 1 capsule by mouth twice daily at mealtime CeleBREX 100 MG Oral Capsule 1 (one) Capsule bid for 0 days Quantity: 60 {Capsule} Refills: 0 Ordered: 20-Nov-2019 Delma Story CNP, CNP, Mary E Start : 20-Nov-2019 Active Comments: with food Comment on above: with food cephalexin 250 mg oral tablet (16 sources) Cephalosporin Antibacterial Start: 07-09-19 08 End: 07-24-19 09 take 1 tablet by mouth three times daily CEPHALEXIN, 250MG (Oral Tablet) 1 (one) Tablet tid for 14 days Quantity: 42 {Tablet} Refills: 0 Ordered: 09-Jul-2007 Delma Story CNP, CNP, Mary E Start : 09-Jul-2007 End : 24-Jul-2008 Inactive ciprofloxacin 2 mg/ml / hydrocortisone 10 mg/ml otic suspension (16 sources) Corticosteroid, Quinolone Antimicrobial Start: 07-15-19 End: 08-25-19 11 CIPRO HC, 0.2-1% (Otic Suspension) 1 (one) Suspension bid for 0 days Quantity: 1 {Suspension} Refills: 0 Ordered: 24-Aug-2010 Amee Schwartz LPN Start : 15-Jul-2010 End : 24-Aug-2010 Inactive Comments: dispense one bottle Comment on above: dispense one bottle 24 hr clarithromycin 500 mg extended release oral tablet (16 sources) Macrolide Antimicrobial Start: 08-25-19 End: 09-04-19 11 take 2 tablets by mouth once daily [...] Quantity: 50 {Dianne} Refills: 0 Ordered: 13-Jun-2012 Porsha TAN, Sammie Porsha INFRASTRUCTURE MANAGER, Delma Richter Start : 13-Jun-2012 End : 23-Jun-2012 Inactive [...] 17-May-2011 Inactive hydroCHLOROthiazide 25 mg oral tablet (14 sources) Thiazide Diuretic Start : 02-25 End: 10-16 take 1 tablet by mouth once daily Hydrochlorothiazide 25 mg tablet Discontinued 25 mg PO DAILY 90 3 July 13, 2020 3:14pm October 16, 2024 [...] Start : 07-Feb-2013 End : 30-Apr-2013 Inactive meloxicam 15 mg oral tablet (12 sources) Nonsteroidal Anti-inflammatory Drug Start : 12-12 take 1 tablet by mouth once daily at mealtime for pain Meloxicam 15 MG Oral Tablet 1 (one) Tablet daily as directed for pain for 0 days Quantity: 30 {Tablet} Refills: 0 Ordered: 13-Dec-2019 Wayne Don LPN Start : 13-Dec-2019 Active Comments: with food Comment on above: with food 24 hr metoprolol succinate 25 mg extended release oral tablet (14 sources) beta-Adrenergic Aditya Start : 02-23 End: 02-25 take 1 tablet by mouth once daily Metoprolol Succinate 25 mg tablet extended release 24 hr Discontinued 25 mg PO DAILY February 24, 2020 12:00am February 26, 2020 9:52am Start: 01-31-2020 End: 02-24-2020 Metoprolol Succinate 25 MG Tab.Er.24h Discontinued 1 {tbl} PO DAILY 30 January 31, 2020 12:00am February 24, 2020 8:21am Start: 01-31-2020 End: 02-24-2020 Metoprolol Succinate 25 MG Tab.Er.24h Discontinued 1 {tbl} PO DAILY January 31, 2020 12:00am February 24, 2020 8:21am Start: 01-31-2020 End: 02-24-2020 take 1 tablet by mouth once daily Metoprolol Succinate Discontinued 1 TABLET PO DAILY January 31, 2020 12:00am February 24, 2020 8:21am Multivitamin Adults Oral Tab let (6 sources) Multivitamin Avelino lts Oral Tablet Active Multivitamin tablet (4 sources) Start: 02-24-2020 End: 10-16-2024 Multivitamin tablet Discontinued 1 {tbl} PO DAILY February 24, 2020 12:00am October 16, 2024 3:14pm Start: 02-24-2020 Multivitamin t ablet Active 1 {tbl} PO DAILY February 24, 2020 12:00am 10 ml ocrelizumab 30 mg/ml injection (2 sources) Start: 10-09-2024 End: 12-25-2024 Ocrelizumab (Ocrevus) 30 mg/mL solution Discontinued mg .Route every 6 months October 09, 2024 12:00am December 25, 2024 1:32am solution as directed predniSONE 10 mg oral tablet (12 sources) [...] Quantity: 1 {Solution} Refills: 0 Ordered: 13-Jun-2012 Porsha TAN, Delma Story CNP, Delma Richter Start : 13-Jun-2012 End : 20-Jun-2012 Inactive [...] Quantity: 90 {Tablet} Refills: 3 Ordered: 19-Jun-2019 Wayne Don LPN Start : 19-Jun-2019 Active Problems Active Problems Problem Classification Problem Date Documented Date Episodic/Chronic Calculus of urinary tract (20 sources) Kidney stone; Translations: [Kidney stones] 01-14-2019 Episodic Cardiac dysrhythmias (8 sources) Tachycardia; Translations: [Tachycardia, unspecified] Onset: 5 [...] (16 sources) Hypertriglyceridemia; Translations: [Hyperglyceridemia] 06-09-2017 Chronic Diverticulosis and diverticulitis (1 source) Diverticulitis of sigmoid colon; Translations: [Diverticulitis of large intestine without perforation or abscess without bleeding] 12-25-2024 Chronic Essential hypertension (20 sources) Hypertensive disorder; Translations: [Hypertension] 06-09-2017 Chronic Comment on above: improved improved on losartan Headache; including migraine (20 sources) Headache; Translations: [Headache] Resolved: 0 07-25-2014 Episodic Comment on above: better Inflammation; infection of eye (except that caused by tuberculosis or sexually transmitteddisease) (20 sources) Conjunctivitis; Translations: [Conjunctivitis] Resolved: 3 02-07-2013 Episodic Multiple sclerosis (20 sources) Multiple sclerosis; Translations: [H/O: HOT WORKER disorder] Onset: 5 06-09-2017 Chronic Comment on above: Dr. Perez, will do [place] research program but liver went up. right now no signs and symptoms. meds made it worse. last MRI 06-10 was in clinical study. Is on vitamins from sister to make him better.was diagnosed with numbness in face awhile ago Dr. Perez, will do [place] research program but liver went up. right now no signs and symptoms. meds made it worse. last MRI 13 was in clinical study. Is on vitamins from sister to make him better. Takes isogenics. Got off of it. Had old lesions in that study 2013 neuro care in [place].was diagnosed with numbness in face awhile ago [...] 8 08-06-2018 Episodic Comment on above: Started [place] 05/30 Other connective tissue disease (12 sources) Neuralgia; Translations: [Nerve pain] 11-20-2019 Episodic Comment on above: giving gabapentin se e how this works Other connective tissue disease (2 sources) Spasticity; Translations: [Other muscle spasm] 10-09-2024 Episodic [...] it is covered Other nervous system disorders (2 sources) Difficulty walking; Translations: [Difficulty in walking, not elsewhere classified] 10-09-2024 Chronic Other nervous system disorders (20 sources) Paresthesia; Translations: [Bilateral numbness and tingling of arms and legs] 08-09-2019 Episodic Comment on above: left leg, positive l eft leg raise, has been overworking and dehydrated, gabapentin helping Other nervous system disorders (10 sources) H/O: HOT WORKER disorder; Translations: [History of multiple sclerosis] 08-09-2019 [...] on above: for med on and resea rch problem. once off med not sure if b jeromy. use etoh over weekends only MRI abnormal with pe riventricular white matter changes. ? MS no other neuro signs and symptoms will see family law specialist tomorrow. called to talk to Dr. kuhn [...] apnea] 08-09-2019 Chronic Comment on above: per Justin on exam recommended sleep study, to call [...] (Renamed from Screening for prostate cancer)] Resolved: 06-09-2017 Unclassified (20 sources) Non-smoker; Translations: [Nonsmoker] [...] 12-31-2012 Episodic Other aftercare (1 source) [facility] [place] [facility] [place]; Translations: [Other [place] [facility] [place] therapy] Onset: 03-20-2024 Episodic Other [...] Test Name Value Interpretation Reference Range Facility Abdomen/Pelvis W IV Cont ONL Yon 12-25-2024 Abdomen/Pelvis W IV Cont ONLY [facility] Imaging Services [address] [place] [address] Abdomen/Pelvis W IV Cont ONLY MR#: [id number] Acct: [id number] Name: CLARK QUICK Rep #: [id number] : 1970 M 54 From: Kraig Sunshine MD PCP: Care Physician,No Primary Status: REG ER Study: Abdomen/Pelvis W IV Cont ONLY Date of Exam: Exam# [id number] Ordering Dr: Burke Ferraro MD PROCEDURE: ABDOMEN/PELVIS W IV CONT ONLY 12/25/2024 REASON FOR EXAM: LOWER ABD PAIN TECHNIQUE: ABDOMEN/PELVIS W IV CONT ONLY Coronal and Sagittal reconstruction series were provided. CONTRAST: Isovue 370 VOLUME: 95 mL One or more dose reduction techniques were used (e.g., Automated exposure control, adjustment of the mA and/or kV according to patient size, use of iterative reconstruction technique. RADIATION DOSE SUMMARY: CTDlvol: 28 mGy DLP: 1004 mGycm COMPARISON: 05/19/2021 FINDINGS: Under aerated lung bases. Normal heart size. Unremarkable liver, gallbladder, spleen, adrenal glands, right kidney. Simple left renal cyst. No hydronephrosis or ureteral stone. Normal bladder. Normal prostate. No retroperitoneal or pelvic adenopathy. No free air. Nondistended bowel. Normal appendix. Diverticulosis. Sigmoid diverticulitis, without abscess. Lumbar spine degeneration. No acute abdominal wall findings. Status post bilateral inguinal hernia repair. CT/Abdomen/Pelvis W IV Cont ONLY IMPRESSION: Sigmoid diverticulitis without abscess. Reading Location: [place] [address] CC: Dr. Burke Ferraro MD; No Primary Care Physician Call Center Associate: Signed Normal [facility] Absolute lymphocyte countOrd ered By: Burke Ferraro on 12-25-2024 Lymphocytes Auto (Unsp spec) [#/Vol] 1.26 10*3/uL 0.83-4.51 [facility] Absolute neutrophil countOrd ered By: Burke Ferraro on 12-25-2024 Neutrophils (Bld) [#/Vol] 10.9 10*3/uL High 2.0-7.7 [facility] Anion gap in Serum or Plasma Ordered By: Burke Ferraro on 12-25-2024 Anion gap [Moles/Vol] 12 mmol/L 5-15 [facility] Automated lymphocyte count a s percentage of total leukocytesOrdered By: Burke Ferraro on 12-25-2024 Lymphocytes/100 WBC Auto (Unsp spec) 8.9 % Low 19-41 [facility] BUN/creatinine ratioOrdered By: Burke Ferraro on 12-25-2024 Urea nitrogen/Creatinine [Mass ratio] 11.4 mg/mg 10- [facility] Basic Metabolic Profile (BMP )on 12-25-2024 BUN/CRE 11.4 RATIO Normal - [facility] Comment on above: Performed By: #### L 100.0100, L500.2500 ####[facility] [address] [place], [address] Calcium [Mass/Vol] 8.9 mg/dL Normal 7.6-11.0 [facility] Comment on above: Performed By: #### L 100.0100, L500.2500 ####[facility] [address] [place], [address] Chloride [Moles/Vol] 102 mmol/L Normal 98-108 [facility] Comment on above: Performed By: #### L 100.0100, L500.2500 ####[facility] [address] [place], [address] CO2 [Moles/Vol] 22.7 mmol/L Normal 21.0-32.0 [facility] Comment on above: Performed By: #### L 100.0100, L500.2500 ####[facility] [address] [place], [address] Creatinine [Mass/Vol] 1.07 mg/dL Normal 0.70-1.20 [facility] Comment on above: Performed By: #### L 100.0100, L500.2500 ####[facility] [address] [place], [address] ECRCL 79.60 ml/min Normal 50-250 [facility] Comment on above: Performed By: #### L 100.0100, L500.2500 ####[facility] [address] [place], [address] GAP 12 Normal 5-15 [facility] Comment on above: Performed By: #### L 100.0100, L500.2500 ####[facility] [address] [place], [address] GFR/1.73 sq M.predicted among non-blacks MDRD (S/P/Bld) [Vol rate/Area] 81 mL/min/{1.73_m2} Normal >60 [facility] Comment on above: Result Comment: mL/m in/1.73m2 CKD-EPI Creatinine Equation (2020) Performed By: #### L 100.0100, L500.2500 ####[facility] [address] [place], [address] Glucose [Mass/Vol] 115 mg/dL High 70-99 [facility] Comment on above: Performed By: #### L 100.0100, L500.2500 ####[facility] [address] [place], [address] Potassium [Moles/Vol] 4.1 mmol/L Normal 3.3-5.1 [facility] Comment on above: Performed By: #### L 100.0100, L500.2500 ####[facility] [address] [place], [address] Sodium [Moles/Vol] 137 mmol/L Normal 133-145 [facility] Comment on above: Performed By: #### L 100.0100, L500.2500 ####[facility] [address] [place], [address] Urea nitrogen [Mass/Vol] 12 mg/dL Normal 4-19 [facility] Comment on above: Performed By: #### L 100.0100, L500.2500 ####[facility] [address] [place], [address] Basophil percentageOrdered B y: Burke Ferraro on 12-25-2024 Basophils/100 WBC (Bld) 0.2 % 0-1 [facility] Blood manual differential co mment interpretation (narrative result)Ordered By: Burke Ferraro on 12-25-2024 Manual differential comment Christ (Bld) [Interp] SCANNED [facility] CBC W/Diff, Automatedon 11-28 PLT EST ADEQUATE Normal ADEQ [facility] Comment on above: Performed By: #### L 100.0100, L500.2500 #### [facility] [address] [place], [address] RED CELL MORPH NORM C+C Normal NORM C C [facility] Comment on above: Performed By: #### L 100.0100, L500.2500 #### [facility] [address] [place], [address] SMEAR COMMENT SCANNED Normal [facility] Comment on above: Performed By: #### L 100.0100, L500.2500 #### [facility] [address] [place], [address] Carbon dioxide, total [Moles /volume] in Central venous bloodOrdered By: Burke Ferraro on 12-25-2024 CO2 [Moles/Vol] 22.7 mmol/L 21.0-32.0 [facility] Chloride assayOrdered By: Rody Ferraro on 12-25-2024 Chloride [Moles/Vol] 102 mmol/L 98-108 [facility] Eosinophil percentageOrdered By: Burke Ferraro on 12-25-2024 Eosinophils/100 WBC (Bld) 0.3 % 0-5 [facility] Erythrocyte distribution wid th ratioOrdered By: Burke Ferraro on 12-25-2024 Erythrocyte distribution width (RBC) [Ratio] 12.8 % 11.6-14.6 [facility] Erythrocyte distribution wid th standard deviationOrdered By: Burke Ferraro on 12-25-2024 Erythrocyte distribution width (RBC) [Ratio] 41.8 fl 35.1-43.9 [facility] Erythrocyte morphology asses smentOrdered By: Burke Ferraro on 12-25-2024 RBC morphology finding Nom (Bld) NORM C+C NORMAL NORM C&C [facility] Glomerular filtration rate ( GFR) estimation/1.73 sq m using serum, plasma, or whole bOrdered By: Burke Ferraro on 12-25-2024 GFR/1.73 sq M.predicted among non-blacks MDRD (S/P/Bld) [Vol rate/Area] 81 mL/min/{1.73_m2} >60 [facility] Comment on above: mL/min/1.73m2 CKD-EP I Creatinine Equation (2020) Hematocrit Auto (Bld) [Volum e fraction]Ordered By: Burke Ferraro on 12-25-2024 Hematocrit (Bld) [Volume fraction] 44.4 % 40-54 [facility] Hemoglobin measurementOrdere d By: Burke Ferraro on 12-25-2024 Hemoglobin (Bld) [Mass/Vol] 15.3 g/dL 13.0-16.5 [facility] Immature granulocytes/100 WB C Auto (Bld)Ordered By: Burke Ferraro on 12-25-2024 Immature granulocytes/100 WBC (Bld) 0.500 % 0.0-0.9 [facility] Comment on above: IG% - Immature Granu locytes (promyelocytes, myelocytes and metamyelocytes) > 1% indicates that a LEFT SHIFT is Present. MCV (mean corpuscular volume ) determinationOrdered By: Burke Ferraro on 12-25-2024 MCV (RBC) [Entitic vol] 88.8 fL 80-94 [facility] Mean corpuscular hemoglobin (MCH) determinationOrdered By: Burke Ferraro 12-25-2024 MCH (RBC) [Entitic mass] 30.6 pg 27.0-32.0 [facility] Mean corpuscular hemoglobin concentration (MCHC) determinationOrdered By: Burke Ferraro 12-25-2024 MCHC (RBC) [Mass/Vol] 34.5 g/dL 32-36 [facility] Mean platelet volume determi nationOrdered By: Burke Ferraro on 12-25-2024 Platelet mean volume (Bld) [Entitic vol] 9.1 fL 6.2-12.0 [facility] Monocyte percentageOrdered B y: Burke Ferraro on 12-25-2024 Monocytes/100 WBC (Bld) 12.5 % High 0-10 [facility] Neutrophil percentageOrdered By: Burke Ferraro on 12-25-2024 Neutrophils/100 WBC (Bld) 77.6 % High 47-70 [facility] Nucleated red blood cell per centageOrdered By: Burke Ferraro on 12-25-2024 Nucleated RBC/100 WBC (Bld) [Ratio] 0 % 0-5 [facility] Platelet countOrdered By: Rody Ferraro on 12-25-2024 Platelets (Bld) [#/Vol] 231 10*3/uL 150-450 [facility] Platelet estimateOrdered By: Burke Ferraro on 12-25-2024 Platelets LM Ql (Bld) ADEQUATE ADEQ [facility] Potassium measurement (mass/ volume)Ordered By: Burke Ferraro on 12-25-2024 Potassium (Unsp spec) [Mass/Vol] 4.1 mmol/L 3.3-5.1 [facility] RBC Auto (Bld) [#/Vol]Ordere d By: Burke Ferraro on 12-25-2024 RBC (Bld) [#/Vol] 5.00 10*6/uL 4.6-6.2 [facility] Serum creatinine measurement (mass/volume)Ordered By: Burke Ferraro on 12-25-2024 Creatinine [Mass/Vol] 1.07 mg/dL 0.70-1.20 [facility] Serum glucose measurement (m ass/volume)Ordered By: Burke Ferraro on 12-25-2024 Glucose [Mass/Vol] 115 mg/dL High 70-99 [facility] Serum or plasma calcium mary beth urement (mass/volume)Ordered By: Burke Ferraro on 12-25-2024 Calcium [Mass/Vol] 8.9 mg/dL 7.6-11.0 [facility] Serum or plasma urea nitroge n measurement (mass/volume)Ordered By: Burke Ferraro on 12-25-2024 Urea nitrogen [Mass/Vol] 12 mg/dL 4-19 [facility] Sodium levelOrdered By: Yovani Ferraro on 12-25-2024 Sodium [Moles/Vol] 137 mmol/L 133-145 [facility] White blood cell (WBC) count Ordered By: Burke Ferraro on 12-25-2024 WBC (Bld) [#/Vol] 14.1 10*3/uL High 4.4-11.0 [facility] Summary on 12-24-2024 Emergency Department Summary [facility] Medical Records Department [address] [place] [address] Emergency Department Summary 12/24/24 MR#: [id number] Acct: [id number] Name: CLARK QUICK Rep #: [id number] : 1970 54 From: Burke Ferraro MD PCP: Care Physician,No Primary Status:REG ER Location: ED HPI HPI - GI History of Present Illness Chief Complaint: Constipation Informant: patient Narrative Narrative: 54-year-old male with multiple sclerosis has not had a bowel movement in 3 to 4 days which is very unusual for him. He is having some lower abdominal discomfort today and cramping. No nausea or vomiting. He had a remote right inguinal herniorrhaphy but no other abdominal surgeries. Never had a bowel obstruction before. His neurologist told him that MS can do this although its never happened to him before. He drank magnesium citrate about 5 hours ago, but out of concern he presents here for evaluation, he has not had a bowel movement yet since he did the magnesium citrate and he has not had a lot of fluid to drink. He denies any other acute issues. [facility] Medical History Muscle spasticity Difficulty walking Polycythemia Obstructive sleep apnea Sciatic nerve pain Essential (primary) hypertension Multiple sclerosis Right kidney stone Home Medications ???Medication ???Instructions ???Recorded ???Last Taken ???Type baclofen 10 mg tablet 30 mg PO TID 10/09/24 12/24/24 His tory gabapentin 300 mg capsule 600 mg PO BID 10/09/24 12/24/24 Hi story amlodipine 10 mg tablet 10 mg PO DAILY #90 tabs 11/04/24 0 12/24/24 Rx losartan 100 mg tablet 100 mg PO DAILY #90 tabs 11/04/24 12/24/24 Rx ciprofloxacin HCl 500 mg tablet 500 mg PO BID #20 TABLETS 12/25/24 Unknown Rx metronidazole 500 mg tablet 500 mg PO BID #20 tabs 12/25/24 Un known Rx Allergy/AdvReac Type Severity Reaction Status Date / Time Penicillins (PCN) Allergy Rash Verified 12/24/24 22:14 Family History Father Myocardial infarction, Onset Age: 60 Heart disease CAD (coronary artery disease) coronary stents Mother Breast cancer Hyperlipidemia Grandmother CVA (cerebral vascular accident) Grandfather Myocardial infarction Surgical History History of lithotripsy (2017) History of left inguinal hernia repair (2014) Social History Smoking Status: Current some day smoker tobacco type: cigars alcohol intake: current alcohol intake frequency: holidays/special occasions only substance use type: does not use caffeine: Yes ROS ROS ED Constitutional Constitutional ED: Denies chills or fever(s) Eyes Eyes: Denies change in vision or diplopia ENT ENT ED: Denies rhinorrhea or sore throat Cardiovascular Cardiovascular: Denies chest pain or palpitations Respiratory/Chest Respiratory/Chest: Denies cough or dyspnea Gastrointestinal Gastrointestinal: Reports abdominal pain and constipation; Denies diarrhea, hematochezia, melena, nausea or vomiting Genitourinary Genitourinary ED: Denies dysuria or hematuria Musculoskeletal Musculoskeletal: Denies back pain or neck pain Integumentary Denies abscess or rash Neurologic Neurologic: Denies headache(s) Psychiatric Psychiatric: Denies anxiety or suicidal thoughts EXAM Physical Exam Const Vital Signs: 12/24/24 22:16 12/25/24 00:13 12/25/24 01:48 Temperature 97.5 F L 97.5 F L Temperature Source Temporal Oral Pulse Rate 110 H 110 H Respiratory Rate 18 16 Blood Pressure 117/84 H 111/71 111/71 Blood Pressure Mean 95 84 84 Pulse Ox 98 98 Oxygen Delivery Method Room Air Room Air 12/25/24 02:00 Temperature Temperature Source Pulse Rate 84 Respiratory Rate 16 Blood Pressure 116/80 Blood Pressure Mean 92 Pulse Ox 98 Oxygen Delivery Method Room Air Positive well nourished and well developed General Appearance ED: well developed and NAD HEENT Reports moist mucous membranes normocephalic and atraumatic Eyes PERRL and EOMs intact bilaterally Neck full ROM and supple Resp normal respiratory effort and clear to auscultation bilaterally Cardio regular rate, regular rhythm and no murmurs GI non-tender and non-distended GI Narrative: On rectal there is no tenderness, no hemorrhoids, no mass, and no palpable hard stool. Trace amount of stool in the rectal vault is without blood and not melanotic. Auscultation: hyperactive bowel sounds Palpation: soft Back/Spine no CVA tenderness General Back: other FROM Extremity normal to inspection General Extremety ED: Negative for edema, pulses abnormal or tenderness (more content not included)... Normal [facility] 12 Lead EKG performed by [facility] on 10-16-2024 12 Lead EKG performed by [facility] [address] [place] [address] 12 Lead EKG performed by [facility] 10/16/24 1703 MR#: [id number] Acct: [id number] Name: CLARK QUICK Rep #: [id number] : 1970 54 From: Coleman Khan MD Attending Dr: Dr. Coleman Khan MD Status: DE P AMB Ordering Dr: Coleman Khan MD Date: 10/16/24 [place] [facility] Sex: M C Admitted: [facility]/12 Lead EKG performed by [facility] ECG Report Interpretation -Sinus Rhythm Low voltage in limb leads. BORDERLINEElectronically signed on 10/16/2024 at 16:[address] Coleman Khan [employer] Version [id number] 10/16/24 1613 Date Coleman Khan MD CC: No Primary Care Physician Date Dictated: 10/16/241702 Date Transcribed: 10/16/241702 Call Center Associate: Signed Normal [facility] Cardiology Visit Reporton Cardiology Visit Report [facility] [address] [place] [address] OFFICE VISIT Date of Service: 10/16/24 MR#: [id number] Acct: [id number] Name: CLARK QUICK Rep #: [id number] : 1970 Provider: Dr. Coleman christie MD Age/Sex: 54/M Location: [facility] Status: Signed with Addenda ADDENDUM by Dr. [...] Orders: Orders 12 Lead EKG performed by [facility] Today R00.0 - Tachycardia, unspecified Plan Details Follow Up: 3 Years (With Dr. Khna and as needed) 10/16/24 1550 Date Coleman [...] history of multiple sclerosis managed through the [facility] in [place]. He sees Dr. Lorenzo Schilling. He is [...] room air Intake Visit Reasons: Re-est (Self) [employer] Workflow Consultant Required: No Accompanied by: Self Is patient [...] story ocrelizumab 30 mg/mL intravenous mg .Route [id number] 10/09/24 History solution (Ocrevus) Have you fallen in the past year?: Yes [facility] Medical History Muscle spasticity Difficulty walking Polycythemia [...] for fatigu (more content not included)... Normal [facility] Immunoglobulin Mikel 5 IMMUNOGLOB G QN 1226 mg/dL Normal 603-1613 [facility] Comment on above: Result Comment: Perf ormed at: CB - [facility] [address] [id number] [employer]: Berny Greenwood PhD, Phone: [phone] Performed By: #### L 357.8062, L3620.6219, L100.0102 #### [facility] [address] [place], [address] Absolute lymphocyte countOrd ered By: KENY DOMINGUEZ on 08-27-2024 Lymphocytes Auto (Unsp spec) [#/Vol] 1.28 10*3/uL 0.83-4.51 [facility] Absolute neutrophil countOrd ered By: KENY DOMINGUEZ on 08-27-2024 Neutrophils (Bld) [#/Vol] 4.7 10*3/uL 2.0-7.7 [facility] Anion gap in Serum or Plasma Ordered By: KENY DOMINGUEZ on 08-27-2024 Anion gap [Moles/Vol] 13 mmol/L 5-15 [facility] Automated lymphocyte count a s percentage of total leukocytesOrdered By: KENY DOMINGUEZ on 08-27-2024 Lymphocytes/100 WBC Auto (Unsp spec) 18.2 % Low 19-41 [facility] BUN/creatinine ratioOrdered By: KENY DOMINGUEZ on 08-27-2024 Urea nitrogen/Creatinine [Mass ratio] 11.5 mg/mg 10-20 [facility] Basophil percentageOrdered B y: KENY DOMINGUEZ on 08-27-2024 Basophils/100 WBC (Bld) 0.4 % 0-1 [facility] Bilirubin, totalOrdered By: KENY DOMINGUEZ on 08-27-2024 Bilirubin [Mass/Vol] 0.37 mg/dL 0.00-1.30 [facility] CBC W/Diff, Automatedon 04-0 -2024 Absolute Lymph 1.28 X10 3/uL Normal 0.83-4.51 [facility] Comment on above: Performed By: #### L 500.4050, L3200.1300, L100.0100 #### [facility] [address] [place], [address] Absolute Neut 4.7 X10 3/uL Normal 2.0-7.7 [facility] Comment on above: Performed By: #### L 500.4050, L3200.1300, L100.0100 #### [facility] [address] [place], [address] Basophils/100 WBC (Bld) 0.4 % Normal 0-1 [facility] Comment on above: Performed By: #### L 500.4050, L3200.1300, L100.0100 #### [facility] [address] [place], [address] Eosinophils/100 WBC (Bld) 0.7 % Normal 0-5 [facility] Comment on above: Performed By: #### L 500.4050, L3200.1300, L100.0100 #### [facility] [address] [place], [address] Erythrocyte distribution width (RBC) [Ratio] 12.6 % Normal 11.6-14.6 [facility] Comment on above: Performed By: #### L 500.4050, L3200.1300, L100.0100 #### [facility] [address] [place], [address] Hematocrit (Bld) [Volume fraction] 45.4 % Normal 40-54 [facility] Comment on above: Performed By: #### L 500.4050, L3200.1300, L100.0100 #### [facility] [address] [place], [address] Hemoglobin (Bld) [Mass/Vol] 15.5 g/dL Normal 13.0-16.5 [facility] Comment on above: Performed By: #### L 500.4050, L3200.1300, L100.0100 #### [facility] [address] [place], [address] IG% 0.400 Normal 0.0-0.9 [facility] Comment on above: Result Comment: IG% - Immature Granulocytes (promyelocytes, myelocytes and metamyelocytes) > 1% indicates that a LEFT SHIFT is Present. Performed By: #### L 500.4050, L3200.1300, L100.0100 #### [facility] [address] [place], [address] Lymphocytes/100 WBC (Bld) 18.2 % Low 19-41 [facility] Comment on above: Performed By: #### L 500.4050, L3200.1300, L100.0100 #### [facility] [address] [place], [address] MCH (RBC) [Entitic mass] 30.3 pg Normal 27.0-32.0 [facility] Comment on above: Performed By: #### L 500.4050, L3200.1300, L100.0100 #### [facility] [address] [place], [address] MCHC (RBC) [Mass/Vol] 34.1 g/dL Normal 32-36 [facility] Comment on above: Performed By: #### L 500.4050, L3200.1300, L100.0100 #### [facility] [address] [place], [address] MCV (RBC) [Entitic vol] 88.7 fL Normal 80-94 [facility] Comment on above: Performed By: #### L 500.4050, L3200.1300, L100.0100 #### [facility] [address] [place], [address] Monocytes/100 WBC (Bld) 13.2 % High 0-10 [facility] Comment on above: Performed By: #### L 500.4050, L3200.1300, L100.0100 #### [facility] [address] [place], [address] Neutrophils/100 WBC (Bld) 67.1 % Normal 47-70 [facility] Comment on above: Performed By: #### L 500.4050, L3200.1300, L100.0100 #### [facility] [address] [place], [address] Nucleated RBC (Bld) [#/Vol] 0 10*3/uL Normal 0-5 [facility] Comment on above: Performed By: #### L 500.4050, L3200.1300, L100.0100 #### [facility] [address] [place], [address] Platelet mean volume (Bld) [Entitic vol] 10.1 fL Normal 6.2-12.0 [facility] Comment on above: Performed By: #### L 500.4050, L3200.1300, L100.0100 #### [facility] [address] [place], [address] Platelets (Bld) [#/Vol] 291 10*3/uL Normal 150-450 [facility] Comment on above: Performed By: #### L 500.4050, L3200.1300, L100.0100 #### [facility] [address] [place], [address] RBC (Bld) [#/Vol] 5.12 10*6/uL Normal 4.6-6.2 [facility] Comment on above: Performed By: #### L 500.4050, L3200.1300, L100.0100 #### [facility] [address] [place], [address] RDW SD 41.2 fl Normal 35.1-43.9 [facility] Comment on above: Performed By: #### L 500.4050, L3200.1300, L100.0100 #### [facility] [address] [place], [address] WBC (Bld) [#/Vol] 7.0 10*3/uL Normal 4.4-11.0 [facility] Comment on above: Performed By: #### L 500.4050, L3200.1300, L100.0100 #### [facility] [address] [place], [address] Carbon dioxide, total [Moles /volume] in Central venous bloodOrdered By: KENY DOMINGUEZ on 08-27-2024 CO2 [Moles/Vol] 24.8 mmol/L 21.0-32.0 [facility] Chloride assayOrdered By: CADE DOMINGUEZ on 08-27-2024 Chloride [Moles/Vol] 102 mmol/L 98-108 [facility] Comprehensive Metabolic Prof ilon 08-27-2024 Albumin [Mass/Vol] 4.7 g/dL Normal 3.5-5.0 [facility] Comment on above: Performed By: #### L 500.4050, L3200.1300, L100.0100 #### [facility] [address] [place], [address] Albumin/Globulin [Mass ratio] 1.5 {ratio} Normal 0.9-2.4 [facility] Comment on above: Performed By: #### L 500.4050, L3200.1300, L100.0100 #### [facility] [address] [place], [address] ALK PHOS 113 U/L Normal 40-129 [facility] Comment on above: Performed By: #### L 500.4050, L3200.1300, L100.0100 #### [facility] [address] [place], [address] ALT [Catalytic activity/Vol] 19 U/L Normal <=46 [facility] Comment on above: Performed By: #### L 500.4050, L3200.1300, L100.0100 #### [facility] [address] [place], [address] AST [Catalytic activity/Vol] 22 U/L Normal <=37 [facility] Comment on above: Performed By: #### L 500.4050, L3200.1300, L100.0100 #### [facility] [address] [place], [address] Bilirubin [Mass/Vol] 0.37 mg/dL Normal 0.00-1.30 [facility] Comment on above: Performed By: #### L 500.4050, L3200.1300, L100.0100 #### [facility] [address] [place], [address] BUN/CRE 11.5 RATIO Normal 10-20 [facility] Comment on above: Performed By: #### L 500.4050, L3200.1300, L100.0100 #### [facility] [address] [place], [address] Calcium [Mass/Vol] 9.4 mg/dL Normal 7.6-11.0 [facility] Comment on above: Performed By: #### L 500.4050, L3200.1300, L100.0100 #### [facility] [address] [place], [address] Chloride [Moles/Vol] 102 mmol/L Normal 98-108 [facility] Comment on above: Performed By: #### L 500.4050, L3200.1300, L100.0100 #### [facility] [address] [place], [address] CO2 [Moles/Vol] 24.8 mmol/L Normal 21.0-32.0 [facility] Comment on above: Performed By: #### L 500.4050, L3200.1300, L100.0100 #### [facility] [address] [place], [address] Creatinine [Mass/Vol] 1.08 mg/dL Normal 0.70-1.20 [facility] Comment on above: Performed By: #### L 500.4050, L3200.1300, L100.0100 #### [facility] [address] [place], [address] GAP 13 Normal 5-15 [facility] Comment on above: Performed By: #### L 500.4050, L3200.1300, L100.0100 #### [facility] [address] [place], [address] GFR/1.73 sq M.predicted among non-blacks MDRD (S/P/Bld) [Vol rate/Area] 81 mL/min/{1.73_m2} Normal >60 [facility] Comment on above: Result Comment: mL/m in/1.73m2 CKD-EPI Creatinine Equation (2020) Performed By: #### L 500.4050, L3200.1300, L100.0100 #### [facility] [address] [place], [address] Globulin (S) [Mass/Vol] 3.1 g/dL Normal 2.2-4.2 [facility] Comment on above: Performed By: #### L 500.4050, L3200.1300, L100.0100 #### [facility] [address] [place], [address] Glucose [Mass/Vol] 88 mg/dL Normal 70-99 [facility] Comment on above: Performed By: #### L 500.4050, L3200.1300, L100.0100 #### [facility] [address] [place], [address] Potassium [Moles/Vol] 3.8 mmol/L Normal 3.3-5.1 [facility] Comment on above: Performed By: #### L 500.4050, L3200.1300, L100.0100 #### [facility] [address] [place], [address] Sodium [Moles/Vol] 139 mmol/L Normal 133-145 [facility] Comment on above: Performed By: #### L 500.4050, L3200.1300, L100.0100 #### [facility] [address] [place], [address] T PROT 7.8 g/dL Normal 5.9-8.4 [facility] Comment on above: Performed By: #### L 500.4050, L3200.1300, L100.0100 #### [facility] [address] [place], [address] Urea nitrogen [Mass/Vol] 12 mg/dL Normal 4-19 [facility] Comment on above: Performed By: #### L 500.4050, L3200.1300, L100.0100 #### [facility] [address] [place], [address] Eosinophil percentageOrdered By: KENY DOMINGUEZ on 08-27-2024 Eosinophils/100 WBC (Bld) 0.7 % 0-5 [facility] Erythrocyte distribution wid th (RBC) [Ratio]Ordered By: KENY DOMINGUEZ on 08-27-2024 Erythrocyte distribution width (RBC) [Entitic vol] 41.2 fL 35.1-43.9 [facility] Erythrocyte distribution wid th ratioOrdered By: KENY DOMINGUEZ on 08-27-2024 Erythrocyte distribution width (RBC) [Ratio] 12.6 % 11.6-14.6 [facility] Erythrocyte distribution wid th standard deviationOrdered By: KENY DOMINGUEZ on 08-27-2024 Erythrocyte distribution width (RBC) [Ratio] 41.2 fl 35.1-43.9 [facility] GFR/1.73 sq M.predicted harriet g non-blacks MDRD (S/P/Bld) [Vol rate/Area]Ordered By: KENY DOMINGUEZ on 08-27-2024 Estimated GFR (MDRD) Non-Af Amer 81 >60 [facility] Comment on above: mL/min/1.73m2 CKD-EP I Creatinine Equation (2020) Glomerular filtration rate ( GFR) estimation/1.73 sq m using serum, plasma, or whole bOrdered By: KENY DOMINGUEZ on 08-27-2024 GFR/1.73 sq M.predicted among non-blacks MDRD (S/P/Bld) [Vol rate/Area] 81 mL/min/{1.73_m2} >60 [facility] Comment on above: mL/min/1.73m2 CKD-EP I Creatinine Equation (2020) Hematocrit Auto (Bld) [Volum e fraction]Ordered By: KENY DOMINGUEZ on 08-27-2024 Hematocrit (Bld) [Volume fraction] 45.4 % 40-54 [facility] Hemoglobin measurementOrdere d By: KENY DOMINGUEZ on 08-27-2024 Hemoglobin (Bld) [Mass/Vol] 15.5 g/dL 13.0-16.5 [facility] IgG [Mass/Vol]Ordered By: CADE DOMINGUEZ on 08-27-2024 Immunoglobulin G 1226 mg/dL 603-1613 [facility] Comment on above: Performed at: [address] [id number] Director: Berny Greenwood PhD, Phone: [phone] Immature granulocytes/100 WB C Auto (Bld)Ordered By: KENY DOMINGUEZ on 08-27-2024 Immature granulocytes/100 WBC (Bld) 0.400 % 0.0-0.9 [facility] Comment on above: IG% - Immature Granu locytes (promyelocytes, myelocytes and metamyelocytes) > 1% indicates that a LEFT SHIFT is Present. Laboratory - Chemistry and C hemistry - challengeOrdered By: KENY DOMINGUEZ on 08-27-2024 AST [Catalytic activity/Vol] 22 U/L <38 [facility] Lymphocytes Auto (Unsp spec) [#/Vol]Ordered By: KENY ANGELICA on 08-27-2024 Lymphocytes (Bld) [#/Vol] 1.28 10*3/uL 0.83-4.51 [facility] Lymphocytes/100 WBC Auto (Un sp spec)Ordered By: KENY DOMINGUEZ on 08-27-2024 Lymphocytes/100 WBC (Bld) 18.2 % Low 19-41 [facility] MCV (mean corpuscular volume ) determinationOrdered By: KENY DOMINGUEZ on 08-27-2024 MCV (RBC) [Entitic vol] 88.7 fL 80-94 [facility] Mean corpuscular hemoglobin (MCH) determinationOrdered By: KENY DOMINGUEZ on 08-27-2024 MCH (RBC) [Entitic mass] 30.3 pg 27.0-32.0 [facility] Mean corpuscular hemoglobin concentration (MCHC) determinationOrdered By: KENY DOMINGUEZ on 08-27-2024 MCHC (RBC) [Mass/Vol] 34.1 g/dL 32-36 [facility] Mean platelet volume determi nationOrdered By: KENY DOMINGUEZ on 08-27-2024 Platelet mean volume (Bld) [Entitic vol] 10.1 fL 6.2-12.0 [facility] Monocyte percentageOrdered B y: KENY DOMINGUEZ on 08-27-2024 Monocytes/100 WBC (Bld) 13.2 % High 0-10 [facility] Neutrophil percentageOrdered By: KENY DOMINGUEZ on 08-27-2024 Neutrophils/100 WBC (Bld) 67.1 % 47-70 [facility] Nucleated red blood cell per centageOrdered By: KENY DOMINGUEZ on 08-27-2024 Nucleated RBC/100 WBC (Bld) [Ratio] 0 % 0-5 [facility] Platelet countOrdered By: CADE DOMINGUEZ on 08-27-2024 Platelets (Bld) [#/Vol] 291 10*3/uL 150-450 [facility] Potassium (Unsp spec) [Mass/ Vol]Ordered By: KENY DOMINGUEZ on 08-27-2024 Potassium [Moles/Vol] 3.8 mmol/L 3.3-5.1 [facility] Potassium measurement (mass/ volume)Ordered By: KENY DOMINGUEZ on 08-27-2024 Potassium (Unsp spec) [Mass/Vol] 3.8 mmol/L 3.3-5.1 [facility] RBC Auto (Bld) [#/Vol]Ordere d By: KENY DOMINGUEZ on 08-27-2024 RBC (Bld) [#/Vol] 5.12 10*6/uL 4.6-6.2 [facility] Serum creatinine measurement (mass/volume)Ordered By: KENY DOMINGUEZ on 08-27-2024 Creatinine [Mass/Vol] 1.08 mg/dL 0.70-1.20 [facility] Serum globulin measurementOr dered By: KENY DOMINGUEZ on 08-27-2024 Globulin (S) [Mass/Vol] 3.1 g/dL 2.2-4.2 [facility] Serum glucose measurement (m ass/volume)Ordered By: KENY DOMINGUEZ on 08-27-2024 Glucose [Mass/Vol] 88 mg/dL 70-99 [facility] Serum or plasma IgG measurem ent (mass/volume)Ordered By: KENY DOMINGUEZ on 08-27-2024 IgG [Mass/Vol] 1226 mg/dL 603-1613 [facility] Comment on above: Performed at: [address] [id number] Director: Berny Greenwood PhD, Phone: [phone] Serum or plasma alanine saxena otransferase (ALT) measurementOrdered By: KENY DOMINGUEZ on 08-27-2024 ALT [Catalytic activity/Vol] 19 U/L <47 [facility] Serum or plasma albumin mary beth urement (mass/volume)Ordered By: KENY DOMINGUEZ on 08-27-2024 Albumin [Mass/Vol] 4.7 g/dL 3.5-5.0 [facility] Serum or plasma albumin/glob ulin mass ratioOrdered By: KNEY DOMINGUEZ on 08-27-2024 Albumin/Globulin [Mass ratio] 1.5 {ratio} 0.9-2.4 [facility] Serum or plasma alkaline fior sphatase measurementOrdered By: KENY DOMINGUEZ on 08-27-2024 ALP [Catalytic activity/Vol] 113 U/L 40-129 [facility] Serum or plasma calcium mary beth urement (mass/volume)Ordered By: KENY DOMINGUEZ on 08-27-2024 Calcium [Mass/Vol] 9.4 mg/dL 7.6-11.0 [facility] [place] Serum or plasma urea nitroge n measurement (mass/volume)Ordered By: KENY DOMINGUEZ on 08-27-2024 Urea nitrogen [Mass/Vol] 12 mg/dL 4-19 [facility] Sodium levelOrdered By: EZEKIEL DOMINGUEZ on 08-27-2024 Sodium [Moles/Vol] 139 mmol/L 133-145 [facility] [place] Total proteinOrdered By: EVANGELISTA DOMINGUEZ on 08-27-2024 Protein [Mass/Vol] 7.8 g/dL 5.9-8.4 [facility] [place] White blood cell (WBC) count Ordered By: KENY DOMINGUEZ on 08-27-2024 WBC (Bld) [#/Vol] 7.0 10*3/uL 4.4-11.0 [facility] [place] Brain W/WO Contraston 2024 Brain W/WO Contrast [facility] Imaging Services [address] [place], [place] [id number] Brain W/WO Contrast MR#: [id number] Acct: [id number] Name: CLARK QUICK Rep #: [id number] : 1970 M 54 From: Devendra Dash i, DO PCP: Care Physician,No Primary Status: REG CLI Study: Brain W/WO Contrast Date of Exam: 08/22/24 Exam# [id number] Ordering Dr: KENY DOMINGUEZ PROCEDURE: MRI of [...] CC: KENY DOMINGUEZ; No Primary Care Physician Call Center Associate: Signed Normal [facility] Magnetic resonance imaging r eportOrdered By: Devendra Sanders on 08-22-2024 Study report [facility] Imaging Services [address] [place], [place] [id number] Spine Cervical W/WO Contrast MR#: [id number] Acct: [id number] Name: CLARK QUICK Rep #: [id number] : 1970 M 54 From: And mildred Sanders DO PCP: Care Physician,No Primary Status: REG CLI Study:Spine Cervical W/WO Contrast Date of E xam: 08/22/24 Exam# [id number] Ordering Dr: EVANGELISTA DOMINGUEZ 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 PROCEDURE: MRI of the cervical spine without [...] KENY DOMINGUEZ; No Primary Care Physician ~ Call Center Associate: Signed [facility] Study report [facility] Imaging Services [address] [place] [address] Brain W/WO Contrast MR#: [id number] Acct: [id number] Name: CLARK QUICK Rep #: [id number] : 1970 M 54 From: And mildred Sanders DO PCP: Care Physician,No Primary Status: REG CLI Study:Brain W/WO Contrast Date of Exam: 08/22/24 Exam# [id number] Ordering Dr: EVANGELISTA DOMINGUEZ PROCEDURE: MRI of [...] KENY DOMINGUEZ; No Primary Care Physician ~ Call Center Associate: Signed [facility] Spine Cervical W/WO Contrast on 08-22-2024 Spine Cervical W/WO Contrast [facility] Imaging Services [address] [place] [id number] Spine Cervical W/WO Contrast MR#: [id number] Acct: [id number] Name: CLARK QUICK Rep #: [id number] : 1970 M 54 From: Devendra Dash i DO PCP: Care Physician,No Primary Status: REG CLI Study: Spine Cervical W/WO Contrast Date of Exam: Exam# [id number] Ordering Dr: KENY DOMINGUEZ PROCEDURE: MRI of [...] on the right at C3-4. Reading Location: [facility] CC: KENY DOMINGUEZ; No Primary Care Physician Call Center Associate: Signed Normal [facility] Immunoglobulin Mikel 4 IMMUNOGLOB G QN 1277 mg/dL Normal 603-1613 [facility] Comment on above: Result Comment: Perf ormed at: [facility] [address] [id number] [employer]: Berny Greenwood PhD, Phone: [phone] Performed By: #### L 3200.1300, L100.0100, L500.4050 ####[facility] [address] [place], [address] CBC W/Diff, Automatedon 10 Absolute Lymph 1.76 X10 3/uL Normal 0.83-4.51 [facility] Comment on above: Performed By: #### L 3200.1300, L100.0100, L500.4050 ####[facility] [address] [place], [address] Absolute Neut 4.9 X10 3/uL Normal 2.0-7.7 [facility] Comment on above: Performed By: #### L 3200.1300, L100.0100, L500.4050 ####[facility] [address] [place], [address] Basophils/100 WBC (Bld) 0.4 % Normal 0-1 [facility] Comment on above: Performed By: #### L 3200.1300, L100.0100, L500.4050 ####[facility] [address] [place], [address] Eosinophils/100 WBC (Bld) 0.6 % Normal 0-5 [facility] Comment on above: Performed By: #### L 3200.1300, L100.0100, L500.4050 ####[facility] [address] [place], [address] Erythrocyte distribution width (RBC) [Ratio] 13.1 % Normal 11.6-14.6 [facility] Comment on above: Performed By: #### L 3200.1300, L100.0100, L500.4050 ####[facility] [address] [place], [address] Hematocrit (Bld) [Volume fraction] 49.2 % Normal 40-54 [facility] Comment on above: Performed By: #### L 3200.1300, L100.0100, L500.4050 ####[facility] [address] [place], [address] Hemoglobin (Bld) [Mass/Vol] 16.4 g/dL Normal 13.0-16.5 [facility] Comment on above: Performed By: #### L 3200.1300, L100.0100, L500.4050 ####[facility] [address] [place], [address] IG% 0.400 Normal 0.0-0.9 [facility] Comment on above: Result Comment: IG% - Immature Granulocytes (promyelocytes, myelocytes and metamyelocytes) > 1% indicates that a LEFT SHIFT is Present. Performed By: #### L 3200.1300, L100.0100, L500.4050 ####[facility] [address] [place], [address] Lymphocytes/100 WBC (Bld) 22.7 % Normal 19-41 [facility] Comment on above: Performed By: #### L 3200.1300, L100.0100, L500.4050 ####[facility] [address] [place], [address] MCH (RBC) [Entitic mass] 29.5 pg Normal 27.0-32.0 [facility] Comment on above: Performed By: #### L 3200.1300, L100.0100, L500.4050 ####[facility] [address] [place], [address] MCHC (RBC) [Mass/Vol] 33.3 g/dL Normal 32-36 [facility] Comment on above: Performed By: #### L 3200.1300, L100.0100, L500.4050 ####[facility] [address] [place], [address] MCV (RBC) [Entitic vol] 88.5 fL Normal 80-94 [facility] Comment on above: Performed By: #### L 3200.1300, L100.0100, L500.4050 ####[facility] [address] [place], [address] Monocytes/100 WBC (Bld) 12.7 % High 0-10 [facility] Comment on above: Performed By: #### L 3200.1300, L100.0100, L500.4050 ####[facility] [address] [place], [address] Neutrophils/100 WBC (Bld) 63.2 % Normal 47-70 [facility] Comment on above: Performed By: #### L 3200.1300, L100.0100, L500.4050 ####[facility] [address] [place], [address] Nucleated RBC (Bld) [#/Vol] 0 10*3/uL Normal 0-5 [facility] Comment on above: Performed By: #### L 3200.1300, L100.0100, L500.4050 ####[facility] [address] [place], [address] Platelet mean volume (Bld) [Entitic vol] 9.6 fL Normal 6.2-12.0 [facility] Comment on above: Performed By: #### L 3200.1300, L100.0100, L500.4050 ####[facility] [address] [place], [address] Platelets (Bld) [#/Vol] 302 10*3/uL Normal 150-450 [facility] Comment on above: Performed By: #### L 3200.1300, L100.0100, L500.4050 ####[facility] [address] [place], [address] RBC (Bld) [#/Vol] 5.56 10*6/uL Normal 4.6-6.2 [facility] Comment on above: Performed By: #### L 3200.1300, L100.0100, L500.4050 ####[facility] [address] [place], [address] RDW SD 42.9 fl Normal 35.1-43.9 [facility] Comment on above: Performed By: #### L 3200.1300, L100.0100, L500.4050 ####[facility] [address] [place], [address] WBC (Bld) [#/Vol] 7.8 10*3/uL Normal 4.4-11.0 [facility] Comment on above: Performed By: #### L 3200.1300, L100.0100, L500.4050 ####[facility] [address] [place], [address] Comprehensive Metabolic Prof [facility] 02-28-2024 Albumin [Mass/Vol] 4.4 g/dL Normal 3.2-5.0 [facility] [place] Comment on above: Performed By: #### L 3200.1300, L100.0100, L500.4050 ####[facility] [address] [place], [address] Albumin/Globulin [Mass ratio] 1.1 {ratio} Normal 0.9-2.4 [facility] Comment on above: Performed By: #### L 3200.1300, L100.0100, L500.4050 ####[facility] [address] [place], [address] ALK P 125 U/L High 45-117 [facility] Comment on above: Performed By: #### L 3200.1300, L100.0100, L500.4050 ####[facility] [address] [place], [address] ALT [Catalytic activity/Vol] 39 U/L Normal 16-61 [facility] Comment on above: Performed By: #### L 3200.1300, L100.0100, L500.4050 ####[facility] [address] [place], [address] AST [Catalytic activity/Vol] 24 U/L Normal 15-37 [facility] Comment on above: Performed By: #### L 3200.1300, L100.0100, L500.4050 ####[facility] [address] [place], [address] Bilirubin [Mass/Vol] 0.80 mg/dL Normal 0.20-1.00 [facility] Comment on above: Result Comment: For patients on eltrombopag therapy, use of Dimension Madill TBIL is not recommended. Performed By: #### L 3200.1300, L100.0100, L500.4050 ####[facility] [address] [place], [address] BUN/CRE 8.2 RATIO Low 10-20 [facility] Comment on above: Performed By: #### L 3200.1300, L100.0100, L500.4050 ####[facility] [address] [place], [address] CA,Total 9.5 mg/dL Normal 8.5-10.1 [facility] Comment on above: Performed By: #### L 3200.1300, L100.0100, L500.4050 ####[facility] [address] [place], [address] Chloride [Moles/Vol] 101 mmol/L Normal 98-107 [facility] Comment on above: Performed By: #### L 3200.1300, L100.0100, L500.4050 ####[facility] [address] [place], [address] CO2 [Moles/Vol] 27.0 mmol/L Normal 21.0-32.0 [facility] Comment on above: Performed By: #### L 3200.1300, L100.0100, L500.4050 ####[facility] [address] [place], [address] Creatinine [Mass/Vol] 1.22 mg/dL Normal 0.70-1.30 [facility] Comment on above: Result Comment: The validity of the calculated GFR GFRAA in patients over 70 years has not been determined. Clinical correlation is essential. Performed By: #### L 3200.1300, L100.0100, L500.4050 ####[facility] [address] [place], [address] EST GFR - AA 79 mL/min Normal >60 [facility] Comment on above: Result Comment: Afri can Palauan GFR Calc Performed By: #### L 3200.1300, L100.0100, L500.4050 ####[facility] [address] [place], [address] GAP 6 Normal 5-15 [facility] Comment on above: Performed By: #### L 3200.1300, L100.0100, L500.4050 ####[facility] [address] [place], [address] GFR/1.73 sq M.predicted among non-blacks MDRD (S/P/Bld) [Vol rate/Area] 65 mL/min/{1.73_m2} Normal >60 [facility] Comment on above: Result Comment: Non- GFR Calc Performed By: #### L 3200.1300, L100.0100, L500.4050 ####[facility] [address] [place], [address] Globulin (S) [Mass/Vol] 4.1 g/dL Normal 2.2-4.2 [facility] Comment on above: Performed By: #### L 3200.1300, L100.0100, L500.4050 ####[facility] [address] [place], [address] Glucose [Mass/Vol] 105 mg/dL Normal 74-106 [facility] Comment on above: Result Comment: Fast ing Glucose result from 100 to 125 mg/dL suggests IMPAIRED HOMEOSTASIS per A.D.A. criteria. Performed By: #### L 3200.1300, L100.0100, L500.4050 ####[facility] [address] [place], [address] Potassium [Moles/Vol] 3.8 mmol/L Normal 3.5-5.1 [facility] Comment on above: Performed By: #### L 3200.1300, L100.0100, L500.4050 ####[facility] [address] [place], [address] Sodium [Moles/Vol] 135 mmol/L Low 136-145 [facility] Comment on above: Performed By: #### L 3200.1300, L100.0100, L500.4050 ####[facility] [address] [place], [address] T PROT 8.5 g/dL High 6.4-8.2 [facility] Comment on above: Performed By: #### L 3200.1300, L100.0100, L500.4050 ####[facility] [address] [place], [address] Urea nitrogen [Mass/Vol] 10 mg/dL Normal 7-18 [facility] Comment on above: Performed By: #### L 3200.1300, L100.0100, L500.4050 ####[facility] [address] [place], [address] Basophil percentageon 2022 Creatinine [Mass/Vol] 1.20 mg/dL 0.70-1.30 [facility] No Panel Informationon 10-19 Bedside Estimated GFR (eGFR) > 60 mL/min >60 [facility] CBC, PLATELETS & MANUAL DIFF ([id number])Ordered By: Computer Equipment Repairer on 05-19-2020 Basophils (Bld) [#/Vol] 0.0 {x10E3/uL} Normal 0.0-0.2 [facility] Work Phone: Comment on above: Send copy of results to Dr. Roman; PATIENT NOT FASTINGPERFORMED BY: [employer] Withrp Fwimch2859 [facility] [id number] Basophils (Bld) [#/Vol] 0.0 10*3/uL Normal 0.0-0.2 [facility]; [facility] Work Phone: Comment on above: Send copy of results to Dr. Roman; PATIENT NOT FASTINGPERFORMED BY: [facility] [facility] [id number] Basophils/100 WBC (Bld) 1 % Normal [facility]; [facility] Work Phone: Comment on above: Send copy of results to Dr. Roman; PATIENT NOT FASTINGPERFORMED BY: [employer] Igegte4076 [facility] [id number] Eosinophils (Bld) [#/Vol] 0.1 {x10E3/uL} Normal 0.0-0.4 [facility]; [facility] Work Phone: Comment on above: Send copy of results to Dr. Roman; PATIENT NOT FASTINGPERFORMED BY: [employer] Withrp Ilhcyr2082 [facility] [id number] Eosinophils (Bld) [#/Vol] 0.1 10*3/uL Normal 0.0-0.4 [facility]; [facility] Work Phone: Comment on above: Send copy of results to Dr. Roman; PATIENT NOT FASTINGPERFORMED BY: CB [facility] [address]is[address] [facility] [id number] Eosinophils/100 WBC (Bld) 2 % Normal [facility]; [facility] Work Phone: Comment on above: Send copy of results to Dr. Roman; PATIENT NOT FASTINGPERFORMED BY: [facility] Hvxiyx8983 [facility] [id number] Erythrocyte distribution width (RBC) [Ratio] 13.0 % Normal 11.6-15.4 [facility]; [facility] Work Phone: Comment on above: Send copy of results to Dr. Roman; PATIENT NOT FASTINGPERFORMED BY: [facility] Isgwws7043 [facility] [id number] Hematocrit (Bld) [Volume fraction] 45.1 % Normal 37.5-51.0 [facility]; [facility] Work Phone: Comment on above: Send copy of results to Dr. Roman; PATIENT NOT FASTINGPERFORMED BY: [facility] Savsjp0255 [facility] [id number] Hemoglobin (Bld) [Mass/Vol] 15.8 g/dL Normal 13.0-17.7 [facility] Work Phone: Comment on above: Send copy of results to Dr. Roman; PATIENT NOT FASTINGPERFORMED BY: CB [facility] Nwmryb9266 [facility] [id number] Immature granulocytes (Bld) [#/Vol] 0.0 {x10E3/uL} Normal 0.0-0.1 [facility] Work Phone: Comment on above: Send copy of results to Dr. Roman; PATIENT NOT FASTINGPERFORMED BY: CB [facility] Qtlldb9399 [facility] [id number] Immature granulocytes (Bld) [#/Vol] 0.0 10*3/uL Normal 0.0-0.1 [facility]; [facility] Work Phone: Comment on above: Send copy of results to Dr. Roman; PATIENT NOT FASTINGPERFORMED BY: CB [facility] Csdrvh34[address] Road[address] [place] [id number] Immature granulocytes/100 WBC (Bld) 0 % Normal [facility]; [facility] Work Phone: Comment on above: Send copy of results to Dr. Roman; PATIENT NOT FASTINGPERFORMED BY: CB [facility] Vkoilb6[address] Road[address]uin [place] [id number] Lymphocytes (Bld) [#/Vol] 1.9 {x10E3/uL} Normal 0.7-3.1 [facility]; [facility] Work Phone: Comment on above: Send copy of results to Dr. Roman; PATIENT NOT FASTINGPERFORMED BY: CB [facility] Zmjgbu1765 [address] Road[address]uin [place] [id number] Lymphocytes (Bld) [#/Vol] 1.9 10*3/uL Normal 0.7-3.1 [facility]; [facility] Work Phone: Comment on above: Send copy of results to Dr. Roman; PATIENT NOT FASTINGPERFORMED BY: CB [facility] Aniphg[address] [facility]in [place] [id number] Lymphocytes/100 WBC (Bld) 26 % Normal [facility]; [facility] Work Phone: Comment on above: Send copy of results to Dr. Roman; PATIENT NOT FASTINGPERFORMED BY: CB [facility] Rkcufr[address] [facility]in [place] [id number] MCH (RBC) [Entitic mass] 31.4 pg Normal 26.6-33.0 [facility]; [facility] Work Phone: Comment on above: Send copy of results to Dr. Roman; PATIENT NOT FASTINGPERFORMED BY: CB [facility] Jtw[address]rd[address] [facility] HospitalD[facility] [place] [id number] MCHC (RBC) [Mass/Vol] 35.0 g/dL Normal 31.5-35.7 [facility]; [facility] Work Phone: Comment on above: Send copy of results to Dr. Roman; PATIENT NOT FASTINGPERFORMED BY: CB [facility] Haizhv1056 [address] RoadDublin [place] [id number] MCV (RBC) [Entitic vol] 90 fL Normal 79-97 [facility]; [facility] Work Phone: Comment on above: Send copy of results to Dr. Roman; PATIENT NOT FASTINGPERFORMED BY: CB [facility] Lmqnxt8756 [address] Road[address] [place] [id number] Monocytes (Bld) [#/Vol] 0.9 {x10E3/uL} Normal 0.1-0.9 [facility] Internal [facility]; [facility] Work Phone: Comment on above: Send copy of results to Dr. Roman; PATIENT NOT FASTINGPERFORMED BY: CB [facility] Hpzcnh1840 [address] Road[address] [place] [id number] Monocytes (Bld) [#/Vol] 0.9 10*3/uL Normal 0.1-0.9 [facility] Internal [facility]; [facility] Work Phone: Comment on above: Send copy of results to Dr. Roman; PATIENT NOT FASTINGPERFORMED BY: CB [facility] Biuuhs9032 [address] [place] [id number] Monocytes/100 WBC (Bld) 12 % Normal [facility] Work Phone: Comment on above: Send copy of results to Dr. Roman; PATIENT NOT FASTINGPERFORMED BY: CB [facility] Udoude6878 [address] Road[address] [place] [id number] Neutrophils (Bld) [#/Vol] 4.2 {x10E3/uL} Normal 1.4-7.0 [facility] Internal [facility]; [facility] Work Phone: Comment on above: Send copy of results to Dr. Roman; PATIENT NOT FASTINGPERFORMED BY: CB [facility] Wyccxr6441 [address] RoadD[address] [place] [id number] Neutrophils (Bld) [#/Vol] 4.2 10*3/uL Normal 1.4-7.0 [facility]; [facility] Work Phone: Comment on above: Send copy of results to Dr. Roman; PATIENT NOT FASTINGPERFORMED BY: CB [facility] Cxrgdj6607 [address] [place] [id number] Neutrophils/100 WBC (Bld) 59 % Normal [facility]; [facility] Work Phone: Comment on above: Send copy of results to Dr. Roman; PATIENT NOT FASTINGPERFORMED BY: CB [facility] Puglwd6874 [address]ublin [place] [id number] Platelets (Bld) [#/Vol] 283 {x10E3/uL} Normal 150-450 [facility]; [facility] Work Phone: Comment on above: Send copy of results to Dr. Roman; PATIENT NOT FASTINGPERFORMED BY: CB [facility] Vjvatd7671 [address] RoadDublin [place] [id number] Platelets (Bld) [#/Vol] 283 10*3/uL Normal 150-450 [facility] Internal [facility]; [facility] Work Phone: Comment on above: Send copy of results to Dr. Roman; PATIENT NOT FASTINGPERFORMED BY: CB [facility] Wlirls9415 [address]uin [place] [id number] RBC (Bld) [#/Vol] 5.03 {x10E6/uL} Normal 4.14-5.80 [facility]; [facility] Work Phone: Comment on above: Send copy of results to Dr. Roman; PATIENT NOT FASTINGPERFORMED BY: CB [facility] Jqobgs4114 [address] [place] [id number] RBC (Bld) [#/Vol] 5.03 10*6/uL Normal 4.14-5.80 [facility] Internal [facility]; [facility] Work Phone: Comment on above: Send copy of results to Dr. Roman; PATIENT NOT FASTINGPERFORMED BY: CB [facility] Swsoqh3950 [address]ublin [place] [id number] WBC (Bld) [#/Vol] 7.2 {x10E3/uL} Normal 3.4-10.8 [facility] Internal Medicine; [facility] Work Phone: Comment on above: Send copy of results to Dr. Roman; PATIENT NOT FASTINGPERFORMED BY: CB [facility] Movrbs8191 [address] [facility]blin [place] [id number] WBC (Bld) [#/Vol] 7.2 10*3/uL Normal 3.4-10.8 [facility]; [facility] Work Phone: Comment on above: Send copy of results to Dr. Roman; PATIENT NOT FASTINGPERFORMED BY: CB [facility] Ganwiv4162 [facility] [id number] METABOLIC PANEL, COMPREHENSI VE ([id number])Ordered By: Computer Equipment Repairer on 05-19-2020 Albumin [Mass/Vol] 5.0 g/dL Abnormal 3.8-4.9 [facility]; [facility] Work Phone: Comment on above: Send copy of results to Dr. Roman; PATIENT NOT FASTINGPERFORMED BY: CB [facility] Kerbin6228 [facility] [id number] Albumin/Globulin [Mass ratio] 2.0 {ratio} Normal 1.2-2.2 [facility] Internal [facility]; [facility] Work Phone: Comment on above: Send copy of results to Dr. Roman; PATIENT NOT FASTINGPERFORMED BY: CB [facility] Aavnyz6966 [facility]ertJackson General Hospitalin [place] [id number] ALP [Catalytic activity/Vol] 62 [iU]/L Normal 39-117 [facility] Internal [facility]; [facility] Work Phone: Comment on above: Send copy of results to Dr. Roman; PATIENT NOT FASTINGPERFORMED BY: CB [facility] Lgsayj[address] [facility] HospitalDuin [place] [id number] ALP [Catalytic activity/Vol] 62 U/L Normal 39-117 [facility] Internal [facility]; [facility] Work Phone: Comment on above: Send copy of results to Dr. Roman; PATIENT NOT FASTINGPERFORMED BY: CB [facility] Ccnyph9957 [address] RoadDublin [place] [id number] ALT [Catalytic activity/Vol] 25 [iU]/L Normal 0-44 [facility]; [facility] Work Phone: Comment on above: Send copy of results to Dr. Roman; PATIENT NOT FASTINGPERFORMED BY: CB [facility] Vkbrgr9345 [address] RoadDublin [place] [id number] ALT [Catalytic activity/Vol] 25 U/L Normal 0-44 [facility]; [facility] Work Phone: Comment on above: Send copy of results to Dr. Roman; PATIENT NOT FASTINGPERFORMED BY: CB [facility] Vbyjbq0016 [address] RoadDublin [place] [id number] AST [Catalytic activity/Vol] 19 [iU]/L Normal 0-40 [facility]; [facility] Work Phone: Comment on above: Send copy of results to Dr. Roman; PATIENT NOT FASTINGPERFORMED BY: CB [facility] Nfcusb0514 [address] RoadDublin [place] [id number] AST [Catalytic activity/Vol] 19 U/L Normal 0-40 [facility]; [facility] Work Phone: Comment on above: Send copy of results to Dr. Roman; PATIENT NOT FASTINGPERFORMED BY: CB [facility] Kavcug9276 [address] RoadDublin [place] [id number] Bilirubin [Mass/Vol] 0.4 mg/dL Normal 0.0-1.2 [facility]; [facility] Work Phone: Comment on above: Send copy of results to Dr. Roman; PATIENT NOT FASTINGPERFORMED BY: CB [facility] Jpqnoj8110 [address] RoadDublin [place] [id number] Calcium [Mass/Vol] 9.8 mg/dL Normal 8.7-10.2 [facility]; [facility] Work Phone: Comment on above: Send copy of results to Dr. Roman; PATIENT NOT FASTINGPERFORMED BY: CB [facility] Dlqchv[address] [facility]in [place] [id number] Chloride [Moles/Vol] 97 mmol/L Normal 96-106 [facility]; [facility] Work Phone: Comment on above: Send copy of results to Dr. Roman; PATIENT NOT FASTINGPERFORMED BY: CB [facility] Knfqxt3908 [address] [facility] [id number] CO2 [Moles/Vol] 26 mmol/L Normal 20-29 [facility] Internal Medicine; [facility] Work Phone: Comment on above: Send copy of results to Dr. Roman; PATIENT NOT FASTINGPERFORMED BY: CB [facility] Rfjnpv6387 [facility] [id number] Creatinine [Mass/Vol] 1.26 mg/dL Normal 0.76-1.27 [facility]; [facility] Work Phone: Comment on above: Send copy of results to Dr. Roman; PATIENT NOT FASTINGPERFORMED BY: CB [facility] Neajhi0027 [facility] [id number] GFR/1.73 sq M predicted among blacks CKD-EPI (S/P/Bld) [Vol rate/Area] 75 mL/min/1.73 Normal [facility]; [facility] Work Phone: Comment on above: Send copy of results to Dr. Roman; PATIENT NOT FASTINGPERFORMED BY: [facility] Cpjmhq6555 [facility] [id number] GFR/1.73 sq M predicted among non-blacks CKD-EPI (S/P/Bld) [Vol rate/Area] 65 mL/min/1.73 Normal [facility]; [facility] Work Phone: Comment on above: Send copy of results to Dr. Roman; PATIENT NOT FASTINGPERFORMED BY: CB [facility] Amnwmz3257 [facility] [id number] Globulin (S) [Mass/Vol] 2.5 g/dL Normal 1.5-4.5 [facility]; [facility] Work Phone: Comment on above: Send copy of results to Dr. Roman; PATIENT NOT FASTINGPERFORMED BY: CB [facility] Bfumxn3494 [address] RoadDublin [place] [id number] Glucose [Mass/Vol] 107 mg/dL Abnormal 65-99 [facility] Internal Medicine; [facility] Work Phone: Comment on above: Send copy of results to Dr. Roman; PATIENT NOT FASTINGPERFORMED BY: CB [facility] Kghnjo3751 [address] RoadDublin [place] [id number] Potassium [Moles/Vol] 4.1 mmol/L Normal 3.5-5.2 [facility] Internal Medicine; [facility] Internal Medicine Work Phone: Comment on above: Send copy of results to Dr. Roman; PATIENT NOT FASTINGPERFORMED BY: CB [facility] Cuyzzt1943 [address] RoadDublin [place] [id number] Protein [Mass/Vol] 7.5 g/dL Normal 6.0-8.5 [facility] Internal Medicine; [facility] Internal Medicine Work Phone: Comment on above: Send copy of results to Dr. Roman; PATIENT NOT FASTINGPERFORMED BY: CB [facility] Gokgek2129 [address] RoadDublin [place] [id number] Sodium [Moles/Vol] 138 mmol/L Normal 134-144 [facility] Internal [facility]; [facility] Work Phone: Comment on above: Send copy of results to Dr. Roman; PATIENT NOT FASTINGPERFORMED BY: CB [facility] Svmfdv9321 [address] RoadDuin [place] [id number] Urea nitrogen [Mass/Vol] 15 mg/dL Normal 6-24 [facility] Internal Medicine; [facility] Work Phone: Comment on above: Send copy of results to Dr. Roman; PATIENT NOT FASTINGPERFORMED BY: CB [facility] Gjzpyz7185 [address] RoadDublin [place] [id number] Urea nitrogen/Creatinine [Mass ratio] 12 mg/mg Normal 9-20 [facility] Internal Medicine; [facility] Internal Medicine Work Phone: Comment on above: Send copy of results to Dr. Roman; PATIENT NOT FASTINGPERFORMED BY: CB [facility] Reqwlm9516 [address] RoadDublin [place] [id number] CBC, Platelets & Auto Diff ( [id number])Ordered By: Computer Equipment Repairer on 07-16-2019 Basophils (Bld) [#/Vol] 0.0 {x10E3/uL} Normal 0.0-0.2 [facility] Work Phone: Comment on above: PATIENT NOT FASTINGP ERFORMED BY: CB [facility] Crclmm7729 [address] RoadDublin [place] [id number] Basophils (Bld) [#/Vol] 0.0 10*3/uL Normal 0.0-0.2 [facility]; [facility] Work Phone: Comment on above: PATIENT NOT FASTINGP ERFORMED BY: CB [facility] Ddveor1320 [address] RoadDublin [place] [id number] Basophils/100 WBC (Bld) 0 % Normal [facility] Work Phone: Comment on above: PATIENT NOT FASTINGP ERFORMED BY: CB [facility] Efwpzf2776 [address] RoadDuin [place] [id number] Eosinophils (Bld) [#/Vol] 0.1 {x10E3/uL} Normal 0.0-0.4 [facility] Work Phone: Comment on above: PATIENT NOT FASTINGP ERFORMED BY: CB [facility] Otaugt0624 [address] RoadDublin [place] [id number] Eosinophils (Bld) [#/Vol] 0.1 10*3/uL Normal 0.0-0.4 [facility]; [facility] Work Phone: Comment on above: PATIENT NOT FASTINGP ERFORMED BY: CB [facility] Etsvtw6207 [address] RoadDublin [place] [id number] Eosinophils/100 WBC (Bld) 2 % Normal [facility] Work Phone: Comment on above: PATIENT NOT FASTINGP ERFORMED BY: CB [facility] Rozdfy0634 [address] RoadDublin [place] [id number] Erythrocyte distribution width (RBC) [Ratio] 13.2 % Normal 11.6-15.4 [facility] Work Phone: Comment on above: PATIENT NOT FASTINGP ERFORMED BY: ZOE Hernandez6370 [address] Roadblin [place] [id number] Hematocrit (Bld) [Volume fraction] 50.5 % Normal 37.5-51.0 [facility] Work Phone: Comment on above: PATIENT NOT FASTINGP ERFORMED BY: ZOE [facility] Bnqqpb1862 Eckert RoadHighlands[facility]Cashiers [facility] [id number] Hemoglobin (Bld) [Mass/Vol] 16.6 g/dL Normal 13.0-17.7 [facility] Work Phone: Comment on above: PATIENT NOT FASTINGP ERFORMED BY: ZOE Hernandez6370 [address] RoadWake Forest [facility] Dav[facility] Hospitalin [place] [id number] Immature granulocytes (Bld) [#/Vol] 0.0 {x10E3/uL} Normal 0.0-0.1 [facility] Work Phone: Comment on above: PATIENT NOT FASTINGP ERFORMED BY: ZOE ChapmanCopreston ThakurHixwve4517 [address] RoadWake Forest [facility] Dav[facility] Hospitalin [place] [id number] Immature granulocytes (Bld) [#/Vol] 0.0 10*3/uL Normal 0.0-0.1 [facility]; [facility] Work Phone: Comment on above: PATIENT NOT FASTINGP ERFORMED BY: ZOE ChapmanCopreston ThakurZqpuij8835 [address] [facility] Systemblin [place] [id number] Immature granulocytes/100 WBC (Bld) 1 % Normal [facility] Work Phone: Comment on above: PATIENT NOT FASTINGP ERFORMED BY: ZOE [facility] Rklbuz9841 [address] RoadDublin [place] [id number] Lymphocytes (Bld) [#/Vol] 1.7 {x10E3/uL} Normal 0.7-3.1 [facility] Work Phone: Comment on above: PATIENT NOT FASTINGP ERFORMED BY: CB [facility] Knehtu5641 [address] RoadDublin [place] [id number] Lymphocytes (Bld) [#/Vol] 1.7 10*3/uL Normal 0.7-3.1 [facility]; [facility] Work Phone: Comment on above: PATIENT NOT FASTINGP ERFORMED BY: ZOE [facility] Ywxiec6147 [address] RoadDublin [place] [id number] Lymphocytes/100 WBC (Bld) 26 % Normal [facility] Work Phone: Comment on above: PATIENT NOT FASTINGP ERFORMED BY: CB [facility] Vgyzaj1530 [address] RoadDublin [place] [id number] MCH (RBC) [Entitic mass] 30.2 pg Normal 26.6-33.0 [facility] Internal Medicine Work Phone: Comment on above: PATIENT NOT FASTINGP ERFORMED BY: ZOE [facility] Hpaldk1889 [address] RoadWake Forest Baptist [facility] Dav[facility] Hospitalin [place] [id number] MCHC (RBC) [Mass/Vol] 32.9 g/dL Normal 31.5-35.7 [facility] Internal Medicine Work Phone: Comment on above: PATIENT NOT FASTINGP ERFORMED BY: ZOE [facility] Iclqsu0705 [address] [facility]in [place] [id number] MCV (RBC) [Entitic vol] 92 fL Normal 79-97 [facility] Internal Medicine Work Phone: Comment on above: PATIENT NOT FASTINGP ERFORMED BY: ZOE [facility] Fgyfkr9865 [address] [facility]in [place] [id number] Monocytes (Bld) [#/Vol] 0.7 {x10E3/uL} Normal 0.1-0.9 [facility] Work Phone: Comment on above: PATIENT NOT FASTINGP ERFORMED BY: CB [facility] Lkpkca5632 [address] RoadDublin [place] [id number] Monocytes (Bld) [#/Vol] 0.7 10*3/uL Normal 0.1-0.9 [facility]; [facility] Work Phone: Comment on above: PATIENT NOT FASTINGP ERFORMED BY: CB [facility] Dioqpf7754 [address] RoadDublin [place] [id number] Monocytes/100 WBC (Bld) 11 % Normal [facility] Work Phone: Comment on above: PATIENT NOT FASTINGP ERFORMED BY: CB [facility] Axoxym9497 [address] RoadDublin [place] [id number] Neutrophils (Bld) [#/Vol] 4.0 {x10E3/uL} Normal 1.4-7.0 [facility] Work Phone: Comment on above: PATIENT NOT FASTINGP ERFORMED BY: CB [facility] Iiejey6064 [address] RoadDublin [place] [id number] Neutrophils (Bld) [#/Vol] 4.0 10*3/uL Normal 1.4-7.0 [facility]; [facility] Work Phone: Comment on above: PATIENT NOT FASTINGP ERFORMED BY: CB [facility] Whqkse9811 [address] RoadDublin [place] [id number] Neutrophils/100 WBC (Bld) 60 % Normal [facility] Work Phone: Comment on above: PATIENT NOT FASTINGP ERFORMED BY: CB [facility] Faghfk8772 [address] RoadDublin [place] [id number] Platelets (Bld) [#/Vol] 226 {x10E3/uL} Normal 150-450 [facility] Work Phone: Comment on above: PATIENT NOT FASTINGP ERFORMED BY: CB [facility] Wnkeit6887 [address] RoadDublin [place] [id number] Platelets (Bld) [#/Vol] 226 10*3/uL Normal 150-450 [facility]; [facility] Work Phone: Comment on above: PATIENT NOT FASTINGP ERFORMED BY: CB [facility] Pyacyr3657 [address] RoadDublin [place] [id number] RBC (Bld) [#/Vol] 5.50 {x10E6/uL} Normal 4.14-5.80 [facility] Internal [facility] Work Phone: Comment on above: PATIENT NOT FASTINGP ERFORMED BY: CB [facility] Mrqouo6468 [address] RoadDublin [place] [id number] RBC (Bld) [#/Vol] 5.50 10*6/uL Normal 4.14-5.80 [facility] Internal [facility]; [facility] Work Phone: Comment on above: PATIENT NOT FASTINGP ERFORMED BY: ZOE [facility] Szotyp7347 [address] RoadDublin [place] [id number] WBC (Bld) [#/Vol] 6.6 {x10E3/uL} Normal 3.4-10.8 [facility] Internal Medicine Work Phone: Comment on above: PATIENT NOT FASTINGP ERFORMED BY: CB [facility] Ykihoa6141 [address] RoadDublin [place] [id number] WBC (Bld) [#/Vol] 6.6 10*3/uL Normal 3.4-10.8 [facility] Internal [facility]; [facility] Work Phone: Comment on above: PATIENT NOT FASTINGP ERFORMED BY: ZOE [facility] Rbkcjq8014 [address] RoadWake Forest Baptist [facility] Dav[facility] Hospitalin [place] [id number] SPEP ([id number])Ordered By: Syst em Paper Cone Grader on 07-16-2019 Albumin [Mass/Vol] 3.7 g/dL Normal 2.9-4.4 [facility] Internal Medicine Work Phone: Comment on above: PATIENT NOT FASTINGP ERFORMED BY: ZOE [facility] Wvunjr1090 [address] RoadDublin [place] [id number] Albumin/Globulin [Mass ratio] 1.2 {ratio} Normal 0.7-1.7 [facility] Work Phone: Comment on above: PATIENT NOT FASTINGP ERFORMED BY: CB [facility] Rcmens9246 [address] RoadDublin [place] [id number] Alpha 1 globulin Elph [Mass/Vol] 0.2 g/dL Normal 0.0-0.4 [facility] Internal Medicine Work Phone: Comment on above: PATIENT NOT FASTINGP ERFORMED BY: CB [facility] Spjewx4635 [address] RoadDublin [place] [id number] Alpha 2 globulin Elph [Mass/Vol] 1.0 g/dL Normal 0.4-1.0 [facility] Work Phone: Comment on above: PATIENT NOT FASTINGP ERFORMED BY: CB [facility] Hkzsug0170 [address] RoadDublin [place] [id number] Beta globulin Elph [Mass/Vol] 0.9 g/dL Normal 0.7-1.3 [facility] Work Phone: Comment on above: PATIENT NOT FASTINGP ERFORMED BY: CB [facility] Iyvrum8516 [address] RoadDublin [place] [id number] Gamma globulin Elph [Mass/Vol] 1.1 g/dL Normal 0.4-1.8 [facility] Work Phone: Comment on above: PATIENT NOT FASTINGP ERFORMED BY: CB [facility] Vkjcsw7773 [address] RoadDublin [place] [id number] Globulin (S) [Mass/Vol] 3.2 g/dL Normal 2.2-3.9 [facility] Work Phone: Comment on above: PATIENT NOT FASTINGP ERFORMED BY: CB [facility] Nhtkwb0743 [address] Roadblin [place] [id number] Laboratory comment Christ (Report) SPRCS Normal [facility] Work Phone: Comment on above: Protein electrophore sis scan will follow via computer, mail, orcourier delivery. PATIENT NOT FASTINGP ERFORMED BY: CB [facility] Iprhck4957 [address] RoadDublin [place] [id number] Laboratory report . Normal Compreh ensive Internal Medicine Work Phone: Comment on above: PATIENT NOT FASTINGP ERFORMED BY: CB [facility] Meaavb5572 [address] RoadWake Forest [facility] Hospitalin [place] [id number] Protein [Mass/Vol] 6.9 g/dL Normal 6.0-8.5 Compre hensive Internal Medicine Work Phone: Comment on above: PATIENT NOT FASTINGP ERFORMED BY: CB [facility] Kpykgt0245 [address] RoadDublin [place] [id number] Protein.monoclonal Elph [Mass/Vol] Not Observed Normal [facility] Work Phone: Comment on above: PATIENT NOT FASTINGP ERFORMED BY: ZOE [facility] Lypzgf2120 [address] RoadDublin [place] [id number] HEMOGLOB ELECTROPHORESIS (83 020)Ordered By: Computer Equipment Repairer on 06-12-2019 Hemoglobin A (Bld) [Mass fraction] 97.9 % Normal 96.4-98.8 [facility] Work Phone: Comment on above: PATIENT NOT FASTINGP ERFORMED BY: ZOE [facility] Pxlszc1805 [address] Roadblin [place] [id number] Hemoglobin A2 Chromatography column (Bld) [Mass fraction] 2.1 % Normal 1.8-3.2 [facility] Internal Medicine Work Phone: Comment on above: PATIENT NOT FASTINGP ERFORMED BY: ZOE [facility] Cwdjrv6393 [address] Roadblin [place] [id number] Hemoglobin C (Bld) [Mass fraction] 0.0 % Normal [facility] Work Phone: Comment on above: PATIENT NOT FASTINGP ERFORMED BY: ZOE [facility] Uqgysz3064 [address] RoadWake Forest [facility] Hospitalin [place] [id number] Hemoglobin F (Bld) [Mass fraction] 0.0 % Normal 0.0-2.0 [facility] Work Phone: Comment on above: PATIENT NOT FASTINGP ERFORMED BY: ZOE [facility] Ktuceg1880 [address] RoadDublin [place] [id number] Hemoglobin pattern (Bld) [Interp] HGAA Normal [facility] Work Phone: Comment on above: Normal adult hemoglo bin present. PATIENT NOT FASTINGP ERFORMED BY: ZOE [facility] Xgftcd5861 [address] RoadDublin [place] [id number] Hemoglobin S (Bld) [Mass fraction] 0.0 % Normal [facility] Work Phone: Comment on above: PATIENT NOT FASTINGP ERFORMED BY: ZOE [facility] Ckaeev7285 [address] RoadDublin [place] [id number] Hemoglobin S Ql (Bld) Negative Normal Com prehensive Internal Medicine Work Phone: Comment on above: PATIENT NOT FASTINGP ERFORMED BY: ZOE CameronAtlantic Rehabilitation InstituteZuvukq9143 [address] [facility]bl[facility] [place] [id number] Hemoglobin S Ql (Bld) Negative Normal Com prehensive Internal Medicine; [facility] Work Phone: Comment on above: PATIENT NOT FASTINGP ERFORMED BY: ZOE Cameron Uuyfpd1176 [address] [facility]bl[facility] [place] [id number] IMMUNOFIXATION ELECTROPHORES IS ([id number])Ordered By: Computer Equipment Repairer on 06-12-2019 IgA [Mass/Vol] 159 mg/dL Normal 90-386 Comprehens rashad Internal Medicine Work Phone: Comment on above: PATIENT NOT FASTINGP ERFORMED BY: ZOE [facility] Gprosw9917 [address] [facility]in [place] [id number] IgG [Mass/Vol] 1244 mg/dL Normal 700-1600 Comprehens rashad Internal Medicine Work Phone: Comment on above: PATIENT NOT FASTINGP ERFORMED BY: [facility] Pcqvvp1032 [facility]in [place] [id number] IgM [Mass/Vol] 153 mg/dL Normal 20-172 Comprehens rashad Internal Medicine Work Phone: Comment on above: PATIENT NOT FASTINGP ERFORMED BY: ZOE Cameron Nxrzmx8963 [facility] [id number] Protein Fractions [Interp] UPEIP Normal [facility] Work Phone: Comment on above: No monoclonality det ected. PATIENT NOT FASTINGP ERFORMED BY: LabFormerly [facility]6370 [facility]in [place] [id number] CBC with auto diff ([id number])Or dered By: Computer Equipment Repairer on 05-30-2019 Basophils (Bld) [#/Vol] 0.0 {x10E3/uL} Normal 0.0-0.2 [facility] Work Phone: Comment on above: PATIENT NOT FASTINGP ERFORMED BY: [facility] Jvauqk4935 [address] [facility]in [place] [id number] Basophils (Bld) [#/Vol] 0.0 10*3/uL Normal 0.0-0.2 [facility]; [facility] Work Phone: Comment on above: PATIENT NOT FASTINGP ERFORMED BY: CB [facility] Cygrou5557 [address] RoadDublin [place] [id number] Basophils/100 WBC (Bld) 0 % Normal [facility] Work Phone: Comment on above: PATIENT NOT FASTINGP ERFORMED BY: CB [facility] Fdbjxk3619 [address] RoadDublin [place] [id number] Eosinophils (Bld) [#/Vol] 0.0 {x10E3/uL} Normal 0.0-0.4 [facility] Work Phone: Comment on above: PATIENT NOT FASTINGP ERFORMED BY: CB [facility] Fsdhvy5842 [address] RoadDublin [place] [id number] Eosinophils (Bld) [#/Vol] 0.0 10*3/uL Normal 0.0-0.4 [facility]; [facility] Work Phone: Comment on above: PATIENT NOT FASTINGP ERFORMED BY: CB [facility] Etrvco3549 [address] RoadDublin [place] [id number] Eosinophils/100 WBC (Bld) 1 % Normal [facility] Work Phone: Comment on above: PATIENT NOT FASTINGP ERFORMED BY: CB [facility] Erybty5089 [address] RoadDublin [place] [id number] Erythrocyte distribution width (RBC) [Ratio] 13.4 % Normal 12.3-15.4 [facility] Work Phone: Comment on above: Effective June 03, 2019, the RDW pediatric reference interval will be removed and the adult reference interval will be changing to: Female 11.7 - 15.4 Male 11.6 - 15.4 PATIENT NOT FASTINGP ERFORMED BY: CB [facility] Pgycwn9790 [address] RoadDublin [place] [id number] Hematocrit (Bld) [Volume fraction] 51.4 % Abnormal 37.5-51.0 [facility] Work Phone: Comment on above: PATIENT NOT FASTINGP ERFORMED BY: CB [facility] Tfdktx7591 [address] RoadDublin [place] [id number] Hemoglobin (Bld) [Mass/Vol] 17.5 g/dL Normal 13.0-17.7 [facility] Work Phone: Comment on above: PATIENT NOT FASTINGP ERFORMED BY: ZOE Wendi Hernandez6370 [address] [facility] [id number] Immature granulocytes (Bld) [#/Vol] 0.0 {x10E3/uL} Normal 0.0-0.1 [facility] Work Phone: Comment on above: PATIENT NOT FASTINGP ERFORMED BY: ZOE [facility] Iqlxgf2029 [facility] [id number] Immature granulocytes (Bld) [#/Vol] 0.0 10*3/uL Normal 0.0-0.1 [facility]; [facility] Work Phone: Comment on above: PATIENT NOT FASTINGP ERFORMED BY: ZOE Thakurlin6370 [facility] [id number] Immature granulocytes/100 WBC (Bld) 0 % Normal [facility] Work Phone: Comment on above: PATIENT NOT FASTINGP ERFORMED BY: ZOE AdelaPhilomena ThakurOffcuf9613 [facility] [id number] Lymphocytes (Bld) [#/Vol] 1.9 {x10E3/uL} Normal 0.7-3.1 [facility] Work Phone: Comment on above: PATIENT NOT FASTINGP ERFORMED BY: [facility] Trwsdu3267 [address] [facility] [id number] Lymphocytes (Bld) [#/Vol] 1.9 10*3/uL Normal 0.7-3.1 [facility]; [facility] Work Phone: Comment on above: PATIENT NOT FASTINGP ERFORMED BY: ZOE Rakesh Hrwqzu5106 [facility] [id number] Lymphocytes/100 WBC (Bld) 31 % Normal [facility] Work Phone: Comment on above: PATIENT NOT FASTINGP ERFORMED BY: ZOE Wendi Hernandez6370 [address] [facility]in [place] [id number] MCH (RBC) [Entitic mass] 30.9 pg Normal 26.6-33.0 [facility] Work Phone: Comment on above: PATIENT NOT FASTINGP ERFORMED BY: ZOE Wendi Thakurlin6[address] [facility]in [place] [id number] MCHC (RBC) [Mass/Vol] 34.0 g/dL Normal 31.5-35.7 [facility] Internal Medicine Work Phone: Comment on above: PATIENT NOT FASTINGP ERFORMED BY: ZOE Wendi Thakurlin6[address] [facility]in [place] [id number] MCV (RBC) [Entitic vol] 91 fL Normal 79-97 [facility] Work Phone: Comment on above: PATIENT NOT FASTINGP ERFORMED BY: ZOE Rakesh Wgyfsn5557 [address] [facility] [id number] Monocytes (Bld) [#/Vol] 0.7 {x10E3/uL} Normal 0.1-0.9 [facility] Work Phone: Comment on above: PATIENT NOT FASTINGP ERFORMED BY: ZOE Wendi Thakurlin6[address] [facility] [id number] Monocytes (Bld) [#/Vol] 0.7 10*3/uL Normal 0.1-0.9 [facility]; [facility] Work Phone: Comment on above: PATIENT NOT FASTINGP ERFORMED BY: ZOE Wendi Thakurlin6[address] [facility]in [place] [id number] Monocytes/100 WBC (Bld) 11 % Normal [facility] Work Phone: Comment on above: PATIENT NOT FASTINGP ERFORMED BY: ZOE Wendi Thakurlin6[address] [facility]bl[facility] [place] [id number] Neutrophils (Bld) [#/Vol] 3.6 {x10E3/uL} Normal 1.4-7.0 [facility] Work Phone: Comment on above: PATIENT NOT FASTINGP ERFORMED BY: CB [facility] Ymwdzu1704 [address] RoadDublin [place] [id number] Neutrophils (Bld) [#/Vol] 3.6 10*3/uL Normal 1.4-7.0 [facility]; [facility] Work Phone: Comment on above: PATIENT NOT FASTINGP ERFORMED BY: CB [facility] Snxzix7545 [address] RoadDublin [place] [id number] Neutrophils/100 WBC (Bld) 57 % Normal [facility] Work Phone: Comment on above: PATIENT NOT FASTINGP ERFORMED BY: CB [facility] Glouwk[address] RoadDublin [place] [id number] Platelets (Bld) [#/Vol] 227 {x10E3/uL} Normal 150-450 [facility] Work Phone: Comment on above: PATIENT NOT FASTINGP ERFORMED BY: CB [facility] Klmeiy2266 Eck[address] RoadDublin [place] [id number] Platelets (Bld) [#/Vol] 227 10*3/uL Normal 150-450 [facility]; [facility] Work Phone: Comment on above: PATIENT NOT FASTINGP ERFORMED BY: CB [facility] Oxjpkx7012 Eckert RoadDublin [place] [id number] RBC (Bld) [#/Vol] 5.67 {x10E6/uL} Normal 4.14-5.80 [facility] Work Phone: Comment on above: PATIENT NOT FASTINGP ERFORMED BY: CB [facility] Skspwn2838 Eckert RoadDublin [place] [id number] RBC (Bld) [#/Vol] 5.67 10*6/uL Normal 4.14-5.80 [facility]; [facility] Work Phone: Comment on above: PATIENT NOT FASTINGP ERFORMED BY: CB [facility] Jbseln5821 Eckert RoadDublin [place] [id number] WBC (Bld) [#/Vol] 6.2 {x10E3/uL} Normal 3.4-10.8 Com prehensive Internal Medicine Work Phone: Comment on above: PATIENT NOT FASTINGP ERFORMED BY: CB [facility] Dcqkbb3102 [address] RoadDublin [place] [id number] WBC (Bld) [#/Vol] 6.2 10*3/uL Normal 3.4-10.8 [facility] Internal Medicine; [facility] Internal Medicine Work Phone: Comment on above: PATIENT NOT FASTINGP ERFORMED BY: CB [facility] Dxxpzx8890 [address] RoadDublin [place] [id number] METABOLIC PANEL, COMPREHENSI VE ([id number])Ordered By: Computer Equipment Repairer on 05-30-2019 Albumin [Mass/Vol] 4.9 g/dL Normal 3.5-5.5 [facility] Internal Medicine Work Phone: Comment on above: PATIENT NOT FASTINGP ERFORMED BY: CB [facility] Pogodd1448 [address] RoadDublin [place] [id number] Albumin/Globulin [Mass ratio] 1.9 {ratio} Normal 1.2-2.2 [facility] Work Phone: Comment on above: PATIENT NOT FASTINGP ERFORMED BY: CB [facility] Ltcsvb3523 [address] RoadDublin [place] [id number] ALP [Catalytic activity/Vol] 87 [iU]/L Normal 39-117 [facility] Work Phone: Comment on above: PATIENT NOT FASTINGP ERFORMED BY: CB [facility] Jobpgk8682 [address] RoadDublin [place] [id number] ALP [Catalytic activity/Vol] 87 U/L Normal 39-117 [facility]; [facility] Internal Medicine Work Phone: Comment on above: PATIENT NOT FASTINGP ERFORMED BY: CB [facility] Aoeagt1307 [address] RoadDublin [place] [id number] ALT [Catalytic activity/Vol] 20 [iU]/L Normal 0-44 [facility] Work Phone: Comment on above: PATIENT NOT FASTINGP ERFORMED BY: CB [facility] Ihkveo6471 [address] RoadDublin [place] [id number] ALT [Catalytic activity/Vol] 20 U/L Normal 0-44 [facility]; [facility] Work Phone: Comment on above: PATIENT NOT FASTINGP ERFORMED BY: CB [facility] Rtainc7080 [address] RoadDublin [place] [id number] AST [Catalytic activity/Vol] 18 [iU]/L Normal 0-40 [facility] Work Phone: Comment on above: PATIENT NOT FASTINGP ERFORMED BY: CB [facility] Hutnmn3745 [address] RoadDublin [place] [id number] AST [Catalytic activity/Vol] 18 U/L Normal 0-40 [facility]; [facility] Work Phone: Comment on above: PATIENT NOT FASTINGP ERFORMED BY: CB [facility] Gfxcdt7134 [address] RoadDublin [place] [id number] Bilirubin [Mass/Vol] 0.4 mg/dL Normal 0.0-1.2 [facility] hospitalensive [facility] Work Phone: Comment on above: PATIENT NOT FASTINGP ERFORMED BY: CB [facility] Ulthmb5404 [address] RoadDublin [place] [id number] Calcium [Mass/Vol] 9.4 mg/dL Normal 8.7-10.2 [facility] Internal Medicine Work Phone: Comment on above: PATIENT NOT FASTINGP ERFORMED BY: CB [facility] Qpmnhl2059 [address] RoadDublin [place] [id number] Chloride [Moles/Vol] 101 mmol/L Normal 96-106 [facility] hospitalensive [facility] Work Phone: Comment on above: PATIENT NOT FASTINGP ERFORMED BY: CB [facility] Epkzaj2088 [address] RoadDublin [place] [id number] CO2 [Moles/Vol] 24 mmol/L Normal 20-29 [facility] Internal Medicine Work Phone: Comment on above: PATIENT NOT FASTINGP ERFORMED BY: CB [facility] Tnkxru7009 [address] RoadDublin [place] [id number] Creatinine [Mass/Vol] 1.30 mg/dL Abnormal 0.76-1.27 [facility] Work Phone: Comment on above: PATIENT NOT FASTINGP ERFORMED BY: CB [facility] Gdjfen1459 [address] RoadDublin [place] [id number] GFR/1.73 sq M predicted among blacks CKD-EPI (S/P/Bld) [Vol rate/Area] 73 mL/min/1.73 Normal [facility] Work Phone: Comment on above: PATIENT NOT FASTINGP ERFORMED BY: CB [facility] Ygjvpr5281 [address] RoadDublin [place] [id number] GFR/1.73 sq M predicted among non-blacks CKD-EPI (S/P/Bld) [Vol rate/Area] 63 mL/min/1.73 Normal [facility] Work Phone: Comment on above: PATIENT NOT FASTINGP ERFORMED BY: CB [facility] Qtxiud6155 [address] RoadDublin [place] [id number] Globulin (S) [Mass/Vol] 2.6 g/dL Normal 1.5-4.5 [facility] Internal Medicine Work Phone: Comment on above: PATIENT NOT FASTINGP ERFORMED BY: CB [facility] Uhzaaj9781 [address] RoadDublin [place] [id number] Glucose [Mass/Vol] 87 mg/dL Normal 65-99 [facility] Internal Medicine Work Phone: Comment on above: PATIENT NOT FASTINGP ERFORMED BY: CB [facility] Uzfnzp4430 [address] RoadDublin [place] [id number] Potassium [Moles/Vol] 4.5 mmol/L Normal 3.5-5.2 [facility] Internal Medicine Work Phone: Comment on above: PATIENT NOT FASTINGP ERFORMED BY: CB [facility] Kiyhfk7459 [address] RoadDublin [place] [id number] Protein [Mass/Vol] 7.5 g/dL Normal 6.0-8.5 [facility] Internal Medicine Work Phone: Comment on above: PATIENT NOT FASTINGP ERFORMED BY: CB [facility] Otessr5876 [address] RoadDublin [place] [id number] Sodium [Moles/Vol] 141 mmol/L Normal 134-144 Compre hensive Internal Medicine Work Phone: Comment on above: PATIENT NOT FASTINGP ERFORMED BY: ZOE [facility] Bvvxso9870 [address] WeComicsHigh[facility] [id number] Urea nitrogen [Mass/Vol] 15 mg/dL Normal 6-24 [facility] Work Phone: Comment on above: PATIENT NOT FASTINGP ERFORMED BY: CB [facility] Owkjzw1725 [facility] [id number] Urea nitrogen/Creatinine [Mass ratio] 12 mg/mg Normal 9-20 [facility] Work Phone: Comment on above: PATIENT NOT FASTINGP ERFORMED BY: ZOE [facility] Bhcdsm0465 [facility] [id number] HerniaOrdered By: System Man ager on 07-16-2014 Hernia See Note Normal [facility] Work Phone: Comment on above: Patient: SHERI QUICK B : 1970 (44/M) Acct Num: [id number] Phys: Mandie COLLINS,Félix Unit Num: [id number] Loc: [facility] Specimen: [id number] Received: 07/17/14725 Spec Type: Hernia [...] without area of hemorrhage, necrosis,or cystic degeneration. Jewelry Setter sections are submitted in three cassettes as follows: 1 - fibromembranous tissue, 2 - yellow adipose tissue. / JOSEP:javier 07/18/14 TC:5 CPT:00642, 24196 HEADER OPERATION: Hernia, inguinal, mesh, left PRE-OPERATIVE DIAGNOSIS: Left inguinal hernia TISSUE SUBMITTED: Hernia sac and cord lipoma MICROSCOPIC DIAGNOSIS Hernia sac and cord lipoma: Mesothelial-lined fibroadipose and fibroconnective tissue consistent with hernia sac and with reactive changes. Mature adipose tissue, consistent with lipoma. SJ:javier 07/18/14 Signed Chandrakant Oreilly 07/18/14 Test performed at:[facility] Anfxoiyxdr[address] [place] [address] Basic Metabolic Profile (BMP )Ordered By: Computer Equipment Repairer on 07-10-2014 Calcium mass conc 9.1 mg/dL Normal 8.5-10.1 Compreh ensive Internal Medicine Work Phone: Comment on above: Test performed at:[facility] Fevqdgygqk9[address] [place] [address] Chloride molar conc 103 mmol/L Normal 98-107 Compr ehensive Internal Medicine Work Phone: Comment on above: Test performed at:[facility] [address] [place] [address] CO2 molar conc 27.0 mmol/L Normal 21.0-32.0 Comprehen sive Internal Medicine Work Phone: Comment on above: Test performed at:[facility] Skzgvicwyu3039 [place] [address] Creatinine mass conc 1.2 mg/dL Normal 0.8-1.3 Comp rehensive Internal Medicine Work Phone: Comment on above: Test performed at:[facility] Kvxgzznydz[address] [place] [address] GFR/1.73 sq M predicted among non-blacks MDRD vol rate/area (S/P/Bld) 69 mL/min/{1.73_m2} Normal Comprehe nsive Internal Medicine Work Phone: Comment on above: Test performed at:[facility] Ffuqsqdziq67[address] [place] [address] Glucose mass conc 93 mg/dL Normal 70-110 Compreh ensive Internal Medicine Work Phone: Comment on above: Test performed at:[facility] Wdjgawarsl[address] [place], [place] [id number] Potassium molar conc 3.9 mmol/L Normal 3.5-5.1 Comp rehensive Internal Medicine Work Phone: Comment on above: Test performed at:[facility] Savexggugf[address] [place] [address] Sodium molar conc 137 mmol/L Normal 136-145 Compreh ensive Internal Medicine Work Phone: Comment on above: Test performed at:[facility] Vovcktrrth[address] [place] [address] Urea nitrogen mass conc 11 mg/dL Normal 7-18 [facility] Work Phone: Comment on above: Test performed at:[facility] Ktkzzbiexf9268 [place] [address] Basic Metabolic Profile (BMP) 84 mL/min Normal [facility] Work Phone: Comment on above: Test performed at:[facility] Tsmgxspiww7[address] [place] [address] Basic Metabolic Profile (BMP) 9.2 {RATIO} Abnormal 10-20 [facility] Work Phone: Comment on above: Test performed at:[facility] Tstivqxcfq3493 [place] [address] Basic Metabolic Profile (BMP) 7 1 Normal 5-15 [facility] Work Phone: Comment on above: Test performed at:[facility] Ijgzycmjvq[address] [place], [place] [id number] CBC W/Diff, AutomatedOrdered By: Computer Equipment Repairer on 07-10-2014 Absolute Neut 4.1 {X10_3/uL} Normal 2.0-7.7 Compreh ensive Internal Medicine Work Phone: Comment on above: Test performed at:[facility] Lnsdihtfth[address] [place] [address] Basophils/100 WBC (Bld) 0.1 % Normal 0-1 [facility] Work Phone: Comment on above: Test performed at:[facility] Ksim[address] [place] [address] Eosinophils/100 WBC (Bld) 0.6 % Normal 0-5 [facility] Work Phone: Comment on above: Test performed at:[facility] Ilrkr[address] [place] [address] Erythrocyte distribution width Ratio (RBC) 12.8 % Normal 11.6-14.6 [facility] Work Phone: Comment on above: Test performed at:[facility] Zrrszemszl[address] [place] [address] Hematocrit Volume Fraction (Bld) 46.6 % Normal 40-54 [facility] Work Phone: Comment on above: Test performed at:[facility] Vtxfzechoi[address] [place] [address] Hemoglobin mass conc (Bld) 16.1 g/dL Normal 13.0-16.5 [facility] Work Phone: Comment on above: Test performed at:[facility] R[address]pxyppjw[address] [place] [address] IM GRAN % 0.300 % Normal 0.0-0.9 [facility] Work Phone: Comment on above: IG% - Immature Granu locytes (promyelocytes, myelocytes andmetamyelocytes) > 1% indicates that a LEFT SHIFT is Present. Test performed at:[facility] [address] [place] [address] Lymphocytes #/vol (Bld) 2.46 {X10_3/ul} Normal 0.83-4.51 [facility] Work Phone: Comment on above: Test performed at:[facility] T[address]kanm[address] [place] [address] Lymphocytes/100 WBC (Bld) 33.8 % Normal 19-41 [facility] Work Phone: Comment on above: Test performed at:[facility] [address]lonfwhd[address] [place] [address] MCH Entitic mass (RBC) 30.8 pg Normal 27.0-32.0 [facility] Work Phone: Comment on above: Test performed at:[facility] R[address]jkhgsd[address] [place] [address] MCHC mass conc (RBC) 34.5 {g/gl} Normal 32-36 Com prehensive Internal Medicine Work Phone: Comment on above: Test performed at:[facility] [address]aepepims[address] [place] [address] MCV Entitic volume (RBC) 89.1 fL Normal 80-94 [facility] Work Phone: Comment on above: Test performed at:[facility] [address]twgbnvnou[address] [place] [address] Monocytes/100 WBC (Bld) 9.2 % Normal 0-10 [facility] Work Phone: Comment on above: Test performed at:[facility] Dblnqxggwg09[address] [place] [address] Neutrophils/100 WBC (Bld) 56.0 % Normal 47-70 [facility] Work Phone: Comment on above: Test performed at:[facility] [address]uxfqnk[address] [place] [address] Platelet mean volume Entitic volume (Bld) 10.2 fL Normal 6.2-12.0 Comprehensi Internal Medicine Work Phone: Comment on above: Test performed at:[facility] [address] [place] [address] Platelets #/vol (Bld) 266 10*3/uL Normal 150-450 Co cox monettehensive Internal Medicine Work Phone: Comment on above: Test performed at:[facility] R[address]zyia[address] [place] [address] RBC #/vol (Bld) 5.23 {M/mm3} Normal 4.6-6.2 Compreh ensive Internal Medicine Work Phone: Comment on above: Test performed at:[facility] [address]xg[address] [place] [address] RDW SD 41.3 fL Normal 35.1-43.9 [facility] Work Phone: Comment on above: Test performed at:[facility] Norkq[address]xt[address] [place] [address] WBC #/vol (Bld) 7.3 10*3/uL Normal 4.4-11.0 Comprehe nsive Internal Medicine Work Phone: Comment on above: Test performed at:[facility] [address]qvq[address] [place] [address] CBC W/AUTO DIFF WBC (82575)O rdered By: Computer Equipment Repairer on 04-04-2014 Basophils #/vol (Bld) 0.0 {x10E3/uL} Normal 0.0-0.2 [facility] Work Phone: Comment on above: PATIENT WAS FASTINGP ERFORMED BY: ZOE DancingAnchovy Gsmcvn4458 [facility] [id number] Information: [id number] Basophils (Bld) [#/Vol] 0.0 10*3/uL Normal 0.0-0.2 [facility]; [facility] Work Phone: Comment on above: PATIENT WAS FASTINGP ERFORMED BY: ZOE [facility] Sutxmk2362 [facility] [id number] Information: [id number] Basophils/100 WBC (Bld) 0 % Normal [facility] Work Phone: Comment on above: PATIENT WAS FASTINGP ERFORMED BY: DancingAnchovyAtlantic Rehabilitation InstituteEamvmg3813 [facility] [id number] Information: [id number] Eosinophils #/vol (Bld) 0.1 {x10E3/uL} Normal 0.0-0.4 [facility] Work Phone: Comment on above: PATIENT WAS FASTINGP ERFORMED BY: [place] [id number] [facility] [id number] Information: [id number] Eosinophils (Bld) [#/Vol] 0.1 10*3/uL Normal 0.0-0.4 [facility]; [facility] Work Phone: Comment on above: PATIENT WAS FASTINGP ERFORMED BY: [address] [id number] Information: [id number] Eosinophils/100 WBC (Bld) 1 % Normal [facility] Work Phone: Comment on above: PATIENT WAS FASTINGP ERFORMED BY: [address] [id number] Information: [id number] Erythrocyte distribution width Ratio (RBC) 13.8 % Normal 12.3-15.4 [facility] Work Phone: Comment on above: PATIENT WAS FASTINGP ERFORMED BY: [address] [id number] Information: [id number] Hematocrit Volume Fraction (Bld) 48.0 % Normal 37.5-51.0 [facility] Work Phone: Comment on above: PATIENT WAS FASTINGP ERFORMED BY: [place] [id number] [facility] [id number] Information: [id number] Hemoglobin mass conc (Bld) 16.3 g/dL Normal 12.6-17.7 [facility] Work Phone: Comment on above: PATIENT WAS FASTINGP ERFORMED BY: [place] [id number] [facility] [id number] Information: [id number] Immature granulocytes #/vol (Bld) 0.0 {x10E3/uL} Normal 0.0-0.1 [facility] Work Phone: Comment on above: PATIENT WAS FASTINGP ERFORMED BY: ZOE [facility] Bfxbdk5602 [facility] [id number] Information: [id number] Immature granulocytes (Bld) [#/Vol] 0.0 10*3/uL Normal 0.0-0.1 [facility]; [facility] Work Phone: Comment on above: PATIENT WAS FASTINGP ERFORMED BY: [address] [id number] Information: [id number] Immature granulocytes/100 WBC (Bld) 0 % Normal [facility] Work Phone: Comment on above: PATIENT WAS FASTINGP ERFORMED BY: [address] [id number] Information: [id number] Lymphocytes #/vol (Bld) 1.9 {x10E3/uL} Normal 0.7-3.1 [facility] Work Phone: Comment on above: PATIENT WAS FASTINGP ERFORMED BY: ZOE [facility] Fcfhyf4270 [facility] [id number] Information: [id number] Lymphocytes (Bld) [#/Vol] 1.9 10*3/uL Normal 0.7-3.1 [facility]; [facility] Work Phone: Comment on above: PATIENT WAS FASTINGP ERFORMED BY: [place] [id number] [facility] [id number] Information: [id number] Lymphocytes/100 WBC (Bld) 28 % Normal [facility] Work Phone: Comment on above: PATIENT WAS FASTINGP ERFORMED BY: [address] [id number] Information: [id number] MCH Entitic mass (RBC) 30.3 pg Normal 26.6-33.0 [facility] Work Phone: Comment on above: PATIENT WAS FASTINGP ERFORMED BY: [place] [id number] [facility] [id number] Information: [id number] MCHC mass conc (RBC) 34.0 g/dL Normal 31.5-35.7 [facility] Internal Medicine Work Phone: Comment on above: PATIENT WAS FASTINGP ERFORMED BY: [address] [id number] Information: [id number] MCV Entitic volume (RBC) 89 fL Normal 79-97 [facility] Work Phone: Comment on above: PATIENT WAS FASTINGP ERFORMED BY: [address] [id number] Information: [id number] Monocytes #/vol (Bld) 0.7 {x10E3/uL} Normal 0.1-0.9 [facility] Work Phone: Comment on above: PATIENT WAS FASTINGP ERFORMED BY: [address] [id number] Information: [id number] Monocytes (Bld) [#/Vol] 0.7 10*3/uL Normal 0.1-0.9 [facility]; [facility] Work Phone: Comment on above: PATIENT WAS FASTINGP ERFORMED BY: [facility]6370 [facility] [id number] Information: [id number] Monocytes/100 WBC (Bld) 10 % Normal [facility] Work Phone: Comment on above: PATIENT WAS FASTINGP ERFORMED BY: [address] [id number] Information: [id number] Neutrophils #/vol (Bld) 4.1 {x10E3/uL} Normal 1.4-7.0 [facility] Work Phone: Comment on above: PATIENT WAS FASTINGP ERFORMED BY: ZOE AdelaPhilomena ThakurNkmgug5248 [facility] [id number] Information: [id number] Neutrophils (Bld) [#/Vol] 4.1 10*3/uL Normal 1.4-7.0 [facility]; [facility] Work Phone: Comment on above: PATIENT WAS FASTINGP ERFORMED BY: ZOE LabCoprest[facility] ThakurZpzybb2082 [facility] [id number] Information: [id number] Neutrophils/100 WBC (Bld) 61 % Normal [facility] Work Phone: Comment on above: PATIENT WAS FASTINGP ERFORMED BY: ZOE Thakurlin6370 [facility] [id number] Information: [id number] Platelets #/vol (Bld) 245 {x10E3/uL} Normal 150-379 [facility] Work Phone: Comment on above: PATIENT WAS FASTINGP ERFORMED BY: ZOE Thakurlin6370 [facility] [id number] Information: [id number] Platelets (Bld) [#/Vol] 245 10*3/uL Normal 150-379 [facility]; [facility] Work Phone: Comment on above: PATIENT WAS FASTINGP ERFORMED BY: ZOE [facility] Hitlhh7080 [facility] [id number] Information: [id number] RBC #/vol (Bld) 5.38 {x10E6/uL} Normal 4.14-5.80 [facility] Internal Medicine Work Phone: Comment on above: PATIENT WAS FASTINGP ERFORMED BY: ZOE [facility] Jrnagf3546 [facility] [id number] Information: [id number] RBC (Bld) [#/Vol] 5.38 10*6/uL Normal 4.14-5.80 [facility]; [facility] Work Phone: Comment on above: PATIENT WAS FASTINGP ERFORMED BY: ZOE [facility] Utqyrg8328 [facility] [id number] Information: [id number] WBC #/vol (Bld) 6.8 {x10E3/uL} Normal 3.4-10.8 [facility] Internal Medicine Work Phone: Comment on above: PATIENT WAS FASTINGP ERFORMED BY: [facility]6370 [facility] [id number] Information: [id number] WBC (Bld) [#/Vol] 6.8 10*3/uL Normal 3.4-10.8 Comprssm [facility] Internal Medicine; [facility] Work Phone: Comment on above: PATIENT WAS FASTINGP ERFORMED BY: [facility]6370 [facility] [id number] Information: [id number] LIPID PANEL (14115)Ordered B y: Computer Equipment Repairer on 04-04-2014 Cholesterol in HDL mass conc 33 mg/dL Abnormal [facility] Work Phone: Comment on above: According to ATP-III Guidelines, HDL-C >59 mg/dL is considered anegative risk factor for CHD. PATIENT WAS FASTINGP ERFORMED BY: [facility] Klzgvo1998 [facility] [id number] Cholesterol in LDL mass conc 109 mg/dL Abnormal 0-99 [facility] Work Phone: Comment on above: PATIENT WAS FASTINGP ERFORMED BY: LabCoAtlantic Rehabilitation InstituteLadciz0755 [facility] [id number] Cholesterol in LDL/Cholesterol in HDL mass ratio 3.3 {ratio_units} Normal 0.0-3.6 [facility] Work Phone: Comment on above: LDL/HDL Ratio Men Wo men 1/2 Avg.Risk 1.0 1.5 Avg.Risk 3.6 3.2 2X Avg.Risk 6.2 5.0 3X Avg.Risk 8.0 6.1 PATIENT WAS FASTINGP ERFORMED BY: ZOE Hernandez6370 [facility] [id number] Cholesterol in VLDL mass conc 78 mg/dL Abnormal 5-40 [facility] Work Phone: Comment on above: PATIENT WAS FASTINGP ERFORMED BY: ZOE Hernandez6370 [facility] [id number] Cholesterol mass conc 220 mg/dL Abnormal 100-199 [facility] prehensive Internal Medicine Work Phone: Comment on above: PATIENT WAS FASTINGP ERFORMED BY: ZOE Hernandez6370 [facility] [id number] Triglyceride mass conc 391 mg/dL Abnormal 0-149 [facility] Work Phone: Comment on above: PATIENT WAS FASTINGP ERFORMED BY: ZOE Thakurlin6370 [facility] [id number] METABOLIC PANEL, COMPREHENSI VE ([id number])Ordered By: Computer Equipment Repairer on 04-04-2014 Albumin mass conc 4.7 g/dL Normal 3.5-5.5 Compreh [facility] Internal Medicine Work Phone: Comment on above: PATIENT WAS FASTINGP ERFORMED BY: ZOE Thakurlin6370 [facility] [id number] Albumin/Globulin mass ratio 1.5 {ratio} Normal 1.1-2.5 [facility] Work Phone: Comment on above: PATIENT WAS FASTINGP ERFORMED BY: ZOE LabPhilomena ThakurYkwndf6473 [facility] [id number] ALP [Catalytic activity/Vol] 89 U/L Normal 39-117 [facility]; [facility] Work Phone: Comment on above: PATIENT WAS FASTINGP ERFORMED BY: ZOE Thakurlin6370 [facility] [id number] ALP enzyme act/vol 89 [iU]/L Normal 39-117 [facility] Internal [facility] Work Phone: Comment on above: PATIENT WAS FASTINGP ERFORMED BY: ZOE LabPhilomena Hernandez6[address]Dublin [place] [id number] ALT [Catalytic activity/Vol] 25 U/L Normal 0-44 [facility]; [facility] Internal Medicine Work Phone: Comment on above: PATIENT WAS FASTINGP ERFORMED BY: ZOE LabPhilomena ThakurEwzcyx1729 [address] RoadDublin [place] [id number] ALT enzyme act/vol 25 [iU]/L Normal 0-44 [facility] Internal Medicine Work Phone: Comment on above: PATIENT WAS FASTINGP ERFORMED BY: ZOE Thakurlin6370 [address] Road[address]ublin [place] [id number] AST [Catalytic activity/Vol] 19 U/L Normal 0-40 [facility] Internal Medicine; [facility] Internal Medicine Work Phone: Comment on above: PATIENT WAS FASTINGP ERFORMED BY: ZOE Thakurlin6370 [address]ublin [place] [id number] AST enzyme act/vol 19 [iU]/L Normal 0-40 [facility] Internal Medicine Work Phone: Comment on above: PATIENT WAS FASTINGP ERFORMED BY: ZOE Thakurlin6[address] [facility] [place] [id number] Bilirubin mass conc 0.3 mg/dL Normal 0.0-1.2 [facility] Internal Medicine Work Phone: Comment on above: PATIENT WAS FASTINGP ERFORMED BY: ZOE Thakurlin6370 [address]blin [place] [id number] Calcium mass conc 9.5 mg/dL Normal 8.7-10.2 [facility] Internal Medicine Work Phone: Comment on above: PATIENT WAS FASTINGP ERFORMED BY: ZOE LabCopreston ThakurHvpbpz8169 [address] RoadDublin [place] [id number] Chloride molar conc 100 mmol/L Normal 97-108 [facility] Internal Medicine Work Phone: Comment on above: PATIENT WAS FASTINGP ERFORMED BY: ZOE LabPhilomena ThakurUokqhd7280 [facility] [id number] CO2 molar conc 22 mmol/L Normal 18-29 Comprehens rashad Internal Medicine Work Phone: Comment on above: PATIENT WAS FASTINGP ERFORMED BY: ZOE Wendi Thakurlin6370 [facility] [id number] Creatinine mass conc 1.05 mg/dL Normal 0.76-1.27 Comp rehensive Internal Medicine Work Phone: Comment on above: PATIENT WAS FASTINGP ERFORMED BY: ZOE [facility] Mlttot6361 [facility] [id number] GFR/1.73 sq M predicted among blacks CKD-EPI vol rate/area (S/P/Bld) 98 mL/min/1.73 Normal Comprehensiv e Internal Medicine Work Phone: Comment on above: PATIENT WAS FASTINGP ERFORMED BY: ZOE [facility] Vquhdi3585 [facility] [id number] GFR/1.73 sq M predicted among non-blacks CKD-EPI vol rate/area (S/P/Bld) 85 mL/min/1.73 Normal [facility] Work Phone: Comment on above: PATIENT WAS FASTINGP ERFORMED BY: ZOE Rakesh Itpblv5030 [facility] [id number] Globulin mass conc (S) 3.1 g/dL Normal 1.5-4.5 [facility] Work Phone: Comment on above: PATIENT WAS FASTINGP ERFORMED BY: ZOE AdelaFormerly [facility]6370 [facility] [id number] Glucose mass conc 94 mg/dL Normal 65-99 Compreh ensive Internal Medicine Work Phone: Comment on above: PATIENT WAS FASTINGP ERFORMED BY: ZOE [facility] Wxcfye5356 [facility] [id number] Potassium molar conc 4.2 mmol/L Normal 3.5-5.2 Comp rehensive Internal Medicine Work Phone: Comment on above: PATIENT WAS FASTINGP ERFORMED BY: ZOE LabNathan Ville [id number] [facility]in [place] [id number] Protein mass conc 7.8 g/dL Normal 6.0-8.5 Compreh ensive Internal Medicine Work Phone: Comment on above: PATIENT WAS FASTINGP ERFORMED BY: ZOE Rakesh Kjhtor2639 [address] [facility] [place] [id number] Sodium molar conc 138 mmol/L Normal 134-144 Compreh ensive Internal Medicine Work Phone: Comment on above: PATIENT WAS FASTINGP ERFORMED BY: ZOE [facility] Hyqieq8743 [address] [facility] [id number] Urea nitrogen mass conc 14 mg/dL Normal 6-24 [facility] Work Phone: Comment on above: PATIENT WAS FASTINGP ERFORMED BY: ZOE Rakesh Jvubyg4544 [address] [facility] [id number] Urea nitrogen/Creatinine mass ratio 13 mg/mg Normal 9-20 [facility] Work Phone: Comment on above: PATIENT WAS FASTINGP ERFORMED BY: ZOE [facility] Eqqzkx7990 [facility] [id number] MICROALBUMINOrdered By: Syst em Paper Cone Grader on 04-04-2014 Albumin DL <= 20 mg/L mass conc (U) 7.0 ug/mL Normal 0.0-17.0 [facility] Work Phone: Comment on above: PATIENT WAS FASTINGP ERFORMED BY: ZOE [facility] Srwkwp8713 [facility] [id number] Albumin/Creatinine mass ratio (U) 3.6 {mg/g_creat} Normal 0.0-30.0 [facility] Work Phone: Comment on above: PATIENT WAS FASTINGP ERFORMED BY: LabI[facility] Hjyojf1230 [address] [facility] [id number] Creatinine mass conc (U) 194.9 mg/dL Normal 22.0-328.0 [facility] Work Phone: Comment on above: PATIENT WAS FASTINGP ERFORMED BY: [facility] Jlbzsh0545 [address] [facility] [id number] PSA (PROSTATE SPECIFIC ANTIG EN) (V76.44)Ordered By: Computer Equipment Repairer on 04-04-2014 Prostate specific Ag mass conc 0.4 ng/mL Normal 0.0-4.0 [facility] Work Phone: Comment on above: Jasper ECLIA methodol ogy. .According to the [place] [employer], Serum PSA shoulddecrease and remain [...] malignant disease. PATIENT WAS FASTINGP ERFORMED BY: [facility]70 [address] [facility] [id number] TSH ([id number])Ordered By: Rawbots m Paper Cone Grader on 04-04-2014 Thyrotropin Qn 1.320 {uIU/mL} Normal 0.450-4.50 0 [facility] Work Phone: Comment on above: PATIENT WAS FASTINGP ERFORMED BY: [facility]70 [address] [facility] [id number] CBC, Platelets & Auto Diff ( [id number])Ordered By: Computer Equipment Repairer on 04-23-2013 Basophils #/vol (Bld) 0.0 {x10E3/uL} Normal 0.0-0.2 [facility] Work Phone: Comment on above: PATIENT NOT FASTINGP ERFORMED BY: [facility]70 [facility] [id number] Information: [id number] Basophils (Bld) [#/Vol] 0.0 10*3/uL Normal 0.0-0.2 [facility]; [facility] Work Phone: Comment on above: PATIENT NOT FASTINGP ERFORMED BY: [facility]70 [facility] [id number] Information: [id number] Basophils/100 WBC (Bld) 0 % Normal 0-3 [facility] Work Phone: Comment on above: PATIENT NOT FASTINGP ERFORMED BY: ZOE Hernandez6370 [facility] [id number] Information: [id number] Eosinophils #/vol (Bld) 0.0 {x10E3/uL} Normal 0.0-0.4 [facility] Work Phone: Comment on above: PATIENT NOT FASTINGP ERFORMED BY: ZOE Cameron Znxkgp14[address] [id number] Information: [id number] Eosinophils (Bld) [#/Vol] 0.0 10*3/uL Normal 0.0-0.4 [facility]; [facility] Work Phone: Comment on above: PATIENT NOT FASTINGP ERFORMED BY: ZOE Cameron[address] [id number] Information: [id number] Eosinophils/100 WBC (Bld) 1 % Normal 0-5 [facility] Work Phone: Comment on above: PATIENT NOT FASTINGP ERFORMED BY: ZOE Cameron Xbwtym40[address] [id number] Information: [id number] Erythrocyte distribution width Ratio (RBC) 14.0 % Normal 12.3-15.4 [facility] Work Phone: Comment on above: PATIENT NOT FASTINGP ERFORMED BY: ZOE Chapman[address] [id number] Information: [id number] Hematocrit Volume Fraction (Bld) 48.6 % Normal 37.5-51.0 [facility] Work Phone: Comment on above: PATIENT NOT FASTINGP ERFORMED BY: ZOE Chapman[address] [id number] Information: [id number] Hemoglobin mass conc (Bld) 16.4 g/dL Normal 12.6-17.7 [facility] Work Phone: Comment on above: PATIENT NOT FASTINGP ERFORMED BY: ZOE Thakurlin6370 [facility] [id number] Information: [id number] Immature granulocytes #/vol (Bld) 0.0 {x10E3/uL} Normal 0.0-0.1 [facility] Work Phone: Comment on above: PATIENT NOT FASTINGP ERFORMED BY: Adela[address] [id number] Information: [id number] Immature granulocytes (Bld) [#/Vol] 0.0 10*3/uL Normal 0.0-0.1 [facility]; [facility] Work Phone: Comment on above: PATIENT NOT FASTINGP ERFORMED BY: [address] [id number] Information: [id number] Immature granulocytes/100 WBC (Bld) 0 % Normal 0-2 [facility] Work Phone: Comment on above: PATIENT NOT FASTINGP ERFORMED BY: Rakesh[address] [id number] Information: [id number] Lymphocytes #/vol (Bld) 1.9 {x10E3/uL} Normal 0.7-3.1 [facility] Work Phone: Comment on above: PATIENT NOT FASTINGP ERFORMED BY: [address] [id number] Information: [id number] Lymphocytes (Bld) [#/Vol] 1.9 10*3/uL Normal 0.7-3.1 [facility]; [facility] Work Phone: Comment on above: PATIENT NOT FASTINGP ERFORMED BY: [place] [id number] [facility] [id number] Information: [id number],[id number] Lymphocytes/100 WBC (Bld) 28 % Normal 14-46 [facility] Work Phone: Comment on above: PATIENT NOT FASTINGP ERFORMED BY: ZOE ChapmanNathan [place] 2864370 [facility] [id number] Information: [id number] MCH Entitic mass (RBC) 30.7 pg Normal 26.6-33.0 [facility] Work Phone: Comment on above: PATIENT NOT FASTINGP ERFORMED BY: [address] [id number] Information: [id number] MCHC mass conc (RBC) 33.7 g/dL Normal 31.5-35.7 [facility] Internal Medicine Work Phone: Comment on above: PATIENT NOT FASTINGP ERFORMED BY: [address] [id number] Information: [id number] MCV Entitic volume (RBC) 91 fL Normal 79-97 [facility] Work Phone: Comment on above: PATIENT NOT FASTINGP ERFORMED BY: [address] [id number] Information: [id number] Monocytes #/vol (Bld) 0.7 {x10E3/uL} Normal 0.1-0.9 [facility] Work Phone: Comment on above: PATIENT NOT FASTINGP ERFORMED BY: [address] [id number] Information: [id number] Monocytes (Bld) [#/Vol] 0.7 10*3/uL Normal 0.1-0.9 [facility]; [facility] Work Phone: Comment on above: PATIENT NOT FASTINGP ERFORMED BY: [place] [id number] [facility] [id number] Information: [id number] Monocytes/100 WBC (Bld) 10 % Normal 4-12 [facility] Work Phone: Comment on above: PATIENT NOT FASTINGP ERFORMED BY: ZOE Hernandez6370 [facility] [id number] Information: [id number] Neutrophils #/vol (Bld) 4.2 {x10E3/uL} Normal 1.4-7.0 [facility] Work Phone: Comment on above: PATIENT NOT FASTINGP ERFORMED BY: ZOE Hernandez6370 [facility] [id number] Information: [id number] Neutrophils (Bld) [#/Vol] 4.2 10*3/uL Normal 1.4-7.0 [facility]; [facility] Work Phone: Comment on above: PATIENT NOT FASTINGP ERFORMED BY: ZOE Hernandez6370 [facility] [id number] Information: [id number] Neutrophils/100 WBC (Bld) 61 % Normal 40-74 [facility] Work Phone: Comment on above: PATIENT NOT FASTINGP ERFORMED BY: ZOE Hernandez6370 [facility] [id number] Information: [id number] Platelets #/vol (Bld) 249 {x10E3/uL} Normal 155-379 [facility] Work Phone: Comment on above: PATIENT NOT FASTINGP ERFORMED BY: ZOE Thakurlin6370 [facility] [id number] Information: [id number] Platelets (Bld) [#/Vol] 249 10*3/uL Normal 155-379 [facility]; [facility] Work Phone: Comment on above: PATIENT NOT FASTINGP ERFORMED BY: ZOE Thakurlin6370 [facility] [id number] Information: [id number] RBC #/vol (Bld) 5.35 {x10E6/uL} Normal 4.14-5.80 [facility] Internal Medicine Work Phone: Comment on above: PATIENT NOT FASTINGP ERFORMED BY: ZOE Hernandez6370 [facility] [id number] Information: [id number] RBC (Bld) [#/Vol] 5.35 10*6/uL Normal 4.14-5.80 Compr [facility] Internal Medicine; [facility] Work Phone: Comment on above: PATIENT NOT FASTINGP ERFORMED BY: ZOE Hernandez6370 [facility] [id number] Information: [id number] WBC #/vol (Bld) 6.9 {x10E3/uL} Normal 3.4-10.8 [facility] Internal Medicine Work Phone: Comment on above: PATIENT NOT FASTINGP ERFORMED BY: ZOE Hernandez6370 [facility] [id number] Information: [id number] WBC (Bld) [#/Vol] 6.9 10*3/uL Normal 3.4-10.8 Comprssm [facility] Internal Medicine; [facility] Work Phone: Comment on above: PATIENT NOT FASTINGP ERFORMED BY: ZOE Hernandez6370 [facility] [id number] Information: [id number] Metabolic Panel, Comprehensi ve (88747)Ordered By: Computer Equipment Repairer on 04-23-2013 Albumin mass conc 4.8 g/dL Normal 3.5-5.5 Compreh [facility] Internal Medicine Work Phone: Comment on above: PATIENT NOT FASTINGP ERFORMED BY: ZOE Thakurlin6370 [facility] [id number] Albumin/Globulin mass ratio 1.5 {ratio} Normal 1.1-2.5 [facility] Work Phone: Comment on above: PATIENT NOT FASTINGP ERFORMED BY: ZOE Camreon Flupfw5711 [facility] [id number] ALP [Catalytic activity/Vol] 71 U/L Normal 39-117 [facility]; [facility] Work Phone: Comment on above: PATIENT NOT FASTINGP ERFORMED BY: CB [facility] Mehkam4603 [address] RoadDublin [place] [id number] ALP enzyme act/vol 71 [iU]/L Normal 39-117 [facility] Internal Medicine Work Phone: Comment on above: PATIENT NOT FASTINGP ERFORMED BY: CB [facility] Jvrzdf7007 [address] RoadDublin [place] [id number] ALT [Catalytic activity/Vol] 29 U/L Normal 0-44 [facility]; [facility] Internal Medicine Work Phone: Comment on above: PATIENT NOT FASTINGP ERFORMED BY: CB [facility] Urnyhg5478 [address] RoadDublin [place] [id number] ALT enzyme act/vol 29 [iU]/L Normal 0-44 [facility] Internal Medicine Work Phone: Comment on above: PATIENT NOT FASTINGP ERFORMED BY: CB [facility] Qvpkgn7101 [address] RoadDublin [place] [id number] AST [Catalytic activity/Vol] 23 U/L Normal 0-40 [facility] Internal Medicine; [facility] Internal Medicine Work Phone: Comment on above: PATIENT NOT FASTINGP ERFORMED BY: CB [facility] Whruqu9970 [address] RoadDublin [place] [id number] AST enzyme act/vol 23 [iU]/L Normal 0-40 [facility] Internal Medicine Work Phone: Comment on above: PATIENT NOT FASTINGP ERFORMED BY: CB [facility] Chtikf6554 [address] RoadDublin [place] [id number] Bilirubin mass conc 0.4 mg/dL Normal 0.0-1.2 [facility] Internal Medicine Work Phone: Comment on above: PATIENT NOT FASTINGP ERFORMED BY: CB [facility] Fkimkl2512 [address] RoadDublin [place] [id number] Calcium mass conc 9.7 mg/dL Normal 8.7-10.2 Compreh ensive Internal Medicine Work Phone: Comment on above: PATIENT NOT FASTINGP ERFORMED BY: CB [facility] Xeytsr4363 [address] RoadDublin [place] [id number] Chloride molar conc 100 mmol/L Normal 97-108 Compr ehensive Internal Medicine Work Phone: Comment on above: PATIENT NOT FASTINGP ERFORMED BY: CB [facility] Zbceww7142 [address] RoadDublin [place] [id number] CO2 molar conc 23 mmol/L Normal 19-28 Comprehens rashad Internal Medicine Work Phone: Comment on above: PATIENT NOT FASTINGP ERFORMED BY: CB [facility] Tsgvhf5711 [address] RoadDublin [place] [id number] Creatinine mass conc 1.06 mg/dL Normal 0.76-1.27 Comp rehensive Internal Medicine Work Phone: Comment on above: PATIENT NOT FASTINGP ERFORMED BY: CB [facility] Nnyccm7919 [address] RoadDuin [place] [id number] GFR/1.73 sq M predicted among blacks CKD-EPI vol rate/area (S/P/Bld) 97 mL/min/1.73 Normal Comprehensiv e Internal Medicine Work Phone: Comment on above: PATIENT NOT FASTINGP ERFORMED BY: CB [facility] Efdpog7025 [address] RoadDublin [place] [id number] GFR/1.73 sq M predicted among non-blacks CKD-EPI vol rate/area (S/P/Bld) 84 mL/min/1.73 Normal [facility] Work Phone: Comment on above: PATIENT NOT FASTINGP ERFORMED BY: CB [facility] Rxbzhv3563 [address] RoadDublin [place] [id number] Globulin mass conc (S) 3.1 g/dL Normal 1.5-4.5 [facility] Work Phone: Comment on above: PATIENT NOT FASTINGP ERFORMED BY: CB [facility] Iccnij4549 [address] RoadDublin [place] [id number] Glucose mass conc 83 mg/dL Normal 65-99 Compreh ensive Internal Medicine Work Phone: Comment on above: PATIENT NOT FASTINGP ERFORMED BY: ZOE Hernandez6370 [address] [facility]in [place] [id number] Potassium molar conc 4.0 mmol/L Normal 3.5-5.2 Comp rehensive Internal Medicine Work Phone: Comment on above: PATIENT NOT FASTINGP ERFORMED BY: ZOE Hernandez6370 [address] [facility] [id number] Protein mass conc 7.9 g/dL Normal 6.0-8.5 Compreh ensive Internal Medicine Work Phone: Comment on above: PATIENT NOT FASTINGP ERFORMED BY: ZOE Hernandez6370 [address] [facility] [id number] Sodium molar conc 138 mmol/L Normal 134-144 Compreh ensive Internal Medicine Work Phone: Comment on above: PATIENT NOT FASTINGP ERFORMED BY: ZOE Hernandez6370 [facility] [id number] Urea nitrogen mass conc 13 mg/dL Normal 6-24 [facility] Work Phone: Comment on above: PATIENT NOT FASTINGP ERFORMED BY: ZOE Hernandez6370 [facility] [id number] Urea nitrogen/Creatinine mass ratio 12 mg/mg Normal 9-20 [facility] Work Phone: Comment on above: PATIENT NOT FASTINGP ERFORMED BY: ZOE Hernandez6370 [facility] [id number] PSA (PROSTATE SPECIFIC ANTIG EN) ([id number])Ordered By: Computer Equipment Repairer on 04-23-2013 Prostate specific Ag mass conc 0.4 ng/mL Normal 0.0-4.0 [facility] Work Phone: Comment on above: Jasper ECLIA methodol ogy. .According to the [place] [employer], Serum PSA shoulddecrease and remain [...] malignant disease. PATIENT NOT FASTINGP ERFORMED BY: LabCoAtlantic Rehabilitation InstituteDllepn4439 [facility] [id number] Urinalysis, Office ([id number])Or dered By: Eleonora Vernon on 04-23-2013 Bilirubin [...] [facility] Work Phone: Urinalysis, Office ([id number])on 04-23-2013 Bilirubin Ql (U) Negative Normal Comprehe [...] [facility] Work Phone: Lipid Panel (33697)Ordered B y: Computer Equipment Repairer on 01-17-2013 Cholesterol in HDL mass conc 42 mg/dL Normal [facility] Work Phone: Comment on above: According to ATP-III Guidelines, HDL-C >59 mg/dL is considered anegative risk factor for CHD. PATIENT WAS FASTINGP ERFORMED BY: CB [facility] Zegyxw7092 [address] RoadDublin [place] [id number] Cholesterol in LDL mass conc 123 mg/dL Abnormal 0-99 [facility] Work Phone: Comment on above: PATIENT WAS FASTINGP ERFORMED BY: CB [facility] Govgwk2631 [address] RoadDublin [place] [id number] Cholesterol in LDL/Cholesterol in HDL mass ratio 2.9 {ratio_units} Normal 0.0-3.6 [facility] Work Phone: Comment on above: PATIENT WAS FASTINGP ERFORMED BY: CB [facility] Eesbwr7306 [address] RoadDublin [place] [id number] Cholesterol in VLDL mass conc 65 mg/dL Abnormal 5-40 [facility] Work Phone: Comment on above: PATIENT WAS FASTINGP ERFORMED BY: CB [facility] Nqvxgg5817 [address] RoadDublin [place] [id number] Cholesterol mass conc 230 mg/dL Abnormal 100-199 [facility] prehensive Internal Medicine Work Phone: Comment on above: PATIENT WAS FASTINGP ERFORMED BY: CB [facility] Uwijpz0394 [address] RoadDublin [place] [id number] Triglyceride mass conc 327 mg/dL Abnormal 0-149 [facility] Work Phone: Comment on above: PATIENT WAS FASTINGP ERFORMED BY: CB [facility] Uczgmx1736 [address] RoadDublin [place] [id number] Metabolic Panel, Comprehensi ve (43836)Ordered By: Computer Equipment Repairer on 01-17-2013 Albumin mass conc 4.5 g/dL Normal 3.5-5.5 [facility] Internal Medicine Work Phone: Comment on above: PATIENT WAS FASTINGP ERFORMED BY: ZOE Hernandez6370 [facility] [id number] Information: [id number] Albumin/Globulin mass ratio 1.6 {ratio} Normal 1.1-2.5 [facility] Work Phone: Comment on above: PATIENT WAS FASTINGP ERFORMED BY: ZOE Cameron Flhsuk6976 [facility] [id number] Information: [id number] ALP [Catalytic activity/Vol] 63 U/L Normal 44-102 [facility]; [facility] Internal Medicine Work Phone: Comment on above: PATIENT WAS FASTINGP ERFORMED BY: ZOE Cameron Bqhbbu[address] [id number] Information: [id number] ALP enzyme act/vol 63 [iU]/L Normal 44-102 [facility] Internal Medicine Work Phone: Comment on above: PATIENT WAS FASTINGP ERFORMED BY: ZOE Cameron Kdtywv1808 [facility] [id number] Information: [id number] ALT [Catalytic activity/Vol] 25 U/L Normal 0-44 [facility]; [facility] Internal Medicine Work Phone: Comment on above: PATIENT WAS FASTINGP ERFORMED BY: [facility] Vvkejs7344 [facility] [id number] Information: [id number] ALT enzyme act/vol 25 [iU]/L Normal 0-44 [facility] Internal Medicine Work Phone: Comment on above: PATIENT WAS FASTINGP ERFORMED BY: ZOE Cameron Zudsji7092 [facility] [id number] Information: [id number] AST [Catalytic activity/Vol] 18 U/L Normal 0-40 [facility]; [facility] Internal Medicine Work Phone: Comment on above: PATIENT WAS FASTINGP ERFORMED BY: ZOE [facility] Vpxwyy8341 [address] RoadDublin [place] [id number] Information: [id number] AST enzyme act/vol 18 [iU]/L Normal 0-40 [facility]pre [facility] Internal Medicine Work Phone: Comment on above: PATIENT WAS FASTINGP ERFORMED BY: CB [facility] Pacfix2764 [address]blin [place] [id number] Information: [id number] Bilirubin mass conc 0.4 mg/dL Normal 0.0-1.2 Compr ensive Internal Medicine Work Phone: Comment on above: PATIENT WAS FASTINGP ERFORMED BY: ZOE [facility] Lqfldp7814 [address] Roadblin [place] [id number] Information: [id number] Calcium mass conc 9.2 mg/dL Normal 8.7-10.2 Compreh [facility] Internal [facility] Work Phone: Comment on above: PATIENT WAS FASTINGP ERFORMED BY: ZOE [facility] Katrju2332 [address] RoadWake Forest Baptist Health Davie Hospitalin [place] [id number] Information: [id number],[id number] Chloride molar conc 101 mmol/L Normal 97-108 Compr ensive Internal Medicine Work Phone: Comment on above: PATIENT WAS FASTINGP ERFORMED BY: ZOE [facility] Jzqqat2226 [address] RoadWake Forest Baptist Health Dav[facility] Hospitalin [place] [id number] Information: [id number] CO2 molar conc 21 mmol/L Normal 19-28 Comprehens rashad Internal Medicine Work Phone: Comment on above: PATIENT WAS FASTINGP ERFORMED BY: CB [facility] Hwvpju5210 [address] RoadDublin [place] [id number] Information: [id number] Creatinine mass conc 1.09 mg/dL Normal 0.76-1.27 Comp [facility] Work Phone: Comment on above: PATIENT WAS FASTINGP ERFORMED BY: CB [facility] Pzvshf6927 [address] Roadblin [place] [id number] Information: [id number],[id number] GFR/1.73 sq M predicted among blacks CKD-EPI vol rate/area (S/P/Bld) 95 mL/min/1.73 Normal Comprehensiv e Internal Medicine Work Phone: Comment on above: PATIENT WAS FASTINGP ERFORMED BY: ZOE [facility] Lhixke8827 [facility] [id number] Information: [id number] GFR/1.73 sq M predicted among non-blacks CKD-EPI vol rate/area (S/P/Bld) 82 mL/min/1.73 Normal [facility] Work Phone: Comment on above: PATIENT WAS FASTINGP ERFORMED BY: ZOE [facility] Zooncn8616 [facility] [id number] Information: [id number] Globulin mass conc (S) 2.8 g/dL Normal 1.5-4.5 [facility] Work Phone: Comment on above: PATIENT WAS FASTINGP ERFORMED BY: ZOE [facility] Idovey5089 [facility] [id number] Information: [id number] Glucose mass conc 94 mg/dL Normal 65-99 Compreh ensive Internal Medicine Work Phone: Comment on above: PATIENT WAS FASTINGP ERFORMED BY: ZOE [facility] Sezdaz5067 [facility] [id number] Information: [id number] Potassium molar conc 4.1 mmol/L Normal 3.5-5.2 Comp rehensive Internal Medicine Work Phone: Comment on above: PATIENT WAS FASTINGP ERFORMED BY: ZOE [facility] Xrbkec5159 [facility] [id number] Information: [id number] Protein mass conc 7.3 g/dL Normal 6.0-8.5 Compreh ensive Internal Medicine Work Phone: Comment on above: PATIENT WAS FASTINGP ERFORMED BY: [facility] Upkqku5663 [facility] [id number] Information: [id number],[id number] Sodium molar conc 139 mmol/L Normal 134-144 Compreh ensive Internal Medicine Work Phone: Comment on above: PATIENT WAS FASTINGP ERFORMED BY: [facility] Rwofqu4769 [facility] [id number] Information: [id number] Urea nitrogen mass conc 14 mg/dL Normal 6-24 [facility] Work Phone: Comment on above: PATIENT WAS FASTINGP ERFORMED BY: [facility]6370 [facility] [id number] Information: [id number],[id number] Urea nitrogen/Creatinine mass ratio 13 mg/mg Normal 9-20 [facility] Work Phone: Comment on above: PATIENT WAS FASTINGP ERFORMED BY: [facility]6370 [facility] [id number] Information: [id number] HILARY CULTURE-OTHER (13148)Ord ered By: Computer Equipment Repairer on 06-04-2012 Bacteria identified Respiratory culture Nom (Unsp spec) Final report Normal [facility] Work Phone: Comment on above: PATIENT NOT FASTINGP ERFORMED BY: [facility] Gegozy8728 [facility] [id number] Information: SRC:PAUL [id number] Bacteria identified Respiratory culture Nom (Unsp spec) RRF Normal [facility] Work Phone: Comment on above: Routine respiratory stacey PATIENT NOT FASTINGP ERFORMED BY: [facility] Exnuwq1191 [facility] [id number] Information: SRC:PAUL [id number] Rapid Strep Test, Office ([phone])on 06-04-2012 S. pyogenes Ag EIA Ql (Throat) Negative Normal [facility]; [facility] Work Phone: Rapid Strep Test, Office ([phone])Ordered By: Miya Hampton on 06-04-2012 S. pyogenes Ag IA Ql (Unsp spec) Negative Normal [facility] Work Phone: BRAIN W/WO CONTRASTOrdered B y: Computer Equipment Repairer on 05-19-2011 BRAIN W/WO CONTRAST See Note [...] radiologist regarding this report, please call our 26V9ormeyyg line @ Dictated on 05/19/118 by IVY NIELSEN MDTranscribed on 05/19/112112 by ITS IMPORTSign by IVY NIELSEN MD on 05/19/112113 Sign by: IVY NIELSEN MD CBC WITH MANUAL DIFF (19408) Ordered By: Computer Equipment Repairer on 05-17-2011 Basophils #/vol (Bld) 0.0 {x10E3/uL} Normal 0.0-0.2 [facility] Work Phone: Comment on above: PATIENT WAS FASTINGP ERFORMED BY: [facility] Qxwjpt1698 [facility] [id number] Information: [id number] Basophils (Bld) [#/Vol] 0.0 10*3/uL Normal 0.0-0.2 [facility]; [facility] Work Phone: Comment on above: PATIENT WAS FASTINGP ERFORMED BY: CB [facility] Huhaxn4888 [facility] [id number] Information: [id number],[id number] Basophils/100 WBC (Bld) 0 % Normal 0-3 [facility] Work Phone: Comment on above: PATIENT WAS FASTINGP ERFORMED BY: [facility] Glsjiu3445 [facility] [id number] Information: 605203,[id number] Eosinophils #/vol (Bld) 0.0 {x10E3/uL} Normal 0.0-0.4 [facility] Work Phone: Comment on above: PATIENT WAS FASTINGP ERFORMED BY: CB [facility] Zeesha3283 [facility] [id number] Information: [id number],[id number] Eosinophils (Bld) [#/Vol] 0.0 10*3/uL Normal 0.0-0.4 [facility]; [facility] Work Phone: Comment on above: PATIENT WAS FASTINGP ERFORMED BY: [facility] Lhaxwz1296 [facility] [id number] Information: [id number],[id number] Eosinophils/100 WBC (Bld) 1 % Normal 0-7 [facility] Work Phone: Comment on above: PATIENT WAS FASTINGP ERFORMED BY: [place] 5729670 [facility] [id number] Information: [id number] Erythrocyte distribution width Ratio (RBC) 14.0 % Normal 11.7-15.0 [facility] Work Phone: Comment on above: PATIENT WAS FASTINGP ERFORMED BY: [address] [id number] Information: [id number] Hematocrit Volume Fraction (Bld) 50.7 % Abnormal 36.0-50.0 [facility] Work Phone: Comment on above: PATIENT WAS FASTINGP ERFORMED BY: [address] [id number] Information: [id number] Hemoglobin mass conc (Bld) 17.0 g/dL Normal 12.5-17.0 [facility] Work Phone: Comment on above: PATIENT WAS FASTINGP ERFORMED BY: [place] 5729670 [facility] [id number] Information: [id number] Immature granulocytes #/vol (Bld) 0.0 {x10E3/uL} Normal 0.0-0.1 [facility] Work Phone: Comment on above: PATIENT WAS FASTINGP ERFORMED BY: [place] 5729670 [facility] [id number] Information: [id number] Immature granulocytes (Bld) [#/Vol] 0.0 10*3/uL Normal 0.0-0.1 [facility]; [facility] Work Phone: Comment on above: PATIENT WAS FASTINGP ERFORMED BY: [address] [id number] Information: [id number] Immature granulocytes/100 WBC (Bld) 0 % Normal 0-2 [facility] Work Phone: Comment on above: PATIENT WAS FASTINGP ERFORMED BY: [place] 5729670 [facility] [id number] Information: [id number],[id number] Lymphocytes #/vol (Bld) 2.2 {x10E3/uL} Normal 0.7-4.5 [facility] Work Phone: Comment on above: PATIENT WAS FASTINGP ERFORMED BY: [address] [id number] Information: [id number] Lymphocytes (Bld) [#/Vol] 2.2 10*3/uL Normal 0.7-4.5 [facility]; [facility] Work Phone: Comment on above: PATIENT WAS FASTINGP ERFORMED BY: [place] 5729670 [facility] [id number] Information: [id number],[id number] Lymphocytes/100 WBC (Bld) 30 % Normal 14-46 [facility] Work Phone: Comment on above: PATIENT WAS FASTINGP ERFORMED BY: [place] 5729670 [facility] [id number] Information: [id number] MCH Entitic mass (RBC) 30.7 pg Normal 27.0-34.0 [facility] Work Phone: Comment on above: PATIENT WAS FASTINGP ERFORMED BY: [place] 5729670 [facility] [id number] Information: [id number] MCHC mass conc (RBC) 33.5 g/dL Normal 32.0-36.0 [facility] Internal Medicine Work Phone: Comment on above: PATIENT WAS FASTINGP ERFORMED BY: [place] 5729670 [facility] [id number] Information: [id number] MCV Entitic volume (RBC) 92 fL Normal 80-98 [facility] Work Phone: Comment on above: PATIENT WAS FASTINGP ERFORMED BY: ZOE Hernandez6370 [facility] [id number] Information: [id number] Monocytes #/vol (Bld) 0.9 {x10E3/uL} Normal 0.1-1.0 [facility] Work Phone: Comment on above: PATIENT WAS FASTINGP ERFORMED BY: [address] [id number] Information: [id number] Monocytes (Bld) [#/Vol] 0.9 10*3/uL Normal 0.1-1.0 [facility]; [facility] Work Phone: Comment on above: PATIENT WAS FASTINGP ERFORMED BY: [place] 5729670 [facility] [id number] Information: [id number] Monocytes/100 WBC (Bld) 13 % Normal 4-13 [facility] Work Phone: Comment on above: PATIENT WAS FASTINGP ERFORMED BY: [place] 5729670 [facility] [id number] Information: [id number] Neutrophils #/vol (Bld) 4.2 {x10E3/uL} Normal 1.8-7.8 [facility] Work Phone: Comment on above: PATIENT WAS FASTINGP ERFORMED BY: [facility]6370 [facility] [id number] Information: [id number] Neutrophils (Bld) [#/Vol] 4.2 10*3/uL Normal 1.8-7.8 [facility]; [facility] Work Phone: Comment on above: PATIENT WAS FASTINGP ERFORMED BY: [address] [id number] Information: [id number] Neutrophils/100 WBC (Bld) 56 % Normal 40-74 [facility] Work Phone: Comment on above: PATIENT WAS FASTINGP ERFORMED BY: ZOE Rakeshpreston Nqkrst0713 [facility] [id number] Information: [id number] Platelets #/vol (Bld) 270 {x10E3/uL} Normal 140-415 [facility] Work Phone: Comment on above: PATIENT WAS FASTINGP ERFORMED BY: ZOE [address] [id number] Information: [id number] Platelets (Bld) [#/Vol] 270 10*3/uL Normal 140-415 [facility]; [facility] Work Phone: Comment on above: PATIENT WAS FASTINGP ERFORMED BY: ZOE Thakur[address] [id number] Information: [id number] RBC #/vol (Bld) 5.53 {x10E6/uL} Normal 4.10-5.60 Comp [facility] Internal Medicine Work Phone: Comment on above: PATIENT WAS FASTINGP ERFORMED BY: ZOE Thakurlin6370 [facility] [id number] Information: [id number] RBC (Bld) [#/Vol] 5.53 10*6/uL Normal 4.10-5.60 Compr ensive Internal Medicine; [facility] Work Phone: Comment on above: PATIENT WAS FASTINGP ERFORMED BY: ZOE AdelaCharanjit Xuvwdm9785 [facility] [id number] Information: 557690,[id number] WBC #/vol (Bld) 7.4 {x10E3/uL} Normal 4.0-10.5 Compr ensive Internal Medicine Work Phone: Comment on above: PATIENT WAS FASTINGP ERFORMED BY: ZOE Hernandez6[address] [facility] [id number] Information: [id number] WBC (Bld) [#/Vol] 7.4 10*3/uL Normal 4.0-10.5 [facility] Internal [facility]; [facility] Work Phone: Comment on above: PATIENT WAS FASTINGP ERFORMED BY: ZOE AdelaPhilomena ThakurEgruom9017 [facility] [id number] Information: [id number] LIPID PANEL (56306)Ordered B y: Computer Equipment Repairer on 05-17-2011 Cholesterol in HDL mass conc 41 mg/dL Normal [facility] Work Phone: Comment on above: According to ATP-III Guidelines, HDL-C >59 mg/dL is considered anegative risk factor for CHD. PATIENT WAS FASTINGP ERFORMED BY: ZOE AdelaPhilomena ThakurFjjwyn1349 [facility] [id number] Cholesterol in LDL mass conc 132 mg/dL Abnormal 0-99 [facility] Work Phone: Comment on above: PATIENT WAS FASTINGP ERFORMED BY: ZOE LabPhil[facility]a ThakurVyewxp7157 [facility] [id number] Cholesterol in LDL/Cholesterol in HDL mass ratio 3.2 {ratio_units} Normal 0.0-3.6 [facility] Work Phone: Comment on above: PATIENT WAS FASTINGP ERFORMED BY: ZOE LabPhilomena ThakurZzblsl6379 [facility] [id number] Cholesterol in VLDL mass conc 75 mg/dL Abnormal 5-40 [facility] Work Phone: Comment on above: PATIENT WAS FASTINGP ERFORMED BY: ZOE LabCopreston Nbxcbs0034 [address] [facility] [id number] Cholesterol mass conc 248 mg/dL Abnormal 100-199 [facility] prehensive Internal Medicine Work Phone: Comment on above: PATIENT WAS FASTINGP ERFORMED BY: ZOE LabCopreston Qrzhoq7532 [address] [facility] [id number] Triglyceride mass conc 376 mg/dL Abnormal 0-149 [facility] Work Phone: Comment on above: PATIENT WAS FASTINGP ERFORMED BY: CB [facility] Uxuahh0601 [address] RoadDublin [place] [id number] METABOLIC PANEL, COMPREHENSI VE (91528)Ordered By: Computer Equipment Repairer on 05-17-2011 Albumin mass conc 4.9 g/dL Normal 3.5-5.5 Compreh [facility] Internal Medicine Work Phone: Comment on above: PATIENT WAS FASTINGP ERFORMED BY: CB [facility] Nhqdqp2033 [address] RoadDublin [place] [id number] Albumin/Globulin mass ratio 1.5 {ratio} Normal 1.1-2.5 [facility] Work Phone: Comment on above: PATIENT WAS FASTINGP ERFORMED BY: CB [facility] Knqmap1732 [address] RoadDublin [place] [id number] ALP [Catalytic activity/Vol] 81 U/L Normal 25-150 [facility]; [facility] Internal Medicine Work Phone: Comment on above: PATIENT WAS FASTINGP ERFORMED BY: CB [facility] Qhteyj8123 [address] RoadDublin [place] [id number] ALP enzyme act/vol 81 [iU]/L Normal 25-150 [facility] Internal Medicine Work Phone: Comment on above: PATIENT WAS FASTINGP ERFORMED BY: CB [facility] Ksdonj6988 [address] RoadDublin [place] [id number] ALT [Catalytic activity/Vol] 37 U/L Normal 0-55 [facility]; [facility] Internal Medicine Work Phone: Comment on above: PATIENT WAS FASTINGP ERFORMED BY: CB [facility] Fvbiga8926 [address] RoadDublin [place] [id number] ALT enzyme act/vol 37 [iU]/L Normal 0-55 [facility] Internal Medicine Work Phone: Comment on above: PATIENT WAS FASTINGP ERFORMED BY: CB [facility] Wycpiq7806 [address] RoadDublin [place] [id number] AST [Catalytic activity/Vol] 25 U/L Normal 0-40 [facility]; [facility] Internal Medicine Work Phone: Comment on above: PATIENT WAS FASTINGP ERFORMED BY: ZOE [facility] Yofhlz4340 [address] [facility]in [place] [id number] AST enzyme act/vol 25 [iU]/L Normal 0-40 Compre [facility] Internal Medicine Work Phone: Comment on above: PATIENT WAS FASTINGP ERFORMED BY: ZOE [facility] Ljztwx0583 [address] [facility] [id number] Bilirubin mass conc 0.4 mg/dL Normal 0.0-1.2 Compr ensive Internal Medicine Work Phone: Comment on above: PATIENT WAS FASTINGP ERFORMED BY: ZOE [facility] Tnupcq6869 [address] [facility] [id number] Calcium mass conc 9.6 mg/dL Normal 8.7-10.2 Compreh ensive Internal Medicine Work Phone: Comment on above: PATIENT WAS FASTINGP ERFORMED BY: ZOE [facility] Pfzhmg8880 [facility] [id number] Chloride molar conc 101 mmol/L Normal 97-108 Compr [facility] Internal Medicine Work Phone: Comment on above: PATIENT WAS FASTINGP ERFORMED BY: ZOE [facility] Uexzat2471 [facility] [id number] CO2 molar conc 24 mmol/L Normal 20-32 Comprehens rashad Internal Medicine Work Phone: Comment on above: PATIENT WAS FASTINGP ERFORMED BY: ZOE [facility] Xsnigl2644 [facility] [id number] Creatinine mass conc 1.18 mg/dL Normal 0.76-1.27 Comp [facility] Internal Medicine Work Phone: Comment on above: PATIENT WAS FASTINGP ERFORMED BY: ZOE [facility] Tsreau0485 [facility] [id number] GFR/1.73 sq M predicted among blacks MDRD vol rate/area (S/P/Bld) 87 mL/min/{1.73_m2} Normal Comprehe ive Internal Medicine Work Phone: Comment on above: Note: A persistent e GFR <60 mL/min/1.73 m2 (3 months or more) mayindicate chronic kidney disease. An eGFR >59 mL/min/1.73 m2 with anelevated urine protein also may indicate chronic kidney disease.Calculated using CKD-EPI formula. PATIENT WAS FASTINGP ERFORMED BY: CB [facility] Uoainb0365 [address] [facility] [id number] GFR/1.73 sq M predicted among non-blacks CKD-EPI vol rate/area (S/P/Bld) 75 mL/min/1.73 Normal [facility] Work Phone: Comment on above: PATIENT WAS FASTINGP ERFORMED BY: CB [facility] Fhniud7994 [address] [facility] [id number] Globulin mass conc (S) 3.2 g/dL Normal 1.5-4.5 [facility] Work Phone: Comment on above: PATIENT WAS FASTINGP ERFORMED BY: CB [facility] Lnbjxt7264 [facility] [id number] Glucose mass conc 99 mg/dL Normal 65-99 Compreh ensive Internal Medicine Work Phone: Comment on above: PATIENT WAS FASTINGP ERFORMED BY: CB [facility] Dulkth4219 [facility] [id number] Potassium molar conc 4.3 mmol/L Normal 3.5-5.2 Comp rehensive Internal Medicine Work Phone: Comment on above: PATIENT WAS FASTINGP ERFORMED BY: CB [facility] Fjmqqh4538 [facility] [id number] Protein mass conc 8.1 g/dL Normal 6.0-8.5 Compreh ensive Internal Medicine Work Phone: Comment on above: PATIENT WAS FASTINGP ERFORMED BY: CB [facility] Ntiqzi4493 [address] [facility] [id number] Sodium molar conc 139 mmol/L Normal 134-144 Compreh ensive Internal Medicine Work Phone: Comment on above: Please note refere nce interval change PATIENT WAS FASTINGP ERFORMED BY: CB [facility] Jdqmdl9020 [facility] [id number] Urea nitrogen mass conc 13 mg/dL Normal 6-24 [facility] Work Phone: Comment on above: PATIENT WAS FASTINGP ERFORMED BY: [facility]CoAtl[facility] Rehabilitation InstituteWlqrqk1186 [facility] [id number] Urea nitrogen/Creatinine mass ratio 11 mg/mg Normal 9-20 [facility] Work Phone: Comment on above: PATIENT WAS FASTINGP ERFORMED BY: [facility]CoAtlantic Rehabilitation InstituteYfltuq3164 [facility] [id number] Rapid Strep Test, Office ([phone])on 07-25-2008 S. pyogenes Ag EIA Ql (Throat) Negative Normal [facility]; [facility] Work Phone: Rapid Strep Test, Office ([phone])Ordered By: Salena Orr on 07-25-2008 S. pyogenes Ag IA Ql (Unsp spec) Negative Normal [facility] Work Phone: Rapid Strep Test, Office ([phone])on 07-09-2007 S. pyogenes Ag EIA Ql (Throat) Positive Normal [facility]; [facility] Work Phone: Comment on above: aw Positive Rapid Strep Test, Office ([phone])Ordered By: Melodie Holden on 07-09-2007 S. pyogenes Ag IA Ql (Unsp spec) Positive Normal [facility] Work Phone: Comment on above: aw Positive Vital Signs Date Time Vital Sign Value Performing Clinician Facility 12-25-2024 02:40-0400 Body temperature 97.5 [degF] No Primary Care Physician [facility] 12-25-2024 02:40-0400 Diastolic blood pressure 84 mm[Hg] No Primary Care Physician [facility] 12-25-2024 02:40-0400 Heart rate 98 /min No Primary Care Physician [facility] 12-25-2024 02:40-0400 Respiratory rate 18 /min No Primary Care Physician [facility] 12-25-2024 02:40-0400 SaO2% (BldA) [Mass fraction] 98 % No Primary Care Physician [facility] 12-25-2024 02:40-0400 Systolic blood pressure 118 mm[Hg] No Primary Care Physician [facility] 12-24-2024 22:16-0400 Body height 177.8 cm No Primary Care Physician [facility] 12-24-2024 22:16-0400 Body mass index (BMI) [Ratio] 26.3 kg/m2 No Primary Care Physician [facility] 12-24-2024 22:16-0400 Body weight 83.27 kg No Primary Care Physician [facility] 10-16-2024 15:19-0400 Body height 177.8 cm No Primary Care Physician [facility] 10-16-2024 15:16-0400 Body mass index (BMI) [Ratio] 25 kg/m2 No Primary Care Physician [facility] 10-16-2024 15:16-0400 Body weight 81.19 kg No Primary Care Physician [facility] 10-16-2024 15:16-0400 Diastolic blood pressure 79 mm[Hg] No Primary Care Physician [facility] 10-16-2024 15:16-0400 Heart rate 84 /min No Primary Care Physician [facility] 10-16-2024 15:16-0400 Respiratory rate 18 /min No Primary Care Physician [facility] 10-16-2024 15:16-0400 SaO2% (BldA) [Mass fraction] 95 % No Primary Care Physician [facility] 10-16-2024 15:16-0400 Systolic blood pressure 116 mm[Hg] No Primary Care Physician [facility] 08-09-2019 07:13-0400 BMI (Body Mass Index) 26.54 kg/m2 Wayne Don LPN [facility] Internal Medicine Work Phone: 08-09-2019 [...] BP Systolic 130 mm[Hg] Wayne Don LPN [facility] Internal Medicine Work Phone: Comment on above: Patient Position: Sitting; Cuff Location : Left Arm; Cuff Size: Standard 08-09-2019 07:13-0400 BSA (Body Surface Area) 2.02 m2 Wayne Don LPN [facility] Internal Medicine Work Phone: 08-09-2019 07:13-0400 Height 177.8 cm Wayne Don LPN [facility] Internal Medicine Work Phone: 08-09-2019 07:13-0400 Pulse (Heart Rate) 94 /min Wayne Don LPN [facility] Work Phone: Comment on above: Pattern: Regular 08-09-2019 07:13-0400 Pulse Oximetry 97 % Delma Story [facility] Internal Medicine Work Phone: Comment on above: Room air 08-09-2019 07:13-0400 Respiratory Rate 16 /min Wayne Don LPN [facility] Internal Medicine Work Phone: Comment on above: Pattern: Unlabored 08-09-2019 07:13-0400 SaO2% (BldA) [Mass fraction] 97 % Wayne Don LPN [facility]; [facility] Work Phone: Comment on above: Room air 07-16-2019 08:10-0500 BMI (Body Mass Index) 25.69 kg/m2 Wayne Don LPN [facility] Work Phone: 07-16-2019 08:10-0500 Body Temperature 97.2 [degF] Wayne Don LPN [facility] Internal Medicine Work Phone: Comment on above: Method: Temporal 07-16-2019 08:10-0500 Body weight 81.21 kg Wayne Don LPN [facility] Internal Medicine Work Phone: 07-16-2019 08:10-0500 BP Diastolic 80 mm[Hg] Wayne Don LPN [facility] Internal Medicine Work Phone: Comment on above: Patient Position: Sitting; Cuff Location : Left Arm; Cuff Size: Standard 07-16-2019 08:10-0500 BP Systolic 122 mm[Hg] Wayne Don LPN [facility] Internal Medicine Work Phone: Comment on above: Patient Position: Sitting; Cuff Location : Left Arm; Cuff Size: Standard 07-16-2019 08:10-0500 BSA (Body Surface Area) 1.99 m2 Wayne Don LPN [facility] Internal Medicine Work Phone: 07-16-2019 08:10-0500 Height 177.8 cm Wayne Don LPN [facility] Internal Medicine Work Phone: 07-16-2019 08:10-0500 Pulse (Heart Rate) 110 /min Wayne Don LPN [facility] Work Phone: Comment on above: Pattern: Regular 07-16-2019 08:10-0500 Pulse Oximetry 97 % Delma Story [facility] Internal Medicine Work Phone: Comment on above: Room air 07-16-2019 08:10-0500 Respiratory Rate 16 /min Wayne Don LPN [facility] Internal Medicine Work Phone: Comment on above: Pattern: Unlabored 07-16-2019 08:10-0500 SaO2% (BldA) [Mass fraction] 97 % Wayne Don LPN [facility]; [facility] Work Phone: Comment on above: Room air 06-28-2019 07:23-0500 BMI (Body Mass Index) 25.54 kg/m2 Wayne Don LPN [facility] Work Phone: 06-28-2019 07:23-0500 Body Temperature 97.1 [degF] Wayne Don LPN [facility] Internal Medicine Work Phone: Comment on above: Method: Temporal 06-28-2019 07:23-0500 Body weight 80.74 kg Wayne Don LPN [facility] Internal Medicine Work Phone: 06-28-2019 07:23-0500 BP Diastolic 68 mm[Hg] Wayne Don LPN [facility] Internal Medicine Work Phone: Comment [...] 07:23-0500 Height 177.8 cm Wayne Don LPN [facility] Internal Medicine Work Phone: 06-28-2019 07:23-0500 Pulse (Heart Rate) 64 /min Wayne Don LPN [facility] Work Phone: Comment on above: Pattern: Regular 06-28-2019 07:23-0500 Pulse Oximetry 99 % Delma Story [facility] Internal Medicine Work Phone: Comment on above: Room air 06-28-2019 07:23-0500 Respiratory Rate 16 /min Wayne Don LPN [facility] Work Phone: Comment on above: Pattern: Unlabored 06-28-2019 07:23-0500 SaO2% (BldA) [Mass fraction] 99 % Wayne Don LPN [facility]; [facility] Work Phone: Comment on above: Room air 06-19-2019 08:21-0500 BMI (Body Mass Index) 25.18 kg/m2 Pritinikki Ramirez LPN [facility] Work Phone: 06-19-2019 08:21-0500 Body Temperature 97.8 [degF] Priti Ramirez LPN [facility] Work Phone: 06-19-2019 08:21-0500 Body weight 79.61 kg Priti Slarb [employer]ARD CLERK [facility] Internal Medicine Work Phone: 06-19-2019 08:21-0500 BP Diastolic 80 mm[Hg] Priti Slarb [employer] CARD CLERK [facility] Work Phone: Comment on above: Patient Position: Sitting; Cuff Location : Left Arm; Cuff Size: Standard 06-19-2019 08:21-0500 BP Systolic 132 mm[Hg] Priti Slarb [employer]ARD CLERK [facility] Work Phone: Comment on above: Patient Position: Sitting; Cuff Location : Left Arm; Cuff Size: Standard 06-19-2019 08:21-0500 BSA (Body Surface Area) 1.97 m2 Priti Ramirez [employer]ARD CLERK [facility] Work Phone: 06-19-2019 08:21-0500 Height 177.8 cm Priti Ramirez SUDHA [facility] Work Phone: 06-19-2019 08:21-0500 Pulse (Heart Rate) 98 /min Priti Ramirez LPN [facility] Work Phone: Comment on above: Pattern: Regular 06-19-2019 08:21-0500 Pulse Oximetry 98 % Delma Story [facility] Work Phone: Comment on above: Room air 06-19-2019 08:21-0500 Respiratory Rate 17 /min Priti Slademar HALEY [facility] Work Phone: Comment on above: Pattern: Unlabored 06-19-2019 08:21-0500 SaO2% (BldA) [Mass fraction] 98 % Priti Ashlye BUIN [facility]; [facility] Work Phone: Comment on above: Room air 06-12-2019 08:03-0500 BMI (Body Mass Index) 25.18 kg/m2 Estela Ga SUDHA [facility] Work Phone: 06-12-2019 08:03-0500 Body Temperature 97.3 [degF] Estelachidi Ga SUDHA [facility] Work Phone: Comment on above: Method: Temporal 06-12-2019 08:03-0500 Body weight 79.61 kg Estelachidi Nolanpacheco HALEY [facility] Work Phone: 06-12-2019 08:03-0500 BP Diastolic 90 mm[Hg] Estelachidi Ga [employer] CLERK [facility] Work Phone: Comment on above: Patient Position: Sitting; Cuff Location : Left Arm; Cuff Size: Standard 06-12-2019 08:03-0500 BP Systolic 122 mm[Hg] Estela Ga [employer] CHAR[employer] CARD CLERK [facility] Internal Medicine Work Phone: Comment on above: Patient Position: Sitting; Cuff Location : Left Arm; Cuff Size: Standard 06-12-2019 08:03-0500 BSA (Body Surface Area) 1.97 m2 Estela Ga [employer] CARD CLERK [facility] Internal Medicine Work Phone: 06-12-2019 08:03-0500 Height 177.8 cm Estela Ga SUDHA [facility] Internal Medicine Work Phone: 06-12-2019 08:03-0500 Pulse (Heart Rate) 97 /min Estela Ga [employer] CLERK [facility] Work Phone: Comment on above: Pattern: Regular 06-12-2019 08:03-0500 Pulse Oximetry 98 % Delma Story [facility] Internal Medicine Work Phone: Comment on above: Room air 06-12-2019 08:03-0500 Respiratory Rate 16 /min Estelachidi Ga SUDHA [facility] Internal Medicine Work Phone: Comment on above: Pattern: Unlabored 06-12-2019 08:03-0500 SaO2% (BldA) [Mass fraction] 98 % Estela Ga LPN [facility]; [facility] Work Phone: Comment on above: Room air 06-03-2019 10:47-0500 BMI (Body Mass Index) 26.4 kg/m2 Priti Ashley BUIN [facility] Work Phone: 06-03-2019 10:47-0500 Body weight 83.46 kg Priti Slademar [employer] CLERK [facility] Internal Medicine Work Phone: 06-03-2019 10:47-0500 BP Diastolic 86 mm[Hg] Priti Slarb [employer]ARD CLERK [facility] Internal Medicine Work Phone: Comment on above: Patient Position: Sitting; Cuff Location : Left Arm; Cuff Size: Standard 06-03-2019 10:47-0500 BP Systolic 142 mm[Hg] Priti Slarb [employer] CARD CLERK [facility] Internal Medicine Work Phone: Comment on above: Patient Position: Sitting; Cuff Location : Left Arm; Cuff Size: Standard 06-03-2019 10:47-0500 BSA (Body Surface Area) 2.01 m2 Priti Slademar HALEY [facility] Work Phone: 06-03-2019 10:47-0500 Height 177.8 cm Priti Ramirez [employer] CLERK [facility] Work Phone: 06-03-2019 10:47-0500 Pulse (Heart Rate) 105 /min Pritinikki Ramirez SUDHA [facility] Work Phone: Comment on above: Pattern: Regular 06-03-2019 10:47-0500 Pulse Oximetry 95 % Delma Story [facility] Work Phone: Comment on above: Room air 06-03-2019 10:47-0500 Respiratory Rate 16 /min Pritinikki Ramirez SUDHA [facility] Work Phone: Comment on above: Pattern: Unlabored 06-03-2019 10:47-0500 SaO2% (BldA) [Mass fraction] 95 % Priti Ramirez LPN [facility]; [...] (Body Mass Index) 26.4 kg/m2 Priti Slarb [employer] CHAR[employer] CARD CLERK [facility] Internal Medicine Work Phone: 06-09-2017 08:13-0500 Body Temperature 97.8 [degF] Priti Slarb [employer] CARD CLERK [facility] Internal Medicine Work Phone: 06-09-2017 08:13-0500 Body weight 83.46 kg Priti Slarb [employer] CARD CLERK [facility] Internal Medicine Work Phone: 06-09-2017 08:13-0500 BP Diastolic 84 mm[Hg] Priti Slarb [employer] CARD CLERK [facility] Work Phone: Comment on above: Patient Position: Sitting; Cuff Location : Left Arm; Cuff Size: Standard 06-09-2017 08:13-0500 BP Systolic 132 mm[Hg] Priti Slarb [employer] CARD CLERK [facility] Internal Medicine Work Phone: Comment on above: Patient Position: Sitting; Cuff Location : Left Arm; Cuff Size: Standard 06-09-2017 08:13-0500 BSA (Body Surface Area) 2.01 m2 Priti Slarb [employer] CARD CLERK [facility] Internal Medicine Work Phone: 06-09-2017 08:13-0500 Height 177.8 cm Priti Slarb [employer] C[employer] CLERK [facility] Work Phone: 06-09-2017 08:13-0500 Pulse (Heart Rate) 100 /min Priti Ashley HALEY [facility] Work Phone: Comment on above: Pattern: Regular 06-09-2017 08:13-0500 Pulse Oximetry 99 % Delma Story [facility] Internal Medicine Work Phone: Comment on above: Room air 06-09-2017 08:13-0500 Respiratory Rate 17 /min Priti Ashley HALEY [facility] Work Phone: Comment on above: Pattern: Unlabored 06-09-2017 08:13-0500 SaO2% (BldA) [Mass fraction] 99 % Priti Ramirez LPN [facility]; [facility] Work Phone: Comment on above: Room air 06-09-2017 08:13-0500 Weight 83.46 kg Delma Story [facility] Work Phone: 01-20-2017 09:05-0400 BMI [...] 01-20-2017 09:05-0400 Pulse Oximetry 98 % Delma Santiagonikki [facility] Internal Medicine Work Phone: Comment [...] 01-20-2017 09:05-0400 Weight 83.92 kg Delma Story [facility] Internal Medicine Work Phone: Comment on above: 152/90 after catapress 04-04-2014 11:06-0500 BP Diastolic 86 mm[Hg] Priti Ramirez LPN [facility] Work Phone: Comment on above: Patient Position: Sitting; Cuff Location : Left Arm; Cuff Size: Standard 04-04-2014 11:06-0500 BP Systolic 134 mm[Hg] Priti Ashley HALEY [facility] Work Phone: Comment on above: Patient Position: Sitting; Cuff Location : Left Arm; Cuff Size: Standard 04-04-2014 11:06-0500 Pulse (Heart Rate) 93 /min Priti Ramirez LPN [facility] Work Phone: Comment on above: Pattern: Regular 04-04-2014 11:06-0500 BP Diastolic 84 mm[Hg] Priti Slarb [employer] CLERK [facility] Work Phone: Comment on above: Patient Position: Sitting; Cuff Location : Right Arm; Cuff Size: Standard 04-04-2014 11:06-0500 BP Systolic 124 mm[Hg] Priti Slarb [employer] C[employer] CLERK [facility] Work Phone: Comment on above: Patient Position: Sitting; Cuff Location : Right Arm; Cuff Size: Standard 04-04-2014 11:06-0500 Pulse (Heart Rate) 85 /min Priti Slarb [employer] CLERK [facility] Work Phone: Comment on above: Pattern: Regular 04-04-2014 11:05-0500 BP Diastolic 84 mm[Hg] Priti Slarb [employer] CLERK [facility] Work Phone: Comment on above: Patient Position: Supine; Cuff Location: Right Arm; Cuff Size: Standard 04-04-2014 11:05-0500 BP Systolic 124 mm[Hg] Priti Slarb [employer] C[employer] CLERK [facility] Work Phone: Comment on above: Patient Position: Supine; Cuff Location: Right Arm; Cuff Size: Standard 04-04-2014 11:05-0500 Pulse (Heart Rate) 85 /min Priti Slarb [employer] CLERK [facility] Work Phone: Comment on above: Pattern: Regular 04-04-2014 10:140500 BMI (Body Mass Index) 26.83 kg/m2 Maryana Bui RN [facility] Work Phone: 04-04-2014 10:140500 Body Temperature 97.4 [degF] Maryana Bui RN [facility] Work Phone: Comment on above: Method: Temporal 04-04-2014 10:14-0500 Body weight 84.82 kg Maryana Bui RN [...] 04-04-2014 10:14-0500 Pulse Oximetry 97 % Delma Story [facility] Work Phone: Comment on above: Room air 04-04-2014 10:14-0500 Respiratory Rate 15 /min Maryana Bui RN [facility] Work Phone: Comment on above: Pattern: Unlabored 04-04-2014 10:14-0500 SaO2% (BldA) [Mass fraction] 97 % Maryana Bui RN [facility]; [facility] Work Phone: Comment on above: Room air 04-04-2014 10:14-0500 Weight 84.82 kg Delma Porsha [facility] Work Phone: 04-30-2013 09:00-0500 [...] Mon04-30-2013 09:00-0500 Body weight 82.1 kg Amee Schwartz [facility] Internal Medicine Work Phone: Comment on above: I just had coffee, and I started the n ew med on Mon04-30-2013 09:00-0500 BP Diastolic 88 mm[Hg] [facility]: Comment on above: Patient Position: Sitting; Cuff Location : Left Arm; Cuff Size: Standard I just had coffee, and I started the new med on Mon04-30-2013 09:00-0500 BP Systolic 138 mm[Hg] Amee [facility] Internal Medicine Work Phone: Comment on above: Patient Position: Sitting; Cuff Location : Left Arm; Cuff Size: Standard I just had coffee, and I started the new med on Mon04-30-2013 09:00-0500 BSA (Body Surface Area) 2 m2 Amee [facility] Internal Medicine Work Phone: Comment on above: I just had coffee, and I started the n ew med on Mon04-30-2013 09:00-0500 Height 177.8 cm Amee [facility] Internal Medicine Work Phone: Comment on above: I just had coffee, and I started the n ew med on Mon04-30-2013 09:00-0500 Pulse (Heart Rate) 100 /min Amee [facility] Internal Medicine Work Phone: Comment on above: Pattern: Regular I just had coffee, and I started the new med on Mon04-30-2013 09:00-0500 Pulse Oximetry 98 % Delma Story [facility] Internal Medicine Work Phone: Comment on above: Room air I just had coffee, and I started the new med on Mon04-30-2013 09:00-0500 Respiratory Rate 18 /min Amee [facility] Internal Medicine Work Phone: Comment on above: I just had coffee, and I started the n ew med on Mon04-30-2013 09:00-0500 SaO2% (BldA) [Mass fraction] 98 % Amee Efren [employer] CLERK [facility]; [facility] Work Phone: Comment on above: Room air I just had coffee, and I started the new med on Mon04-30-2013 09:00-0500 Weight 82.1 kg Delma Story [facility] Internal Medicine Work Phone: Comment on above: I just had coffee, and I started the n ew med on Mon04-23-2013 11:21-0500 BMI (Body Mass Index) 25.97 kg/m2 Amee Schwartz SUDHA [facility] Work Phone: 04-23-2013 11:21-0500 Body Temperature 98.6 [degF] Amee Schwartz SUDHA [facility] Work Phone: Comment on above: Method: Oral 04-23-2013 11:21-0500 Body weight 82.1 kg Amee Schwartz SUDHA [facility] Work Phone: 04-23-2013 11:21-0500 BP Diastolic 90 mm[Hg] Amee Schwartz SUDHA [facility] Work Phone: Comment on above: Patient Position: Sitting; Cuff Location : Left Arm; Cuff Size: Standard 04-23-2013 11:21-0500 BP Systolic 148 mm[Hg] Amee Schwartz SUDHA [facility] Work Phone: Comment on above: Patient Position: Sitting; Cuff Location : Left Arm; Cuff Size: Standard 04-23-2013 11:21-0500 BSA (Body Surface Area) 2 m2 Amee Schwartz SUDHA [facility] Work Phone: 04-23-2013 11:21-0500 Height 177.8 cm Amee Schwartz SUDHA [facility] Work Phone: 04-23-2013 11:21-0500 Pulse (Heart Rate) 98 /min Amee Schwartz SUDHA [facility] Work Phone: Comment on above: Pattern: Regular 04-23-2013 11:21-0500 Pulse Oximetry 97 % Delma Story [facility] Work Phone: Comment on above: Room air 04-23-2013 11:21-0500 SaO2% (BldA) [Mass fraction] 97 % Amee Schwartz SUDHA [facility]; [facility] Work Phone: Comment on above: Room air 04-23-2013 11:21-0500 Weight 82.1 kg Delma Story [facility] Internal Medicine Work Phone: 02-07-2013 08:08-0400 BMI (Body Mass Index) 25.97 kg/m2 RASHID Simmons SUDHA [facility] Internal Medicine Work Phone: 02-07-2013 08:08-0400 Body Temperature 97.8 [degF] RASHID Simmons SUDHA [facility] Internal Medicine Work Phone: Comment on above: Method: Oral 02-07-2013 08:08-0400 Body weight 82.1 kg RASHID Simmons SUDHA [facility] Medicine Work Phone: 02-07-2013 08:08-0400 BP Diastolic 78 mm[Hg] RASHID Troy SUDHA [facility] Internal Medicine Work Phone: Comment on above: Patient Position: Sitting; Cuff Location : Left Arm; Cuff Size: Standard 02-07-2013 08:08-0400 BP Systolic 124 mm[Hg] RASHID Simmons SUDHA [facility] Internal Medicine Work Phone: Comment on above: Patient Position: Sitting; Cuff Location : Left Arm; Cuff Size: Standard 02-07-2013 08:08-0400 BSA (Body Surface Area) 2 m2 RASHID Troy SUDHA [facility] Medicine Work Phone: 02-07-2013 08:08-0400 Height 177.8 cm RASHID Simmons SUDHA [facility] Medicine Work Phone: 02-07-2013 08:08-0400 Pulse (Heart Rate) 70 /min RASHID Simmons SUDHA [facility] Internal Medicine Work Phone: Comment on above: Pattern: Regular 02-07-2013 08:08-0400 Respiratory Rate 20 /min RASHID Simmons SUDHA [facility] Internal Medicine Work Phone: Comment [...] Body weight 83.46 kg Amee Schwartz LPN [facility] Internal Medicine Work Phone: 06-13-2012 08:33-0500 BP Diastolic 104 mm[Hg] Amee Schwartz [employer] CLERK [facility] Work Phone: Comment on above: Patient Position: Sitting; Cuff Location : Left Arm; Cuff Size: Standard 06-13-2012 08:33-0500 BP Systolic 144 mm[Hg] Amee Schwartz LPN [facility] Work Phone: Comment on above: Patient Position: Sitting; Cuff Location : Left Arm; Cuff Size: Standard 06-13-2012 08:33-0500 BSA (Body Surface Area) 2.01 m2 Amee Schwartz [employer] CLERK [facility] Work Phone: 06-13-2012 08:33-0500 Height 177.8 cm Amee Schwartz LPN [facility] Work Phone: 06-13-2012 08:33-0500 Pulse (Heart Rate) 95 /min Amee Schwartz [employer] CLERK [facility] Work Phone: Comment on above: Pattern: Regular 06-13-2012 08:33-0500 Pulse Oximetry 98 % Delma Story [facility] Internal Medicine Work Phone: Comment on above: Room air 06-13-2012 08:33-0500 Respiratory Rate 18 /min Amee Schwartz LPN [facility] Work Phone: 06-13-2012 08:33-0500 SaO2% (BldA) [Mass fraction] 98 % Amee Schwartz [employer] CLERK [facility]; [facility] Work Phone: Comment on above: Room air 06-13-2012 08:33-0500 Weight 83.46 kg Delma Story [facility] Internal Medicine Work Phone: 06-04-2012 14:24-0500 BMI (Body Mass Index) 26.4 kg/m2 RASHIDMARTIN Simmons LPN [facility] Work Phone: 06-04-2012 14:24-0500 Body Temperature 97.9 [degF] RASHID Simmons LPN [facility] Internal Medicine Work Phone: Comment on above: Method: Oral 06-04-2012 14:24-0500 Body weight 83.46 kg RASHID Simmons LPN [facility] Internal Medicine Work Phone: 06-04-2012 14:24-0500 BP Diastolic 100 mm[Hg] RASHID Simmons LPN [facility] Internal Medicine Work Phone: Comment on above: Patient Position: Sitting; Cuff Location : Left Arm; Cuff Size: Standard 06-04-2012 14:24-0500 BP Systolic 148 mm[Hg] RASHID Simmons LPN [facility] Internal Medicine Work Phone: Comment on above: Patient Position: Sitting; Cuff Location : Left Arm; Cuff Size: Standard 06-04-2012 14:24-0500 BSA (Body Surface Area) 2.01 m2 RASHID Simmons LPN [facility] Internal Medicine Work Phone: 06-04-2012 14:24-0500 Height 177.8 cm RASHID Simmons LPN [facility] Internal Medicine Work Phone: 06-04-2012 14:24-0500 Pulse (Heart Rate) 74 /min RASHID Simmons LPN [facility] Internal Medicine Work Phone: Comment on above: Pattern: Regular 06-04-2012 14:24-0500 Respiratory Rate 20 /min RASHID Simmons LPN [facility] Internal Medicine Work Phone: Comment on above: Pattern: Unlabored 06-04-2012 14:24-0500 Weight 83.46 kg Delma Story [facility] Internal Medicine Work Phone: 11-22-2011 07:53-0400 BMI (Body Mass Index) 25.25 kg/m2 RASHID Simmons LPN [facility] Medicine Work Phone: 11-22-2011 07:53-0400 Body Temperature 97.9 [degF] RASHID Simmons LPN [facility] Medicine Work Phone: Comment on above: Method: Oral 11-22-2011 07:53-0400 Body weight 79.83 kg RASHID Simmons LPN [facility] Medicine Work Phone: 11-22-2011 07:53-0400 BP Diastolic 76 mm[Hg] RASHID Simmons LPN [facility] Medicine Work Phone: Comment on above: Patient Position: Sitting; Cuff Location : Left Arm; Cuff Size: Standard 11-22-2011 07:53-0400 BP Systolic 116 mm[Hg] RASHID Simmons LPN [facility] Internal Medicine Work Phone: Comment on above: Patient Position: Sitting; Cuff Location : Left Arm; Cuff Size: Standard 11-22-2011 07:53-0400 BSA (Body Surface Area) 1.98 m2 RASHID Simmons LPN [facility] Medicine Work Phone: 11-22-2011 07:53-0400 Height 177.8 cm RASHID Simmons LPN [facility] Medicine Work Phone: 11-22-2011 07:53-0400 Pulse (Heart Rate) 68 /min RASHID Simmons LPN [facility] Internal Medicine Work Phone: Comment on above: Pattern: Regular 11-22-2011 07:53-0400 Respiratory Rate 18 /min RASHID Simmons LPN [facility] Internal Medicine Work Phone: Comment on above: Pattern: Unlabored 11-22-2011 07:53-0400 Weight 79.83 kg Delma Story [facility] Internal [facility] Work Phone: 05-31-2011 08:27-0500 BMI (Body Mass Index) 26.83 kg/m2 RASHID Simmons LPN [facility] Internal Medicine Work Phone: 05-31-2011 08:27-0500 Body Temperature 97.9 [degF] RASHID Simmons LPN [facility] Internal Medicine Work Phone: Comment on above: Method: Oral 05-31-2011 08:27-0500 Body weight 84.82 kg RASHID Simmons [facility] Internal Medicine Work Phone: 05-31-2011 08:27-0500 BP Diastolic 76 mm[Hg] RASHID Simmons LPN [facility] Internal Medicine Work Phone: Comment on above: Patient Position: Sitting; Cuff Location : Left Arm; Cuff Size: Standard 05-31-2011 08:27-0500 BP Systolic 118 mm[Hg] RASHID Simmons LPN [facility] Internal Medicine Work Phone: Comment on above: Patient Position: Sitting; Cuff Location : Left Arm; Cuff Size: Standard 05-31-2011 08:27-0500 BSA (Body Surface Area) 2.03 m2 RASHID Simmons LPN [facility] Internal Medicine Work Phone: 05-31-2011 08:27-0500 Height 177.8 cm RASHID Simmons LPN [facility] Internal Medicine Work Phone: 05-31-2011 08:27-0500 Pulse (Heart Rate) 70 /min RASHID Simmons LPN [facility] Internal Medicine Work Phone: Comment on above: Pattern: Regular 05-31-2011 08:27-0500 Respiratory Rate 18 /min RASHID Simmons LPN [facility] Internal Medicine Work Phone: Comment on above: Pattern: Unlabored 05-31-2011 08:27-0500 Weight 84.82 kg Delma Story [facility] Internal Medicine Work Phone: 05-17-2011 07:59-0500 BMI (Body Mass Index) 26.83 kg/m2 RASHID Simmons LPN [facility] Internal Medicine Work Phone: 05-17-2011 07:59-0500 Body Temperature 97.6 [degF] RASHID Simmons LPN [facility] Internal Medicine Work Phone: Comment on above: Method: Oral 05-17-2011 07:59-0500 Body weight 84.82 kg RASHID Simmons LPN [facility] Internal Medicine Work Phone: 05-17-2011 07:59-0500 BP Diastolic 78 mm[Hg] RASHID Simmons LPN [facility] Internal Medicine Work Phone: Comment on above: Patient Position: Sitting; Cuff Location : Left Arm; Cuff Size: Standard 05-17-2011 07:59-0500 BP Systolic 124 mm[Hg] RASHID Simmons LPN [facility] Internal Medicine Work Phone: Comment on above: Patient Position: Sitting; Cuff Location : Left Arm; Cuff Size: Standard 05-17-2011 07:59-0500 BSA (Body Surface Area) 2.03 m2 RASHID Simmons LPN [facility] Internal Medicine Work Phone: 05-17-2011 07:59-0500 Height 177.8 cm RASHID Simmons LPN [facility] Internal Medicine Work Phone: 05-17-2011 07:59-0500 Pulse (Heart Rate) 70 /min RASHID Simmons LPN [facility] Internal Medicine Work Phone: Comment on above: Pattern: Regular 05-17-2011 07:59-0500 Respiratory Rate 18 /min RASHID Simmons LPN [facility] Internal Medicine Work Phone: Comment on above: Pattern: Unlabored 05-17-2011 07:59-0500 Weight 84.82 kg Delma Story [facility] Internal Medicine Work Phone: 08-24-2010 13:48-0400 BMI (Body Mass Index) 26.76 kg/m2 Amee Schwartz [facility] Internal Medicine Work Phone: 08-24-2010 13:48-0400 Body Temperature 98 [degF] Amee Schwartz [facility] [place] Internal Medicine Work Phone: Comment on above: Method: Oral 08-24-2010 13:48-0400 Body weight 84.6 kg Amee Schwartz LPN [facility] Internal Medicine Work Phone: 08-24-2010 13:48-0400 BP Diastolic 82 mm[Hg] [facility] Work Phone: Comment on above: Patient Position: Sitting; Cuff Location : Left Arm; Cuff Size: Standard 08-24-2010 13:48-0400 BP Systolic 134 mm[Hg] Amee Schwartz LOST CHARGE CARD CLERK [facility] Internal Medicine Work Phone: Comment on above: Patient Position: Sitting; Cuff Location : Left Arm; Cuff Size: Standard 08-24-2010 13:48-0400 BSA (Body Surface Area) 2.03 m2 Amee Schwartz LOST CHARGE CARD CLERK [facility] Internal Medicine Work Phone: 08-24-2010 13:48-0400 Height 177.8 cm Amee Schwartz LPN [facility] Work Phone: 08-24-2010 13:48-0400 Pulse (Heart Rate) 110 /min Amee Schwartz LPN [facility] Work Phone: Comment on above: Pattern: Regular 08-24-2010 13:48-0400 Pulse Oximetry 96 % Delma Story [facility] Internal Medicine Work Phone: Comment on above: Room air 08-24-2010 13:48-0400 Respiratory Rate 18 /min Amee Schwartz LPN [facility] Work Phone: Comment on above: Pattern: Unlabored 08-24-2010 13:48-0400 SaO2% (BldA) [Mass fraction] 96 % Amee Schwartz LPN [facility]; [facility] Work Phone: Comment on above: Room air 08-24-2010 13:48-0400 Weight 84.6 kg Delma Story [facility] Internal Medicine Work Phone: 07-15-2010 08:53-0500 Body Temperature 98.3 [degF] Francy Kline LPN [facility] Work Phone: Comment on above: Method: Oral 07-15-2010 08:53-0500 Body weight 82.33 kg Francy Kline LPN [facility] Work Phone: 07-15-2010 08:53-0500 BP Diastolic 78 mm[Hg] Francy Kline LOST CHARGE CARD CLERK [facility] Work Phone: Comment on above: Patient Position: Sitting; Cuff Location : Left Arm; Cuff Size: Standard 07-15-2010 08:53-0500 BP Systolic 120 mm[Hg] Francy Lutzti LOST CHARGE CARD CLERK [facility] Work Phone: Comment on above: Patient Position: Sitting; Cuff Location : Left Arm; Cuff Size: Standard 07-15-2010 08:53-0500 Pulse (Heart Rate) 62 /min Francy Lutzti LOST CHARGE CARD CLERK [facility] Work Phone: Comment on above: Pattern: Regular 07-15-2010 08:53-0500 Respiratory Rate 16 /min Francy Richcinthya [facility] Work Phone: Comment on above: Pattern: Unlabored 07-15-2010 08:53-0500 Weight 82.33 kg Delma Stoyr [facility] Internal Medicine Work Phone: 06-08-2009 08:05-0500 Body Temperature 98.6 [degF] Amee Schwartz LOST CHARGE CARD CLERK [facility] Work Phone: Comment on above: Method: Oral 06-08-2009 08:05-0500 Body weight 82.33 kg Amee Schwartz LOST CHARGE CARD CLERK [facility] Work Phone: 06-08-2009 08:05-0500 BP Diastolic 84 mm[Hg] Amee Schwartz LOST CHARGE CARD CLERK [facility] Work Phone: Comment on above: Patient Position: Sitting; Cuff Location : Left Arm; Cuff Size: Standard 06-08-2009 08:05-0500 BP Systolic 132 mm[Hg] Amee Schwartz LOST CHARGE CARD CLERK [facility] Work Phone: Comment on above: Patient Position: Sitting; Cuff Location : Left Arm; Cuff Size: Standard 06-08-2009 08:05-0500 Pulse (Heart Rate) 106 /min Amee Schwartz LOST CHARGE CARD CLERK [facility] Work Phone: Comment on above: Pattern: Regular 06-08-2009 08:05-0500 Pulse Oximetry 96 % Delma Story [facility] Internal Medicine Work Phone: Comment on above: Room air 06-08-2009 08:05-0500 Respiratory Rate 17 /min Amee Schwartz LOST CHARGE CARD CLERK [facility] Work Phone: Comment on above: Pattern: Unlabored 06-08-2009 08:05-0500 SaO2% (BldA) [Mass fraction] 96 % Amee Schwartz LOST CHARGE CARD CLERK [facility]; [facility] Work Phone: Comment on above: Room air 06-08-2009 08:05-0500 Weight 82.33 kg Delma Story [facility] Internal Medicine Work Phone: 07-25-2008 07:25-0500 Body [...] 07:25-0500 BP Systolic 126 mm[Hg] RASHID Simmons LPN [facility] Work Phone: Comment on above: Patient Position: Sitting; Cuff Location : Left Arm; Cuff Size: Standard 07-25-2008 07:25-0500 Head Circumference 0 cm Delma Story [facility] Internal Medicine Work Phone: 07-25-2008 07:25-0500 Head Occipital-frontal circumference 0 cm RASHID Simmons LPN [facility]; [facility] Work Phone: 07-25-2008 07:25-0500 Height 0 cm RASHID Simmons LPN [facility] Work Phone: 07-25-2008 07:25-0500 Pulse (Heart Rate) 70 /min RASHID Simmons LPN [facility] Work Phone: Comment on above: Pattern: Regular 07-25-2008 07:25-0500 Respiratory Rate 16 /min RASHID Simmons LPN [facility] Work Phone: Comment on above: Pattern: Unlabored 07-25-2008 07:25-0500 Weight 0 kg Delma Story [facility] Internal Medicine Work Phone: 07-09-2007 08:12-0500 Body Temperature 97.9 [degF] Amee Schwartz [facility] Work Phone: Comment on above: Method: Oral 07-09-2007 08:12-0500 Body weight 82.33 kg Amee Schwartz [facility] Work Phone: 07-09-2007 08:12-0500 [...] 07-09-2007 08:12-0500 Weight 82.33 kg Delma Story [facility] Work Phone: Encounters Encounter Date Encounter Type Care Provider Facility Start: 12-24-2024 End: 12-25-2024 Emergency department patient visit No Primary Care Physician -Emergency Department Work Phone: Start: 10-16-2024 End: 10-16-[address] Coleman Khan MD -[facility] Work Phone: Start: 10-16-2024 End: 10-16-2024 ambulatory No Primary Care Physician [facility] Work Phone: Start: 08-27-2024 End: 08-27-2024 ambulatory No Primary Care Physician [facility] Work Phone: Start: 08-27-2024 End: 08-27-2024 Patient encounter procedure KENY DOMINGUEZ 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 -Laboratory Work Phone: Start: 08-27-2024 End: 08-27-2024 ambulatory [facility] Facility:[facility] Start: 08-22-2024 End: 08-22-2024 ambulatory No Primary Care Physician [facility] Work Phone: Start: 08-22-2024 End: 08-22-2024 Patient encounter procedure KENY DOMINGUEZ 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 -[facility] Work Phone: Start: 08-22-2024 End: 08-22-2024 ambulatory [facility] Facility:[facility] Start: 02-28-2024 End: 02-28-2024 ambulatory [facility] Facility:[facility] Start: 09-11-2023 End: 09-11-2023 ambulatory [facility] Work Phone: Start: 09-11-2023 End: 09-11-2023 Patient encounter procedure [facility]-Sleep Lab Work Phone: Start: 08-31-2023 End: 08-31-2023 ambulatory [facility] Work Phone: Start: 08-31-2023 End: 08-31-2023 Patient encounter procedure [facility]-Sleep Lab Work Phone: Start: 10-19-2022 End: 10-19-2022 ambulatory [facility] Work Phone: Start: 10-19-2022 End: 10-19-2022 Patient encounter procedure [facility]-MRI - [facility] Start: 08-19-2022 Transcribe Orders Caroline Haddad Work Phone: [facility] Central Scheduling Comment on above: Sleep apnea, unspeci fied (Primary Dx) Start: 05-19-2020 End: 05-19-2020 Lab Order Delma Story [facility] Stationary Engineer Supervisor al Medicine Start: 11-20-2019 End: 11-20-2019 Annotation/Addendum Delma Santiagoshahnaznikki Dunbar Stationary Engineer Supervisor al Medicine Start: 11-20-2019 End: 11-20-2019 Annotation/Addendum Delma Pamelashahnaznikki Dunbar Stationary Engineer Supervisor al Medicine Start: 08-09-2019 End: 08-09-2019 Office outpatient visit 25 minutes Delma Dunbar Internal Medicine Start: 08-05-2019 End: 08-05-2019 Annotation/Addendum Delma Santiagohsahnaznikki Dunbar Stationary Engineer Supervisor al Medicine Start: 07-16-2019 End: 07-16-2019 Office outpatient visit 15 minutes Delma Dunbar Internal [facility] Start: 06-28-2019 End: 06-28-2019 Office outpatient visit 15 minutes Delma Dunbar [facility] Start: 06-19-2019 End: 06-19-2019 Office outpatient visit 15 minutes Delma Dunbar Internal [facility] Start: 06-12-2019 End: 06-12-2019 Office outpatient visit 25 minutes Delma Dunbar [facility] Start: 06-03-2019 End: 06-03-2019 Lab Order Delma Dunbar Stationary Engineer Supervisor al Medicine Start: 06-03-2019 End: 06-03-2019 Office outpatient visit 15 minutes Delma Dunbar Internal [facility] Start: 05-30-2019 End: 05-30-2019 Office outpatient visit 15 minutes Delma Dunbar Internal [facility] Start: 01-14-2019 End: 01-14-2019 Lab Order Delma Pamelashahnaznikki Dunbar Stationary Engineer Supervisor al Medicine Start: 06-09-2017 End: 06-09-2017 Office outpatient visit 25 minutes Delma Dunbar Internal [facility] Start: 01-20-2017 End: 01-20-2017 Annotation/Addendum Delma Santiagoshahnaznikki Dunbar Stationary Engineer Supervisor al Medicine Start: 01-20-2017 End: 01-20-2017 Office outpatient visit 15 minutes Delma Dunbar [facility] Start: 07-25-2014 End: 07-25-2014 Historical Summary Delma Dunbar Stationary Engineer Supervisor al Medicine Start: 04-08-2014 End: 04-08-2014 Phone Encounter Delma Dunbar Stationary Engineer Supervisor al Medicine Start: 04-04-2014 End: 04-04-2014 Phone Encounter Delma Dunbar Stationary Engineer Supervisor al Medicine Start: 04-04-2014 End: 04-04-2014 Office outpatient visit 15 minutes Delma Dunbar [facility] Start: 04-30-2013 End: 04-30-2013 Office outpatient visit 15 minutes Delma Ciesa [facility] Start: 04-23-2013 End: 04-23-2013 Office outpatient visit 25 minutes Delma Story [facility] Start: 02-07-2013 End: 02-07-2013 Patient encounter procedure Delma Story [facility] Start: 12-31-2012 End: 12-31-2012 Patient encounter procedure Delma Story [facility] Start: 06-13-2012 End: 06-13-2012 Office outpatient visit 15 minutes Delma Cubanikki [facility] Start: 06-04-2012 End: 06-04-2012 Patient encounter procedure Delma Story [facility] Start: 11-22-2011 End: 11-22-2011 Patient encounter procedure Delma Story [facility] Start: 05-31-2011 End: 05-31-2011 Patient encounter procedure Delma Story [facility] Start: 05-17-2011 End: 05-17-2011 Patient encounter procedure Delma Story [facility] Start: 08-24-2010 End: 08-24-2010 Office outpatient visit 25 minutes Delma Cubanikki [facility] Start: 07-15-2010 End: 07-15-2010 Patient encounter procedure Delma Story [facility] Start: 06-08-2009 End: 06-08-2009 Office outpatient visit 15 minutes Delma Story [facility] Start: 07-25-2008 End: 07-25-2008 Patient encounter procedure Delma Story [facility] Start: 07-09-2007 End: 07-09-2007 Erroneous Entry Delma Story Bettina Stationary Engineer Supervisor al Medicine Start: 07-09-2007 End: 07-09-2007 Patient encounter procedure Delma Story [facility] End: 07-25-2014 Physical examination Computer Equipment Repairer [facility]; [facility] Work Phone: Procedures Date Procedure Procedure Detail Performing Clinician Start: 12-25-2024 Estimated creatinine clearance No Primary Care Physician Start: 12-25-2024 Computed tomography of abdomen and pelvis with intravenous contrast No Primary Care Physician Start: 10-16-2024 Evaluation of diagnostic study results No Primary Care Physician Start: 08-22-2024 MRI of brain with contrast No Primary Care Physician Start: 08-22-2024 MRI of cervical spine with contrast No Primary Care Physician Start: 10-19-2022 MRI of brain with contrast Start: 10-19-2022 MRI of cervical spine with contrast Start: 05-19-2021 End: 05-19-2021 Emergency Department Summary Comments: See Note; NOTES: [facility] Medical Records Department [address] [place] [address] Emergency Department Summary 05/19/21 MR#: [id number] Acct: [id number] Name: CLARK QUICK Rep #: [id number] : 1970 51 From: Edilson Bailey DO PCP: HALLE Mcdaniel Status:DEP ER Location: ED HPI History of [...] hematuria. Patient denies any fevers or chills. [facility] Medical History (Updated 05/19/21 @ 18:10 by [...] a prescription for a short course of [place]. Patient was instructed to use his urine [...] % (Auto) 68.2 Lymph % (Auto) 19.3 Hinds % (Auto) 11.2 H Eos % (Auto) [...] Clarity Clear Urine pH 6.0 Ur Specific Churdan 1.020 Urine Protein Negative Urine Glucose (UA) [...] PHYSICIAN] - 5-7 Days Delma Story NP, 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 [Primary Care Provider] - 5-7 Days Disposition Disposition: Home, Self Care What to do if you have Problems For any increased pain, shortness of breath, bleeding, nausea or vomiting, chest pain, or any unexpected problems, contact your Primary Care Provider. Call [facility] ([phone]) or report to the closest Emergency Room. Call 911 if necessary. 05/19/21 2350 <Electronically signed by Edilson Bailey DO> Cosigner Signature (if applicable): CC: 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 Delma Story Signed Delma Story CNP Work Phone: Start: 05-19-2021 End: 05-19-2021 Abdomen/Pelvis without Cont Comments: See Note; NOTES: [facility] Imaging Services [address] [place] [address] Abdomen/Pelvis without Cont MR#: [id number] Acct: [id number] Name: CLARK QUICK Rep #: [id number] : 1970 M 51 From: Michael Mathias MD PCP: Delma Story, 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 Status: REG ER Study: Abdomen/Pelvis without Cont Date of Exam: 04/29 07/19 Exam# [id number] Ordering Dr: Edilson Bailey DO EXAM: CT [...] reconstruction technique. This report was created using [employer] report [employer] technology. COMPARISON: 01/12/2019 FINDINGS: LOWER THORAX: Unremarkable. [...] CC: HALLE Story; Dr. Edilson Bailey DO Call Center Associate: Signed Delma Porsha INFRASTRUCTURE MANAGER Work Phone: Start: 02-26-2020 End: 02-26-2020 Cardiology Visit Report Comments: See Note; NOTES: [facility] [address] [place] [address]. [address] [place] [address] OFFICE VISIT Date of Service: 02/26/20 MR#: [id number] Acct: [id number] Name: CLARK QUICK Rep #: [id number] : 1970 Provider: Dr. Joshua Gomez MD Age/Sex: 50/M Location: [facility] Status: Signed HPI HPI History of Present Illness Details: Pleasant [...] BMI 26.3 Intake Visit Reasons: Ref'd by [facility] ER, irr BP and HR Allergies Penicillins [...] DAILY #90 tab 02/26/20 [Rx Confirmed 02/26/20] [facility] Medical History Essential (primary) hypertension (Chronic) Polycythemia [...] MD Cosigner Signature: Date (if applicable) CC: PRESSURE TANK OPERATORJefferson Delma Story Start: 01-31-2020 End: 01-31-2020 Chest 1 View (Portable) Comments: See Note; NOTES: [facility] Imaging Services [address] [place] [address] Chest 1 View (Portable) MR#: [id number] Acct: [id number] Name: CLARK QUICK Rep #: [id number] : 1970 M 49 From: Marcos cowan MD PCP: Delma Story NP-C Status: REG ER Study: Chest 1 View (Portable) Date of Exam: 01/31/20 Exam# [id number] Ordering Dr: Brianna Craig MD STUDY: X-RAY [...] EDT Tel , Service support , CC: 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 Delma Story; Dr. Brianna Craig MD Call Center Associate: Signed Delma Story Start: 01-31-2020 End: 01-31-2020 Emergency Department Summary Comments: See Note; NOTES: [facility] Medical Records Department [address] [place] [address] Emergency Department Summary 01/31/20 MR#: [id number] Acct: [id number] Name: CLARK QUICK Rep #: [id number] : 1970 49 From: Brianna Craig MD [...] started on a new experimental medication through [facility] in [place]. He states when he was at the [...] % (Auto) 61.2 Lymph % (Auto) 26.5 Hinds % (Auto) 11.1 H Eos % (Auto) [...] DAILY #30 tab.er.24h Referrals: Delma Story NP, 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 [Primary Care Provider] - Additional Instructions: As [...] problems, contact your Primary Care Provider. Call [facility] ([phone]) or report to the closest Emergency Room. Call 911 if necessary. 01/31/202143 <Electronically signed by Brianna Craig MD> Date Brianna Craig MD Cosigner Signature (If Indicated): Date CC: HALLE Story Start: 01-31-2020 End: 02-05-2020 12 Lead EKG Comments: See Note; NOTES: [facility] Cardiovascular Services [address] [place] [address] 12 Lead EKG 01/31/20 1735 MR#: [id number] Acct: [id number] Name: CLARK QUICK Rep #: [id number] : 1970 49 From: Abisai Hargrove MD [...] Int : 421 ms Sinus tachycardia Leftward Sula Low voltage QRS (Limb Leads) Poor R-wave progression Inferior infarct , age undetermined , cannot be excluded Abnormal ECG Confirmed by ANGEL COLLINS, ABISAI ([id number]), editor news APARNA FERNÁNDEZ ([id number]) on 02/05/2020 10:10:16 AM Referred By: Confirmed By:ABISAI HARGROVE MD 02/05/20 1010 Date Abisai Hargrove MD CC: 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 Delma Story; Dr. Brianna Craig MD Signed Delma Story Start: 01-13-2019 End: 01-13-2019 Discharge Instruction Comments: See Note; NOTES: [facility] Medical Records Department [address] [place] [address] Discharge Instruction 01/12/19 1833 MR#: [id number] Acct: [id number] Name: CLARK QUICK Rep #: [id number] : 1970 48 From: Jason Larios MD PCP: HALLE Mcdaniel Status: DEP ER ED Disposition - Plan for ED Patient: Disposition: Home or Assisted Living Instructions: KIDNEY STONE w/ Colic Prescriptions: Tamsulosin HCl [Flomax] 0.4 mg PO DAILY #4 cap Prescription Printed Hydrocodone/Acetaminophen [[place] 5-325 Tablet] 1 ea PO Q4H PRN PRN 7 Days #20 tab PRN Reason: Pain Prescription Printed Referrals: Ishan Arthur MD [STAFF PHYSICIAN] - 3-5 Days if not improving Additional Instructions: Plenty of fluids and rest. [place] and Motrin for pain. Flomax daily until the stone passes. Strain your urine for the passed stone. Follow-up with not improving return if feeling worse. What to do if you have Problems For any increased pain, shortness of breath, bleeding, nausea or vomiting, chest pain, or any unexpected problems, contact your Primary Care Provider. Call [facility] ([phone]) or report to the closest Emergency Room. Call 911 if necessary. 01/13/19 0013 <Electronically signed by Jason Larios MD> Date Jason Larios MD [facility] Signature (If Indicated): Date CC: HALLE Story Start: 01-12-2019 End: 01-12-2019 Emergency Department Summary Comments: See Note; NOTES: [facility] Medical Records Department [address] [facility] [place] [address] Emergency Department Summary 01/12/19 1622 MR#: [id number] Acct: [id number] Name: CLARK QUICK Rep #: [id number] : 1970 48 From: Sanaz RAHMAN PCP: HALLE Mcdaniel Status: REG ER ADDENDUM by Jason Larios MD on 01/12/19 at 1833 Patient with our physician assistant professor sculpture. Sudden onset of left flank pain around 1:00 today. History of prior kidney stones. CAT scan shows a left-sided 3 mm ureteral calculi. Mild hydronephrosis. Impression: Acute left ureteral calculi 3 mm with mild hydronephrosis. [place] for pain. Flomax. Motrin. Follow-up with Dr. Arthur 01/12/19 1833 Date Jason Larios MD cc: PRESSURE TANK OPERATORJefferson Story * Signed History of Present Illness [...] problems, contact your Primary Care Provider. Call [facility] ([phone]) or report to the closest Emergency Room. Call 911 if necessary. 01/12/19 175 <Electronically signed by Sanaz RAHMAN> Date Sanaz RAHMAN Cosigner Signature (If Indicated): Date CC: HALLE Story Start: 01-12-2019 End: 01-12-2019 Abdomen/Pelvis without Cont Comments: See Note; NOTES: [facility] Imaging Services [address] [place] [address] Abdomen/Pelvis without Cont MR#: [id number] Acct: [id number] Name: CLARK QUICK Jeffy Rep #: [id number] : 1970 M 48 From: Beatrice Cao MD PCP: HALLE Mcdaniel Status: PRE ER Study: Abdomen/Pelvis without Cont Date of Exam: 01/12/19 Exam# [id number] Ordering Dr: Sanaz Guidry STUDY: CT ABDOMEN [...] support , CC: HALLE Story; JOSIAH Guidry Call Center Associate: Signed Delma Story Start: 08-18-2017 End: 08-18-2017 Operative Report Comments: See Note; NOTES: [facility] Medical Records Department [address] [place] [address] Operative Report 08/18/17 1136 MR#: [id number] Acct: [id number] Name: CLARK QUICK Rep #: [id number] : 1970 47 From: Ishan Arthur MD PCP: Delma Story NP Status: REG SDC Y Location: [place] [address] Problem List (1) Right kidney stone Status: [...] 08-18-2017 Discharge Instruction Comments: See Note; NOTES: [facility] Medical Records Department [address] [place] [address] Instructions for Home/Discharge Instructions 08/18/17 1045 MR#: [id number] Acct: [id number] Name: CLARK QUICK Rep #: [id number] : 1970 47 From: Ishan Arthur MD PCP: Delma Story NP Status: REG SDC Discharge Diet: Light diet - advance as [...] [Cozaar] 50 mg PO DAILY 07/09/14 Hydrocodone/Acetaminophen [[place] 5-325 Tablet] 1 ea PO Q4H PRN PRN 5 Days #20 tab 08/18/17 The following prescriptions were given: Hydrocodone/Acetaminophen [[place] 5-325 Tablet] 1 ea PO Q4H PRN [...] Abdomen Single View Comments: See Note; NOTES: [facility] Imaging Services [address] [place] [address] Abdomen Single View MR#: [id number] Acct: [id number] Name: CLARK QUICK Rep #: [id number] : 1970 M 47 From: Ravindra Aguirre DO PCP: Delma Story NP Status: REG [facility] Study: Abdomen Single View Date of Exam: 08/18/17 Exam# [id number] Ordering Dr: Ishan Arthur MD STUDY: X-RAY [...] , Service support , CC: Delma Story PRESSURE TANK OPERATOR; Ishan Arthur MD Call Center Associate: Signed Delma Story Start: 07-17-2014 End: 07-17-2014 Operative Report Comments: See Note; NOTES: [facility] Medical Records Department [address] [place] [address] Operative Report MR#: [id number] Acct: [id number] Name: CLARK QUICK Rep #: [id number] : 1970 44 From: Félix Lockwood MD PCP: Evelyn Lomax MD Status: [facility] DATE OF SERVICE: 07/16/2014 DATE OF SERVICE: July 16, 2014 PREOPERATIVE DIAGNOSIS: Left inguinal hernia. POSTOPERATIVE DIAGNOSIS: Indirect left inguinal hernia. PROCEDURE: Open left inguinal hernia repair using mesh plug with a Bard mesh PerFix plug, reference #[id number], lot #[id number], expires in January 2019. SURGEON: Félix Lockwood [...] condition. Félix Lockwood MD T: NTS JOB: [id number] 07/17/14 0834 <Electronically signed by Félix Lockwood MD> Date Félix Lockwood MD CC: Evelyn Lomax MD; Félix Lockwood MD Date Dictated: 07/16/141412 Date Transcribed: 07/16/141412 Call Center Associate: Signed Delma Porsha Start: 07-16-2014 End: 07-16-2014 Discharge Instruction Comments: See Note; NOTES: [facility] Medical Records Department [address] [place] [address] Instructions for Home/Discharge Instructions 07/16/14 1414 MR#: [id number] Acct: [id number] Name: CLARK QUICK Rep #: [id number] : 1970 44 From: Félix Lockwood MD PCP: Evelyn Lomax MD Status: REG [facility] Discharge Diet: Light diet - advance as [...] Please Follow Up With: Félix Lockwood - [phone] When: Plan to have a follow up appointment in 7 days. Call to schedule. 07/16/14 7288 <Electronically signed by Félix Lockwood MD> Date Félix Lockwood MD CC: Evelyn Story Start: 04-26-2013 End: 04-26-2013 Abdomen Complete Comments: See Note; NOTES: [facility] Imaging Services [address] [place] [address] Ultrasound Report MR#: [id number] Acct: [id number] Name: CLARK QUICK Rep #: [id number] : 1970 M 43 From: Yovani Castro MD PCP: Evelyn Lomax MD Status: REG CLI Study: Abdomen Complete Date of Exam: 04/26/13 Exam# [id number] Ordering Dr: Delma Story STUDY: ABDOMINAL ULTRASOUND [...] M.D. at 9:30 EST , Service support [phone], CC: Delma Story; Evelyn Lomax MD Call Center Associate: Signed Delma Story Work Phone: Hernia repair Priti Ramirez Comment on above: 2016 Hernia repair Wayne Cormier Comment on above: 2016 Left hernia repair Priti retana Comment on above: 07-16-14 Left hernia repair Wayne Pavon [facility] Comment on above: 07-16-14 Plan of Treatment Date Care Activity Detail Author Start: 12-25-2024 [facility] Start: 10-16-2024 Evaluation of diagnostic study results 12 Lead EKG performed by [facility] Start: 01-27-2023 Influenza vaccination Influenza Vaccine (Season Ended) [facility] Start: 05-19-2020 Comprehensive metabolic panel METABOLIC PANEL, COMPREHENSIVE (37832) [facility]; [facility] Work Phone: Comment on above: Send copy of results to Dr. Roman Start: 05-19-2020 CBC, PLATELETS & MANUAL DIFF (74967) CBC, PLATELETS & MANUAL DIFF (15578) [facility]; [facility] Work [...] difrntl wbc CBC, PLATELETS & AUT DIFF (80084) [facility] Work Phone: Start: 07-12-2019 Protein electrophoretic fractj&quantj serum SPEP (46501) [facility] Work Phone: Start: 06-28-2019 [...] difrntl wbc CBC, PLATELETS & AUT DIFF (86009) [facility] Work Phone: Start: 06-03-2019 Molecule nucleic ampli 2 seq Angel 2 Mutation (68520) [facility] Work Phone: Start: 06-03-2019 Assay of prostate specific antigen total PSA (PROSTATE SPECIFIC ANTIGEN) (V76.44) [facility] Work Phone: Start: 06-03-2019 Lipid panel LIPID PANEL (22023) [facility] Work Phone: Start: 06-03-2019 Blood count complete auto&auto difrntl wbc CBC, PLATELETS & AUT DIFF (09455) [facility] Work Phone: Start: 06-03-2019 Patient Education Multiple Sclerosis *: ms [facility] Work Phone: Start: 06-03-2019 Procedure Education Eprescribed prescriptions (G8553) [facility] Work Phone: Start: 06-03-2019 Provider Instructions for Treatment Follow up if no improvement or if symptoms worsen [facility] Work Phone: Start: 06-03-2019 Antibody hiv-1 HIV-1 ANTIBODY (28967) [facility] Work Phone: Start: 06-03-2019 Antinuclear antibodies marcelino MARCELINO (ANTINUCLEAR ANTIBODY) (76260) [facility]; [facility] Work Phone: Start: 06-03-2019 Assay of thyroid stimulating hormone tsh TSH (THYROID STIMULATING HORMONE) (46500) [facility]; [facility] Work Phone: Start: 06-03-2019 Cobalamin (Vitamin B12) [Mass/Vol] VITAMIN B-12 (CYANOCOBALAMIN) (86745) [facility] Work Phone: Start: 06-03-2019 Cyanocobalamin vitamin b-12 VITAMIN B-12 (CYANOCOBALAMIN) (94731) [facility]; [facility] Work Phone: Start: 06-03-2019 HbA1c (Bld) [Mass fraction] HGB A1C (97306) [facility] Work Phone: Start: 06-03-2019 Heavy metal qualitative any analytes HEAVY METAL SCREEN (95632) [facility] Work Phone: Start: 06-03-2019 Hemoglobin glycosylated a1c HGB A1C (41341) [facility]; [facility] Work Phone: Start: 06-03-2019 Hepatitis c antibody HEPATITIS C ANTIBODY (33232) [facility] Work Phone: Start: 06-03-2019 Nuclear Ab IF (S) [Titer] MARCELINO (ANTINUCLEAR ANTIBODY) (30005) [facility] Work Phone: Start: 06-03-2019 Protein [Mass/Vol] Serum Protein Electrophoresis (SPEP) (70367) [facility] Work Phone: Start: 06-03-2019 Protein electrophoretic fractj&quantj serum Serum Protein Electrophoresis (SPEP) (29504) [facility]; [facility] Work Phone: Start: 06-03-2019 Sedimentation rate rbc non-automated SED RATE ERYTHROCYTE (19923) [facility] Work Phone: Start: 06-03-2019 TSH Qn TSH (THYROID STIMULATING HORMONE) (63330) [facility] Work Phone: Start: 06-03-2019 Blood count complete automated CBC & PLATELETS (AUTO) (22423) [facility] Work Phone: Start: 06-03-2019 Comprehensive metabolic panel METABOLIC PANEL, COMPREHENSIVE (64512) [facility] Work Phone: Start: 06-03-2019 Creatine kinase total CREATINE KINASE TOTAL (10573) [facility] Work Phone: Start: 06-03-2019 Creatine kinase mb fraction only CPK MB FRACTION (71675) [facility] Work Phone: Start: 06-03-2019 Assay of troponin quantitative Troponin I (07289) [facility]; [facility] Work Phone: Start: 06-03-2019 Troponin I.cardiac [Mass/Vol] Troponin I (61100) [facility] Work Phone: Start: 06-03-2019 C-reactive protein C-Reactive Protein (51966) [facility]; [facility] Work Phone: Start: 06-03-2019 CRP [Mass/Vol] C-Reactive Protein (65150) [facility] Work Phone: Start: 05-30-2019 Provider Instructions for Treatment [facility] Work Phone: Start: 01-14-2019 Renal function panel RENAL FUNCTION PANEL (64633) [facility] Work Phone: Start: 02-21-2018 Zoster Vaccines (1 of 2) Zoster Vaccines (1 of 2) [facility] Start: 06-29-2017 Assay of prostate specific antigen total PSA (PROSTATE SPECIFIC ANTIGEN) (V76.44) [facility] Work Phone: Start: 06-29-2017 Protein mass conc PSA (PROSTATE SPECIFIC ANTIGEN) (V76.44) [facility] Work Phone: Start: 06-29-2017 25 hydroxy includes fractions if performed CALCIFEDIOL (02555) [facility] Work Phone: Start: 06-29-2017 Urine albumin quantitative MICROALBUMIN: CREATININE RATIO (10763) AND (71727) [facility] Work Phone: Start: 06-29-2017 Urinalysis qual/semiquant except immunoassays URINALYSIS (09844) [facility] Work Phone: Start: 06-29-2017 Thyrotropin Qn TSH (58163) [facility] Work Phone: Start: 06-29-2017 Blood count manual cell count each CBC WITH MANUAL DIFF (00105) [facility] Work Phone: Start: 06-29-2017 Comprehensive metabolic panel Metabolic Panel, Comprehensive (43619) [facility] Work Phone: Start: 06-29-2017 Lipid panel Lipid Panel (92432) [facility] Work Phone: Start: 06-09-2017 [...] 01-20-2017 Comprehensive metabolic panel METABOLIC PANEL, COMPREHENSIVE (18012) [facility] Work Phone: Start: 01-20-2017 Blood count complete auto&auto difrntl wbc CBC, PLATELETS & AUT DIFF (33704) [facility] Work Phone: Start: 04-08-2014 Lipid panel Lipid Panel (30442) [facility] Work Phone: Start: 04-04-2014 Procedure Education Eprescribed prescriptions (G8553) [facility] Work Phone: Start: 04-30-2013 Provider Instructions for Treatment [facility] Work Phone: Start: 04-23-2013 Provider Instructions for Treatment [facility] Work Phone: Start: 02-07-2013 Patient Education High Blood Pressure (Essential Hypertension) *: cardiovascular health [facility] Work Phone: Start: 02-07-2013 Lipid panel LIPID PANEL (99152) [facility] Work Phone: Start: 12-31-2012 [...] Phone: Start: 11-22-2011 Lipid panel LIPID PANEL (17644) [facility] Work Phone: Start: 05-31-2011 Lipid panel Lipid Panel (42966) [facility] Work Phone: Start: 08-24-2010 [...] xcpt urine blood/stool aerobic isol HILARY CULTURE-OTHER (51939) [facility] Work Phone: Start: 02-21-1987 DTaP/Tdap/Td Vaccines (1 - Tdap) DTaP/Tdap/Td Vaccines (1 - Tdap) [facility] Start: 02-21-1986 Hepatitis C screening Hepatitis C Screening [facility] Start: 1980 Depression Screening Depression Screening [facility] Start: 02-21-1969 MMR Vaccines (1 of 1 - Standard series) MMR Vaccines (1 of 1 - Standard series) [facility] Start: 1970 COVID-19 Vaccine (#1) COVID-19 Vaccine (#1) [facility] Start: 1970 Hepatitis B Vaccines (1 of 3 - 3-dose series) Hepatitis B Vaccines (1 of 3 - 3-dose series) [facility] Start: 1970 HIV screening HIV Screening [facility] Start: 1970 Lipid panel Lipid Panel [facility] Start: 1970 Screening for malignant neoplasm of colon [facility] Work Phone: [facility] [...] Phone: Payers Date Payer Category Payer Self-pay [id number] 2024 Unknown [id number] 2012 Unknown [id number] Self-pay [id number] Unknown [facility] Unknown [id number] Unknown [id number] Unknown [id number] Unknown [id number] Unknown [id number] Unknown [id number] Social History Date Type Detail Facility Alcohol Use [facility] Work Phone: Comment on above: Occasional alcohol u se 2-4 cups coffee qd 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 Start: 05-19-2021 Tobacco smoking stat us [facility] [[email or web address] Unknown if ever smoked [facility] Start: 1970 Sex Assigned At Male W [facility] Start: 1970 Sex Assigned At Not on file [facility] Gender identity Not on file [facility] Start: 08-09-2022 End: 08-19-2022 Exposure to SARS-CoV-2 (event) Not sure [facility] Start: 05-19-2021 End: 12-24-2024 Tobacco smoking status NDIS Current some day smoker [facility] Start: 08-27-2024 End: 09-02-2024 Sex Male (finding) [facility] Discharge summary 12-25-2024 Note Date & Type Note Facility 12-25-2024 Discharge summary [facility] Radiology Diagnostic study note 12-25-2024 Note Date & Type Note Facility 12-25-2024 Radiology Diagnostic study note [facility] Imaging Services [address] [place] [address] Abdomen/Pelvis W IV Cont ONLY MR#: [id number] Acct: [id number] Name: CLARK QUICK Rep #: [id number] : 1970 M 54 From: Shannon Sunshine MD PCP: Care Physician,No Primary Status: REG ER Study:Abdomen/Pelvis W IV Cont ONLY Date of E xam: 12/25/24 Exam# [id number] Ordering Dr: Jeffy Ferraro MD PROCEDURE: ABDOMEN/PELVIS W IV CONT ONLY 12/25/2024 REASON FOR EXAM: LOWER ABD PAIN TECHNIQUE: ABDOMEN/PELVIS W IV CONT ONLY Coronal and Sagittal reconstruction series were provided. CONTRAST: Isovue 370 VOLUME: 95 mL One or more dose reduction techniques were used (e.g., Automated exposure control, adjustment of the mA and/or kV according to patient size, use of iterative reconstruction technique. RADIATION DOSE SUMMARY: CTDlvol: 28 mGy DLP: 1004 mGycm COMPARISON: 05/19/2021 FINDINGS: Under aerated lung bases. Normal heart size. Unremarkable liver, gallbladder, spleen, adrenal glands, right kidney. Simple left renal cyst. No hydronephrosis or ureteral stone. Normal bladder. Normal prostate. No retroperitoneal or pelvic adenopathy. No free air. Nondistended bowel. Normal appendix. Diverticulosis. Sigmoid diverticulitis, without abscess. Lumbar spine degeneration. No acute abdominal wall findings. Status post bilateral inguinal hernia repair. CT/Abdomen/Pelvis W IV Cont ONLY IMPRESSION: Sigmoid diverticulitis without abscess. Reading Location: [place] [address] CC: Dr. Burke Ferraro MD; No Primary Care Physician ~ Call Center Associate: Signed [facility] Discharge summary 12-24-2024 Note Date & Type Note Facility 12-24-2024 Discharge summary Note Date/Time December 25, 2024 2:43am [facility] Medical Records Department [address] [place] [address] Emergency Department Summary 12/24/24 MR#: [id number] Acct: [id number] Name: CLARK QUICK Rep #:[id number] : 1970 54 From: Burke Ferraro MD PCP: Care Physician,No Primary Status :REG ER Location: ED HPI HPI - GI History of Present Illness Chief Complaint: Constipation Informant: patient Narrative Narrative: 54-year-old male with multiple sclerosis has not had a bowel movement in 3 to 4 days which is very unusual for him. He is having some lower abdominal discomfort today and cramping. No nausea or vomiting. He had a remote right inguinal herniorrhaphy but no other abdominal surgeries. Never had a bowel obstruction before. His neurologist told him that MS can do this although its never happened to him before. He drank magnesium citrate about 5 hours ago, butout of concern he presents here for evaluation, he has not had a bowel movement yet since he did the magnesium citrate and he has not had a lot of fluid to drink. He denies any other acute issues. [facility] Medical History Muscle spasticity Difficulty walking Polycythemia Obstructive sleep apnea Sciatic nerve pain Essential (primary) hypertension Multiple sclerosis Right kidney stone Home Medications ?Medication ?Instructions ?Recorded ?Last Taken ?Type baclofen 10 mg tablet 30 mg PO TID 10/09/24 History gabapentin 300 mg capsule 600 mg PO BID 10/09/2412/24 History amlodipine 10 mg tablet 10 mg PO DAILY #90 tabs 02/2012/24/24 Rx losartan 100 mg tablet 100 mg PO DAILY #90 tabs 02/2012/24/24 Rx ciprofloxacin HCl 500 mg tablet 500 mg PO BID #20 TABL ETS 12/25/24 Unknown Rx metronidazole 500 mg tablet 500 mg PO BID #20 tabs Unknown Rx Allergy/AdvReac Type Severity Reaction Status Date / Time Penicillins (PCN) Allergy Rash Verified 12/24/24 22:14 Family History Father Myocardial infarction, Onset Age: 60 Heart disease CAD (coronary artery disease) coronary stents Mother Breast cancer Hyperlipidemia Grandmother CVA (cerebral vascular accident) Grandfather Myocardial infarction Surgical History History of lithotripsy (2017) History of left inguinal hernia repair (2014) Social History Smoking Status: Current some day smoker tobacco type: cigars alcohol intake: current alcohol intake frequency: holidays/special occasions only substance use type: does not use caffeine: Yes ROS ROS ED Constitutional Constitutional ED: Denies chills or fever(s) Eyes Eyes: Denies change in vision or diplopia ENT ENT ED: Denies rhinorrhea or sore throat Cardiovascular Cardiovascular: Denies chest pain or palpitations Respiratory/Chest Respiratory/Chest: Denies cough or dyspnea Gastrointestinal Gastrointestinal: Reports abdominal pain and constipation; Denies diarrhea, hematochezia, melena, nausea or vomiting Genitourinary Genitourinary ED: Denies dysuria or hematuria Musculoskeletal Musculoskeletal: Denies back pain or neck pain Integumentary Denies abscess or rash Neurologic Neurologic: Denies headache(s) Psychiatric Psychiatric: Denies anxiety or suicidal thoughts EXAM Physical Exam Const Vital Signs: 12/24/24 22:16 12/25/24 00:13 12/25/24 01:48 Temperature 97.5 F L 97.5 F L Temperature Source Temporal Oral Pulse Rate 110 H 110 H Respiratory Rate 18 16 Blood Pressure 117/84 H 111/71 111/71 Blood Pressure Mean 95 84 84 Pulse Ox 98 98 Oxygen Delivery Method Room Air Room Air 12/25/24 02:00 Temperature Temperature Source Pulse Rate 84 Respiratory Rate 16 Blood Pressure 116/80 Blood Pressure Mean 92 Pulse Ox 98 Oxygen Delivery Method Room Air Positive well nourished and well developed General Appearance ED: well developed and NAD HEENT Reports moist mucous membranes normocephalic and atraumatic Eyes PERRL and EOMs intact bilaterally Neck full ROM and supple Resp normal respiratory effort and clear to auscultation bilaterally Cardio regular rate, regular rhythm and no murmurs GI non-tender and non-distended GI Narrative: On rectal there is no tenderness, no hemorrhoids, no mass, and no palpable hard stool. Trace amount of stool in the rectal vault is without blood and not melanotic. Auscultation: hyperactive bowel sounds Palpation: soft Back/Spine no CVA tenderness General Back: other FROM Extremity normal to inspection General Extremety ED: Negative for edema, pulses abnormal or tenderness General Extremity: Negative for edema or pulses abnormal Neuro oriented x3, CN's II-XII intact bilaterally and no sensory deficits noted Sensorium / Orientation: awake and alert Motor Exam: strength 5/5 throughout Skin no rashes or lesions noted and no wounds MDM MDM MDM Narrative Medical decision making narrative: Initially did rectal and asked patient to try to see if we could disimpact him but there is no palpable hard stool so we then did a soapsuds enema which he wasamenable to, however it really made his pain severely worse so he was not able to hold the fluid in and it did not result in any provision of significant stool. For this reason, we then obtained labs, CT scan and gave him some pain medication. Will get a bit of a leukocytosis of 14.1, his labs are unremarkable. No bandemia. He did well with pain medications and is comfortable, normal vital signs. I reviewed the CT images and the report which I agree with, it shows that he has sigmoid diverticulitis without abscess/perforation and no other acute abnormalities or bowel obstruction. Thisexplains his discomfort. He is comfortable treating as an outpatient. His painis well-controlled. He declines a prescription for analgesics. He is allergic to penicillin so we started him on Cipro and Flagyl here and wrote him prescriptions for 10-day supply and advised outpatient follow-up after he is better return if worse he is comfortable with that plan. Lab Data Attestation: I reviewed the patient's lab results. Labs: Laboratory Results - last 24 hr 12/25/24 01:10 WBC 14.1 H RBC 5.00 Hgb 15.3 Hct 44.4 MCV 88.8 MCH 30.6 MCHC 34.5 RDW Std Deviation 41.8 RDW Coeff of Ericka 12.8 Plt Count 231 MPV 9.1 Immature Gran % (Auto) 0.500 Neut % (Auto) 77.6 H Lymph % (Auto) 8.9 L Hinds % (Auto) 12.5 H Eos % (Auto) 0.3 Baso % (Auto) 0.2 Absolute Neuts (auto) 10.9 H Absolute Lymphs (auto) 1.26 Nucleated RBC % 0 Differential Comment SCANNED Platelet Estimate ADEQUATE RBC Morphology NORM C+C Sodium 137 Potassium 4.1 Chloride 102 Carbon Dioxide 22.7 Anion Gap 12 BUN 12 Creatinine 1.07 Estim Creat Clear Calc 79.60 Est GFR (MDRD) Non-Af 81 BUN/Creatinine Ratio 11.4 Glucose 115 H Calcium 8.9 Radiography Diagnostic Testing: Clinical Impression(s) from Imaging Studies Abdomen/Pelvis CT 12/25/24 00:57 IMPRESSION: Sigmoid diverticulitis without abscess. Reading Location: [place] [address] Discharge Plan Triage Chief Complaint: Constipation ED Provider: Burke Ferraro Dx/Rx/DC Orders Clinical Impression: Sigmoid diverticulitis Instructions: Diverticulitis Dc Prescriptions: New metronidazole 500 mg tablet 500 mg PO BID Qty: 20 0RF ciprofloxacin HCl 500 mg tablet 500 mg PO BID Qty: 20 0RF Continued baclofen 10 mg tablet 30 mg PO TID gabapentin 300 mg capsule 600 mg PO BID losartan 100 mg tablet 100 mg PO DAILY Qty: 90 3RF amlodipine 10 mg tablet 10 mg PO DAILY Qty: 90 3RF Primary Care Provider: Care Physician,No Primary Referrals: Doctor,Your [Non-Staff] - 1-2 Weeks Print Language: Chilean Disposition Disposition: Home, Self Care What to do if you have Problems For any increased pain, shortness of breath, bleeding, nausea or vomiting, chestpain, or any unexpected problems, contact your Primary Care Provider. Call [facility] ([phone]) or report to the closest Emergency Room. Call 911 if necessary. 12/25/24 0243 <Electronically signed by Burke Ferraro MD> Juliaigner Signature (if applicable): CC: No Primary Care Physician ~ Signed [facility] Work Phone: Evaluation note 10-16-2024 Note Date & Type Note Facility 10-16-2024 Evaluation note Diagnosis Onset Date Resolution Multiple sclerosis acute October 162024 3:07pm Hypertension chronic October 16 3:07pm Obstructive sleep apnea suspected M 2024 3:07pm [facility] Work Phone: Evaluation note Note Date & Type Note Facility Evaluation note No assessment information availa ble [facility] Work Phone: Evaluation note Note Date & Type Note Facility Evaluation note Diagnosis Sleep apnea, unspecified- Primary documented in this encounter [facility] Instructions Note Date & Type Note [...] (narrative) No reason for referral information available [facility] Work Phone: Family History No Family [...] Re-est (Self) October 16, 2024 3:07p m Chief Complaint Admit Date Re-est (Self) October 16, 2024 3:07p m constipation December 24, 2024 10:1 2pm Reason for Visit Admit Date Multiple sclerosis October 16, 2024 3:07p m Hypertension October 16, 2024 3:07p m Obstructive sleep apnea October 16, 2024 3 :07pm Advance Directives No Advanced Directives Records Found Advance Directive Response Recorded Date/ Time Advance Directives No June 10:51am Living Will No May 19 5:50pm Power of Chemist No May 19, 2021 5:50pm Advance Directive Response Recorded Date/ Time Advance Directives No June 10:51am Advance Directive Response Recorded Date/ Time Do you have a Healthcare Power of Chemist? No December 24, 2024 10:33pm Advance Directives No June 10:51am Summary Purpose Additional Source Comments Care Teams (unrecognized sec tion and content) Team Status: Active Member Role Status Dates Delma Story PRESSURE TANK OPERATOR, 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 Family Provider Active No Primary Care Physician [...] Physician Primary Care Provider Active Out of Town Doctor Attending Provider Active Team Status: Active Member Role Status Dates No Primary Care Physician Primary Care Provider Active Team Status: Inactive Member Role Status Dates No Primary Care Physician Primary Care Provider Active Start: August 22, 2024 End: August 22, 2024 KENYBERNARDINO DOMINGUEZ , 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 Attending Provider Active Sta rt: August 22, 2024 End: August 22, 2024 KENY DOMINGUEZ , 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 Referring Provider Active Sta rt: August 22, 2024 End: August 22, 2024 Team Status: Inactive Member Role Status Dates No Primary Care Physician Primary Care Provider Active Start: August 27, 2024 End: August 27, 2024 KENY DOMINGUEZ , 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 Attending Provider Active Sta rt: August 27, 2024 End: August 27, 2024 KENY DOMINGUEZ , 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 Referring Provider Active Sta rt: August 27, [...] October 16, 2024 End: October 16, 2024 Team Status: Active Member Role/Relationship Status Dates No Primary Care Physician Primary Care Provider Active Team Status: Inactive Member Role/Relationship Status Dates No Primary Care Physician Primary Care Provider Active Start: August 27, 2024 End: August 27, 2024 KENY DOMINGUEZ , 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 Attending Provider Active Sta rt: August 27, 2024 End: August 27, 2024 KENY DOMINGUEZ , 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 Referring Provider Active Sta rt: August 27, 2024 End: August 27, 2024 Team Status: Inactive Member Role/Relationship Status Dates No Primary Care Physician Primary Care Provider Active Start: October 16, 2024 End: October 16, 2024 No Primary Care Physician Referring Provider Active Start: October 16, 2024 End: October 16, 2024 Dr. Coleman Khan MD Attending Provider Active Start: October 16, 2024 End: October 16, 2024 Team Status: Inactive Member Role/Relationship Status Dates No Primary Care Physician Primary Care Provider Active Start: December 24, 2024 End: December 25, 2024 Dr. Bruke Ferraro MD Emergency Provider Active Start: December 24, 2024 End: December 25, 2024 Goals (unrecognized section and content) Goals [...] ized section and content) DATE CREATED AUTHOR 12/26/2024 [facility] FOR RECORDS PERTAINING TO PATIENTS WHO ARE [...] BE BASED ON THE PRIMARY CLINICAL RECORDS. [employer] provides no warranty or guarantee of the accuracy or completeness of information in this document.
[2024-12-29] MEDS: 0.9% Normal Saline (1000mL) 1,000 ML 999 ML IV (07:31)
[2024-12-29 07:44] LABS: Hematocrit 47.1 % (40-54); Hemoglobin 16.4 g/dL (13.0-16.5); Immature Granulocytes Count 0.020 X10^3/uL (0.0-0.0); Mean Corp Hgb Conc 34.8 g/dL (32-36); Mean Corpuscular Volume 87.9 fL (80-94); Mean Platelet Vol. 9.2 fl (6.2-12.0); NRBC Flagged by Analyzer 0 % (0-5); Platelet Count 278 K/mm3 (150-450); RBC Distribution Width CV 12.7 % (11.6-14.6); RBC Distribution Width SD 41.1 fl (35.1-43.9); Red Blood Count 5.36 M/mm3 (4.6-6.2); White Blood Count 6.3 K/mm3 (4.4-11.0)
[2024-12-29 08:39] LABS: AST(SGOT) 26 U/L (<=37); Alanine Aminotransfer ALT/SGPT 24 U/L (<=46); Albumin, Serum 4.4 g/dL (3.5-5.0); Alkaline Phosphatase 104 U/L (40-129); Anion Gap 14 (5-15); BUN 12 mg/dL (4-19); BUN/Creat Ratio 9.1 RATIO (10-20); Calcium,Total 9.4 mg/dL (7.6-11.0); Carbon Dioxide 20.9 mmol/L (21.0-32.0); Chloride 101 mmol/L (98-108); Estimated Creatinine Clearance 67.06 ml/min (50-250); Globulin 3.2 g/dL (2.2-4.2); Glucose 113 mg/dL (70-99); Lipase 60 U/L (13-75); Potassium 4.1 mmol/L (3.3-5.1)
[2024-12-29 10:07] VITALS: BP 105/73; PULSE 83; RESP 16; O2SAT 97
[2024-12-29 10:45] VITALS: BP 118/80; PULSE 72; RESP 16; TEMP 36.7; O2SAT 97
== END 2024-12-29 10:45 | disposition home or self-care (01) ==
PROVIDERS: Emergency Provider Surgery; Visit Provider Surgery
DX: K59.00 Constipation, unspecified (principal); K57.92 Diverticulitis of intestine, part unspecified, without perforation or abscess without bleeding; I10 Essential (primary) hypertension; Z79.899 Other long term (current) drug therapy; F17.290 Nicotine dependence, other tobacco product, uncomplicated
CPT/HCPCS: 74177; 80053; 83690; 85025; 96361; 96374; 96376; 99283; Q9967; A4216; J2405

== ENCOUNTER → 2025-02-13 | Outpatient (CLI) | payer OTHER, SELFPAY ==
[2025-02-13 16:46] LABS: Hematocrit 41.1 % (40-54); Hemoglobin 14.7 g/dL (13.0-16.5); Immature Granulocytes Count 0.020 X10^3/uL (0.0-0.0); Mean Corp Hgb Conc 35.8 g/dL (32-36); Mean Corpuscular Volume 87.3 fL (80-94); Mean Platelet Vol. 9.8 fl (6.2-12.0); NRBC Flagged by Analyzer 0 % (0-5); Platelet Count 268 K/mm3 (150-450); RBC Distribution Width CV 12.8 % (11.6-14.6); RBC Distribution Width SD 40.7 fl (35.1-43.9); Red Blood Count 4.71 M/mm3 (4.6-6.2); White Blood Count 7.1 K/mm3 (4.4-11.0)
[2025-02-13 17:20] LABS: AST(SGOT) 20 U/L (<=37); Alanine Aminotransfer ALT/SGPT 23 U/L (<=46); Albumin, Serum 4.4 g/dL (3.5-5.0); Alkaline Phosphatase 80 U/L (40-129); Anion Gap 12 (5-15); BUN 12 mg/dL (4-19); BUN/Creat Ratio 9.9 RATIO (10-20); Calcium,Total 8.9 mg/dL (7.6-11.0); Carbon Dioxide 24.1 mmol/L (21.0-32.0); Chloride 103 mmol/L (98-108); Free T3 2.7 pg/mL (2.18-3.98); Globulin 2.5 g/dL (2.2-4.2); Glucose 82 mg/dL (70-99); PSA,Total- Diagnostic 0.60 ng/mL (0.00-4.00); Potassium 3.8 mmol/L (3.3-5.1); Vitamin B12 195 pg/mL (180-914); Vitamin D,25 Hydroxy 35.2 ng/mL (30-100)
[2025-02-13 17:30] LABS: FOLATES,SERUM (FOLIC ACID) 9.70 ng/mL (4.60-34.80)
[2025-02-15 04:07] LABS: HOMOCYSTEINE 18.4 umol/L (0.0-14.5)
[2025-02-17 15:08] LABS: EBV Acute VCA IgM < 36.0 U/mL (0.0-35.9); EBV-VCA IgG > 600.0 U/mL (0.0-17.9)
== END | disposition home or self-care (01) ==
LOC: LAB 15:56
DX: N40.1 Benign prostatic hyperplasia with lower urinary tract symptoms (principal); E03.9 Hypothyroidism, unspecified; R97.20 Elevated prostate specific antigen [PSA]; E72.11 Homocystinuria; E72.12 Methylenetetrahydrofolate reductase deficiency; B27.90 Infectious mononucleosis, unspecified without complication; E29.1 Testicular hypofunction; E55.9 Vitamin D deficiency, unspecified; I25.10 Atherosclerotic heart disease of native coronary artery without angina pectoris
CPT/HCPCS: 36415; 80053; 82306; 82607; 82627; 82670; 82746; 83090; 84153; 84403; 84439; 84443; 84481; 85025; 86376; 86664; 86665; 82626

== ENCOUNTER → 2025-03-28 | Outpatient (CLI) | payer OTHER, SELFPAY ==
[2025-03-28 17:26] LABS: Hematocrit 47.1 % (40-54); Hemoglobin 16.1 g/dL (13.0-16.5); Immature Granulocytes Count 0.010 X10^3/uL (0.0-0.0); Mean Corp Hgb Conc 34.2 g/dL (32-36); Mean Corpuscular Volume 89.0 fL (80-94); Mean Platelet Vol. 10.4 fl (6.2-12.0); NRBC Flagged by Analyzer 0 % (0-5); Platelet Count 294 K/mm3 (150-450); RBC Distribution Width CV 12.6 % (11.6-14.6); RBC Distribution Width SD 41.6 fl (35.1-43.9); Red Blood Count 5.29 M/mm3 (4.6-6.2); White Blood Count 7.4 K/mm3 (4.4-11.0)
[2025-03-28 17:34] LABS: AST(SGOT) 23 U/L (<=37); Alanine Aminotransfer ALT/SGPT 19 U/L (<=46); Albumin, Serum 4.9 g/dL (3.5-5.0); Alkaline Phosphatase 92 U/L (40-129); Anion Gap 12 (5-15); BUN 13 mg/dL (4-19); BUN/Creat Ratio 12.6 RATIO (10-20); Calcium,Total 9.4 mg/dL (7.6-11.0); Carbon Dioxide 25.3 mmol/L (21.0-32.0); Chloride 101 mmol/L (98-108); Globulin 3.4 g/dL (2.2-4.2); Glucose 77 mg/dL (70-99); Potassium 3.7 mmol/L (3.3-5.1)
[2025-03-30 09:08] LABS: Immunoglobulin G 1327 mg/dL (603-1613)
== END | disposition home or self-care (01) ==
LOC: LAB 15:50
PROVIDERS: Referring Provider Student in an Organized Health Care Education/Training Program; Visit Provider Student in an Organized Health Care Education/Training Program
DX: G35.D Multiple sclerosis, unspecified (principal); Z13.0 Encounter for screening for diseases of the blood and blood-forming organs and certain disorders involving the immune mechanism; Z79.899 Other long term (current) drug therapy
CPT/HCPCS: 36415; 80053; 82784; 85025